=== PATIENT | male | born 1950 | race Caucasian/White ===

== ENCOUNTER 2023-05-06 07:29 | Outpatient (AMB) | payer MEDICARE, SELFPAY ==
--- NOTE | 2023-05-06 07:31 | MHC.PC.OV ---
Vital Signs 05/06/23 07:33 Height 6 ft Weight 180 lb BMI 24.4 BP 118/80 Blood Pressure Location Lt brachial Position Sitting Pulse 60 Pulse Source Pulse Oximeter Pulse Oximetry (%) 97 Oxygen Delivery Method Room Air Intake Visit Reasons: New patient-Kidney stones Allergies No Known Allergies Allergy (Verified 05/06/23 07:34) Medication List - Last Reconciled 05/06/23 by Ne Dean MD aspirin (Adult Low Dose Aspirin) 81 mg PO DAILY carvedilol 6.25 mg PO BID famotidine 20 mg PO DAILY metformin ER 750 mg PO DAILY rosuvastatin 20 mg PO DAILY tamsulosin 0.4 mg PO DAILY Tobacco use date assessed: 05/06/23 Fall risk assessment: No Falls in past year Last assessed Fall Risk: 05/06/23 Dental Screening Dental Screen Date: 05/06/23 Did you have a dental visit in the last 12 months?: Yes Did you have a dental problem in the last 6 months where you did not have access to dental care?: No Was dental information given to patient?: Patient has dentist HPI New patient-Kidney stones HPI Details Pt presents for [facility] visit. Past medical history includes type 2 diabetes for 1 year the most recent A1c was around 9 a month ago, hyperlipidemia, coronary artery disease status post one stent 2008, nephrolithiasis. [facility] Family History (Updated 05/06/23 @ 08:28 by Ne Dean MD) Brother DM type 2 (diabetes mellitus, type 2) CAD (coronary artery disease) Father CAD (coronary artery disease) Social History (Updated 05/06/23 @ 08:18 by Ne Dean MD) 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:: , Housing: House Patient Tobacco Use Status: Never used Tobacco e-Cigarette/Vaping Use: Never Used service: No Current occupational status: retired Cognitive needs: No Hearing needs: Yes Vision needs: Yes Questionnaire PHQ-9 Over the last 2 weeks, how often have you been bothered by any of the following problems? 1. Little interest or pleasure in doing things: several days 2. Feeling down, depressed, or hopeless: not at all 3. Trouble falling or staying asleep, or sleeping too much: several days 4. Feeling tired or having little energy: several days 5. Poor appetite or overeating: not at all 6. Feeling bad about yourself - or that you are a failure or have let yourself or your family down: not at all 7. Trouble concentrating on things, such as reading the newspaper or watching television: not at all 8. Moving or speaking so slowly that other people could have noticed. Or the opposite - being so fidgety or restless that you have been moving around a lot more than usual: several days 9. Thoughts that you would be better off or of hurting yourself in some way: not at all Total score: 4 Depression Screening Interpretation: Negative 34600 - PHQ-9 Billing: Yes Source: Developed by Drs. Kimo Strauss, Josiane Maya, Jesus Alberto Fagan and colleagues, with an educational loren from [employer] Thrive Questionnaire Date Thrive assessed: 05/06/23 I am a: Patient What is your living situation today?: I have a steady place to live Within the past 12 months, did the food you bought not last and you didn't have the money to get more?: Never true Within the past 12 months, did you worry whether your food would run out before you got money to buy more?: Never true Do you have trouble paying for medicines?: No Do you have trouble getting transportation to medical appointments?: No Do you have trouble paying your heating and electricity bill?: No Do you have trouble taking care of your child, family member or friend?: No Do you have trouble with day-to-day activities such as bathing, preparing meals, shopping, managing finances, etc.?: No Are you currently unemployed and looking for a job?: No Are you interested in more education?: No AUDIT C Alcohol Use Questionnaire (AUDIT-C) 1. How often do you have a drink containing alcohol?: Never 3. How often do you have six or more drinks on one occasion?: Never Total Score: 0 Score Reviewed/Action Taken: No MILLA-7 AMB Questionnaire MILLA-7 Date MILLA - 7 assessed: 05/06/23 Feeling nervous, anxious, or on edge: 2 = More than half the days Not being able to stop or control worryin = Several days Worrying too much about different things: 1 = Several days Trouble relaxin = Several days Being so restless that it is hard to sit still: 0 = Not at all Becoming easily annoyed or irritable: 1 = Several days Feeling afraid as if something awful might happen: 0 = Not at all Total MILLA-7 score (0-4 normal; 5-9 mild; 10-14 moderate; 15-21 severe): 6 Source: Developed by Drs. Kimo Strauss, Josiane Maya, Jesus Alberto Fagan and colleagues, with an educational loren from [employer] MILLA-7 Assessment Billing MILLA-7 Assessment Tool: MILLA-7 Assessment 62885 Review of Systems Const All systems reviewed & are unremarkable except as noted in HPI and below Reports no additional complaints Eyes Reports no additional complaints ENT Reports no additional complaints Card Reports no additional complaints Resp Reports no additional complaints GI Reports no additional complaints Reports no additional complaints Musc Reports no additional complaints Skin/Breast Reports system reviewed and no additional complaints, except as documented Physical exam (Primary Care) Vital Signs: Last Vital Signs Pulse 60 05/06/23 07:33 BP 118/80 05/06/23 07:33 Pulse Ox 97 05/06/23 07:33 Oxygen Delivery Method Room Air 05/06/23 07:33 BMI result Body Mass Index 24.4 Tobacco/Smoking Status: Tobacco use Status Tobacco use date assessed 05/06/23 05/06/23 07:39 Patient Tobacco Use Status Never used Tobacco 05/06/23 08:18 e-Cigarette/Vaping Use Never Used 05/06/23 08:18 PHQ-9: PHQ-9 Score PHQ-9: Total score 4 05/06/23 08:52 Depression Screening Interpretation: Negative Thrive Assessment: Date of Thrive Assessment Date Thrive assessed 05/06/23 05/06/23 08:52 Const General: no acute distress HENMT Head: Yes normal to inspection Ears: hearing grossly normal bilaterally Face and sinus: Yes normal facial exam Mouth: Normal oral and palatal mucosa present Teeth and gingiva: dentition normal Throat: Yes posterior oropharynx normal Eyes General: appearance normal, both eyes and all related structures Neck Neck: Yes no lymphadenopathy and Yes supple Chest Chest palpation & inspection: normal inspection of the chest Resp Effort & Inspection: normal respiratory effort Cardio Rhythm: regular rhythm Heart sounds: S1 normal heart sound present and S2 normal heart sound present GI Inspection: Yes normal to inspection Palpation (GI): Soft to palpation and No hepatosplenomegaly present Auscultation: normal bowel sounds Assessment and Plan Assessment & Plan (1) DM type 2 (diabetes mellitus, type 2): Comment: since 2021 Code(s): E11.9 - Type 2 diabetes mellitus without complications Plan: Patient is reluctant to take a more than 1500 mg of metformin. ADA diet , regular physical activity discussed with the patient. he was advised to start monitoring his fasting blood glucose at least 3 times a week and record the readings. Patient will follow-up in 2 months with a fasting labs including A1c (2) HTN (hypertension): Code(s): I10 - Essential (primary) hypertension Plan: Continue current medications (3) Hyperlipidemia: Code(s): E78.5 - Hyperlipidemia, unspecified Plan: Continue statin (4) CAD (coronary artery disease): Comment: 1 stent 2008, f/u cardiology [facility] Code(s): I25.10 - Atherosclerotic heart disease of [place] coronary artery without angina pectoris Plan: Follow-up with cardiology annually (5) BPH (benign prostatic hyperplasia): Code(s): N40.0 - Benign prostatic hyperplasia without lower urinary tract symptoms Plan: Follow-up with urology (6) PVD (peripheral vascular disease): Comment: [facility] Code(s): I73.9 - Peripheral vascular disease, unspecified (7) Hx of colonoscopy: Comment: 2021 negative Trinitiy Code(s): Z98.890 - Other specified postprocedural states (8) Nephrolithiasis: Comment: f/u Dr. Siegel Code(s): N20.0 - Calculus of kidney Plan: Follow-up with urology Orders: Orders Comprehensive [place]. Panel Fast 2 Months E11.9 - Type 2 diabetes mellitus without complications, E78.5 - Hyperlipidemia, unspecified, I10 - Essential (primary) hypertension Hemoglobin A1c 2 Months E11.9 - Type 2 diabetes mellitus without complications, E78.5 - Hyperlipidemia, unspecified, I10 - Essential (primary) hypertension Lipid Panel 2 Months E11.9 - Type 2 diabetes mellitus without complications, E78.5 - Hyperlipidemia, unspecified, I10 - Essential (primary) hypertension PSA,Total (Free>4and<10) 2 Months E11.9 - Type 2 diabetes mellitus without complications, E78.5 - Hyperlipidemia, unspecified, I10 - Essential (primary) hypertension Microalbumin, Random (w Creat) 2 Months E11.9 - Type 2 diabetes mellitus without complications, E78.5 - Hyperlipidemia, unspecified, I10 - Essential (primary) hypertension Complete Blood Count Auto Diff 2 Months E11.9 - Type 2 diabetes mellitus without complications, E78.5 - Hyperlipidemia, unspecified, I10 - Essential (primary) hypertension Medications: New blood sugar diagnostic (FreeStyle Lite Strips) 1 qd 100 ea 3RF blood-glucose meter (FreeStyle Lite Meter kit) As directed 1 ea 0RF Coding Level of Care Code New Pt Level 4 (90763) Diagnoses DM type 2 (diabetes mellitus, type 2) E11.9 HTN (hypertension) I10 Hyperlipidemia E78.5 CAD (coronary artery disease) I25.10 BPH (benign prostatic hyperplasia) N40.0 PVD (peripheral vascular disease) I73.9 Hx of colonoscopy Z98.890 Nephrolithiasis N20.0 Additional Codes MILLA-7 Assessment Billing - MILLA-7 Assessment Tool: MILLA-7 Assessment 66921 ([id number])
[2023-05-06 07:33] VITALS: BP 118/80; PULSE 60; O2SAT 97; BMI 24.4
== END 2023-05-06 10:12 | disposition home or self-care (01) ==
PROVIDERS: Visit Provider Internal Medicine
DX: E11.51 Type 2 diabetes mellitus with diabetic peripheral angiopathy without gangrene (principal); I10 Essential (primary) hypertension; I73.9 Peripheral vascular disease, unspecified; Z98.890 Other specified postprocedural states; E78.5 Hyperlipidemia, unspecified; I25.10 Atherosclerotic heart disease of native coronary artery without angina pectoris; N40.0 Benign prostatic hyperplasia without lower urinary tract symptoms; N20.0 Calculus of kidney
CPT/HCPCS: 99204

== ENCOUNTER 2023-06-30 12:52 | Outpatient (AMB) | payer MEDICARE, SELFPAY ==
[2023-06-30 13:01] VITALS: BP 157/68; PULSE 60; BMI 24.5
--- NOTE | 2023-06-30 13:01 | A.OFFVIS_ITS ---
Intake Vital Signs 06/30/23 13:01 Height 6 ft Weight 181 lb BMI 24.5 BP 157/68 H Blood Pressure Location Rt brachial Position Sitting Pulse 60 Intake Visit Reasons: Abd hernia Intake Note: Patient was referred by pcp Dr. Dean for abdominal hernia. Has been present for 2-3m. C/o pain that comes and goes. Sitting and laying down helps. Table And Desk Finisher Required: No Accompanied by: Self / Same As Patient Allergies No Known Allergies Allergy (Verified 06/30/23 13:03) HPI HPI Comments History of Present Illness Details Patient presents with a three-month history of symptomatic right inguinal hernia. He thinks this happened during a bout of a severe constipation which actually required ER visit for disimpaction. Patient otherwise tolerating a diet and having regular bowel habits. He has had colonoscopies in the past. Patient is status post coronary stenting approximately 14 years ago. Chart was reviewed patient evaluated [facility] Medical History (Updated 06/30/23 @ 13:06 by LYNNE Ewing) Presence of stent in artery Hx of type 2 diabetes mellitus Family History Brother DM type 2 (diabetes mellitus, type 2) CAD (coronary artery disease) Father CAD (coronary artery disease) Social History (Updated 06/30/23 @ 13:06 by LYNNE Ewing) 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:: , Housing: House Alcohol intake: never Patient Tobacco Use Status: Never used Tobacco e-Cigarette/Vaping Use: Never Used service: No Current occupational status: retired Cognitive needs: No Hearing needs: Yes Vision needs: Yes Physical Exam Vital Signs: Last Vital Signs Pulse 60 06/30/23 13:01 BP 157/68 H 06/30/23 13:01 BMI result Body Mass Index 24.5 Chest Other: Hs 1 and 2, chest breath sounds bilaterally GI Other: Patient was examined standing with Valsalva. Abdomen soft benign. Left groin negative. Genitalia within normal limits. Moderately sized right inguinal hernia. Assessment & Plan Assessment & Plan (1) Hernia: Code(s): K46.9 - Unspecified abdominal hernia without obstruction or gangrene Plan Risks, benefits, alternatives of open inguinal hernia repair right side with mesh were reviewed with the patient which included but not limited to bleeding, infection, recurrence, numbness, pain, scarring and the patient wishes to procee d. All questions were answered. Arrangements were made for this. Coding Level of Care Code New Pt Level 5 (61217) Diagnoses Hernia K46.9
== END 2023-06-30 13:35 | disposition home or self-care (01) ==
PROVIDERS: PCP Internal Medicine; Referring Provider Internal Medicine; Visit Provider Surgery
DX: K46.9 Unspecified abdominal hernia without obstruction or gangrene (principal)
CPT/HCPCS: 99204

== ENCOUNTER → 2023-06-30 12:52 | Outpatient (BNVA) | payer MEDICARE, SELFPAY | PROVIDERS: PCP Internal Medicine; Referring Provider Internal Medicine; Visit Provider Surgery ==

== ENCOUNTER 2023-08-06 11:45 | Outpatient (AMB) | payer MEDICARE, SELFPAY ==
[2023-08-06 11:55] VITALS: BP 144/76; PULSE 54; O2SAT 98; BMI 24.4
--- NOTE | 2023-08-06 11:55 | MHC.PC.OV ---
Vital Signs 08/06/23 11:55 Height 6 ft Weight 180 lb BMI 24.4 BP 144/76 H Blood Pressure Location Lt brachial Position Sitting Pulse 54 Pulse Source Pulse Oximeter Pulse Oximetry (%) 98 Oxygen Delivery Method Room Air Intake Visit Reasons: 2 month Follow up Intake Note: Pt is here today for 2 months follow up visit. Allergies No Known Allergies Allergy (Verified 08/06/23 11:56) Tobacco use date assessed: 05/06/23 HPI 2 month Follow up HPI Details Pt presents for DM 2, HTN, hyperlipid, stable on meds. He will have a hernia repair surgery next month. PFSH Medical History [place] (hard of hearing) Arthritis GERD (gastroesophageal reflux disease) Thoracic aortic aneurysm without rupture Elevated cholesterol HTN (hypertension) CAD (coronary artery disease) BPH (benign prostatic hyperplasia) Nephrolithiasis Hx of type 2 diabetes mellitus Surgical History History of esophagogastroduodenoscopy (EGD) Hx of lithotripsy Hx of heart artery stent H/O colonoscopy Family History Brother DM type 2 (diabetes mellitus, type 2) CAD (coronary artery disease) Father CAD (coronary artery disease) Social History 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:: , Housing: House Are you a primary emergency care attendant to a significant other at home: No Do you presently have visiting nurse or other home services: No Alcohol intake: never Patient Tobacco Use Status: Former Tobacco user Quit Date: age 27 Tobacco use type: Cigarette Years Smoked: 8 e-Cigarette/Vaping Use: Never Used service: No Current occupational status: retired Cognitive needs: No Hearing needs: Yes Vision needs: Yes Questionnaire Thrive Questionnaire Date Thrive assessed: 05/06/23 MILLA-7 AMB Questionnaire MILLA-7 Date MILLA - 7 assessed: 05/06/23 Source: Developed by Drs. Kimo Strauss, Josiane Maya, Jesus Alberto Fagan and colleagues, with an educational loren from [employer]. Review of Systems Const All systems reviewed & are unremarkable except as noted in HPI and below Reports no additional complaints Eyes Reports no additional complaints ENT Reports no additional complaints Card Reports no additional complaints Resp Reports no additional complaints GI Reports no additional complaints Reports no additional complaints Physical exam (Primary Care) Vital Signs: Last Vital Signs Pulse 54 08/06/23 11:55 BP 144/76 H 08/06/23 11:55 Pulse Ox 98 08/06/23 11:55 Oxygen Delivery Method Room Air 08/06/23 11:55 BMI result Body Mass Index 24.4 Tobacco/Smoking Status: Tobacco use Status Tobacco use date assessed 05/06/23 08/06/23 11:59 Patient Tobacco Use Status Former Tobacco user 08/06/23 11:59 Tobacco use type Cigarette 08/06/23 11:59 e-Cigarette/Vaping Use Never Used 08/06/23 11:59 Thrive Assessment: Date of Thrive Assessment Date Thrive assessed 05/06/23 08/06/23 11:59 Const General: no acute distress HENMT Head: Yes normal to inspection Face and sinus: Yes normal facial exam Neck Neck: Yes supple Resp Effort & Inspection: normal respiratory effort Auscultation: clear to auscultation bilaterally Cardio Rhythm: regular rhythm Heart sounds: S1 normal heart sound present and S2 normal heart sound present GI Palpation (GI): Soft to palpation Percussion: Yes normal to percussion Auscultation: normal bowel sounds Assessment and Plan Assessment & Plan (1) Vitamin B 12 deficiency: Code(s): E53.8 - Deficiency of other specified B group vitamins Plan: For slight macrocytosis check B12 level (2) Hyperlipidemia: Code(s): E78.5 - Hyperlipidemia, unspecified Plan: Continue statin (3) HTN (hypertension): Code(s): I10 - Essential (primary) hypertension Plan: Continue current medications (4) DM type 2 (diabetes mellitus, type 2): Comment: since 2021 Code(s): E11.9 - Type 2 diabetes mellitus without complications Plan: A1c is 6.3, ADA diet, continue current medication, increase physical activity. Patient was advised to eat the main meal in the middle of the day Orders: Orders Vitamin B12 Today E53.8 - Deficiency of other specified B group vitamins Comprehensive [place]. Panel Fast 3 Months E11.9 - Type 2 diabetes mellitus without complications, E53.8 - Deficiency of other specified B group vitamins, E78.5 - Hyperlipidemia, unspecified, I10 - Essential (primary) hypertension Complete Blood Count Auto Diff 3 Months E11.9 - Type 2 diabetes mellitus without complications, E53.8 - Deficiency of other specified B group vitamins, E78.5 - Hyperlipidemia, unspecified, I10 - Essential (primary) hypertension Lipid Panel 3 Months E11.9 - Type 2 diabetes mellitus without complications, E53.8 - Deficiency of other specified B group vitamins, E78.5 - Hyperlipidemia, unspecified, I10 - Essential (primary) hypertension Hemoglobin A1c 3 Months E11.9 - Type 2 diabetes mellitus without complications, E53.8 - Deficiency of other specified B group vitamins, E78.5 - Hyperlipidemia, unspecified, I10 - Essential (primary) hypertension Microalbumin, Random (w Creat) 3 Months E11.9 - Type 2 diabetes mellitus without complications, E53.8 - Deficiency of other specified B group vitamins, E78.5 - Hyperlipidemia, unspecified, I10 - Essential (primary) hypertension Coding Level of Care Code Est Pt Level 4 (64449) Diagnoses Vitamin B 12 deficiency E53.8 Hyperlipidemia E78.5 HTN (hypertension) I10 DM type 2 (diabetes mellitus, type 2) E11.9
== END 2023-08-06 12:54 | disposition home or self-care (01) ==
PROVIDERS: PCP Internal Medicine; Visit Provider Internal Medicine
DX: E53.8 Deficiency of other specified B group vitamins (principal); E78.5 Hyperlipidemia, unspecified; I10 Essential (primary) hypertension; E11.9 Type 2 diabetes mellitus without complications
CPT/HCPCS: 99214

== ENCOUNTER 2023-08-06 12:49 | Outpatient (REF) | payer MEDICARE, SELFPAY ==
[2023-08-06 16:50] LABS: Vitamin B12 382 pg/mL (200-900)
== END 2023-08-06 12:50 | disposition home or self-care (01) ==
LOC: HO.HMGCLDS 12:49
PROVIDERS: PCP Internal Medicine; Visit Provider Internal Medicine
DX: E53.8 Deficiency of other specified B group vitamins (principal)
CPT/HCPCS: 36415; 82607

== ENCOUNTER 2023-08-21 05:58 | Day surgery (SDC) | payer MEDICARE, SELFPAY ==
[2023-07-24 13:25] VITALS: BP 162/79; PULSE 61; RESP 20; O2SAT 99; BMI 24.4
--- NOTE | 2023-07-24 14:05 | HO.ANESPROP2 ---
Documented by User: Reny Nevarez NP 08/04/23 14:38 HPI - Anesthesia Eval Consult details Narrative: 73yo M for Right Hernia Repair Inguinal with mesh, 08/21/23 Cardiac cleared. Must continue ASA periop No recent illness No CP/SOB with >4mets CAD with stent 2009 TAA @ 4.3cm DM. FBS ~170 PMFSH Active Problems Active Problems: All Active Problems (Updated 07/24/23 @ 13:17 by Sepideh Jackson RN) Hernia (Acute) Hx of colonoscopy (Acute) Nephrolithiasis (Acute) PVD (peripheral vascular disease) (Acute) BPH (benign prostatic hyperplasia) (Acute) CAD (coronary artery disease) (Acute) Hyperlipidemia (Acute) HTN (hypertension) (Acute) DM type 2 (diabetes mellitus, type 2) (Acute) Past Medical History Medical History [place] (hard of hearing) Arthritis GERD (gastroesophageal reflux disease) Thoracic aortic aneurysm without rupture Elevated cholesterol HTN (hypertension) CAD (coronary artery disease) BPH (benign prostatic hyperplasia) Nephrolithiasis Hx of type 2 diabetes mellitus Family History Family History Brother DM type 2 (diabetes mellitus, type 2) CAD (coronary artery disease) Father CAD (coronary artery disease) Family history of problems with anesthesia: No Surgical History Surgical History History of esophagogastroduodenoscopy (EGD) Hx of lithotripsy Hx of heart artery stent H/O colonoscopy History of Problems with Anesthesia: No Social History Social History 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:: , Housing: House Are you a primary care program director to a significant other at home: No Do you presently have visiting nurse or other home services: No Alcohol intake: never Patient Tobacco Use Status: Former Tobacco user Quit Date: age 27 Tobacco use type: Cigarette Years Smoked: 8 e-Cigarette/Vaping Use: Never Used Use of substances other than those prescribed or required for medical reasons: Yes Substance Use Type Other:: 2-3 times/week Have you been hit, kicked, punched, or otherwise hurt by someone within the past year? If so, by whom?: No Are you DNR?: No Advance Directives Information Provided: Yes Advance Directives on File: No Recently lost weight without trying: No Eating poorly because of decreased appetite: No Nutrition Risks: No Nutritional Risk Poor oral hygiene: No service: No Current occupational status: retired Cognitive needs: No Hearing needs: Yes Vision needs: Yes Meds Allergies Allergy/AdvReac Type Severity Reaction Status Date / Time No Known Allergies Allergy Verified 08/21/23 06:28 Home Medications Medication Instructions Recorded Confirmed Last Taken Type aspirin 81 mg tablet,delayed 81 mg PO DAILY 05/06/23 08/21/23 08/20/23 History release (Adult Low Dose Aspirin) famotidine 20 mg tablet 20 mg PO BEDTIME 07/24/23 08/21/23 Unknown History metformin 1,000 mg tablet 1,000 mg PO BEDTIME 07/24/23 08/21/23 08/20/23 History metformin 500 mg tablet 500 mg PO QAM 07/24/23 08/21/23 08/20/23 History rosuvastatin 20 mg tablet 20 mg PO BEDTIME 07/24/23 08/21/23 Unknown History tamsulosin 0.4 mg capsule 0.4 mg PO BEDTIME 07/24/23 08/21/23 Unknown History vit C 250 mg-E 90 mg-zinc 40 1 tab PO QAM 07/24/23 08/21/23 Unknown History mg-copper 1 [id number] chew tablet (PreserVision AREDS-2) Exam Exam Date and Time: July 24, 2023 1405 Height,Weight and Vital Signs: Height 6 ft Weight 81.647 kg Last Vital Signs Pulse 61 07/24/23 13:25 Resp 20 07/24/23 13:25 BP 162/79 H 07/24/23 13:25 Pulse Ox 99 07/24/23 13:25 O2 Del Method Room Air 07/24/23 13:25 Pertinent Lab Results Pertinent Lab Results: BMP and CBC 06/2023 from outside facility WNL A1C @ 6.3 Narrative Narrative: EKG 01/2023 SR with 1st deg AV block ECHO 03/2023 Nml LV size , wall thickness and systolic function Nml regional wall motion Abn LV diastolic function LVEF 55-60% Probably nml DD Nml RV size. RV appears nml in function. PASP not elevated Atria nml in size No hemodynamically signficant valve disease Sinus of Valsalva 4.2cm Asc aorta 3.7cm Airway Mallampati Class: I TM Dist: >3cm Neck ROM: Full Loose/Missing/Broken Teeth: Yes (Crowned molars, pulled molars) Heart: RRR Lungs: CTAB Assessment and Plan Assessment Anesthesia Assessment: Anesthesia Plan Discussed and PAT Visit Final Anesthetic Review Family History of Problems with Anesthesia: No History of Problems with Anesthesia: No Documented by User: Hollie Cartagena MD 08/21/23 07:20 [facility] Past Medical History Medical History [place] (hard of hearing) Arthritis GERD (gastroesophageal reflux disease) Thoracic aortic aneurysm without rupture Elevated cholesterol HTN (hypertension) CAD (coronary artery disease) BPH (benign prostatic hyperplasia) Nephrolithiasis Hx of type 2 diabetes mellitus Family History Family History Brother DM type 2 (diabetes mellitus, type 2) CAD (coronary artery disease) Father CAD (coronary artery disease) Surgical History Surgical History History of esophagogastroduodenoscopy (EGD) Hx of lithotripsy Hx of heart artery stent H/O colonoscopy Social History Social History 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:: , Housing: House Are you a primary care program director to a significant other at home: No Do you presently have visiting nurse or other home services: No Alcohol intake: never Patient Tobacco Use Status: Former Tobacco user Quit Date: age 27 Tobacco use type: Cigarette Years Smoked: 8 e-Cigarette/Vaping Use: Never Used Use of substances other than those prescribed or required for medical reasons: Yes Substance Use Type Other:: 2-3 times/week Have you been hit, kicked, punched, or otherwise hurt by someone within the past year? If so, by whom?: No Are you DNR?: No Advance Directives Information Provided: Yes Advance Directives on File: No Recently lost weight without trying: No Eating poorly because of decreased appetite: No Nutrition Risks: No Nutritional Risk Poor oral hygiene: No service: No Current occupational status: retired Cognitive needs: No Hearing needs: Yes Vision needs: Yes Meds Allergies Allergy/AdvReac Type Severity Reaction Status Date / Time No Known Allergies Allergy Verified 08/21/23 06:28 Home Medications Medication Instructions Recorded Confirmed Last Taken Type aspirin 81 mg tablet,delayed 81 mg PO DAILY 05/06/23 08/21/23 08/20/23 History release (Adult Low Dose Aspirin) famotidine 20 mg tablet 20 mg PO BEDTIME 07/24/23 08/21/23 Unknown History metformin 1,000 mg tablet 1,000 mg PO BEDTIME 07/24/23 08/21/23 08/20/23 History metformin 500 mg tablet 500 mg PO QAM 07/24/23 08/21/23 08/20/23 History rosuvastatin 20 mg tablet 20 mg PO BEDTIME 07/24/23 08/21/23 Unknown History tamsulosin 0.4 mg capsule 0.4 mg PO BEDTIME 07/24/23 08/21/23 Unknown History vit C 250 mg-E 90 mg-zinc 40 1 tab PO QAM 07/24/23 08/21/23 Unknown History mg-copper 1 [id number] chew tablet (PreserVision AREDS-2) Exam Airway Mallampati Class: II Loose/Missing/Broken Teeth: No Assessment and Plan Assessment Anesthesia Assessment: Chart Reviewed Final Anesthetic Review NPO: Yes ASA Class: III Final Preanesthetic Review: Meds/Allgs Chart Reviewed, Consent Obtained/Reviewed and Anes Risks/Benef Reviewed Patient Risk: Intermediate Procedure Risk: Low Anesthetic Plan Anesthetic Plan: GA Disposition: Standard PACU
--- NOTE | 2023-07-30 09:26 | MHC.SHP ---
Pre-Procedural Eval Section A Date of Service: 07/30/23 The patient is an INPATIENT: No Changes since office visit: No Cold of Flu in the past 2 weeks, No New Medical Problems, No Changes in Medication and No Patient answered all questions The History & Physical has been completed within 30 days and I have reviewed it.: Yes Section B Chief Complaint: Unspecified abdominal hernia without obstruction Allergies: Allergies Allergy/AdvReac Type Severity Reaction Status Date / Time No Known Allergies Allergy Verified 06/30/23 13:03 Plan I have reviewed the history and physical and performed a pertinent physical examination on my patient. No changes have occurred unless specified. Time Spent With Patient Time: Total time managing care of this patient today ____ minutes.
--- NOTE | 2023-08-19 13:04 | MHC.SHP ---
Pre-Procedural Eval Section A Date of Service: 08/19/23 The patient is an INPATIENT: No Changes since office visit: No Cold of Flu in the past 2 weeks, No New Medical Problems, No Changes in Medication and No Patient answered all questions The History & Physical has been completed within 30 days and I have reviewed it.: Yes Section B Chief Complaint: Unspecified abdominal hernia without obstruction Allergies: Allergies Allergy/AdvReac Type Severity Reaction Status Date / Time No Known Allergies Allergy Verified 08/06/23 11:56 Plan I have reviewed the history and physical and performed a pertinent physical examination on my patient. No changes have occurred unless specified. Time Spent With Patient Time: Total time managing care of this patient today ____ minutes.
[2023-08-21 06:31] VITALS: BP 143/63; PULSE 57; RESP 16; TEMP 36.2; O2SAT 100
[2023-08-21 06:36] LABS: Glucose, Whole Blood 181 mg/dL (60-115)
[2023-08-21 06:40] VITALS: BMI 24.6
[2023-08-21] MEDS: Lactated Ringers 1,000 ML 100 ML IVCONT (07:12)
--- NOTE | 2023-08-21 07:31 | MHC.SHP ---
Pre-Procedural Eval Section A Date of Service: 08/21/23 The patient is an INPATIENT: No Changes since office visit: No Cold of Flu in the past 2 weeks, No New Medical Problems, No Changes in Medication and No Patient answered all questions The History & Physical has been completed within 30 days and I have reviewed it.: Yes Section B Chief Complaint: Unspecified abdominal hernia without obstruction Allergies: Allergies Allergy/AdvReac Type Severity Reaction Status Date / Time No Known Allergies Allergy Verified 08/21/23 06:28 Plan I have reviewed the history and physical and performed a pertinent physical examination on my patient. No changes have occurred unless specified. Time Spent With Patient Time: Total time managing care of this patient today ____ minutes.
--- NOTE | 2023-08-21 08:22 | P.OP_ITS ---
Operative Note Operative Note Date of Service: 08/21/23 Narrative: Preoperative diagnosis: [] Symptomatic right inguinal hernia Postop diagnosis: [] Same Procedure [] open right inguinal herniorrhaphy with Bard mesh Surgeon: [] Jhon Fly Raiser Lockstitch: [] Ksenia Type of Anesthesia: [] General Indication for surgery: [] Large indirect hernia. No direct hernia demonstrated Findings: [] Patient brought to the operating room, placed on operative table in supine position, after adequate level of general anesthesia was induced, the right groin was prepped and draped in usual sterile fashion. Using a small right para- inguinal incision, this carried down through skin, subcutaneous tissue, Stephon's fascia. External oblique fibers were opened in the direction to isolate and preserve the ilioinguinal nerve throughout the procedure. Spermatic cord was identified and retracted from the field. No direct hernia was demonstrated. A large indirect hernia sac was from the cord and reduced. A Bard plug was placed in the indirect defect, and sutured inferiorly to the inguinal ligament, and superiorly to the transversalis fascia using interrupted 0 Ethibond suture. The mesh covered the entire inguinal floor. Wound was irrigated, secured hemostasis. Was closed in the following manner; external oblique fascia was closed using running 2-0 Vicryl suture. Stephon's fascia was reapproximated using interrupted 3-0 Vicryl sutures. Interrupted inverted dermal 3-0 Vicryl sutures followed by running subcuticular 4-0 Vicryl sutures were placed. Steri-Strips and sterile dressings were applied. Wound was infiltrated with 0.5% Marcaine as well as ilioinguinal block performed. At completion the procedure, ipsilateral testicle was intrascrotal. Sponge, needle, and instrument counts were reported to be correct. Patient tolerated the procedure well and emerged from anesthesia in stable condition. EBL minimal
[2023-08-21 08:25] VITALS: BP 117/61; PULSE 54; RESP 16; TEMP 36.5; O2SAT 99
[2023-08-21 08:30] VITALS: BP 125/61; PULSE 56; RESP 16; O2SAT 99
[2023-08-21 08:35] VITALS: BP 140/61; PULSE 52; RESP 16; O2SAT 96
[2023-08-21 08:40] VITALS: BP 144/57; PULSE 64; RESP 16; TEMP 36.1; O2SAT 96
[2023-08-21 08:55] VITALS: BP 142/61; PULSE 62; RESP 16; TEMP 36.1; O2SAT 96
== END 2023-08-21 09:34 | disposition home or self-care (01) ==
PROVIDERS: PCP Internal Medicine; Visit Provider Surgery
PROC: (CPT 49505; principal; 2023-08-21 07:30)
DX: K40.90 Unilateral inguinal hernia, without obstruction or gangrene, not specified as recurrent (principal); I25.10 Atherosclerotic heart disease of native coronary artery without angina pectoris; Z95.5 Presence of coronary angioplasty implant and graft; I10 Essential (primary) hypertension; E78.00 Pure hypercholesterolemia, unspecified; I71.20 Thoracic aortic aneurysm, without rupture, unspecified; E11.9 Type 2 diabetes mellitus without complications; K21.9 Gastro-esophageal reflux disease without esophagitis; Z79.82 Long term (current) use of aspirin; Z79.84 Long term (current) use of oral hypoglycemic drugs; Z79.899 Other long term (current) drug therapy; Z87.891 Personal history of nicotine dependence
CPT/HCPCS: 49505; 82947; C1781; J0665; J0690; J1100; J1170; J2250; J2405; J2704

== ENCOUNTER → 2023-08-21 05:58 | Outpatient (BNV) | payer MEDICARE, SELFPAY | PROVIDERS: PCP Internal Medicine; Visit Provider Surgery | DX: K46.9 Unspecified abdominal hernia without obstruction or gangrene (principal) | CPT/HCPCS: 49505 ==

== ENCOUNTER 2023-09-01 09:50 | Outpatient (AMB) | payer MEDICARE, SELFPAY ==
[2023-09-01 10:02] VITALS: BP 190/88; PULSE 78
--- NOTE | 2023-09-01 10:02 | MHC.OFFVIS ---
Intake Vital Signs 09/01/23 10:02 Weight 180 lb BP 190/88 H Blood Pressure Location Rt brachial Position Sitting Pulse 78 Intake Visit Reasons: S/P RIH w/mesh Intake Note: Patient here s/p RIH w/mesh. Reports incision healing well. Denies pain, oozing, itch. No longer taking rx pain meds. Water Quality Analyst Required: No Accompanied by: Self / Same As Patient Allergies No Known Allergies Allergy (Verified 09/01/23 10:03) HPI HPI Comments History of Present Illness Details Patient presents for follow-up status post right inguinal hernia repair. Has minimal incisional discomfort. He is tolerating his diet. Having regular bowel habits. Patient actually went bowling last week , much to my disappointment. PFSH Medical History [place] (hard of hearing) Arthritis GERD (gastroesophageal reflux disease) Thoracic aortic aneurysm without rupture Elevated cholesterol HTN (hypertension) CAD (coronary artery disease) BPH (benign prostatic hyperplasia) Nephrolithiasis Hx of type 2 diabetes mellitus Surgical History History of esophagogastroduodenoscopy (EGD) Hx of lithotripsy Hx of heart artery stent H/O colonoscopy Family History Brother DM type 2 (diabetes mellitus, type 2) CAD (coronary artery disease) Father CAD (coronary artery disease) 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:: , Housing: House Are you a primary manager care to a significant other at home: No Do you presently have visiting nurse or other home services: No Alcohol intake: never Patient Tobacco Use Status: Former Tobacco user Quit Date: age 27 Tobacco use type: Cigarette Years Smoked: 8 e-Cigarette/Vaping Use: Never Used service: No Current occupational status: retired Cognitive needs: No Hearing needs: Yes Vision needs: Yes Physical Exam Vital Signs: Last Vital Signs Pulse 78 09/01/23 10:02 BP 190/88 H 09/01/23 10:02 GI Other: Abdomen soft. Groin wound clean dry intact healing very well. Resolving ecchymosis of scrotum. Assessment & Plan Assessment & Plan (1) Hernia: Code(s): K46.9 - Unspecified abdominal hernia without obstruction or gangrene Plan Patient has been given local instructions including avoiding bowling for the next few weeks time. All questions were answered. He will follow-up p.r.n. pain Coding Level of Care Code Global (69631) Diagnoses Hernia K46.9
== END 2023-09-01 10:26 | disposition home or self-care (01) ==
PROVIDERS: PCP Internal Medicine; Visit Provider Surgery
DX: K46.9 Unspecified abdominal hernia without obstruction or gangrene (principal)
CPT/HCPCS: 99024

== ENCOUNTER → 2023-09-01 09:50 | Outpatient (BNVA) | payer MEDICARE, SELFPAY | PROVIDERS: PCP Internal Medicine; Visit Provider Surgery ==

== ENCOUNTER 2023-11-06 11:43 | Outpatient (AMB) | payer MEDICARE, SELFPAY ==
[2023-11-06 11:56] VITALS: BP 142/76; PULSE 57; O2SAT 97; BMI 24.4
--- NOTE | 2023-11-06 11:56 | A.OFFPC_ITS ---
Vital Signs 11/06/23 11:56 Height 6 ft Weight 180 lb BMI 24.4 BP 142/76 H Blood Pressure Location Lt brachial Position Sitting Pulse 57 Pulse Source Pulse Oximeter Pulse Oximetry (%) 97 Oxygen Delivery Method Room Air Intake Visit Reasons: 3 Month follow up Intake Note: Pt is here today for 3 months follow up visit. Allergies No Known Allergies Allergy (Verified 11/06/23 11:58) Medication List - Last Reconciled 11/06/23 by Ne Dean MD aspirin (Adult Low Dose Aspirin) 81 mg PO DAILY blood sugar diagnostic (FreeStyle Lite Strips) 1 qd blood-glucose meter (FreeStyle Lite Meter kit) As directed carvedilol 6.25 mg PO BID empagliflozin (Jardiance) 10 mg PO DAILY famotidine 20 mg PO BEDTIME lancets (FreeStyle Lancets) test once a day metformin 500 mg PO QAM metformin 1,000 mg PO BEDTIME rosuvastatin 20 mg PO BEDTIME tamsulosin 0.4 mg PO BEDTIME vit C,I-Yl-kjvgb-lutein-zeaxan 250-90-40-1 mg (PreserVision AREDS-2) 1 tab PO QAM Tobacco use date assessed: 11/06/23 Fall risk assessment: No Falls in past year Last assessed Fall Risk: 11/06/23 Dental Screening Dental Screen Date: 11/06/23 Did you have a dental visit in the last 12 months?: Yes Did you have a dental problem in the last 6 months where you did not have access to dental care?: No Was dental information given to patient?: Patient has dentist HPI 3 Month follow up HPI Details Patient presents for the follow-up of hyperlipidemia type 2 diabetes and hypertension. He has not been monitoring his blood glucose and has not been following ADA diet. He walks twice a day week only PFSH Medical History [place] (hard of hearing) Arthritis GERD (gastroesophageal reflux disease) Thoracic aortic aneurysm without rupture Elevated cholesterol HTN (hypertension) CAD (coronary artery disease) BPH (benign prostatic hyperplasia) Nephrolithiasis Hx of type 2 diabetes mellitus Surgical History History of esophagogastroduodenoscopy (EGD) Hx of lithotripsy Hx of heart artery stent H/O colonoscopy Family History Brother DM type 2 (diabetes mellitus, type 2) CAD (coronary artery disease) Father CAD (coronary artery disease) Social History 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:: , Housing: House Are you a primary acute care assistant to a significant other at home: No Do you presently have visiting nurse or other home services: No Alcohol intake: never Patient Tobacco Use Status: Former Tobacco user Quit Date: age 27 Tobacco use type: Cigarette Years Smoked: 8 e-Cigarette/Vaping Use: Never Used service: No Current occupational status: retired Cognitive needs: No Hearing needs: Yes Vision needs: Yes Questionnaire Thrive Questionnaire Date Thrive assessed: 05/06/23 AUDIT C Alcohol Use Questionnaire (AUDIT-C) 1. How often do you have a drink containing alcohol?: Never 3. How often do you have six or more drinks on one occasion?: Never Total Score: 0 MILLA-7 AMB Questionnaire MILLA-7 Date MILLA - 7 assessed: 05/06/23 Source: Developed by Drs. Kimo Strauss, Josiane Maya, Jesus Alberto Fagan and colleagues, with an educational lroen from [employer]. Review of Systems Const All systems reviewed & are unremarkable except as noted in HPI and below Reports no additional complaints Eyes Reports no additional complaints ENT Reports no additional complaints Card Reports no additional complaints Resp Reports no additional complaints GI Reports no additional complaints Reports no additional complaints Physical exam (Primary Care) Vital Signs: Last Vital Signs Pulse 57 11/06/23 11:56 BP 142/76 H 11/06/23 11:56 Pulse Ox 97 11/06/23 11:56 Oxygen Delivery Method Room Air 11/06/23 11:56 BMI result Body Mass Index 24.4 Tobacco/Smoking Status: Tobacco use Status Tobacco use date assessed 11/06/23 11/06/23 12:01 Patient Tobacco Use Status Former Tobacco user 11/06/23 12:01 Tobacco use type Cigarette 11/06/23 12:01 e-Cigarette/Vaping Use Never Used 11/06/23 12:01 Thrive Assessment: Date of Thrive Assessment Date Thrive assessed 05/06/23 11/06/23 12:01 Const General: no acute distress Neck Neck: Yes no lymphadenopathy Resp Effort & Inspection: normal respiratory effort Auscultation: clear to auscultation bilaterally Cardio Rhythm: regular rhythm Heart sounds: S1 normal heart sound present and S2 normal heart sound present Assessment and Plan Assessment & Plan (1) DM type 2 (diabetes mellitus, type 2): Comment: since 2021 Code(s): E11.9 - Type 2 diabetes mellitus without complications Plan: A1c is 7.6, ADA diet regular physical activity monitoring fasting blood glucose daily and recording the readings recommended, patient declined referral to grab jack man. Continue metformin and add Jardiance 10 mg daily. Follow-up in 1 month (2) HTN (hypertension): Code(s): I10 - Essential (primary) hypertension Plan: Continue current medication (3) Hyperlipidemia: Code(s): E78.5 - Hyperlipidemia, unspecified Plan: Continue statin Medications: New empagliflozin (Jardiance) 10 mg PO DAILY 90 tabs 0RF Coding Level of Care Code Est Pt Level 4 (48412) Diagnoses DM type 2 (diabetes mellitus, type 2) E11.9 HTN (hypertension) I10 Hyperlipidemia E78.5
== END 2023-11-06 13:28 | disposition home or self-care (01) ==
PROVIDERS: PCP Internal Medicine; Visit Provider Internal Medicine
DX: E11.69 Type 2 diabetes mellitus with other specified complication (principal); I10 Essential (primary) hypertension; E78.5 Hyperlipidemia, unspecified
CPT/HCPCS: 99214

== ENCOUNTER 2023-12-10 12:22 | Outpatient (AMB) | payer MEDICARE, SELFPAY ==
--- NOTE | 2023-12-10 12:34 | A.OFFVIS_ITS ---
Intake VS Expanded 12/10/23 12:35 12/11/23 11:18 Height 6 ft 6 ft Weight 182 lb 1.629 oz 182 lb BMI 24.7 24.7 Intake Visit Reasons: T2DM/ CONFIRMED Allergies No Known Allergies Allergy (Verified 11/06/23 11:58) HPI Nutrition Presentation Details Patient presents for initial medical nutrition therapy for type 2 diabetes. Patient was referred by Dr. Dean, primary care physician Pt reports having 3 meals/d, he comes in with list of questions to discuss regarding nutrition, we will go over his questions today ABR-Xdbnkuw-Fg.Jeor Equation Height 6 ft Weight 182 lb Resting Metabolic Rate 1603.71 Calculated Activity Level Moderate Activity Calories Needed to Maintain Weight 2485.75 Diagnosis Nutrition problem #1 food nutri know defi As related to (etiology) #1 diagnosis As evidenced by (sign/symptom) #1 knowledge deficit of diet and no prior educ - nutri rec Monitoring/Goals Nutrition problem monitoring level of knowledge/skill Outcome progress verbalized understanding Learning/Education Readiness to learn good Stages of change preparation Educational materials provided Yes (Meal planning, healthy plate method) Most Recent Diabetes Results: No Data to Display PFSH Medical History [place] (hard of hearing) Arthritis GERD (gastroesophageal reflux disease) Thoracic aortic aneurysm without rupture Elevated cholesterol HTN (hypertension) CAD (coronary artery disease) BPH (benign prostatic hyperplasia) Nephrolithiasis Hx of type 2 diabetes mellitus Surgical History History of esophagogastroduodenoscopy (EGD) Hx of lithotripsy Hx of heart artery stent H/O colonoscopy Family History Brother DM type 2 (diabetes mellitus, type 2) CAD (coronary artery disease) Father CAD (coronary artery disease) Social History 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:: , Housing: House Are you a primary post acute care nurse practitioner to a significant other at home: No Do you presently have visiting nurse or other home services: No Alcohol intake: never Patient Tobacco Use Status: Former Tobacco user Quit Date: age 27 Tobacco use type: Cigarette Years Smoked: 8 e-Cigarette/Vaping Use: Never Used service: No Current occupational status: retired Cognitive needs: No Hearing needs: Yes Vision needs: Yes Assessment & Plan Assessment & Plan (1) DM type 2 (diabetes mellitus, type 2): Comment: since 2021 Code(s): E11.9 - Type 2 diabetes mellitus without complications Plan: Wt: 83Kg ( 12/2023 ) Est kcal needs as per MSJ: [id number] (40% carb, 30% protein/fat) Est fluid needs as per 30 ml/d: 2500 Est prot per day as per 1 g/kg bw: 83 Recommend fiber intake : 8-10 g per day and gradually increase to 25-28 g per day for women and 35-38 g for men or as tolerated Recommend sodium intake per day : less than 2000 mg Educated patient on: ( R = reviewed V = verbalizes understanding N/R = needs review N/A = not applicable * Food sources of carbohydrate, adequate serving sizes and its role in various health conditions: R * Differences between complex carbohydrates a simple carbohydrates, role of fiber in diet: R * Lean protein sources of foods: R * Differences between types of fats and role in diet (mono on saturated fat fatty acids, saturated fatty acids, trans fats): N/R * Food sources of sodium in salt and healthy modifications for heart health in kidney health: NR * Vitamins and minerals: R * Healthy plate method concept: R * Physical activity: Benefits a precaution: R * Hypoglycemia protocol (rule of 15): N/R * Dietary prevention of Hyperglycemia: R Patient Instructions: Work on balancing her meals following healthy plate method Reduce on pastries opt for a yogurt or a fruit with nuts, combine eating protein and carbohydrate Choose water as her main beverage or milk, choose water with a him to flavor Coding Level of Care Code Nutr Indiv Intake (14117) Diagnoses DM type 2 (diabetes mellitus, type 2) E11.9 Time Spent (min) 30
[2023-12-10 12:35] VITALS: BMI 24.7
[2023-12-11 11:18] VITALS: BMI 24.7
== END 2023-12-10 13:20 | disposition home or self-care (01) ==
PROVIDERS: PCP Internal Medicine; Visit Provider Dietitian, Registered
DX: E11.9 Type 2 diabetes mellitus without complications (principal)

== ENCOUNTER → 2023-12-10 12:22 | Outpatient (BNVA) | payer MEDICARE, SELFPAY | PROVIDERS: PCP Internal Medicine; Visit Provider Dietitian, Registered | DX: E11.9 Type 2 diabetes mellitus without complications (principal) | CPT/HCPCS: 97802 ==

== ENCOUNTER 2023-12-17 12:51 | Outpatient (AMB) | payer MEDICARE, SELFPAY ==
[2023-12-17 12:57] VITALS: BP 126/66; PULSE 61; O2SAT 100; BMI 24.4
--- NOTE | 2023-12-17 12:57 | MHC.PC.OV ---
Vital Signs 12/17/23 12:57 Height 6 ft Weight 180 lb BMI 24.4 BP 126/66 Blood Pressure Location Lt brachial Position Sitting Pulse 61 Pulse Source Pulse Oximeter Pulse Oximetry (%) 100 Oxygen Delivery Method Room Air Intake Visit Reasons: 1 Month follow up Intake Note: Pt is here today for 1 month follow up visit. Allergies No Known Allergies Allergy (Verified 12/17/23 12:59) Medication List - Last Reconciled 12/17/23 by Ne Dean MD aspirin (Adult Low Dose Aspirin) 81 mg PO DAILY blood sugar diagnostic (FreeStyle Lite Strips) 1 qd blood-glucose meter (FreeStyle Lite Meter kit) As directed carvedilol 6.25 mg PO BID empagliflozin (Jardiance) 10 mg PO DAILY famotidine 20 mg PO BEDTIME lancets (FreeStyle Lancets) test once a day metformin 1,000 mg PO BID rosuvastatin 20 mg PO BEDTIME tamsulosin 0.4 mg PO BEDTIME vit C,T-Qc-dfqxu-lutein-zeaxan 250-90-40-1 mg (PreserVision AREDS-2) 1 tab PO QAM Tobacco use date assessed: 11/06/23 HPI 1 Month follow up HPI Details Pt presents for f/u DM 2. Pt has seen language pathologist and and has been trying to follow ADA diet and has been exercising at least 3 times a week. Patient reports fasting blood glucose between 115 to over 200. He does not want to pay for Jardiance which is over 600 dollars in deductable. Hyperlipidemia and hypertension are controlled on medications [facility] Medical History [place] (hard of hearing) Arthritis GERD (gastroesophageal reflux disease) Thoracic aortic aneurysm without rupture Elevated cholesterol HTN (hypertension) CAD (coronary artery disease) BPH (benign prostatic hyperplasia) Nephrolithiasis Hx of type 2 diabetes mellitus Surgical History History of esophagogastroduodenoscopy (EGD) Hx of lithotripsy Hx of heart artery stent H/O colonoscopy Family History Brother DM type 2 (diabetes mellitus, type 2) CAD (coronary artery disease) Father CAD (coronary artery disease) Social History 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:: , Housing: House Are you a primary manager progressive care to a significant other at home: No Do you presently have visiting nurse or other home services: No Alcohol intake: never Patient Tobacco Use Status: Former Tobacco user Quit Date: age 27 Tobacco use type: Cigarette Years Smoked: 8 e-Cigarette/Vaping Use: Never Used service: No Current occupational status: retired Cognitive needs: No Hearing needs: Yes Vision needs: Yes Questionnaire PHQ-9 Over the last 2 weeks, how often have you been bothered by any of the following problems? 1. Little interest or pleasure in doing things: several days 2. Feeling down, depressed, or hopeless: not at all 3. Trouble falling or staying asleep, or sleeping too much: several days 4. Feeling tired or having little energy: several days 5. Poor appetite or overeating: not at all 6. Feeling bad about yourself - or that you are a failure or have let yourself or your family down: not at all 7. Trouble concentrating on things, such as reading the newspaper or watching television: not at all 8. Moving or speaking so slowly that other people could have noticed. Or the opposite - being so fidgety or restless that you have been moving around a lot more than usual: several days 9. Thoughts that you would be better off or of hurting yourself in some way: not at all Total score: 4 Depression Screening Interpretation: Negative Depression Screening Done: Yes 91128 - PHQ-9 Billing: Yes Source: Developed by Drs. Kimo Strauss, Josiane Maya, Jesus Alberto Fagan and colleagues, with an educational loren from [employer]. Thrive Questionnaire Date Thrive assessed: 12/17/23 I am a: Patient What is your living situation today?: I have a steady place to live Within the past 12 months, did the food you bought not last and you didn't have the money to get more?: Never true Within the past 12 months, did you worry whether your food would run out before you got money to buy more?: Never true Do you have trouble paying for medicines?: No Do you have trouble getting transportation to medical appointments?: No Do you have trouble paying your heating and electricity bill?: No Do you have trouble taking care of your child, family member or friend?: No Do you have trouble with day-to-day activities such as bathing, preparing meals, shopping, managing finances, etc.?: No Are you currently unemployed and looking for a job?: No Are you interested in more education?: No Please select the resources that you would like help with: None Currently or been in a relationship where the following occur: no concerns reported THRIVE Score: 0 MILLA-7 AMB Questionnaire MILLA-7 Date MILLA - 7 assessed: 12/17/23 Feeling nervous, anxious, or on edge: 0 = Not at all Not being able to stop or control worryin = Not at all Worrying too much about different things: 0 = Not at all Trouble relaxin = Not at all Being so restless that it is hard to sit still: 0 = Not at all Becoming easily annoyed or irritable: 0 = Not at all Feeling afraid as if something awful might happen: 0 = Not at all Total MILLA-7 score (0-4 normal; 5-9 mild; 10-14 moderate; 15-21 severe): 0 Source: Developed by Drs. Kimo Strauss, Josiane Maya, Jesus Alberto Fagan and colleagues, with an educational loren from [employer]. Review of Systems Const All systems reviewed & are unremarkable except as noted in HPI and below Reports no additional complaints Eyes Reports no additional complaints ENT Reports no additional complaints Card Reports no additional complaints Resp Reports no additional complaints GI Reports no additional complaints Reports no additional complaints Physical exam (Primary Care) Vital Signs: Last Vital Signs Pulse 61 12/17/23 12:57 BP 126/66 12/17/23 12:57 Pulse Ox 100 12/17/23 12:57 Oxygen Delivery Method Room Air 12/17/23 12:57 BMI result Body Mass Index 24.4 Tobacco/Smoking Status: Tobacco use Status Tobacco use date assessed 11/06/23 12/17/23 13:01 Patient Tobacco Use Status Former Tobacco user 12/17/23 13:01 Tobacco use type Cigarette 12/17/23 13:01 e-Cigarette/Vaping Use Never Used 12/17/23 13:01 PHQ-9: PHQ-9 Score PHQ-9: Total score 4 12/17/23 13:32 Depression Screening Interpretation: Negative Thrive Assessment: Date of Thrive Assessment Date Thrive assessed 12/17/23 12/17/23 13:02 Currently or been in a relationship where the following occur: no concerns reported Const General: no acute distress HENMT Throat: Yes posterior oropharynx normal Eyes General: appearance normal, both eyes and all related structures Neck Neck: Yes no lymphadenopathy and Yes supple Resp Effort & Inspection: normal respiratory effort Auscultation: clear to auscultation bilaterally Cardio Rhythm: regular rhythm Heart sounds: S1 normal heart sound present and S2 normal heart sound present GI Inspection: Yes normal to inspection Palpation (GI): Soft to palpation Percussion: Yes normal to percussion Auscultation: normal bowel sounds Assessment and Plan Assessment & Plan (1) DM type 2 (diabetes mellitus, type 2): Comment: since 2021 Code(s): E11.9 - Type 2 diabetes mellitus without complications Plan: ADA diet increase exercise discussed with the patient increase metformin to 1000 mg twice a day follow-up in 2 months with a fasting labs before (2) HTN (hypertension): Code(s): I10 - Essential (primary) hypertension Plan: Continue Coreg (3) Hyperlipidemia: Code(s): E78.5 - Hyperlipidemia, unspecified Plan: Continue statin Orders: Orders Lipid Panel 2 Months E11.9 - Type 2 diabetes mellitus without complications, E78.5 - Hyperlipidemia, unspecified, I10 - Essential (primary) hypertension Microalbumin, Random (w Creat) 2 Months E11.9 - Type 2 diabetes mellitus without complications, E78.5 - Hyperlipidemia, unspecified, I10 - Essential (primary) hypertension Comprehensive [place]. Panel Fast 2 Months E11.9 - Type 2 diabetes mellitus without complications, E78.5 - Hyperlipidemia, unspecified, I10 - Essential (primary) hypertension Hemoglobin A1c 2 Months E11.9 - Type 2 diabetes mellitus without complications, E78.5 - Hyperlipidemia, unspecified, I10 - Essential (primary) hypertension Complete Blood Count Auto Diff 2 Months E11.9 - Type 2 diabetes mellitus without complications, E78.5 - Hyperlipidemia, unspecified, I10 - Essential (primary) hypertension Medications: Changed From metformin 1,000 mg PO BEDTIME 90 tabs 3RF To metformin 1,000 mg PO BID 180 tabs 3RF Discontinued metformin Discontinued Reason: Change Referral Type 500 mg PO QAM 90 tabs 3RF Coding Level of Care Code Est Pt Level 4 (90350) Diagnoses DM type 2 (diabetes mellitus, type 2) E11.9 HTN (hypertension) I10 Hyperlipidemia E78.5
== END 2023-12-17 15:57 | disposition home or self-care (01) ==
LOC: HO.HMGC 12:51
PROVIDERS: PCP Internal Medicine; Visit Provider Internal Medicine
DX: E11.69 Type 2 diabetes mellitus with other specified complication (principal); I10 Essential (primary) hypertension; E78.5 Hyperlipidemia, unspecified
CPT/HCPCS: 99214

== ENCOUNTER 2024-01-14 12:30 | Outpatient (AMB) | payer MEDICARE, SELFPAY ==
--- NOTE | 2024-01-14 12:33 | A.OFFVIS_ITS ---
Intake VS Expanded 01/14/24 12:34 Height 6 ft Weight 180 lb 15.992 oz BMI 24.5 Intake Visit Reasons: T2DM Allergies No Known Allergies Allergy (Verified 12/17/23 12:59) HPI Nutrition Presentation Details Pt presents for MNT f/u for T2DM Pt reports doing well, working on dietary modifications. Most Recent Diabetes Results: No Data to Display PFSH Medical History [place] (hard of hearing) Arthritis GERD (gastroesophageal reflux disease) Thoracic aortic aneurysm without rupture Elevated cholesterol HTN (hypertension) CAD (coronary artery disease) BPH (benign prostatic hyperplasia) Nephrolithiasis Hx of type 2 diabetes mellitus Surgical History History of esophagogastroduodenoscopy (EGD) Hx of lithotripsy Hx of heart artery stent H/O colonoscopy Family History Brother DM type 2 (diabetes mellitus, type 2) CAD (coronary artery disease) Father CAD (coronary artery disease) Social History 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:: , Housing: House Are you a primary resident care coordinator to a significant other at home: No Do you presently have visiting nurse or other home services: No Alcohol intake: never Patient Tobacco Use Status: Former Tobacco user Quit Date: age 27 Tobacco use type: Cigarette Years Smoked: 8 e-Cigarette/Vaping Use: Never Used service: No Current occupational status: retired Cognitive needs: No Hearing needs: Yes Vision needs: Yes Assessment & Plan Assessment & Plan (1) DM type 2 (diabetes mellitus, type 2): Comment: since 2021 Code(s): E11.9 - Type 2 diabetes mellitus without complications Plan: Wt: 83Kg ( 12/2023 ) Est kcal needs as per MSJ: 9275-3138 (40% carb, 30% protein/fat) Est fluid needs as per 30 ml/d: 2500 Est prot per day as per 1 g/kg bw: 83 Recommend fiber intake : 8-10 g per day and gradually increase to 25-28 g per day for women and 35-38 g for men or as tolerated Recommend sodium intake per day : less than 2000 mg Educated patient on: ( R = reviewed V = verbalizes understanding N/R = needs review N/A = not applicable * Food sources of carbohydrate, adequate serving sizes and its role in various health conditions: R * Differences between complex carbohydrates a simple carbohydrates, role of fiber in diet: R * Lean protein sources of foods: R * Differences between types of fats and role in diet (mono on saturated fat fatty acids, saturated fatty acids, trans fats): R * Food sources of sodium in salt and healthy modifications for heart health in kidney health: NR * Vitamins and minerals: R * Healthy plate method concept: R * Physical activity: Benefits a precaution: R * Hypoglycemia protocol (rule of 15): N/R * Dietary prevention of Hyperglycemia: R Patient Instructions: Continue working on reducing empty calorie foods Follow healthy plate method , choosing fiber rich foods Be mindful of saturated fats and iclude omega 3 fatty acid sources of foods (seeds, nuts, fish, algae) consider monitoring your blood sugar 2 hours after a meal (ADA guideline recommend blood sugar less than 180 , 2 hours after a meal) Coding Level of Care Code Nutr Indiv Subseq (52889) Diagnoses DM type 2 (diabetes mellitus, type 2) E11.9 Time Spent (min) 30
[2024-01-14 12:34] VITALS: BMI 24.5
== END 2024-01-14 13:49 | disposition home or self-care (01) ==
PROVIDERS: PCP Internal Medicine; Visit Provider Dietitian, Registered
DX: E11.9 Type 2 diabetes mellitus without complications (principal)

== ENCOUNTER → 2024-01-14 12:30 | Outpatient (BNVA) | payer MEDICARE, SELFPAY | PROVIDERS: PCP Internal Medicine; Visit Provider Dietitian, Registered | DX: E11.9 Type 2 diabetes mellitus without complications (principal); Z71.3 Dietary counseling and surveillance | CPT/HCPCS: 97803 ==

== ENCOUNTER 2024-02-16 13:01 | Outpatient (AMB) | payer MEDICARE, SELFPAY ==
[2024-02-16 13:03] VITALS: BP 126/60; PULSE 62; O2SAT 98; BMI 24.1
--- NOTE | 2024-02-16 13:03 | MHC.PC.OV ---
Vital Signs 02/16/24 13:03 Height 6 ft Weight 178 lb BMI 24.1 BP 126/60 Blood Pressure Location Rt brachial Position Sitting Pulse 62 Pulse Source Pulse Oximeter Pulse Oximetry (%) 98 Oxygen Delivery Method Room Air Intake Visit Reasons: 2 month follow up Allergies No Known Allergies Allergy (Verified 02/16/24 13:05) Medication List - Last Reconciled 02/16/24 by Ne Dean MD aspirin (Adult Low Dose Aspirin) 81 mg PO DAILY blood sugar diagnostic (FreeStyle Lite Strips) 1 qd blood-glucose meter (FreeStyle Lite Meter kit) As directed carvedilol 6.25 mg PO BID famotidine 20 mg PO BEDTIME lancets (FreeStyle Lancets) test once a day metformin 1,000 mg PO BID rosuvastatin 20 mg PO BEDTIME tamsulosin 0.4 mg PO BEDTIME vit C,D-Yq-rdsfz-lutein-zeaxan 250-90-40-1 mg (PreserVision AREDS-2) 1 tab PO QAM Tobacco use date assessed: 02/16/24 Dental Screening Dental Screen Date: 11/06/23 HPI 2 month follow up HPI Details Pt presents for f/u DM 2, HTN, hyperlipid, BPH, stable on meds. PFSH Medical History [place] (hard of hearing) Arthritis GERD (gastroesophageal reflux disease) Thoracic aortic aneurysm without rupture Elevated cholesterol HTN (hypertension) CAD (coronary artery disease) BPH (benign prostatic hyperplasia) Nephrolithiasis Hx of type 2 diabetes mellitus Surgical History History of esophagogastroduodenoscopy (EGD) Hx of lithotripsy Hx of heart artery stent H/O colonoscopy Family History Brother DM type 2 (diabetes mellitus, type 2) CAD (coronary artery disease) Father CAD (coronary artery disease) Social History 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:: , Housing: House Are you a primary wound care center consultant to a significant other at home: No Do you presently have visiting nurse or other home services: No Alcohol intake: never Patient Tobacco Use Status: Former Tobacco user Quit Date: age 27 Tobacco use type: Cigarette Years Smoked: 8 e-Cigarette/Vaping Use: Never Used service: No Current occupational status: retired Cognitive needs: No Hearing needs: Yes Vision needs: Yes Questionnaire Thrive Questionnaire Date Thrive assessed: 12/17/23 MILLA-7 AMB Questionnaire MILLA-7 Date MILLA - 7 assessed: 12/17/23 Source: Developed by Drs. Kimo Strauss, Josiane Maya, Jesus Alberto Fagan and colleagues, with an educational loren from [employer]. Review of Systems Const All systems reviewed & are unremarkable except as noted in HPI and below Reports no additional complaints Eyes Reports no additional complaints ENT Reports no additional complaints Card Reports no additional complaints Resp Reports no additional complaints GI Reports no additional complaints Reports no additional complaints Physical exam (Primary Care) Vital Signs: Last Vital Signs Pulse 62 02/16/24 13:03 BP 126/60 02/16/24 13:03 Pulse Ox 98 02/16/24 13:03 Oxygen Delivery Method Room Air 02/16/24 13:03 BMI result Body Mass Index 24.1 Tobacco/Smoking Status: Tobacco use Status Tobacco use date assessed 02/16/24 02/16/24 13:07 Patient Tobacco Use Status Former Tobacco user 02/16/24 13:03 Tobacco use type Cigarette 02/16/24 13:03 e-Cigarette/Vaping Use Never Used 02/16/24 13:03 Thrive Assessment: Date of Thrive Assessment Date Thrive assessed 12/17/23 02/16/24 13:03 Const General: no acute distress HENMT Head: Yes normal to inspection General nose exam: Normal external nose present Face and sinus: Yes normal facial exam Throat: Yes posterior oropharynx normal Eyes General: appearance normal, both eyes and all related structures Neck Neck: Yes no lymphadenopathy and Yes supple Resp Effort & Inspection: normal respiratory effort Auscultation: clear to auscultation bilaterally Cardio Rhythm: regular rhythm Heart sounds: S1 normal heart sound present and S2 normal heart sound present GI Inspection: Yes normal to inspection Palpation (GI): Soft to palpation Percussion: Yes normal to percussion Assessment and Plan Assessment & Plan (1) DM type 2 (diabetes mellitus, type 2): Comment: since 2021 Code(s): E11.9 - Type 2 diabetes mellitus without complications Plan: A1C is 6.4, cont ADA, exercise, Metformin, f/u 3 months (2) HTN (hypertension): Code(s): I10 - Essential (primary) hypertension Plan: cont Coreg (3) Hyperlipidemia: Code(s): E78.5 - Hyperlipidemia, unspecified Plan: cont statin (4) Vitamin B 12 deficiency: Code(s): E53.8 - Deficiency of other specified B group vitamins Plan: check vit B 12 Orders: Orders Hemoglobin A1c 3 Months E11.9 - Type 2 diabetes mellitus without complications, E53.8 - Deficiency of other specified B group vitamins, E78.5 - Hyperlipidemia, unspecified, I10 - Essential (primary) hypertension Lipid Panel 3 Months E11.9 - Type 2 diabetes mellitus without complications, E53.8 - Deficiency of other specified B group vitamins, E78.5 - Hyperlipidemia, unspecified, I10 - Essential (primary) hypertension Comprehensive [place]. Panel Fast 3 Months E11.9 - Type 2 diabetes mellitus without complications, E53.8 - Deficiency of other specified B group vitamins, E78.5 - Hyperlipidemia, unspecified, I10 - Essential (primary) hypertension Microalbumin, Random (w Creat) 3 Months E11.9 - Type 2 diabetes mellitus without complications, E53.8 - Deficiency of other specified B group vitamins, E78.5 - Hyperlipidemia, unspecified, I10 - Essential (primary) hypertension Vitamin B12 and Folate 3 Months E53.8 - Deficiency of other specified B group vitamins Medications: Refilled metformin 1,000 mg PO BID 180 tabs 3RF Coding Level of Care Code Est Pt Level 4 (47440) Diagnoses DM type 2 (diabetes mellitus, type 2) E11.9 HTN (hypertension) I10 Hyperlipidemia E78.5 Vitamin B 12 deficiency E53.8
== END 2024-02-16 13:43 | disposition home or self-care (01) ==
LOC: HO.HMGC 13:01
PROVIDERS: PCP Internal Medicine; Visit Provider Internal Medicine
DX: E11.69 Type 2 diabetes mellitus with other specified complication (principal); I10 Essential (primary) hypertension; E78.5 Hyperlipidemia, unspecified; E53.8 Deficiency of other specified B group vitamins
CPT/HCPCS: 99214

== ENCOUNTER 2024-05-17 12:47 | Outpatient (AMB) | payer MEDICARE, SELFPAY ==
[2024-05-17 12:48] VITALS: BP 126/60; PULSE 57; O2SAT 98; BMI 24.0
--- NOTE | 2024-05-17 12:48 | A.OFFPC_ITS ---
Vital Signs 05/17/24 12:48 05/17/24 12:54 Height 6 ft Weight 177 lb BMI 24.0 BP 126/60 134/64 Blood Pressure Location Rt brachial Lt brachial Position Sitting Sitting Pulse 57 Pulse Source Pulse Oximeter Pulse Oximetry (%) 98 Oxygen Delivery Method Room Air Intake Visit Reasons: 3 month followup Intake Note: Pt is here today for 3 months follow up visit. Allergies No Known Allergies Allergy (Verified 05/17/24 12:49) Medication List - Last Reconciled 05/17/24 by Ne Dean MD aspirin (Adult Low Dose Aspirin) 81 mg PO DAILY blood sugar diagnostic (FreeStyle Lite Strips) 1 qd blood-glucose meter (FreeStyle Lite Meter kit) As directed carvedilol 6.25 mg PO BID famotidine 20 mg PO BEDTIME lancets (FreeStyle Lancets) test once a day metformin 1,000 mg PO BID rosuvastatin 20 mg PO BEDTIME tamsulosin 0.4 mg PO BEDTIME vit C,V-Zw-oajrs-lutein-zeaxan 250-90-40-1 mg (PreserVision AREDS-2) 1 tab PO QAM Tobacco use date assessed: 05/17/24 Fall risk assessment: No Falls in past year Last assessed Fall Risk: 05/17/24 Dental Screening Dental Screen Date: 05/17/24 Did you have a dental visit in the last 12 months?: Yes Did you have a dental problem in the last 6 months where you did not have access to dental care?: No Was dental information given to patient?: Patient has dentist HPI 3 month followup HPI Details Patient presents for the follow-up type 2 diabetes hypertension hyperlipidemia PFSH Medical History (Updated 05/17/24 @ 13:45 by Ne Dean MD) GAMBELL (hard of hearing) Arthritis GERD (gastroesophageal reflux disease) Thoracic aortic aneurysm without rupture Elevated cholesterol HTN (hypertension) CAD (coronary artery disease) BPH (benign prostatic hyperplasia) Nephrolithiasis Hx of type 2 diabetes mellitus Surgical History History of esophagogastroduodenoscopy (EGD) Hx of lithotripsy Hx of heart artery stent H/O colonoscopy Family History Brother DM type 2 (diabetes mellitus, type 2) CAD (coronary artery disease) Father CAD (coronary artery disease) Social History 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:: , Housing: House Are you a primary nurse behavioral health care to a significant other at home: No Do you presently have visiting nurse or other home services: No Alcohol intake: never Patient Tobacco Use Status: Former Tobacco user (45 years ago) Tobacco use type: Cigarette Years Smoked: 8 e-Cigarette/Vaping Use: Never Used service: No Current occupational status: retired Cognitive needs: No Hearing needs: Yes Vision needs: Yes Questionnaire Thrive Questionnaire Date Thrive assessed: 12/17/23 I am a: Patient What is your living situation today?: I have a steady place to live Within the past 12 months, did the food you bought not last and you didn't have the money to get more?: I choose not to answer this question Within the past 12 months, did you worry whether your food would run out before you got money to buy more?: I choose not to answer this question Do you have trouble paying for medicines?: I choose not to answer this question Do you have trouble getting transportation to medical appointments?: I choose not to answer this question Do you have trouble paying your heating and electricity bill?: I choose not to answer this question Do you have trouble taking care of your child, family member or friend?: I choose not to answer this question Do you have trouble with day-to-day activities such as bathing, preparing meals, shopping, managing finances, etc.?: I choose not to answer this question Are you currently unemployed and looking for a job?: I choose not to answer this question Are you interested in more education?: I choose not to answer this question Please select the resources that you would like help with: Housing/Senior Living Currently or been in a relationship where the following occur: I choose not to answer THRIVE Score: 0 AUDIT C Alcohol Use Questionnaire (AUDIT-C) 1. How often do you have a drink containing alcohol?: Never 3. How often do you have six or more drinks on one occasion?: Never Total Score: 0 MILLA-7 AMB Questionnaire MILLA-7 Date MILLA - 7 assessed: 12/17/23 Feeling nervous, anxious, or on edge: 0 = Not at all Not being able to stop or control worryin = Not at all Worrying too much about different things: 0 = Not at all Trouble relaxin = Not at all Being so restless that it is hard to sit still: 0 = Not at all Becoming easily annoyed or irritable: 0 = Not at all Feeling afraid as if something awful might happen: 0 = Not at all Total MILLA-7 score (0-4 normal; 5-9 mild; 10-14 moderate; 15-21 severe): 0 Source: Developed by Drs. Kimo Strauss, Josiane Maya, Jesus Alberto Fagan and colleagues, with an educational loren from [employer]. Review of Systems Const All systems reviewed & are unremarkable except as noted in HPI and below Eyes Reports no additional complaints ENT Reports no additional complaints Card Reports no additional complaints Resp Reports no additional complaints GI Reports no additional complaints Reports no additional complaints Physical exam (Primary Care) Vital Signs: Last Vital Signs Pulse 57 05/17/24 12:48 BP 134/64 05/17/24 12:54 Pulse Ox 98 05/17/24 12:48 Oxygen Delivery Method Room Air 05/17/24 12:48 BMI result Body Mass Index 24.0 Tobacco/Smoking Status: Tobacco use Status Tobacco use date assessed 05/17/24 05/17/24 12:54 Patient Tobacco Use Status Former Tobacco user (45 05/17/24 12:54 years ago) Tobacco use type Cigarette 05/17/24 12:54 e-Cigarette/Vaping Use Never Used 05/17/24 12:54 Thrive Assessment: Date of Thrive Assessment Date Thrive assessed 12/17/23 05/17/24 12:54 Currently or been in a relationship where the following occur: I choose not to answer Const General: no acute distress HENMT Face and sinus: Yes normal facial exam Eyes General: appearance normal, both eyes and all related structures Neck Neck: Yes supple Resp Effort & Inspection: normal respiratory effort Auscultation: clear to auscultation bilaterally Cardio Rhythm: regular rhythm Heart sounds: S1 normal heart sound present and S2 normal heart sound present GI Inspection: Yes normal to inspection Palpation (GI): Soft to palpation Percussion: Yes normal to percussion Assessment and Plan Assessment & Plan (1) Vitamin B 12 deficiency: Code(s): E53.8 - Deficiency of other specified B group vitamins Plan: Patient was advised to start 1000 mcg of vitamin B12 and repeat the level in 1 month (2) Hyperlipidemia: Code(s): E78.5 - Hyperlipidemia, unspecified Plan: Continue statin (3) HTN (hypertension): Code(s): I10 - Essential (primary) hypertension Plan: Continue current medications (4) DM type 2 (diabetes mellitus, type 2): Comment: since 2021 Code(s): E11.9 - Type 2 diabetes mellitus without complications Plan: A1c is 6.1, continue ADA diet with regular exercise metformin follow-up in 4 months with a fasting labs before (5) Thoracic aortic aneurysm without rupture: Comment: follows w/[facility] Cardiology Code(s): I71.20 - Thoracic aortic aneurysm, without rupture, unspecified Plan: Follow-up with cardiology Orders: Orders Vitamin B12 and Folate 1 Month E53.8 - Deficiency of other specified B group vitamins Microalbumin, Random (w Creat) 4 Months E11.9 - Type 2 diabetes mellitus without complications, E53.8 - Deficiency of other specified B group vitamins, E78.5 - Hyperlipidemia, unspecified, I10 - Essential (primary) hypertension Vitamin B12 and Folate 4 Months E11.9 - Type 2 diabetes mellitus without complications, E53.8 - Deficiency of other specified B group vitamins, E78.5 - Hyperlipidemia, unspecified, I10 - Essential (primary) hypertension Comprehensive [place]. Panel Fast 4 Months E11.9 - Type 2 diabetes mellitus without complications, E53.8 - Deficiency of other specified B group vitamins, E78.5 - Hyperlipidemia, unspecified, I10 - Essential (primary) hypertension Hemoglobin A1c 4 Months E11.9 - Type 2 diabetes mellitus without complications, E53.8 - Deficiency of other specified B group vitamins, E78.5 - Hyperlipidemia, unspecified, I10 - Essential (primary) hypertension Complete Blood Count Auto Diff 4 Months E11.9 - Type 2 diabetes mellitus without complications, E53.8 - Deficiency of other specified B group vitamins, E78.5 - Hyperlipidemia, unspecified, I10 - Essential (primary) hypertension Lipid Panel 4 Months E11.9 - Type 2 diabetes mellitus without complications, E53.8 - Deficiency of other specified B group vitamins, E78.5 - Hyperlipidemia, unspecified, I10 - Essential (primary) hypertension Coding Level of Care Code Est Pt Level 4 (50531) Diagnoses Vitamin B 12 deficiency E53.8 Hyperlipidemia E78.5 HTN (hypertension) I10 DM type 2 (diabetes mellitus, type 2) E11.9 Thoracic aortic aneurysm without rupture I71.20
[2024-05-17 12:54] VITALS: BP 134/64
== END 2024-05-17 13:46 | disposition home or self-care (01) ==
PROVIDERS: PCP Internal Medicine; Visit Provider Internal Medicine
DX: E53.8 Deficiency of other specified B group vitamins (principal); E78.5 Hyperlipidemia, unspecified; I10 Essential (primary) hypertension; E11.9 Type 2 diabetes mellitus without complications; I71.20 Thoracic aortic aneurysm, without rupture, unspecified
CPT/HCPCS: 99214

== ENCOUNTER 2024-09-20 12:40 | Outpatient (AMB) | payer MEDICARE, SELFPAY ==
--- OUTSIDE RECORDS SUMMARY | 2024-09-20 12:45 | XMS_ITS | Data Portability ---
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 Lab None record ed. Referral None record ed. Procedures None record ed. Surgeries None record ed. Imaging None record ed. Medication Orders None record ed. Patient TargetsNo targets recorded. Patient InstructionsNo instructions recorded. Reason for Referral None Reported. Results Created Date Observation Date Name Description Value Unit Range Abnormal Flag Note LastModifiedBy Organization Detail LastModifiedTime 04/27/20 audio gram No observ ation record ed. BARCODE Not Available 2023 11:39:54 05/26/20 24 04/02/2021 imagi ng/di danetteos tic resul t No observ ation record ed. [email or web address] Not Available 05:50:34 05/26/20 24 2022 audio gram No observ ation record ed. [email or web address] Not Available 05:50:48 05/26/20 24 10/23/2023 audio gram No observ ation record ed. [email or web address] Available 05:50:51 05/26/20 24 10/24/2022 audio gram No observ ation record ed. [email or web address] Available 05:50:57 05/26/20 24 11/01/2021 audio gram No observ ation record ed. [email or web address] Available 05:51:02 05/26/20 24 11/12/2018 audio gram No observ ation record ed. [email or web address] Not Available 05:51:08 05/26/20 24 01/16/2023 audio gram No observ ation record ed. [email or web address] Not Available 05:51:09 05/26/20 24 04/02/2021 audio gram No observ ation record ed. [email or web address] Not Available 05:51:11 05/26/20 24 04/14/2023 audio gram No observ ation record ed. [email or web address] Not Available 05:51:18 05/26/20 24 04/18/2022 audio gram No observ ation record ed. [email or web address] Not Available 05:51:19 05/26/20 24 04/19/2021 audio gram No observ ation record ed. [email or web address] Not Available 05:51:23 05/26/20 24 05/03/2021 audio gram No observ ation record ed. [email or web address] Not Available 05:51:29 05/26/20 24 05/24/2022 audio gram No observ ation record ed. [email or web address] Not Available 05:51:40 Result Notes None recorded. Problems Name Problem SNOMED Code Status Onset Date Resolution Date Notes Provider Name and Address Organization Details Recorded Time Sensorine ural hearing loss of bilateral ears [id number] Active 2015 Sensorineu ral hearing loss, bilateral; Note: Date Diagnosed: 07/19/2016 1:31 PM (H90.3) Not [facility] Problem Notes None recorded. Procedures Surgical History Date Name Laterality Status Provider Name and Address Organization Details Recorded Time 04/27/2024 Air only Audio (37866) completed LEFTY CARRILLO, AUD [address] [facility],[place] [address], [place], [address], [facility] - [facility] 05/04/2024 12:11:30 Imaging Results Imaging Date Name Status LastModified by Organiz ation Details LastModified Time 04/27/2024 audiogram completed BARCODE Information no t available 04/27/2024 11:39:54 04/02/2021 imaging/diagno stic result completed Information not available 05/26/2024 05:50:34 2022 audiogram completed Information not available 05/26/2024 05:50:48 10/23/2023 audiogram completed Information not available 05/26/2024 05:50:51 10/24/2022 audiogram completed Information not available 05/26/2024 05:50:57 11/01/2021 audiogram completed Information not available 05/26/2024 05:51:02 11/12/2018 audiogram completed Information not available 05/26/2024 05:51:08 01/16/2023 audiogram completed Information not available 05/26/2024 05:51:09 04/02/2021 audiogram completed Information not available 05/26/2024 05:51:11 04/14/2023 audiogram completed Information not available 05/26/2024 05:51:18 04/18/2022 audiogram completed Information not available 05/26/2024 05:51:19 04/19/2021 audiogram completed Information not available 05/26/2024 05:51:23 05/03/2021 audiogram completed Information not available 05/26/2024 05:51:29 05/24/2022 audiogram completed Information not available 05/26/2024 05:51:40 Procedure Notes None recorded. Medical Equipment None Reported. Medications Name Sig Start Date Stop Date Status Note LastModified by Organization Details LastModified Time metformin 500 mg tablet TAKE 1 TABLET BY MOUTH EVERY MORNING active Not Available Not Available No t Available carvedilol 6.25 mg tablet TAKE 1 TABLET BY MOUTH TWICE A DAY WITH A MEAL/FOOD active Not Available Not Available No t Available hydrocodone 5 mg-acetaminoph en 325 mg tablet active Not Available Not Available Not Available FreeStyle Lancets 28 gauge USE TO TEST ONCE DAILY active Not Available Not Available No t Available famotidine 20 mg tablet TAKE 1 TABLET BY MOUTH EVERY DAY active Not Available Not Available No t Available tamsulosin 0.4 mg capsule TAKE 1 CAPSULE BY MOUTH EVERY DAY active Not Available Not Available No t Available metformin 1,000 mg tablet TAKE 1 TABLET BY MOUTH TWICE A DAY active Not Available Not Available No t Available metformin ER 750 mg tablet,extende d release 24 hr TAKE 1 TABLET BY MOUTH EVERY DAY active Not Available Not Available No t Available rosuvastatin 20 mg tablet TAKE 1 TABLET BY MOUTH EVERY DAY active Not Available Not Available No t Available FreeStyle Lite Meter kit USE DIRECTED active Not Available Not Available No t Available FreeStyle Lite Strips EVERY DAY active Not Available Not Available No t Available Vitals None Recorded Social History None recorded. Functional Status None recorded. Mental Status None recorded. Family History Nothing Reported. Medical History No medical history recorded. Past Encounters Encounter ID Performer Location Encounter Start Date Encounter Closed Date Diagnosis/Indication Diagnosis SNOMED-CT Code Diagnosis ICD10 Code [id number] THOM KENDRICK [facility] - [place] 100 [facility] it [address] [place] [address] 04/22/2024 10:38:40 04/26/2024 15:21:18 Sensorineural hearing loss of bilateral ears [id number] H90.3 [id number] THOM MORALES [facility] [address] [place] [address] 04/27/2024 11:40:38 04/30/2024 08:09:40 Sensorineural hearing loss of bilateral ears [id number] H90.3 Health Concerns Section Related Observation LastModified by Organization Detai ls LastModified Time None Recorded Concern Status LastModified by Organization Details LastModified Time None Recorded Advance Directives Directive None Recorded Payers Encounter Date Sequence Insurance Name Policy Number Policy [place] Covered Member ID [place] Member ID Guarantor Name 04/22/2024 1 [place] [employer] Lemuel Lott [id number] 1 Lemuel Lott 04/22/2024 2 [place] [id number] Lemuel Lott [id number] Lemuel Lott 04/27/2024 1 [place] Lemuel Lott [id number] Lemuel Lott 04/27/2024 2 [place] [id number] Lemuel Lott [id number] Lemuel Lott Notes Date Note Type Note Provider Name and Address Organization Details Recorded Time 04/22/2024 text/html Known bilateral SNHL. Currently wearing Widex Moment [address] R hearing aids dispensed 05/20/2021 EDA SCHMIDT, AUD [address] [facility],[address], [address], [facility] 04/22/2024 11:12:21 04/27/2024 text/html Eda accidently scheduled him on a day she was scheduled in [facility] to cover. He was in the waiting room for an hour before some one came down to ask what was going on. Luckily, he was able to be seen due to HT schedule being light at the time. Fixed the issue he was originally here for which was to have universal as the first program and have the buttons be volume control verse program change as he likes to change volume via the hearing aids and not the hunter. I also updated his hearing test since the last test was 2020. Slight changes noted. Updated in software and completed sensogram and feedback measures again. He does not feel he notices a difference from when he walked in. He is aware that appointments from here on out will have a charge associated with them due to the hearing aids being OOW. FU in a year or sooner if problems occur. LEFTY CARRILLO, AUD [address] [facility],[place] [address], [place], [address], [facility] - [facility] 05/04/2024 12:12:01
--- NOTE | 2024-09-20 12:48 | MHC.PC.OV ---
Vital Signs 09/20/24 12:49 Height 6 ft Weight 178 lb BMI 24.1 BP 122/66 Blood Pressure Location Lt brachial Position Sitting Pulse 68 Pulse Source Pulse Oximeter Pulse Oximetry (%) 98 Oxygen Delivery Method Room Air Intake Visit Reasons: 4 Mo Follow Up Intake Note: Pt is here today for 4 months follow up visit. Allergies No Known Allergies Allergy (Verified 09/20/24 12:50) Medication List - Last Reconciled 09/20/24 by Ne Dean MD aspirin (Adult Low Dose Aspirin) 81 mg PO DAILY blood sugar diagnostic (FreeStyle Lite Strips) Test blood sugar once a day blood-glucose meter (FreeStyle Lite Meter kit) As directed carvedilol 6.25 mg PO BID famotidine 20 mg PO BEDTIME lancets (FreeStyle Lancets) test once a day metformin 1,000 mg PO BID rosuvastatin 20 mg PO BEDTIME tamsulosin 0.4 mg PO DAILY vit C,T-Np-zxgxh-lutein-zeaxan 250-90-40-1 mg (PreserVision AREDS-2) 1 tab PO QAM Tobacco use date assessed: 09/20/24 Dental Screening Dental Screen Date: 05/17/24 HPI 4 Mo Follow Up HPI Details Pt presents for f/u DM 2, hyperlipid, HTN, stable on meds patient reports high fasting blood glucose reading up to 160s for the last month. Patient is dog last month and he is grieving. Patient denies any change in diet or physical activity PFSH Medical History [place] (hard of hearing) Arthritis GERD (gastroesophageal reflux disease) Thoracic aortic aneurysm without rupture Elevated cholesterol HTN (hypertension) CAD (coronary artery disease) BPH (benign prostatic hyperplasia) Nephrolithiasis Hx of type 2 diabetes mellitus Surgical History History of esophagogastroduodenoscopy (EGD) Hx of lithotripsy Hx of heart artery stent H/O colonoscopy Family History Brother DM type 2 (diabetes mellitus, type 2) CAD (coronary artery disease) Father CAD (coronary artery disease) Social History 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:: , Housing: House Are you a primary healthcare interpreter to a significant other at home: No Do you presently have visiting nurse or other home services: No Alcohol intake: never Patient Tobacco Use Status: Former Tobacco user (45 years ago) Tobacco use type: Cigarette Years Smoked: 8 e-Cigarette/Vaping Use: Never Used service: No Current occupational status: retired Cognitive needs: No Hearing needs: Yes Vision needs: Yes Questionnaire Thrive Questionnaire Date Thrive assessed: 05/17/24 I am a: Patient What is your living situation today?: I have a steady place to live Within the past 12 months, did the food you bought not last and you didn't have the money to get more?: I choose not to answer this question Within the past 12 months, did you worry whether your food would run out before you got money to buy more?: I choose not to answer this question Do you have trouble paying for medicines?: I choose not to answer this question Do you have trouble getting transportation to medical appointments?: I choose not to answer this question Do you have trouble paying your heating and electricity bill?: I choose not to answer this question Do you have trouble taking care of your child, family member or friend?: I choose not to answer this question Do you have trouble with day-to-day activities such as bathing, preparing meals, shopping, managing finances, etc.?: I choose not to answer this question Are you currently unemployed and looking for a job?: I choose not to answer this question Are you interested in more education?: I choose not to answer this question Please select the resources that you would like help with: None Currently or been in a relationship where the following occur: I choose not to answer THRIVE Score: 0 MILLA-7 AMB Questionnaire MILLA-7 Date MILLA - 7 assessed: 12/17/23 Source: Developed by Drs. Kimo Strauss, Josiane Maya, Jesus Alberto Fagan and colleagues, with an educational loren from [employer]. Review of Systems Const All systems reviewed & are unremarkable except as noted in HPI and below Reports no additional complaints Eyes Reports no additional complaints ENT Reports no additional complaints Card Reports no additional complaints Resp Reports no additional complaints GI Reports no additional complaints Reports no additional complaints Physical exam (Primary Care) Vital Signs: Last Vital Signs Pulse 68 09/20/24 12:49 BP 122/66 09/20/24 12:49 Pulse Ox 98 09/20/24 12:49 Oxygen Delivery Method Room Air 09/20/24 12:49 BMI result Body Mass Index 24.1 Tobacco/Smoking Status: Tobacco use Status Tobacco use date assessed 09/20/24 09/20/24 12:52 Patient Tobacco Use Status Former Tobacco user (45 09/20/24 12:52 years ago) Tobacco use type Cigarette 09/20/24 12:52 e-Cigarette/Vaping Use Never Used 09/20/24 12:52 Thrive Assessment: Date of Thrive Assessment Date Thrive assessed 05/17/24 09/20/24 12:52 Currently or been in a relationship where the following occur: I choose not to answer Const General: no acute distress HENMT Head: Yes normal to inspection Ears: hearing grossly normal bilaterally Face and sinus: Yes normal facial exam Throat: Yes posterior oropharynx normal Eyes General: appearance normal, both eyes and all related structures Neck Neck: Yes no lymphadenopathy and Yes supple Resp Effort & Inspection: normal respiratory effort Auscultation: clear to auscultation bilaterally Cardio Rhythm: regular rhythm Heart sounds: S1 normal heart sound present and S2 normal heart sound present GI Inspection: Yes normal to inspection Palpation (GI): Soft to palpation Coding Level of Care Code Est Pt Level 4 (17911) Diagnoses DM type 2 (diabetes mellitus, type 2) E11.9 HTN (hypertension) I10 Hyperlipidemia E78.5 Vitamin B 12 deficiency E53.8 Assessment & Plan Assessment & Plan (1) DM type 2 (diabetes mellitus, type 2): Comment: since 2021 Code(s): E11.9 - Type 2 diabetes mellitus without complications Category: Medical Plan: Continue ADA diet increase physical activity discussed with the patient. Patient had blood work done at [facility] but results are not available. Farxiga 5 mg will be added to metformin and patient will follow-up in 4 months with a fasting labs before (2) HTN (hypertension): Code(s): I10 - Essential (primary) hypertension Category: Medical Plan: Continue current medications (3) Hyperlipidemia: Code(s): E78.5 - Hyperlipidemia, unspecified Category: Medical Plan: Continue statin (4) Vitamin B 12 deficiency: Code(s): E53.8 - Deficiency of other specified B group vitamins Category: Medical Plan: Continue B12 supplement Orders: Orders Hemoglobin A1c 4 Months E11.9 - Type 2 diabetes mellitus without complications, E53.8 - Deficiency of other specified B group vitamins, E78.5 - Hyperlipidemia, unspecified, I10 - Essential (primary) hypertension Comprehensive [place]. Panel Fast 4 Months E11.9 - Type 2 diabetes mellitus without complications, E53.8 - Deficiency of other specified B group vitamins, E78.5 - Hyperlipidemia, unspecified, I10 - Essential (primary) hypertension Microalbumin, Random (w Creat) 4 Months E11.9 - Type 2 diabetes mellitus without complications, E53.8 - Deficiency of other specified B group vitamins, E78.5 - Hyperlipidemia, unspecified, I10 - Essential (primary) hypertension Complete Blood Count Auto Diff 4 Months E11.9 - Type 2 diabetes mellitus without complications, E53.8 - Deficiency of other specified B group vitamins, E78.5 - Hyperlipidemia, unspecified, I10 - Essential (primary) hypertension Lipid Panel 4 Months E11.9 - Type 2 diabetes mellitus without complications, E53.8 - Deficiency of other specified B group vitamins, E78.5 - Hyperlipidemia, unspecified, I10 - Essential (primary) hypertension Vitamin B12 and Folate 4 Months E53.8 - Deficiency of other specified B group vitamins Medications: New dapagliflozin propanediol (Farxiga) 5 mg PO DAILY 90 tabs 1RF
[2024-09-20 12:49] VITALS: BP 122/66; PULSE 68; O2SAT 98; BMI 24.1
== END 2024-09-20 13:22 | disposition home or self-care (01) ==
PROVIDERS: PCP Internal Medicine; Visit Provider Internal Medicine
DX: E11.9 Type 2 diabetes mellitus without complications (principal); I10 Essential (primary) hypertension; E78.5 Hyperlipidemia, unspecified; E53.8 Deficiency of other specified B group vitamins

== ENCOUNTER → 2024-09-20 12:40 | Outpatient (BNVA) | payer MEDICARE, SELFPAY | PROVIDERS: PCP Internal Medicine; Visit Provider Internal Medicine | DX: E11.9 Type 2 diabetes mellitus without complications (principal); I10 Essential (primary) hypertension; E78.5 Hyperlipidemia, unspecified; E53.8 Deficiency of other specified B group vitamins | CPT/HCPCS: 99212 ==

== ENCOUNTER 2025-02-08 13:45 | Outpatient (AMB) | payer MEDICARE, SELFPAY ==
--- NOTE | 2025-02-08 13:57 | MHC.PC.OV ---
Vital Signs 02/08/25 13:58 Height 6 ft Weight 178 lb BMI 24.1 BP 126/74 Blood Pressure Location Lt brachial Position Sitting Respiration 18 Pulse 64 Pulse Source Pulse Oximeter Temp 97.9 F Temp Source Oral Pulse Oximetry (%) 98 Oxygen Delivery Method Room Air Intake Visit Reasons: Office visit nursing note Intake Note: Pt is here today for a follow up visit. Pt states that he had a cold that lasted for over 2 weeks. Allergies dapagliflozin [From [facility]] Adverse Reaction (Severe, Verified 02/08/25 14:27) pain in legs Medication List - Last Reconciled 02/08/25 by Ne Dean MD aspirin (Adult Low Dose Aspirin) 81 mg PO DAILY blood sugar diagnostic (FreeStyle Lite Strips) Test blood sugar once a day blood-glucose meter (FreeStyle Lite Meter kit) As directed carvedilol 6.25 mg PO BID famotidine 20 mg PO BEDTIME glipizide 5 mg PO DAILY lancets (FreeStyle Lancets) test once a day metformin 1,000 mg PO BID rosuvastatin 20 mg PO BEDTIME tamsulosin 0.4 mg PO DAILY vit C,G-Gf-nggzz-lutein-zeaxan 250-90-40-1 mg (PreserVision AREDS-2) 1 tab PO QAM Tobacco use date assessed: 02/08/25 Fall risk assessment: No Falls in past year Last assessed Fall Risk: 02/08/25 Dental Screening Dental Screen Date: 02/08/25 Did you have a dental visit in the last 12 months?: Yes Did you have a dental problem in the last 6 months where you did not have access to dental care?: No Was dental information given to patient?: Patient has dentist HPI Office visit nursing note HPI Details Pt presents for f/u DM 2, hyperlipid, HTN, stable on meds. Pt has been seeing [facility] and was started on Glipizide 5 mg and metformin dose was decreased to 1500 mg because of the GI side effects. Patient reports fasting blood glucose around 140 and A1c in December in Endocrine office was 6.4. Patient denies hypoglycemia. [facility] Medical History (Updated 02/08/25 @ 15:01 by Ne Dean MD) [place] (hard of hearing) Arthritis GERD (gastroesophageal reflux disease) Thoracic aortic aneurysm without rupture Elevated cholesterol HTN (hypertension) CAD (coronary artery disease) BPH (benign prostatic hyperplasia) Nephrolithiasis Surgical History History of esophagogastroduodenoscopy (EGD) Hx of lithotripsy Hx of heart artery stent H/O colonoscopy Family History Brother DM type 2 (diabetes mellitus, type 2) CAD (coronary artery disease) Father CAD (coronary artery disease) Social History (Updated 02/08/25 @ 15:02 by Ne Dean MD) 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 How often do you have a drink containing alcohol?: Never 3. How often do you have six or more drinks on one occasion?: Never Total Score: 0 MILLA-7 AMB Questionnaire MILLA-7 Date MILLA - 7 assessed: 12/17/23 Source: Developed by Drs. Kimo Strauss, Josiane Maya, Jesus Alberto Fagan and colleagues, with an educational loren from [employer]. Review of Systems Const All systems reviewed & are unremarkable except as noted in HPI and below Eyes Reports no additional complaints ENT Reports no additional complaints Card Reports no additional complaints Resp Reports no additional complaints GI Reports no additional complaints Reports no additional complaints Physical exam (Primary Care) Vital Signs: Last Vital Signs Temp 97.9 F 02/08/25 13:58 Pulse 64 02/08/25 13:58 Resp 18 02/08/25 13:58 BP 126/74 02/08/25 13:58 Pulse Ox 98 02/08/25 13:58 Oxygen Delivery Method Room Air 02/08/25 13:58 BMI result Body Mass Index 24.1 Tobacco/Smoking Status: Tobacco use Status Tobacco use date assessed 02/08/25 02/08/25 14:05 Patient Tobacco Use Status Former Tobacco user (45 02/08/25 14:02 years ago) Tobacco use type Cigarette 02/08/25 14:02 e-Cigarette/Vaping Use Never Used 02/08/25 14:02 Thrive Assessment: Date of Thrive Assessment Date Thrive assessed 02/08/25 02/08/25 14:02 Const General: no acute distress HENMT Head: Yes normal to inspection Face and sinus: Yes normal facial exam Throat: Yes posterior oropharynx normal Eyes General: appearance normal, both eyes and all related structures Neck Neck: Yes supple Resp Effort & Inspection: normal respiratory effort Auscultation: clear to auscultation bilaterally Cardio Rhythm: regular rhythm Heart sounds: S1 normal heart sound present and S2 normal heart sound present GI Inspection: Yes normal to inspection Palpation (GI): Soft to palpation Percussion: Yes normal to percussion Auscultation: normal bowel sounds Coding Level of Care Code Est Pt Level 4 (79397) Diagnoses DM type 2 (diabetes mellitus, type 2) E11.9 HTN (hypertension) I10 Hyperlipidemia E78.5 Thoracic aortic aneurysm without rupture I71.20 CAD (coronary artery disease) I25.10 Assessment & Plan Assessment & Plan (1) DM type 2 (diabetes mellitus, type 2): Comment: Follows up with [facility] endocrinology, A1C 6.4 12/2024 Code(s): E11.9 - Type 2 diabetes mellitus without complications Category: Medical Plan: Continue ADA diet regular exercise follow-up with [facility] endocrinology (2) HTN (hypertension): Code(s): I10 - Essential (primary) hypertension Category: Medical Plan: Continue current medications (3) Hyperlipidemia: Code(s): E78.5 - Hyperlipidemia, unspecified Category: Medical Plan: Continue rosuvastatin (4) Thoracic aortic aneurysm without rupture: Comment: follows w/[facility] Code(s): I71.20 - Thoracic aortic aneurysm, without rupture, unspecified Category: Medical Plan: Follow-up with cardiology (5) CAD (coronary artery disease): Comment: 1 2008, f/u cardiology [place] Dr. Lyle Magallanes Code(s): I25.10 - Atherosclerotic heart disease of [place] coronary artery without angina pectoris Category: Medical Plan: Follow-up with cardiology, return in 7 months with a fasting labs before. Patient was given the order for the blood work because he prefers to have a blood [facility] Orders: Orders Comprehensive [place]. Panel Fast 7 Months E11.9 - Type 2 diabetes mellitus without complications, E78.5 - Hyperlipidemia, unspecified, I10 - Essential (primary) hypertension Hemoglobin A1c 7 Months E11.9 - Type 2 diabetes mellitus without complications, E78.5 - Hyperlipidemia, unspecified, I10 - Essential (primary) hypertension Microalbumin, Random (w Creat) 7 Months E11.9 - Type 2 diabetes mellitus without complications, E78.5 - Hyperlipidemia, unspecified, I10 - Essential (primary) hypertension Lipid Panel 7 Months E11.9 - Type 2 diabetes mellitus without complications, E78.5 - Hyperlipidemia, unspecified, I10 - Essential (primary) hypertension Complete Blood Count Auto Diff 7 Months E11.9 - Type 2 diabetes mellitus without complications, E78.5 - Hyperlipidemia, unspecified, I10 - Essential (primary) hypertension Medications: Changed From metformin 1,000 mg PO BID 180 tabs 3RF To metformin 1,000 in AM and 500 mg in PM 1,000 mg PO BID Discontinued dapagliflozin propanediol (Farxiga) Discontinued Reason: Doctor's Order 5 mg PO DAILY 90 tabs 1RF
[2025-02-08 13:58] VITALS: BP 126/74; PULSE 64; RESP 18; TEMP 36.6; O2SAT 98; BMI 24.1
--- OUTSIDE RECORDS SUMMARY | 2025-02-08 15:05 | XMS_ITS | Data Portability ---
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 Procedures Surgical History Date Name Laterality Status Provider Name and Address Organization Details Recorded Time 04/27/2024 Air only Audio - [id number] completed LEFTY CARRILLO, AUD 100 [facility], [place], [address], [facility] - [facility] 05/04/2024 12:11:30 Imaging Results Imaging Date Name [...] Diagnosis/Indication Diagnosis SNOMED-CT Code Diagnosis ICD10 Code Diagnosis Note [id number] THOM KENDRICK MACKENZ[place] 100 [facility] it [address] [place] [address] 04/22/2024 10:38:40 04/26/2024 15:21:18 Sensorineural hearing loss of bilateral ears [id number] H90.3 [id number] THOM MORALES [facility] ld [address] [place] [address] 04/27/2024 11:40:38 04/30/2024 08:09:40 Sensorineural hearing loss of bilateral ears [id number] H90.3 Health Concerns Section Related Observation LastModified by Organization Detai ls LastModified Time None Recorded Concern Status LastModified by Organization Details LastModified Time None Recorded Advance Directives Directive None Recorded Payers Encounter Date Sequence Insurance Name Policy Number Policy [place] Covered Member ID [place] Member ID Guarantor Name 04/22/2024 1 [place] [employer] [employer] Lemuel Lott [id number] 1 Lemuel Lott 04/22/2024 2 [place] [id number] Lemuel Lott [id number] Lemuel Lott 04/27/2024 1 [place] Lemuel Lott [id number] Lemuel Lott 04/27/2024 2 [place] [id number] Lemuel Lott [id number] Lemuel Lott Notes Date Note Type Note Provider Name and Address Organization Details Recorded Time 04/22/2024 text/html Known bilateral SNHL. Currently wearing [employer]x Moment 440 [address] R hearing aids dispensed 05/20/2021 EDA SCHMIDT, AUD 100 [facility],[address], [address], [facility] - [facility] 04/22/2024 11:12:21 04/27/2024 text/html Eda accidently scheduled him on a day she was scheduled in [facility] to cover. He was in the [...] if problems occur. LEFTY CARRILLO, AUD 100 [facility],[address], [address], [facility] - [facility] 05/04/2024 12:12:01
--- OUTSIDE RECORDS SUMMARY | 2025-02-08 15:05 | XMS_ITS | Clinical Summary ---
Author Organization [facility] Address [address] [place] [address] Care Team Providers Care Instructional Media Services Technician Name Role Phone Ne Dean MD Primary Care Provider [phone] Allergies No known active allergies Medications aspirin 81 mg chewable tablet Take 1 tablet by mouth daily. 09/23/2012 Active famotidine (PEPCID) 20 mg tablet TAKE 1 TABLET BY MOUTH DAILY 06/16/2023 Active carvediloL (COREG) 6.25 mg tablet Take 1 Tablet by mouth 2 Times Daily. 01/03/2023 Active metFORMIN (GLUCOPHAGE) 1,000 mg tablet Take 1 Tablet by mouth 2 times daily (with meals). 04/14/2023 Active vit C/E/Zn/coppr/madan tein/zeaxan (PRESERVISION AREDS-2 ORAL) Take 1 Tablet by mouth daily. Active rosuvastatin (CRESTOR) 20 mg tablet Take 1 Tablet by mouth daily. 04/24/2023 Active tamsulosin (FLOMAX) 0.4 mg 24 hr capsule TAKE 1 CAPSULE BY MOUTH EVERY DAY 01/26/2021 Active Active Problems Problem Noted Date Diagnosed Date BPH (benign prostatic hyperplasia) 12/12/2022 Type 2 diabetes mellitus (CMS/HCC V24, CMS/HCC V 28) 12/12/2022 Atherosclerosis of [place] ronary artery of [place] heart without angina pectoris 12/21/2021 Overview (09/27/2024): Last Assessment & Plan: Cardiac catheterization done in 2008. Stent placed in the mid LAD with balloon angioplasty to second diagonal. He is on aspirin statin and beta-nino. He is doing well on these. I encouraged him to work on diet and exercise. He is having no symptoms at this time to suggest unstable angina. Peripheral vascular disease, unspecified (CMS/HC C V24) 12/21/2021 Mixed hyperlipidemia 11/06/2020 Overview (09/27/2024): Last Assessment & Plan: His lipids are under good control. He had this checked recently. His LDL is at goal he is doing well on his Crestor. Primary hypertension 11/06/2020 Overview (09/27/2024): Last Assessment & Plan: His blood pressure is under good control today. He is doing well on his blood pressure medication. He will continue on his Coreg 6.25 mg. He will continue to work on healthy lifestyle choices. I encouraged him to get back to diet and exercise. His blood sugar has been elevated so hopefully improving these things will help improve his blood sugars as well. Thoracic aortic aneurysm without rupture (CMS/HC C V24) 11/06/2020 Overview (09/27/2024): Last Assessment & Plan: Echocardiogram done March 2022 with normal LV function. No significant valvular disease. Ascending aorta at 3.8 cm with a sinus of Valsalva at 4.3 cm. We will update an echocardiogram in March to continue to monitor his aortic arch size. Immunizations Name Administration Dates Next Due Influenza Quadravalent, MDCK , 0.5ml, preservative free (Flucelvax) 6mo and older 07/27/2018 Influenza trivalent, 0.5mL (Fluad) 65yo and olde r 07/13/2020 Influenza trivalent, 0.5mL, preservative free (Fluarix; FluLaval; Fluzone) ages 6mo and older (Afluria) 3 years and older 10/02/2017 Influenza, Unspecified 07/06/2022 Tdap Tetanus diptheria acell ular pertussis (Boostrix; Adacel) 7yo and older 10/02/2017 Surgical History Surgery Date Site/Laterality Comments COLONOSCOPY PROCEDURE: HISTORICAL COLONOSCOPY ANGIOPLASTY PROCEDURE: HISTORICAL ANGIOPLASTY; COMMENT: Of blood vessel LITHOTRIPSY PROCEDURE: HISTORICAL LITHOTRIPSY; COMMENT: XTRCORP Shock Wave OTHER SURGICAL HISTORY PROCEDURE: HISTORY OTHER; COMMENT: Angiography Medical History Medical History Date Comments Hyperlipidemia 11/06/2020 DX:Hyperlipidemi a HTN (hypertension) 11/06/2020 DX:HTN (hyper tension) Atherosclerosis of [place] ar teries of extremities with intermittent claudication, bilateral legs ([facility] V24) 11/06/2020 DX:Atherosclerosis of [place] arteries of extremities with intermittent claudication, bilateral legs (HCC) S/P coronary artery stent placement 07/14/2009 DX:S/P coronary artery stent placement; COMMENT: 07/14/2009 Cath @ [facility] by Dr. Eddy Holloway - stent placed to mid LAD GERD with esophagitis DX:GERD wi th esophagitis Anxiety DX:Anxiety Benign prostatic hyperplasia without lower urinary tract symptoms DX:Benign prostatic hyper plasia without lower urinary tract symptoms IFG (impaired fasting glucose) D X:IFG (impaired fasting glucose) Dysthymic disorder DX:Dysthymic disorder Iliac artery stenosis, left ([facility] V24) 11/06/2020 DX:Iliac artery stenosis, le ft ([facility]) Depression DX:Depression Nephrolithiasis DX:Nephrolithias is Prediabetes DX:Prediabetes CAD (coronary artery disease) 11/06/2020 DX :CAD (coronary artery disease) Family History Medical History Relation Name Comments Coronary artery disease Brother Other: Heart Disease, unspecified Brother Colon cancer Father Coronary artery disease Father Other: Heart Disease, unspecified Father Other: Unspecified Malignant Neoplasm Father Lung cancer Mother Other: Heart Disease, unspecified Mother Other: Unspecified Malignant Neoplasm Mother Relation Name Status Comments Brother Father Mother Social History Tobacco Use Types Packs/Day Years Used Date Smoking Tobacco: Former Cigarettes Q uit: 10/06/1975 Smokeless Tobacco: Never Alcohol Use Standard Drinks/Week Comments Not Currently 0 (1 standard drink = 0.6 oz pur e alcohol) Sex and Gender Information Value Date Recorded Sex Assigned at Not on file Legal Sex Male 10:33 AM EST Gender Identity Not on file Sexual Orientation Not on file Obstetrics History Last Filed Vital Signs Vital Sign Reading Time Taken Comments Blood Pressure 138/70 03/23/2024 11:22 AM EDT Si tting L Arm Pulse 64 03/23/2024 11:22 AM EDT Temperature - - Respiratory Rate - - Oxygen Saturation - - Inhaled Oxygen Concentration - - Weight 79.4 kg (175 lb) 03/23/2024 11:22 AM EDT Height 182.9 cm (6') 03/23/2024 11:22 AM EDT Body Mass Index 23.73 03/23/2024 11:22 AM EDT Plan of Treatment Upcoming Encounters Date Type Department Care Team (Late st Contact Info) Description 03/14/2025 9:00 AM EDT Hospital Encounter [facility] Main [address] [place] [phone] Nabil Rosales MD [address] [place] [id number] 03/14/2025 9:00 AM EDT - 03/14/2025 10:30 AM EDT Surgery [facility] OR [address] [place] [phone] Nabil Rosales MD [facility] [address] [address] CYSTOSCOPY,URETEROS COPY, LASER LITHRIPSY, STENT [[id number] (CPT??)] 03/23/2025 12:30 PM EDT Ancillary Procedure [facility] [address] [phone] Scheduled Procedures Name Priority Associated Diagnoses Date/Ti me CYSTOSCOPY URETEROSCOPY Calculus of kidney 03/14/2025 9:00 AM EDT Health Maintenance Due Date Last Done Comments Diabetes: Annual Foot Exam 01/29/1958 Diabetes: Annual Retina Eye Exam 01/29/1958 Pneumococcal Vaccine: 50+ Years (1 of 2 - PCV) 01/29/1967 Zoster Vaccines (1 of 2) 01/29/1998 Depression Screening 09/14/2022 Falls Risk Assessment 09/14/2022 Hepatitis C Screening 09/14/2022 Social Influencers of Health Screening 09/14/2022 RSV Immunization Adult Patients (1 - 1-dose 75+ series) 01/29/2023 Diabetes: Blood Sugar Control Test (HGBA1C) 11/21/2023 04/09/2023 Diabetes: Annual Urine Albumin-Creatinine Ratio (uACR) 12/13/2023 12/12/2022 Diabetes: Annual GFR (Glomerular Filtration Rate) 04/09/2024 04/09/2023 Hypertension/CHF/CAD Annual BMP Blood Test 04/09/2024 04/09/2023 Medicare Annual Wellness Visit 04/09/2024 04/09/2023 COVID-19 Vaccine (3 - season) 2024 01/05/2021, 12/08/2020 Influenza Vaccine (Season Ended) 2025 07/06/2022, 08/14/2021, 07/13/2020, Additional history exists DTaP,Tdap,and Td Vaccines (2 - Td or Tdap) 10/02/2027 10/02/2017 Cholesterol Screening (Lipid Panel) 04/09/2028 04/09/2023 HIB Vaccines Aged Out No longer eligi ble based on patient's age to complete this topic HPV Vaccines Aged Out No longer eligi ble based on patient's age to complete this topic Hepatitis A Vaccines Aged Out No long er eligible based on patient's age to complete this topic Hepatitis B Vaccines Aged Out No long er eligible based on patient's age to complete this topic IPV Vaccines Aged Out No longer eligi ble based on patient's age to complete this topic MMR Vaccines Aged Out No longer eligi ble based on patient's age to complete this topic Meningococcal ACWY Vaccine Aged Out N o longer eligible based on patient's age to complete this topic Meningococcal B Vaccine Aged Out No l onger eligible based on patient's age to complete this topic RSV Immunization Patients Under 20 months Aged Out No longer eligible based on patient's age to complete this topic Varicella Vaccines Aged Out No longer eligible based on patient's age to complete this topic Procedures Procedure Name Priority Date/Time Associated Diagnosis Comments ANNUAL BMP BLOOD TEST Routine 04/09/2023 HEMOGLOBIN A1C Routine 04/09/2023 LIPID PANEL Routine 04/09/2023 URINE ALBUMIN CREATININE RATIO Routine 12/12/2022 from Last 3 Months or Most Recently Relevant to Health Maintenance Results * Annual BMP Blood Test (04/09/2023) [facility] Annual BMP Blood Test abstracted Result [facility] Provider HEALTH MAINTENANCE Final Result * (ABNORMAL) Hemoglobin A1c (04/09/2023) [facility] Hemoglobin A1C 9.1(A) <=6.5 % Blood Venous blood specimen / Unknown Result [facility] Provider LAB BLOOD ORDERABLES Margo l Result * Lipid panel (04/09/2023) [facility] LDL/HDL Ratio 2 0 - 4 Triglycerides 137 0 - 150 mg/dL Cholesterol 93 0 - 200 mg/dL HDL 44 >=40 mg/dL LDL Cholesterol 22 0 - 100 mg/dL Blood Venous blood specimen / Unknown Result [facility] Provider LAB BLOOD ORDERABLES Margo l Result * Urine Albumin Creatinine Ratio (12/12/2022) [facility] Urine Albumin Creatinine Ratio abstracted Result [facility] Provider HEALTH MAINTENANCE Final Result from Last 3 Months or Most Recently Relevant to Health Maintenance Insurance MEDICARE [facility] Care Teams Instructional Media Services Technician Relationship Specialty Start Date End Date Ne Dean MD [address] [place] [address] PCP - General 03/23/24
== END 2025-02-08 14:40 | disposition home or self-care (01) ==
LOC: HO.HMCC 13:45
PROVIDERS: PCP Internal Medicine; Visit Provider Internal Medicine
DX: E11.9 Type 2 diabetes mellitus without complications (principal); I10 Essential (primary) hypertension; E78.5 Hyperlipidemia, unspecified; I71.20 Thoracic aortic aneurysm, without rupture, unspecified; I25.10 Atherosclerotic heart disease of native coronary artery without angina pectoris

== ENCOUNTER → 2025-02-08 13:45 | Outpatient (BNVA) | payer MEDICARE, SELFPAY | PROVIDERS: PCP Internal Medicine; Visit Provider Internal Medicine | DX: E11.9 Type 2 diabetes mellitus without complications (principal); E78.5 Hyperlipidemia, unspecified; I10 Essential (primary) hypertension; I71.20 Thoracic aortic aneurysm, without rupture, unspecified; I25.10 Atherosclerotic heart disease of native coronary artery without angina pectoris | CPT/HCPCS: 99212 ==

== ENCOUNTER 2025-03-07 12:51 | Outpatient (AMB) | payer MEDICARE, SELFPAY ==
[2025-03-07 13:10] VITALS: BMI 24.1
--- NOTE | 2025-03-07 13:10 | MHC.OFFVIS ---
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 States his thumb is catching and locking. Currently states it has improved on its own, still catches from time to time but pain has improved. Denies numbness or tingling in hands. Denies injury, splinting or injections. Allergies dapagliflozin [From [facility]] Adverse Reaction (Severe, Verified 03/07/25 13:14) pain in legs PFSH Medical History (Updated 03/07/25 @ 13:50 by JEAN PIERRE Reeder) [place] (hard of hearing) Arthritis GERD (gastroesophageal reflux disease) Thoracic aortic aneurysm without rupture Elevated cholesterol HTN (hypertension) CAD (coronary artery disease) BPH (benign prostatic hyperplasia) Nephrolithiasis Surgical History History of esophagogastroduodenoscopy (EGD) Hx of lithotripsy Hx of heart artery stent H/O colonoscopy Family History Brother DM type 2 (diabetes mellitus, type 2) CAD (coronary artery disease) Father CAD (coronary artery disease) Social History (Updated 03/07/25 @ 13:16 by GUILLERMO Fitzpatrick) 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:: , 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 Housing: House Are you a primary career development coordinator/teacher to a significant other at home: No Do you presently have visiting nurse or other home services: No Alcohol intake: never Patient Tobacco Use Status: Former Tobacco user (45 years ago) Tobacco use type: Cigarette Years Smoked: 8 e-Cigarette/Vaping Use: Never Used service: No Current occupational status: retired 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 The condition started in November and was initially accompanied by significant pain and a catching sensation when attempting to extend the thumb after flexing. The pain has notably subsided; however, the mechanical symptoms persist, affecting the ability to grasp and lift objects effectively. Historically, the patient has experienced three to four similar episodes over 40 years, with previous resolution achieved through steroid injections. The past effectiveness of this treatment has influenced the patient's preference for managing the current episode conservatively initially, rather than opting for surgical intervention. Increased activity during better weather has also impacted his management decision. Review of Systems - Musculoskeletal: Reports catching and locking of the thumb; denies current pain. - Endocrine: Reports being diabetic; otherwise no mention of symptoms provided. Systems reviewed and are negative except as per HPI and below Physical Exam - Musculoskeletal- No tenderness over the A1 nigel of the affected thumb. There is visible and palpable locking and catching of the left thumb. patient is able to flex and extend all other digits of the left hand fully and without difficulty. Results Procedure - Steroid Injection into Tendon Sheath: Informed consent obtained, patient expressed understanding and agreement. The injection aims to relieve locking and catching symptoms temporarily or permanently based on previous successful treatment history. The risks and benefits of a steroid injection including but not limited to risk of damage to blood vessels, nerves, tendons, infection, skin bleaching, failure to improve symptoms, increased pain, and possible need for further injections or other intervention were discussed with the patient and the patient wishes to proceed with the steroid injection. Once consent was obtained, I sterilely prepped the area over the A1 nigel of the flexor tendon sheath of the Left thumb. I then injected the flexor tendon sheath with a combination of 1 mL of dexamethasone (4mg/ml), and 1% lidocaine. The patient tolerated the procedure well with no complications. If the patient continues to have locking and catching 4-6 weeks following this injection, they may call to schedule appointment to discuss alternative treatment options Follow-up prn Plan The treatment plan for the patient's trigger thumb involves administration of a steroid injection to the tendon sheath. This decision considers the patient's preference for non-surgical intervention and positive outcomes from past injections. We discussed the possibility of a slight increase in blood sugar levels post-injection, and the patient will monitor his levels closely. Should mechanical symptoms continue, surgery under local anesthesia is a viable option to provide lasting relief. The conservative approach is reinforced by the patient's successful history with similar treatments and his increased activity in favorable weather conditions. Patient was informed and verbally consented to the use of an ambient scribe for clinic note documentation during this visit. Discussion Notes I discussed with the patient that for managing trigger thumb, a steroid injection into the tendon sheath presents a 50/50 chance of permanent resolution of symptoms, reflecting his previous satisfactory treatment outcomes. I highlighted that steroid injections might cause temporary blood sugar spikes, advising the diabetic patient to monitor his levels closely. We also explored the alternative of a minor surgical procedure under local anesthesia, offering a 98% likelihood of eliminating symptoms permanently. The patient expressed agreement to proceed with the injection initially, given its historical efficacy and current preference. Should the injection prove insufficient, he is open to discussing surgical intervention, considering his history of multiple trigger fingers effectively resolved through injections. Patient Instructions - Monitor blood sugar closely for the next 24 hours after the injection. - Keep an eye on thumb symptoms and report any worsening. - Consider surgical options if symptoms persist. - Follow up as needed based on symptom progression. - Increase activity levels gradually, watching for any thumb instability or discomfort. Coding Level of Care Code New Pt Level 3 (16353) Diagnoses Trigger thumb, left thumb M65.312 CPT Codes Tendon Injection - Tendon Injection 1: [id number] Tendon Sheath Injection ([id number])
--- OUTSIDE RECORDS SUMMARY | 2025-03-07 13:52 | XMS_ITS | Data Portability ---
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 Procedures Surgical History Date Name Laterality Status Provider Name and Address Organization Details Recorded Time 04/27/2024 Air only Audio - 89111 completed THOM MORALES 100 [facility] [address], [place], [address], [facility] - [facility] 05/04/2024 12:11:30 Imaging Results None recorded. Procedure Notes None recorded. Medical Equipment None [...] [id number] THOM KENDRICK [place]ACK[place] 100 [facility] it [address] [place] [address] 04/22/2024 10:38:40 04/26/2024 15:21:18 Sensorineural hearing loss of bilateral ears [id number] H90.3 9074 THOM MORALES [facility] - [facility] [address] [place] [address] 04/27/2024 11:40:38 04/30/2024 08:09:40 Sensorineural hearing loss of bilateral ears [id number] H90.3 Health Concerns Section Related Observation LastModified by Organization Detai ls LastModified Time None Recorded Concern Status LastModified by Organization Details LastModified Time None Recorded Advance Directives Directive None Recorded Payers Insurance Date Sequence Insurance Name Policy Number Policy [place] Covered Member ID B[place] Member ID Guarantor Name 04/22/2024 1 [place] [employer] Lemuel Soto Oren [id number] Lemuel Brittany Oren 05/06/2024 2 [place] [id number] Lemuel Soto Oren [id number] Lemuel Brittany Oren Notes Date Note Type Note Provider Name and Address Organization Details Recorded Time 04/22/2024 text/html Known bilateral SNHL. Currently wearing Widex Moment [address] R hearing aids dispensed 05/20/2021 CARIE SCHMIDT, [facility] 100 [facility],[address], [address], [facility] 04/22/2024 11:12:21 04/27/2024 text/html Carie accidently scheduled him on a day she was scheduled in [facility] to cover. He was in the [...] if problems occur. LEFTY CARRILLO, AUD [address] [facility],[place] [address], [place], [address], [facility] 05/04/2024 12:12:01
== END 2025-03-07 13:49 | disposition home or self-care (01) ==
LOC: HO.HOS 12:52
PROVIDERS: PCP Internal Medicine
DX: M65.312 Trigger thumb, left thumb (principal)
CPT/HCPCS: 20550; 99203

== ENCOUNTER → 2025-03-07 12:51 | Outpatient (BNVA) | payer MEDICARE, SELFPAY | PROVIDERS: PCP Internal Medicine | DX: M65.312 Trigger thumb, left thumb (principal) | CPT/HCPCS: 20550; 99202; J1100; J2003 ==

== ENCOUNTER 2025-04-12 12:44 | Outpatient (REF) | payer MEDICARE, SELFPAY ==
[2025-04-12 17:25] LABS: Appearance Urine Turbid; Glucose Urine UA 100 mg/dL (Negative); PH 6.0 (5.0-9.0); Specific Gravity - Urine 1.015 (1.005-1.025); UMIC TRIGGER UA YES
[2025-04-12 17:43] LABS: Hematocrit 35.1 % (42.0-52.0); Hemoglobin 12.3 g/dl (14.0-18.0); Imm Gran Abs Auto 0.16 X10*3/uL (0.00-0.03); Imm Gran Pct Auto 0.9 % (0.0-0.4); Lymphocytes Absolute Auto 1.8 X10*3/uL (1.2-4.9); MANUAL DIFF FLAG SCAN; Mean Corpuscular HGB Conc 35.0 g/dl (31.0-36.0); Mean Corpuscular Hemoglobin 30.1 pg (27.0-33.0); Mean Corpuscular Volume 85.8 fL (80.0-98.0); NRBC Abs Auto 0.000 X10*3/uL (0.0-0.012); NRBC Pct Auto 0.0 /100WBC (0.0-0.2); Platelet Count 413 X10*3/uL (160-400); Red Blood Count 4.09 X10*6/uL (4.60-5.80); SCAN SMEAR FLAG 1; White Blood Count 18.0 X10*3/uL (4.8-10.8)
[2025-04-12 17:51] LABS: Alanine Aminotransferase 39 U/L (0-40); Albumin Level 3.4 g/dL (3.5-5.0); Alkaline Phosphatase 100 U/L (39-117); Anion Gap 16 (12-20); Aspartate Amino Transferase 42 U/L (5-37); Blood Urea Nitrogen 26 mg/dL (9-16); Calcium 9.3 mg/dL (8.4-10.2); Carbon Dioxide 22 mmol/L (22-29); Chloride 98 mmol/L (96-108); Estimated Glomerular Filt Rate 30; Potassium 4.4 mmol/L (3.3-5.1); Sodium 132 mmol/L (135-145); Total Protein 8.3 g/dL (6.5-8.0)
== END 2025-04-12 12:45 | disposition home or self-care (01) ==
LOC: HO.HMGCLDS 12:44
PROVIDERS: PCP Internal Medicine; Visit Provider Internal Medicine
DX: E11.9 Type 2 diabetes mellitus without complications (principal); N20.0 Calculus of kidney; I10 Essential (primary) hypertension; R63.4 Abnormal weight loss; Z79.84 Long term (current) use of oral hypoglycemic drugs; Z79.899 Other long term (current) drug therapy
CPT/HCPCS: 36415; 80053; 81001; 82948; 83036; 85025; 99212

== ENCOUNTER 2025-04-12 12:44 | Outpatient (AMB) | payer MEDICARE, SELFPAY ==
[2025-04-12 12:51] VITALS: BP 136/78; PULSE 84; RESP 18; TEMP 36.8; O2SAT 99; BMI 21.8
--- NOTE | 2025-04-12 12:51 | MHC.PC.OV ---
Vital Signs 04/12/25 12:51 Height 6 ft Weight 161 lb BMI 21.8 BP 136/78 Blood Pressure Location Lt brachial Position Sitting Respiration 18 Pulse 84 Pulse Source Pulse Oximeter Temp 98.2 F Temp Source Oral Pulse Oximetry (%) 99 Oxygen Delivery Method Room Air Intake Visit Reasons: Weight loss, poor appetite Intake Note: Pt is here today for a [facility] visit. Pt c/o weight loss and poor appetite. Allergies dapagliflozin (From [facility]) Adverse Reaction (Severe, Verified 04/12/25 13:01) pain in legs Medication List - Last Reconciled 04/12/25 by Ne Dean MD aspirin (Adult Low Dose Aspirin) 81 mg PO DAILY blood sugar diagnostic (FreeStyle Lite Strips) Test blood sugar once a day blood-glucose meter (FreeStyle Lite Meter kit) As directed carvedilol 6.25 mg PO BID famotidine 20 mg PO BEDTIME glipizide 5 mg PO DAILY lancets (FreeStyle Lancets) test once a day metformin 1,000 mg PO BID rosuvastatin 20 mg PO BEDTIME tamsulosin 0.4 mg PO DAILY vit C,B-Gq-zwomm-lutein-zeaxan 250-90-40-1 mg (PreserVision AREDS-2) 1 tab PO QAM Tobacco use date assessed: 04/12/25 Last assessed Fall Risk: 04/12/25 Dental Screening Dental Screen Date: 02/08/25 HPI Weight loss, poor appetite HPI Details Patient presents complaining of 2 weeks of feeling tired, decreased appetite, weight loss about 15 lb in 2 weeks, dry month and nausea. Patient denies vomiting, abdominal or pelvic pain dysuria hematuria fever chills chest pains or palpitations. He underwent bilateral ureteroscopy on March 14 for bilateral kidney stones. Patient reports high blood glucose readings around 300s in the morning. He contacted his application assistant at [facility] who told the patient to increase fluid intake. Patient has been taking metformin and glipizide but has not been eating due to poor appetite. He denies hypoglycemia episodes. Hypertension is controlled on carvedilol. [facility] Medical History (Updated 04/12/25 @ 15:35 by Ne Dean MD) [place] (hard of hearing) Arthritis GERD (gastroesophageal reflux disease) Thoracic aortic aneurysm without rupture Elevated cholesterol HTN (hypertension) CAD (coronary artery disease) BPH (benign prostatic hyperplasia) Nephrolithiasis Surgical History History of esophagogastroduodenoscopy (EGD) Hx of lithotripsy Hx of heart artery stent H/O colonoscopy Family History Brother DM type 2 (diabetes mellitus, type 2) CAD (coronary artery disease) Father CAD (coronary artery disease) Social History 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:: , 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 Housing: House Are you a primary resident care aid to a significant other at home: No Do you presently have visiting nurse or other home services: No Alcohol intake: never Patient Tobacco Use Status: Former Tobacco user (45 years ago) Tobacco use type: Cigarette Years Smoked: 8 e-Cigarette/Vaping Use: Never Used service: No Current occupational status: retired 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 Kimo Strauss, Josiane Maya, Jesus Alberto Fagan and colleagues, with an educational loren from [employer]. Review of Systems Const All systems reviewed & are unremarkable except as noted in HPI and below ENT Reports no additional complaints Card Reports no additional complaints Resp Reports no additional complaints GI Reports no additional complaints Reports no additional complaints Physical exam (Primary Care) Vital Signs: Last Vital Signs Temp 98.2 F 04/12/25 12:51 Pulse 84 04/12/25 12:51 Resp 18 04/12/25 12:51 BP 136/78 04/12/25 12:51 Pulse Ox 99 04/12/25 12:51 Oxygen Delivery Method Room Air 04/12/25 12:51 BMI result Body Mass Index 21.8 Tobacco/Smoking Status: Tobacco use Status Tobacco use date assessed 04/12/25 04/12/25 13:02 Patient Tobacco Use Status Former Tobacco user (45 04/12/25 12:52 years ago) Tobacco use type Cigarette 04/12/25 12:52 e-Cigarette/Vaping Use Never Used 04/12/25 12:52 Thrive Assessment: Date of Thrive Assessment Date Thrive assessed 02/08/25 04/12/25 12:52 Const General: anxious HENMT Head: Yes normal to inspection Neck Neck: Yes supple Resp Effort & Inspection: normal respiratory effort Auscultation: clear to auscultation bilaterally Cardio Rhythm: regular rhythm Heart sounds: S1 normal heart sound present and S2 normal heart sound present GI Inspection: Yes normal to inspection Palpation (GI): Soft to palpation Percussion: Yes normal to percussion Auscultation: normal bowel sounds Extrem General: Yes no clubbing, cyanosis or edema Results AMB Random Glucose (hemocue) AMB Random Glucose (hemocue) 284 mg/dL Last Edit by Sedrick Yan CMA on 04/12/25 14:00 AMB Hemoglobin A1c AMB Hemoglobin A1c 8.0 % Last Edit by Sedrick Yan CMA on 04/12/25 14:10 Results Reviewed Results Reviewed: Laboratory Last Values Random Glu (Clinic) 284 mg/dL 04/12/25 13:59 Hgb A1c (Clinic) 8.0 % (4.0-6.0) H 04/12/25 13:59 Coding Level of Care Code Est Pt Level 4 (33483) Complex EM visit Add On G2211 Diagnoses DM type 2 (diabetes mellitus, type 2) E11.9 Nephrolithiasis N20.0 HTN (hypertension) I10 Weight loss R63.4 Assessment & Plan Assessment & Plan (1) DM type 2 (diabetes mellitus, type 2): Comment: Follows up with [facility] endocrinology, A1C 6.4 12/2024 Code(s): E11.9 - Type 2 diabetes mellitus without complications Category: Medical Plan: Random glucose reading today was 200 ADA and A1c was 8.0. Patient declined any advised regarding his diabetes management. He will contact his application assistant at [facility] for further directions (2) Nephrolithiasis: Comment: Status post bilateral ureteroscopy for stone removal on 03/14/2025 by [facility] Code(s): N20.0 - Calculus of kidney Category: Medical Plan: Patient will follow-up with Urology (3) HTN (hypertension): Code(s): I10 - Essential (primary) hypertension Category: Medical Plan: Continue carvedilol (4) Weight loss: Code(s): R63.4 - Abnormal weight loss Category: Medical Plan: Obtain comprehensive panel and CBC blood work to rule out acute electrolytes abnormalities kidney failure, check urinalysis Orders: Orders Complete Blood Count Auto Diff Today E11.9 - Type 2 diabetes mellitus without complications UA w Microscopic Today E11.9 - Type 2 diabetes mellitus without complications AMB Hemoglobin A1c Today Z13.9 - Encounter for screening, unspecified AMB Random Glucose (hemocue) Today Z13.9 - Encounter for screening, unspecified Comprehensive Met. Panel Today E11.9 - Type 2 diabetes mellitus without complications Medications: Discontinued famotidine Discontinued Reason: Doctor's Order 20 mg PO BEDTIME 90 tabs 3RF
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
--- OUTSIDE RECORDS SUMMARY | 2025-04-12 13:27 | XMS_ITS | Data Portability ---
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 Procedures Surgical History Date Name Laterality Status Provider Name and Address Organization Details Recorded Time 04/27/2024 Air only Audio - 10590 completed THOM MORALES [address] [address], [place], [address], [facility] - [facility] 05/04/2024 12:11:30 Imaging Results None recorded. Procedure [...] [id number] THOM KENDRICK [place]ACK[place] 100 [facility] ite [address] [place] [address] 04/22/2024 10:38:40 04/26/2024 15:21:18 Sensorineural hearing loss of bilateral ears [id number] H90.3 [id number] THOM MORALES [facility] [address] [place] [address] 04/27/2024 11:40:38 04/30/2024 08:09:40 Sensorineural hearing loss of bilateral ears [id number] H90.3 Health Concerns Section Related Observation LastModified by Organization Detai ls LastModified Time None Recorded Concern Status LastModified by Organization Details LastModified Time None Recorded Advance Directives Directive None Recorded Payers Insurance Date Sequence Insurance Name Policy Number Policy [place] Covered Member ID B[place] Member ID Guarantor Name 04/22/2024 1 [place] [employer] [employer] Lemuel Soto Oren [id number] Lemuel Brittany Oren 05/06/2024 2 [place] [id number] Lemuel Soto Oren [id number] Lemuel Brittany Oren Notes Date Note Type Note Provider Name and Address Organization Details Recorded Time 04/22/2024 text/html Known bilateral SNHL. Currently wearing Widex Moment [address] R hearing aids dispensed 05/20/2021 CARIE SCHMIDT, [facility] 100 [facility],[address], [address], [facility] 04/22/2024 11:12:21 04/27/2024 text/html Carie accidently scheduled him on a day she was scheduled in [facility] to cover. He was in the [...] if problems occur. LEFTY CARRILLO, AUD [address] [facility],[address] [address], [place], [address], [facility] - [facility] 05/04/2024 12:12:01
== END 2025-04-12 14:50 | disposition home or self-care (01) ==
LOC: HO.HMCC 12:44
PROVIDERS: PCP Internal Medicine; Visit Provider Internal Medicine
DX: E11.9 Type 2 diabetes mellitus without complications (principal); N20.0 Calculus of kidney; I10 Essential (primary) hypertension; R63.4 Abnormal weight loss; Z13.9 Encounter for screening, unspecified

== ENCOUNTER 2025-04-13 13:43 | Outpatient (REF) | payer MEDICARE, SELFPAY ==
--- OUTSIDE RECORDS SUMMARY | 2025-04-13 14:32 | XMS_ITS | Clinical Summary ---
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 01/03/2023 Active metFORMIN (GLUCOPHAGE) 1,000 mg tablet Take 1 tablet (1,000 mg total) by mouth 1 (one) time each day with breakfast. 04/14/2023 Active vit C/E/Zn/coppr/madan tein/zeaxan (PRESERVISION AREDS-2 ORAL) Take 1 Tablet by mouth daily. Active rosuvastatin (CRESTOR) 20 mg tablet Take 1 Tablet by mouth daily. 04/24/2023 Active tamsulosin (FLOMAX) 0.4 mg 24 hr capsule TAKE 1 CAPSULE BY MOUTH EVERY DAY 01/26/2021 Active metFORMIN (FORTAMET) 500 mg 24 hr [...] mg total) 1 (one) time each day. 03/17/2025 Active tamsulosin (FLOMAX) 0.4 mg 24 hr capsule Take 1 capsule (0.4 mg total) by mouth 1 (one) time each day for 30 doses. 30 each 03/14/2025 Active oxyBUTYnin (DITROPAN) 5 mg tablet Take 1 tablet (5 mg total) by mouth 3 (three) times a day if needed (spasms) for up to 20 doses. 20 each 03/14/2025 Active phenazopyridine (Pyridium) 200 mg tablet Take 1 tablet (200 mg total) by mouth 3 (three) times a day if needed (dysuria) for up to 10 doses. 10 tablet 03/14/2025 Active oxyCODONE (ROXICODONE) 5 mg immediate release tablet Take 1 tablet (5 mg total) by mouth every 6 (six) hours if needed for severe pain for up to 6 doses. Max Daily Amount: 20 mg 6 tablet 03/14/2025 Active oxyBUTYnin XL (Ditropan XL) 5 mg 24 hr tablet Take 1 tablet (5 mg total) by mouth 2 (two) times a day if needed (spasms) for up to 15 doses. Do not crush, chew, or split. 15 each 03/28/2025 Active diazePAM (Valium) 2 mg tabletIndicatio ns:Calculus of kidney Take 1 tablet (2 mg total) by mouth every 6 (six) hours if needed for muscle spasms for up to 10 doses. Max Daily Amount: 8 mg 10 tablet 03/28/2025 Active tamsulosin (FLOMAX) 0.4 mg 24 hr capsule Take 1 capsule (0.4 mg total) by mouth 1 (one) time each day for 30 doses. 30 each 03/28/2025 Active phenazopyridine (Pyridium) 200 mg tablet Take 1 tablet (200 mg total) by mouth 3 (three) times a day if needed (dysuria) for up to 10 doses. 10 tablet 03/28/2025 Active Active Problems Problem Noted Date Diagnosed Date Gastroesophageal reflux disease 03/28/2025 BPH (benign prostatic hyperplasia) 12/12/2022 Type 2 diabetes mellitus (CMS/[facility] V24, CMS/[facility] V 28) 12/12/2022 Atherosclerosis of [place] co ronary artery of [place] heart without angina pectoris 12/21/2021 Overview (09/27/2024): [...] Description 03/28/2025 10:34 AM EDT Anesthesia Event [facility] Main OR [address] [place] [phone] Bhakti Milian MD Pierce, Trudy A, CRNA 03/28/2025 10:30 AM EDT - 03/28/2025 12:00 PM EDT Surgery [facility] Main OR [address] [place] [phone] Nabil Rosales MD CYSTOSCOPY BILATERAL URETEROSCOPY, LASER LITHOTRIPSY STENT CHANGE (2ND ATTEMPT) [24894 (CPT )] 03/28/2025 9:13 AM EDT - 03/28/2025 2:10 PM EDT Hospital Encounter [facility] Main OR [address] [place] [phone] Nabil Rosales MD Calculus of kidney Discharge Disposition: Home or Self Care 03/28/2025 7:05 AM EDT - 03/28/2025 11:59 PM EDT Hospital Encounter [facility] Xray [address] [place] [phone] Pain Discharge Disposition: Home or Self Care 03/14/2025 9:15 AM EDT Anesthesia Event [facility] OR [address] [place] [phone] Murphy Richardson DO 03/14/2025 9:00 AM EDT - 03/14/2025 10:30 AM EDT Surgery [facility] OR [address] [place] [phone] Nabil Rosales MD CYSTOSCOPY,URETEROSCOPY, LASER LITHRIPSY, STENT, CYSTOLITHOLAPLASTY [13528 (CPT )] 03/14/2025 7:31 AM EDT - 03/14/2025 12:36 PM EDT Hospital Encounter [facility] OR [address] [place] [phone] Nabil Rosales MD Calculus of kidney Discharge [...] (hypertension) 11/06/2020 DX:HTN (hyper tension) Atherosclerosis of [place] ar teries of extremities with intermittent claudication, bilateral legs ([facility] V24) 11/06/2020 DX:Atherosclerosis of [place] arteries of extremities with intermittent claudication, bilateral legs ([facility]) S/P coronary artery stent placement 07/14/2009 DX:S/P coronary artery stent placement; COMMENT: 07/14/2009 Cath [place] [facility] by [facility]. Eddy Holloway - stent placed to mid LAD GERD with esophagitis DX:GERD wi th esophagitis Anxiety DX:Anxiety Benign prostatic hyperplasia without lower urinary tract symptoms DX:Benign prostatic hyper plasia without lower urinary tract symptoms IFG (impaired fasting glucose) D X:IFG (impaired fasting glucose) Dysthymic disorder DX:Dysthymic disorder Iliac artery stenosis, left ([facility] V24) 11/06/2020 DX:Iliac artery stenosis, le ft ([facility]) Depression DX:Depression Nephrolithiasis DX:Nephrolithias is CAD (coronary artery disease) 11/06/2020 DX :CAD (coronary artery disease) Diabetes mellitus ([facility] V 24, [facility] V28) type 2 Heart disease GERD (gastroesophageal [...] Description 05/04/2025 11:30 AM EDT Ancillary Procedure [facility] Cardiology [facility] [address] [place] [phone] 05/19/2025 3:00 PM EDT Office Visit [facility] Cardiology [address] [place] [phone] Eddy Holloway MD [address] [place] [address],[facility] [address] [place] [address] Health Maintenance Due Date Last Done Comments [...] this topic Medical Devices Implanted Type Area Trust Vault Clerk Device Identifier Shelf Expiration Date Model / Serial / Lot Stent Uret [id number] Contr Percuflex Hydroplus - Sna - [id number] Implanted:Qty: 1 on 03/14/2025 by Nabil Rosales MD at [facility] Stents Right: Ureter [employer]Y [id number] 10/26/2027 [id number] 60 / NA / [id number] Stent Uret [id number] Contr Percuflex Hydroplus - Sna - [id number] Implanted:Qty: 1 on 03/14/2025 by Nabil Rosales MD at [facility] Stents Left: Ureter [employer] [id number] 11/08/2027 [id number] 60 / NA / [id number] Stent Uret [id number] Contr Percuflex Hydroplus - Sna - [id number] Implanted:Qty: 1 on 03/28/2025 by Nabil Rosales MD at [facility] Stents Right: Ureter [employer] [id number] 11/10/2027 [id number] 60 / NA / [id number] Stent Uret [id number] Contr Percuflex Hydroplus - Sna - [id number] Implanted:Qty: 1 on 03/28/2025 by Nabil Rosales MD at [facility] Stents Left: Ureter [employer] [id number] 09/20/2027 [id number] 60 / NA / [id number] Procedures Procedure Name Priority Date/Time Associated Diagnosis Comments XR UROGRAM RETROGRADE Routine 03/28/2025 12:03 PM EDT Pain OXYGEN THERAPY, ADULT Routine 03/28/2025 12:02 PM EDT OXYGEN THERAPY, ADULT Routine 03/28/2025 12:02 PM EDT TH AN LMA(NO CHARGE) Routine 03/28/2025 10:59 AM EDT CULTURE URINE Routine 03/28/2025 10:59 AM EDT Calculus of kidney [place] CYSTO W URETEROSCOPY/PYELOS COPY W LITHOTRIPSY INCL [...] 03/14/2025 9:31 AM EDT Calculus of kidney MI CYSTO W URETEROSCOPY/PYELOS COPY W LITHOTRIPSY INCL [...] Signed Date: 03/28/2025 12:16 ET Workstation ID: [id number] Transcribed By: Self Edit Transcribed Date: 03/28/2025 12:16 ET Narrative 03/28/2025 12:16 PM EDT Findings: Digital spot images of the upper urinary tract are submitted from the OR, used intraoperatively by Dr. Rosales during bilateral retrograde procedure's. No radiologist was in attendance. Fluoroscopy was provided in the OR by a biomedical engineering technologist. Cumulative Air Kerma: 0.7224 mGy Procedure Note Darshana Farias MD - 03/28/2025 Findings: Digital spot images of the upper urinary tract are submitted from the OR,used intraoperatively by Dr. Rosales during bilateral retrogradeprocedure's. No radiologist was in attendance. Fluoroscopy was provided in the OR by a biomedical engineering technologist. Cumulative Air Kerma: 0.7224 mGy IMPRESSION: Impression: 1. Intraoperative images of the upper urinary tract. 2. Fluoroscopy provided in the OR. NC -------- FINAL REPORT -------- Dictated By: Darshana Farias Dictated Date: 03/28/2025 12:16 ET Assigned Physician: Darshana Farias Reviewed and Electronically Signed By: Darshana Farias Signed Date: 03/28/2025 12:16 ET Workstation ID: [id number] Transcribed By: Self Edit Transcribed Date: 03/28/2025 12:16 ET Nabil Rosales MD IMG FLUOROSCOPY PROC EDURES Final Result * TH AN LMA(NO CHARGE) (03/28/2025 10:59 AM EDT) Cristina Oscar CRNA - 03/28/2025 10:59 AM EDT Cristina Schmidt CRNA 03/28/2025 11:00 AM General Information and Staff Patient location during procedure: OR Performed by: Cristina Schmidt CRNA Authorized by: Bhakti Milian MD Intubation Additional Comments LMA placed by Kuldeep Dubose, medical care evaluation specialist student under supervision of Dr. Milian and [...] mixed bacterial ricardo 03/30/2025 10:52 AM EDT [facility] Urine Urinary bladder structure / Unknown 03/28/2025 10:59 AM EDT 03/28/2025 12:22 PM EDT Narrative [facility] - 03/30/2025 10:52 AM EDT 3 colony types gram positive cocci all <100 cfu/ml Nabil Rosales MD LAB MICROBIOLOGY - G ENERAL ORDERABLES Final Result [facility] [address] [place] [address], * (ABNORMAL) POCT Glucose, blood (03/28/2025 9:29 AM EDT) Only the most recent of3 resultswithin the time period is included. Glucose POCT 256(H) 70 - 100 mg/dL 03/28/2025 9:30 AM EDT [facility] Blood Capillary blood specimen / Unknown 03/28/2025 9:29 AM EDT 03/28/2025 9:31 AM EDT Nabil Rosales MD LAB POINT OF CARE TEST DOCKED DEVICE UNSOLICITED RESULTS Final Result Performing Organization Address City/[facility]/ZIP Co de Phone Number [facility] [address] [place] [address], * Stone analysis (03/14/2025 10:17 AM EDT) Only the most recent of2 resultswithin the time period is included. Component(s) See below 03/18/2025 7:45 PM EDT [facility] Comment: 55% Calcium oxalate monohydrate (Whewellite) 25% Calcium oxalate dihydrate (Weddellite) 20% Carbonate apatite (Dahllite) Stone Weight 0.1021 g 03/18/2025 7:45 PM EDT [facility] Comment: This test was developed and its performance characteristics determined by [facility] in a manner consistent with CLIA requirements. This test has not been cleared or approved by the U.S. Food and Drug Administration. Test performed at [facility], [address] , [place] [address] Edelmira Hughes MD, PhD - Liquid Compounder Calculus Right kidney structure / Unknown 03/14/2025 10:17 AM EDT 03/14/2025 12:23 PM EDT Comment:PER DR. ROSALES Nabil Rosales MD LAB BODY FLUIDS AND STOOLS ORDERABLES Final Result Performing Organization Address City/[facility]/ZIP Co de Phone Number [facility] [address] [place] [address] * TH AN LMA(NO CHARGE) (03/14/2025 9:32 AM EDT) Narrative Trev Quiñonez CRNA - 03/14/2025 9:32 AM EDT Trev Quiñonez CRNA 03/14/2025 9:32 AM General Information and Staff Patient location during procedure: OR Resident/AUTOCAD TECHNICIAN: Trev Quiñonez CRNA Performed: resident/AUTOCAD TECHNICIAN/[place] Performed by: Trev Quiñonez CRNA Authorized by: [...] (No Charge) (03/14/2025 8:08 AM EDT) Pathologist [facility] Ventricular Rate ECG 55 BPM GEMUSE Atrial Rate 55 BPM GEMUSE P-R Interval 250 ms GEMUSE QRS Duration 102 ms GEMUSE Q-T Interval 436 ms GEMUSE QTc 417 ms GEMUSE P Wave [place] 58 degrees GEMUSE R [place] 4 degrees GEMUSE T [place] 44 degrees GEMUSE ECG Interpretation Sinus bradycardia with 1st degree A-V block Septal infarct , age undetermined Abnormal ECG When compared with ECG of 08-JUN-2015 09:54, MI interval has increased Septal infarct is now Present Confirmed by SARINA MURRAY ([id number]) on 03/14/2025 9:33:01 PM GEMUSE 03/14/2025 8:08 AM EDT 03/14/2025 9:33 PM EDT Nabil Rosales MD ECG ORDERABLES Margo l Result GEMUSE * Annual BMP Blood Test (04/09/2023) Pathologist [facility] Annual BMP Blood Test abstracted Historical Provider HEALTH MAINTENANCE Final Result * (ABNORMAL) Hemoglobin A1c (04/09/2023) Hemoglobin A1C 9.1(A) <=6.5 % Blood Venous blood specimen / Unknown Historical Provider LAB BLOOD ORDERABLES Margo l Result * Lipid panel (04/09/2023) Pathologist [facility] LDL/HDL Ratio 2 0 - 4 Triglycerides 137 0 - 150 mg/dL Cholesterol 93 0 - 200 mg/dL HDL 44 >=40 mg/dL LDL Cholesterol 22 0 - 100 mg/dL Blood Venous blood specimen / Unknown Historical Provider LAB BLOOD ORDERABLES Margo l Result * Urine Albumin Creatinine Ratio (12/12/2022) Pathologist [facility] Urine Albumin Creatinine Ratio abstracted [facility] Provider HEALTH MAINTENANCE Final Result from Last 3 Months or Most Recently Relevant to Health Maintenance Insurance MEDICARE [facility] Care Teams 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
--- OUTSIDE RECORDS SUMMARY | 2025-04-13 14:32 | XMS_ITS | Data Portability ---
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 Procedures Surgical History Date Name Laterality Status Provider Name and Address Organization Details Recorded Time 04/27/2024 Air only Audio - [id number] completed THOM MORALES [address] [address], [place], [phone], [facility] - [facility] 05/04/2024 12:11:30 Imaging Results None recorded. [...] [id number] THOM KENDRICK [place] [facility] [place] [address] [facility] [address] [place] [phone] 04/22/2024 10:38:40 04/26/2024 15:21:18 Sensorineural hearing loss of bilateral ears [id number] H90.3 9074 THOM MORALES [facility] [address] [place] [phone] 04/27/2024 11:40:38 04/30/2024 08:09:40 Sensorineural hearing loss of bilateral ears [id number] H90.3 Health Concerns Section Related Observation LastModified by Organization Detai ls LastModified Time None Recorded Concern Status LastModified by Organization Details LastModified Time None Recorded Advance Directives Directive None Recorded Payers Insurance Date Sequence Insurance Name Policy Number Policy B[place] Covered Member ID B[place] Member ID Guarantor Name 04/22/2024 1 [place] [employer] Lemuel Soto Oren [id number] 1 Lemuel Brittany Oren 05/06/2024 2 [place] [id number] Lemuel Soto Oren [id number] Lemuel Brittany Oren Notes Date Note Type Note Provider Name and Address Organization Details Recorded Time 04/22/2024 text/html Known bilateral SNHL. Currently wearing Widex Moment [address] hearing aids dispensed 05/20/2021 CARIE SCHMIDT, [facility] [address] [facility],[address], [phone], [facility] 04/22/2024 11:12:21 04/27/2024 text/html Carie accidently scheduled him on a day she was scheduled in [facility] to cover. He was in the [...] if problems occur. LEFTY CARRILLO, AUD [address] [facility],[address] [address], [place], [address], [facility] - [facility] 05/04/2024 12:12:01
== END 2025-04-13 13:44 | disposition home or self-care (01) ==
LOC: HO.LAB 13:43
PROVIDERS: Visit Provider Internal Medicine
DX: N20.0 Calculus of kidney (principal); E11.9 Type 2 diabetes mellitus without complications
CPT/HCPCS: 87086; 87088

== ENCOUNTER 2025-04-15 13:56 | Outpatient (REF) | payer MEDICARE, SELFPAY ==
--- NOTE | ~2025-04-15 | US_ITS ---
EXAMINATION: US RETROPERITONEAL LIMITED (RENAL ONLY) CLINICAL INFORMATION: Acute kidney failure. COMPARISON: None available. TECHNIQUE: Real-time imaging of the kidneys and bladder. FINDINGS: RIGHT KIDNEY: 14.2 x 6.9 x 7.9 cm (SAG x AP x TRV). The kidney is normal in size, contour, and echogenicity. Renal cortical thickness is normal. There is an upper pole simple cyst measuring 4.3 x 4.0 x 4.8 cm. There are multiple nonobstructing calculi present measuring up to 11 mm. There is moderate to severe hydronephrosis. There is debris within the calyces and within the renal pelvis and proximal ureter. LEFT KIDNEY: 13.9 x 6.1 x 6.4 cm (SAG x AP x TRV). The kidney is normal in size, contour, and echogenicity. Renal cortical thickness is normal. There is mild to moderate hydronephrosis. There is a nonobstructing lower pole calculus measuring 7 x 4 x 8 mm. BLADDER: Bladder is mildly distended. There is extensive echogenic debris encompassing approximately one half the lumen of the urinary bladder. There is a bladder calculus present in the right aspect measuring 1.1 x 0.6 x 1.4 cm. US/US renal BI IMPRESSION: 1. Moderate to severe right renal hydronephrosis and proximal hydroureter. There is debris within the renal calyces, pelvis, and proximal ureter. Infection should be considered. There are numerous nonobstructing calculi in the right kidney measuring up to 11 mm. 2. Mild to moderate hydronephrosis of the left kidney present. There is a lower pole calculus measuring 7 x 8 x 4 mm. 3. Extensive debris within the urinary bladder. Bladder calculus measuring 1.1 x 0.6 x 1.4 cm. Electronically signed by: Helder Berumen MD 04/15/2025 03:14 PM EDT
--- OUTSIDE RECORDS SUMMARY | 2025-04-15 14:00 | XMS_ITS | Clinical Summary ---
Author Organization [address] [place] [address] [place] [phone] Phone Care Team Providers Care Certified Registered Dental Assistant Name Role Phone Ne Dean MD Primary Care Provider [phone] Allergies No known active allergies Medications famotidine [...] 1 (one) time each day. 03/17/2025 Active oxyBUTYnin (DITROPAN) 5 mg tablet Take [...] day for 30 doses. 30 each 03/28/2025 04/27/20 25 Active phenazopyridine (Pyridium) 200 mg tablet Take 1 tablet (200 mg total) by mouth 3 (three) times a day if needed (dysuria) for up to 10 doses. 10 tablet 03/28/2025 Active tamsulosin (FLOMAX) 0.4 mg 24 hr capsule Take 1 capsule (0.4 mg total) by mouth 1 (one) time each day for 30 doses. 30 each 03/14/2025 04/13/20 25 Active Problems Problem Noted Date Diagnosed Date Gastroesophageal reflux disease 03/28/2025 BPH (benign prostatic hyperplasia) 12/12/2022 Type 2 diabetes mellitus (CMS/[facility] V24, CMS/[facility] V 28) 12/12/2022 Atherosclerosis of [place] co ronary artery of [place] heart without angina pectoris 12/21/2021 Overview (09/27/2024): [...] Description 03/28/2025 10:34 AM EDT Anesthesia Event [facility] Main OR [address] [place] [phone] Bhakti Milian MD Pierce, Trudy A, CRNA 03/28/2025 10:30 AM EDT - 03/28/2025 12:00 PM EDT Surgery [facility] Main OR [address] [place] [phone] Nabil Rosales MD CYSTOSCOPY BILATERAL URETEROSCOPY, LASER LITHOTRIPSY STENT CHANGE (2ND ATTEMPT) [56411 (CPT )] 03/28/2025 9:13 AM EDT - 03/28/2025 2:10 PM EDT Hospital Encounter [facility] Main OR [address] [place] [phone] Nabil Rosales MD Calculus of kidney Discharge Disposition: Home or Self Care 03/28/2025 7:05 AM EDT - 03/28/2025 11:59 PM EDT Hospital Encounter [facility] Xray [address] [place] [phone] Pain Discharge Disposition: Home or Self Care 03/14/2025 9:15 AM EDT Anesthesia Event [facility] OR [address] [place] [phone] Murphy Richardson DO 03/14/2025 9:00 AM EDT - 03/14/2025 10:30 AM EDT Surgery [facility] OR [address] [place] [phone] Nabil Rosales MD CYSTOSCOPY,URETEROSCOPY, LASER LITHRIPSY, STENT, CYSTOLITHOLAPLASTY [51016 (CPT )] 03/14/2025 7:31 AM EDT - 03/14/2025 12:36 PM EDT Hospital Encounter [facility] OR [address] [place] [phone] Nabil Rosales MD Calculus of kidney Discharge [...] (hypertension) 11/06/2020 DX:HTN (hyper tension) Atherosclerosis of [place] ar teries of extremities with intermittent claudication, bilateral legs ([facility] V24) 11/06/2020 DX:Atherosclerosis of [place] arteries of extremities with intermittent claudication, bilateral legs ([facility]) S/P coronary artery stent placement 07/14/2009 DX:S/P coronary artery stent placement; COMMENT: 07/14/2009 Cath @ [facility] by Dr. Eddy Holloway - stent placed to mid LAD GERD with esophagitis DX:GERD wi th esophagitis Anxiety DX:Anxiety Benign prostatic hyperplasia without lower urinary tract symptoms DX:Benign prostatic hyper plasia without lower urinary tract symptoms IFG (impaired fasting glucose) D X:IFG (impaired fasting glucose) Dysthymic disorder DX:Dysthymic disorder Iliac artery stenosis, left ([facility] V24) 11/06/2020 DX:Iliac artery stenosis, le ft ([facility]) Depression DX:Depression Nephrolithiasis DX:Nephrolithias is CAD (coronary artery disease) 11/06/2020 DX :CAD (coronary artery disease) Diabetes mellitus ([facility] V 24, [facility] V28) type 2 Heart disease GERD (gastroesophageal [...] Description 05/04/2025 11:30 AM EDT Ancillary Procedure [facility] Cardiology [facility] [address] [place] [phone] 05/19/2025 3:00 PM EDT Office Visit [facility] Cardiology [address] [place] [phone] Eddy Holloway MD [address] [place] [address],[facility] [address] [place] [address] Health Maintenance Due Date Last Done Comments [...] this topic Medical Devices Implanted Type Area Hog Ribber Device Identifier Shelf Expiration Date Model / Serial / Lot Stent Uret [id number] Contr Percuflex Hydroplus - Sna - [id number] Implanted:Qty: 1 on 03/14/2025 by Nabil Rosales MD at [facility] Stents Right: Ureter [employer] [id number] 10/26/2027 [id number] 60 / NA / [id number] Stent Uret [id number] Contr Percuflex Hydroplus - Sna - [id number] Implanted:Qty: 1 on 03/14/2025 by Nabil Rosales MD at [facility] Stents Left: Ureter [employer] [id number] 11/08/2027 [id number] 60 / NA / [id number] Stent Uret [id number] Contr Percuflex Hydroplus - Sna - [id number] Implanted:Qty: 1 on 03/28/2025 by Nabil Rosales MD at [facility] Stents Right: Ureter [employer] [id number] 11/10/2027 [id number] 60 / NA / [id number] Stent Uret [id number] Contr Percuflex Hydroplus - Sna - [id number] Implanted:Qty: 1 on 03/28/2025 by Nabil Rosales MD at [facility] Stents Left: Ureter [employer] [id number] 09/20/2027 [id number] 60 / NA / [id number] Procedures Procedure Name Priority Date/Time Associated Diagnosis Comments XR UROGRAM RETROGRADE Routine 03/28/2025 12:03 PM EDT Pain OXYGEN THERAPY, ADULT Routine 03/28/2025 12:02 PM EDT OXYGEN THERAPY, ADULT Routine 03/28/2025 12:02 PM EDT TH AN LMA(NO CHARGE) Routine 03/28/2025 10:59 AM EDT CULTURE URINE Routine 03/28/2025 10:59 AM EDT Calculus of kidney [place] CYSTO W URETEROSCOPY/PYELOS COPY W LITHOTRIPSY INCL [...] 03/14/2025 9:31 AM EDT Calculus of kidney [place] CYSTO W URETEROSCOPY/PYELOS COPY W LITHOTRIPSY INCL [...] Signed Date: 03/28/2025 12:16 ET Workstation ID: [id number] Transcribed By: Self Edit Transcribed Date: 03/28/2025 12:16 ET Narrative 03/28/2025 12:16 PM EDT Findings: Digital spot images of the upper urinary tract are submitted from the OR, used intraoperatively by Dr. Rosales during bilateral retrograde procedure's. No radiologist was in attendance. Fluoroscopy was provided in the OR by a nuclear medicine pet ct technologist. Cumulative Air Kerma: 0.7224 mGy Procedure Note Darshana Farias MD - 03/28/2025 Findings: Digital spot images of the upper urinary tract are submitted from the OR,used intraoperatively by Dr. Rosales during bilateral retrogradeprocedure's. No radiologist was in attendance. Fluoroscopy was provided in the OR by a nuclear medicine pet ct technologist. Cumulative Air Kerma: 0.7224 mGy IMPRESSION: Impression: 1. Intraoperative images of the upper urinary tract. 2. Fluoroscopy provided in the OR. NC -------- FINAL REPORT -------- Dictated By: Darshana Farias Dictated Date: 03/28/2025 12:16 ET Assigned Physician: Darshana Fraias Reviewed and Electronically Signed By: Darshana Farias Signed Date: 03/28/2025 12:16 ET Workstation ID: [id number] Transcribed By: Self Edit Transcribed Date: 03/28/2025 [...] Additional Comments LMA placed by Kuldeep Dubose, simulation software engineer student under supervision of Dr. Milian and [...] mixed bacterial ricardo 03/30/2025 10:52 AM EDT [facility] Urine Urinary bladder structure / Unknown 03/28/2025 10:59 AM EDT 03/28/2025 12:22 PM EDT Narrative [facility] - 03/30/2025 10:52 AM EDT 3 colony types gram positive cocci all <100 cfu/ml us Nabil Rosales MD LAB MICROBIOLOGY - G ENERAL ORDERABLES Final Result [facility] [address] [place] [address], [place] [phone] * (ABNORMAL) POCT Glucose, blood (03/28/2025 9:29 AM EDT) Only the most recent of3 resultswithin the time period is included. Glucose POCT 256(H) 70 - 100 mg/dL 03/28/2025 9:30 AM EDT [facility] Blood Capillary blood specimen / Unknown 03/28/2025 9:29 AM EDT 03/28/2025 9:31 AM EDT Nabil Rosales MD LAB POINT OF CARE TEST DOCKED DEVICE UNSOLICITED RESULTS Final Result Performing Organization Address City/[facility]/ZIP Co de Phone Number [facility] [address] [place] [address], [place] [phone] * Stone analysis (03/14/2025 10:17 AM EDT) Only the most recent of2 resultswithin the time period is included. Component(s) See below 03/18/2025 7:45 PM EDT [facility] Comment: 55% Calcium oxalate monohydrate (Whewellite) 25% Calcium oxalate dihydrate (Weddellite) 20% Carbonate apatite (Dahllite) Stone Weight 0.1021 g 03/18/2025 7:45 PM EDT [facility] Comment: This test was developed and its performance characteristics determined by [facility] in a manner consistent with CLIA requirements. This test has not been cleared or approved by the U.S. Food and Drug Administration. Test performed at [facility], [address] , [place] [address] Edelmira Hughes MD, PhD - Paper Testing Supervisor Calculus Right kidney structure / Unknown 03/14/2025 10:17 AM EDT 03/14/2025 12:23 PM EDT Comment:PER DR. ROSALES Nabil Rosales MD LAB BODY FLUIDS AND STOOLS ORDERABLES Final Result [facility] [address] [place] [address] * TH AN LMA(NO CHARGE) (03/14/2025 9:32 AM EDT) Narrative Trev Quiñonez CRNA - 03/14/2025 9:32 AM EDT Trev Quiñonez CRNA 03/14/2025 9:32 AM General Information and Staff Patient location during procedure: OR Resident/COW TESTER: Trev Quiñonez CRNA Performed: resident/COW TESTER/MILTON Performed by: Trev Quiñonez CRNA Authorized by: [...] 03/14/2025 9:22 AMStop Time: 03/14/2025 9:23 AM us Murphy Richardson DO ANESTHESIA ORDERABLES Final Result * ECG 12 lead - Procedural (No Charge) (03/14/2025 8:08 AM EDT) [facility] Ventricular Rate ECG 55 BPM GEMUSE Atrial Rate 55 BPM GEMUSE P-R Interval 250 ms GEMUSE QRS Duration 102 ms GEMUSE Q-T Interval 436 ms GEMUSE QTc 417 ms GEMUSE P Wave Davis 58 degrees GEMUSE R Davis 4 degrees GEMUSE T Davis 44 degrees GEMUSE ECG Interpretation Sinus bradycardia with 1st degree A-V block Septal infarct , age undetermined Abnormal ECG When compared with ECG of 08-JUN-2015 09:54, [place] interval has increased Septal infarct is now Present Confirmed by SARINA MURRAY ([id number]) on 03/14/2025 9:33:01 PM GEMUSE 03/14/2025 8:08 AM EDT 03/14/2025 9:33 PM EDT Nabil Rosales MD ECG ORDERABLES Margo l Result GEMUSE * Annual BMP Blood Test (04/09/2023) Pathologist [facility] Annual BMP Blood Test abstracted Micheline Provider HEALTH MAINTENANCE Final Result * (ABNORMAL) Hemoglobin A1c (04/09/2023) [facility] Hemoglobin A1C 9.1(A) <=6.5 % Blood Venous blood specimen / Unknown Historical Provider LAB BLOOD ORDERABLES Margo l Result * Lipid panel (04/09/2023) Pathologist [facility] LDL/HDL Ratio 2 0 - 4 Triglycerides 137 0 - 150 mg/dL Cholesterol 93 0 - 200 mg/dL HDL 44 >=40 mg/dL LDL Cholesterol 22 0 - 100 mg/dL Blood Venous blood specimen / Unknown Historical Provider LAB BLOOD ORDERABLES Margo l Result * Urine Albumin Creatinine Ratio (12/12/2022) Pathologist [facility] Urine Albumin Creatinine Ratio abstracted [facility] Provider HEALTH MAINTENANCE Final Result from Last 3 Months or Most Recently Relevant to Health Maintenance Insurance MEDICARE [facility] Care Teams Certified Registered Dental Assistant Relationship Specialty Start Date End Date Ne Dean MD [address] [place] [address] PCP - General 03/23/24
--- OUTSIDE RECORDS SUMMARY | 2025-04-15 14:00 | XMS_ITS | Data Portability ---
Author Organization [place] - [facility], Allergy Address [address] [phone] Assessment Encounter Date Assessment Date Assessment LastModified by Organization Details LastModified Time 04/22/2024 04/22/2024 swopped out hearing aids using rapid repair - had already transferred settings - need to remove programs - just wants universal and VC options only - KENYATTA server security administrator down - made appt for next [...] Sensorine ural hearing loss of bilateral ears [id number] Active 2015 Sensorineu ral hearing loss, bilateral; Note: Date Diagnosed: 07/19/2016 1:31 PM (H90.3) Not Available [facility] Problem Notes None recorded. Procedures Surgical History Date Name Laterality Status Provider Name and Address Organization Details Recorded Time 04/27/2024 Air only Audio - 10930 completed THOM MORALES [address] [address], [place], [phone], [facility] - [facility] 05/04/2024 12:11:30 Imaging Results None recorded. Procedure [...] [id number] THOM KENDRICK [place] 100 [facility] ite [address] [place] [phone] 04/22/2024 10:38:40 04/26/2024 15:21:18 Sensorineural hearing loss of bilateral ears [id number] H90.3 9074 THOM MORALES [facility] [address] [place] [address] 04/27/2024 11:40:38 04/30/2024 08:09:40 Sensorineural hearing loss of bilateral ears [id number] H90.3 Health Concerns Section Related Observation LastModified by Organization Detai ls LastModified Time None Recorded Concern Status LastModified by Organization Details LastModified Time None Recorded Advance Directives Directive None Recorded Payers Insurance Date Sequence Insurance Name Policy Number Policy Bingham Covered Member ID Bingham Member ID Guarantor Name 04/22/2024 1 [place] [employer] Lemuel Soto Oren [id number] Lemuel Brittany Oren 05/06/2024 2 [place] [id number] Lemuel Soto Oren [id number] Lemuel Brittany Oren Notes Date Note Type Note Provider Name and Address Organization Details Recorded Time 04/22/2024 text/html Known bilateral SNHL. Currently wearing [employer]x Moment [address] R hearing aids dispensed 05/20/2021 CARIE SCHMIDT, [facility] [address] [facility],[address], [phone], [facility] 04/22/2024 11:12:21 04/27/2024 text/html Carie accidently scheduled him on a day she was scheduled in [facility] to cover. He was in the [...] if problems occur. LEFTY CARRILLO, AUD [address] [facility],[address] [address], [place], [phone], [facility] - [facility] 05/04/2024 12:12:01
== END 2025-04-15 13:57 | disposition home or self-care (01) ==
LOC: HO.US 13:56
PROVIDERS: PCP Internal Medicine; Visit Provider Internal Medicine
DX: N17.9 Acute kidney failure, unspecified (principal); N13.30 Unspecified hydronephrosis
CPT/HCPCS: 76775

== ENCOUNTER → 2025-04-15 13:58 | Outpatient (BNV) | payer MEDICARE, SELFPAY | PROVIDERS: PCP Internal Medicine; Visit Provider Radiology Diagnostic Radiology | DX: N17.9 Acute kidney failure, unspecified (principal); N13.2 Hydronephrosis with renal and ureteral calculous obstruction; N21.0 Calculus in bladder | CPT/HCPCS: 76775 ==

== ENCOUNTER → 2025-05-05 12:00 | Outpatient (BNV) | payer MEDICARE, SELFPAY | PROVIDERS: PCP Internal Medicine; Visit Provider Internal Medicine | DX: L02.91 Cutaneous abscess, unspecified (principal); Z48.01 Encounter for change or removal of surgical wound dressing; N17.9 Acute kidney failure, unspecified; N13.30 Unspecified hydronephrosis | CPT/HCPCS: G0180 ==

== ENCOUNTER 2025-07-20 08:33 | Outpatient (AMB) | payer MEDICARE, SELFPAY ==
[2025-07-20 08:35] VITALS: BP 96/64; PULSE 94; RESP 17; O2SAT 99; BMI 18.3
--- NOTE | 2025-07-20 08:35 | MHC.PC.OV ---
Vital Signs 07/20/25 08:35 Height 6 ft Weight 135 lb BMI 18.3 BP 96/64 Blood Pressure Location Lt brachial Position Sitting Respiration 17 Pulse 94 Pulse Source Pulse Oximeter Pulse Oximetry (%) 99 Oxygen Delivery Method Room Air Intake Visit Reasons: [facility] discharge Intake Note: Pt is here today for a Hospital/Rehab follow up. Pt states that he has been having diarrhea since he was discharged from rehab. Allergies dapagliflozin (From [facility]) Adverse Reaction (Severe, Verified 07/20/25 08:42) pain in legs Medication List - Last Reconciled 07/20/25 by Ne Dean MD aspirin (Adult Low Dose Aspirin) 81 mg PO DAILY blood sugar diagnostic (FreeStyle Lite Strips) Test blood sugar once a day blood-glucose meter (FreeStyle Lite Meter kit) As directed carvedilol 6.25 mg PO BID docusate calcium (Stool Softener (docusate jo ann)) PO glipizide 5 mg PO BID lancets (FreeStyle Lancets) test once a day metformin 500 mg PO BID rosuvastatin 20 mg PO BEDTIME sitagliptin phosphate (Januvia) 25 mg PO DAILY tamsulosin 0.4 mg PO DAILY Tobacco use date assessed: 07/20/25 Fall risk assessment: 2 + Falls in past year Last assessed Fall Risk: 07/20/25 Dental Screening Dental Screen Date: 02/08/25 HPI [facility] discharge HPI Details Patient presents for the follow-up of hospitalization at [facility] from 06/01 until 06/29 and inpatient SNF stay discharge on July 12 for recurrent left retroperitoneal abscess after lithotripsy and stent placement in mid April and persistent left hydroureteronephrosis. Patient's left kidney appears to be high-grade obstruction with complete non communication between the renal pelvis and proximal ureter. Patient was treated with IV antibiotics and fluconazole for 2 month and with established with Infectious Disease at [facility]. Patient developed acute renal failure with DKA altered mental status which improved slightly. Patient's has been monitoring his fasting blood glucose with the readings fluctuating between 122 to over 200. Patient lost 30 lb since April but reports improved appetite since admission. Patient was treated with insulin in the hospital but refused to continue taking insulin at home. [facility] Medical History (Updated 07/20/25 @ 15:58 by Ne Dean MD) Postprocedural retroperitoneal abscess Nephrolithiasis DM type 2 (diabetes mellitus, type 2) CAD (coronary artery disease) [place] (hard of hearing) Arthritis GERD (gastroesophageal reflux disease) Thoracic aortic aneurysm without rupture Elevated cholesterol HTN (hypertension) CAD (coronary artery disease) BPH (benign prostatic hyperplasia) Nephrolithiasis Surgical History History of esophagogastroduodenoscopy (EGD) Hx of lithotripsy Hx of heart artery stent H/O colonoscopy Family History Brother DM type 2 (diabetes mellitus, type 2) CAD (coronary artery disease) Father CAD (coronary artery disease) Social History 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 1. Little interest or pleasure in doing things: several days 2. Feeling down, depressed, or hopeless: not at all 3. Trouble falling or staying asleep, or sleeping too much: several days 4. Feeling tired or having little energy: several days 5. Poor appetite or overeating: not at all 6. Feeling bad about yourself - or that you are a failure or have let yourself or your family down: not at all 7. Trouble concentrating on things, such as reading the newspaper or watching television: not at all 8. Moving or speaking so slowly that other people could have noticed. Or the opposite - being so fidgety or restless that you have been moving around a lot more than usual: several days 9. Thoughts that you would be better off or of hurting yourself in some way: not at all Total score: 4 Depression Screening Interpretation: Negative Depression Screening Done: Yes 68886 - PHQ-9 Billing: Yes Source: Developed by Drs. Kimo Strauss, Jesus Alberto Chambers and colleagues, with an educational loren from [employer]. Thrive Questionnaire Date Thrive assessed: 02/08/25 MILLA-7 AMB Questionnaire MILLA-7 Date MILLA - 7 assessed: 07/20/25 Feeling nervous, anxious, or on edge: 0 = Not at all Not being able to stop or control worryin = Not at all Worrying too much about different things: 0 = Not at all Trouble relaxin = Not at all Being so restless that it is hard to sit still: 0 = Not at all Becoming easily annoyed or irritable: 0 = Not at all Feeling afraid as if something awful might happen: 0 = Not at all Total MILLA-7 score (0-4 normal; 5-9 mild; 10-14 moderate; 15-21 severe): 0 Source: Developed by Drs. Kimo Strauss, Jesus Alberto Chambers and colleagues, with an educational loren from [employer]. MILLA-7 Assessment Billing MILLA-7 Assessment Tool: MILLA-7 Assessment 43903 Review of Systems Const All systems reviewed & are unremarkable except as noted in HPI and below Eyes Reports no additional complaints ENT Reports no additional complaints Card Reports no additional complaints Resp Reports no additional complaints GI Reports no additional complaints Reports no additional complaints Neuro Reports confusion Psych Reports confusion Physical exam (Primary Care) Vital Signs: Last Vital Signs Pulse 94 07/20/25 08:35 Resp 17 07/20/25 08:35 BP 96/64 07/20/25 08:35 Pulse Ox 99 07/20/25 08:35 Oxygen Delivery Method Room Air 07/20/25 08:35 BMI result Body Mass Index 18.3 Tobacco/Smoking Status: Tobacco use Status Tobacco use date assessed 07/20/25 07/20/25 08:46 Patient Tobacco Use Status Former Tobacco user (45 07/20/25 08:38 years ago) Tobacco use type Cigarette 07/20/25 08:38 e-Cigarette/Vaping Use Never Used 07/20/25 08:38 PHQ-9: PHQ-9 Score PHQ-9: Total score 4 07/20/25 09:00 Depression Screening Interpretation: Negative Thrive Assessment: Date of Thrive Assessment Date Thrive assessed 02/08/25 07/20/25 08:38 Const General: confusion and ill appearing Nutritional Appearance: cachectic Orientation/consciousness: confusion HENMT Head: Yes normal to inspection Resp Effort & Inspection: normal respiratory effort Auscultation: clear to auscultation bilaterally Cardio Rhythm: regular rhythm Heart sounds: S1 normal heart sound present and S2 normal heart sound present GI Other: ALLISON drain on left Inspection: Yes normal to inspection Palpation (GI): Soft to palpation Percussion: Yes normal to percussion Auscultation: normal bowel sounds Neuro General: confusion Coding Level of Care Code Est Pt Level 4 (30155) Diagnoses DM type 2 (diabetes mellitus, type 2) E11.9 Postprocedural retroperitoneal abscess K68.11 CKD (chronic kidney disease) stage 4, GFR 15-29 ml/min N18.4 Additional Codes MILLA-7 Assessment Billing - MILLA-7 Assessment Tool: MILLA-7 Assessment 54038 ([id number]) PHQ-9 - 03423 - PHQ-9 Billing: Yes ([id number]) Assessment & Plan Assessment & Plan (1) DM type 2 (diabetes mellitus, type 2): Comment: Follows up with [facility] endocrinology, A1C 6.4 12/2024 Code(s): E11.9 - Type 2 diabetes mellitus without complications Category: Medical Plan: PATIENT WAS DISCHARGED ON GLIPIZIDE 5 MG TWICE A DAY METFORMIN 500 MG TWICE A DAY AND JANUVIA 25 MG DAILY, ADA diet by increasing protein and unsaturated fats discussed with the patient and his . Patient was advised to monitor his fasting and bedtime blood glucose, he will follow-up in 1 month (2) Postprocedural retroperitoneal abscess: Comment: After lithotripsy and left ureteral stent placement 04/19/2025. Admission to [facility] for retroperitoneal abscess acute renal failure and sepsis April 16 through April 23 , then May 31 till Jul 02, [facility] till 07/13, ALLISON drain for left retroperitoneal abscess collection, follow-up with [facility] for repeat CT end of Jul Code(s): K68.11 - Postprocedural retroperitoneal abscess Category: Medical Plan: Follow-up with urology and Infectious Disease (3) CKD (chronic kidney disease) stage 4, GFR 15-29 ml/min: Code(s): N18.4 - Chronic kidney disease, stage 4 (severe) Category: Medical Plan: Avoid nephrotoxins monitor renal function, follow-up in 1 month Medications: Changed From metformin 1,000 mg PO BID 180 tabs 3RF To metformin 500 mg PO BID
--- OUTSIDE RECORDS SUMMARY | 2025-07-20 09:01 | XMS_ITS | Encounter Summary ---
Author Organization [facility] Address [address] [place] [address] Care Team Providers Care Cra Name Role Phone Ne Dean MD Primary Care Provider [phone] Encounter Details Date Type Department Care Team (Late st Contact Info) Description 06/30/[address] [facility] - Main Lab [address] [facility] [place] [address] Servando Zuniga PA [address] [facility] 1 [place] [phone] Social History Tobacco Use Types Packs/Day Years Used Date Smoking Tobacco: Former Cigarettes Q uit: 10/06/1975 Smokeless Tobacco: Never Alcohol Use Standard Drinks/Week Comments Yes 0 (1 standard drink = 0.6 oz pur e alcohol) socially Interpersonal Safety Answer Date Record ed Physical Abuse Unrecognized value 03/28/2025 Verbal Abuse Unrecognized value 03/28/2025 Sex and Gender Information Value Date Recorded Sex Assigned at Not on file Legal Sex Male 10:33 AM EST Gender Identity Not on file Sexual Orientation Not on file documented as of this encounter Plan of Treatment Upcoming Encounters Date Type Department Care Team (Late st Contact Info) Description 11/08/2025 1:40 PM EST Office Visit [facility] [address] [place] [address] Juan Padgett NP [address] [place] [address] Dr [address] [place] [address] Scheduled Orders Name Type Priority Associated Diagnoses Orde r Schedule CBC and differential Lab Routine Orde red: 06/30/2025 Comprehensive metabolic panel Lab Routine Ordered: 06/30/2025 Magnesium Lab Routine Ordered: 06/30 documented as of this encounter Visit Diagnoses Not on filedocumented in this encounter Additional Health Concerns Infection Onset Date Last Indicated Resolved Time 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
--- OUTSIDE RECORDS SUMMARY | 2025-07-20 09:01 | XMS_ITS | Encounter Summary ---
Author Organization [facility] Address [address] [place] [address] Care Team Providers Care Button Breaker Name Role Phone Ne Dean MD Primary Care Provider [phone] Encounter Details Date Type Department Care Team (Late st Contact Info) Description 06/30/2025 Lab Requisition [facility] - Main Lab 299 [facility] [place] [address] Servando Zuniga PA [address] [facility] 1 [place] [phone] Social History Tobacco Use Types Packs/Day Years [...] Description 11/08/2025 1:40 PM EST Office Visit [facility] Medical Center [address] [place] [address] Juan Padgett NP [address] [place] [address] Dr Katz [address] [place] [address] Scheduled Orders Name Type Priority Associated [...] documented as of this encounter Care Teams Button Breaker Relationship Specialty Start Date End Date Ne Dean MD [address] [place] [address] PCP - General 03/23/24 documented as of this encounter
--- OUTSIDE RECORDS SUMMARY | 2025-07-20 09:01 | XMS_ITS | Encounter Summary ---
Author Organization [facility] Address [address] [place] [address] Care Team Providers Care Fixture Fabricator Repairer Name Role Phone Ne Dean MD Primary Care Provider [phone] Encounter Details Date Type Department Care Team (Late st Contact Info) Description 07/01/2025 Lab Requisition [facility] - Main Lab 299 [facility] [place] [address] Cathleen Bear PA [address] [place] [address] Social History Tobacco Use Types Packs/Day Years [...] Description 11/08/2025 1:40 PM EST Office Visit [facility] - [facility] [address] [place] [address] Juan Padgett NP [address] [place] [address] Dr Katz [address] [place] [address] Scheduled Orders Name Type Priority Associated Diagnoses Orde r Schedule CBC and differential Lab Routine Orde red: 07/01/2025 Comprehensive metabolic panel Lab Routine Ordered: 07/01/2025 Vitamin B12 and folate Lab Routine Or dered: 07/01/2025 Iron and TIBC Lab Routine Ordered: documented as of this encounter Visit Diagnoses Not on filedocumented in this encounter Additional Health Concerns Infection Onset Date Last Indicated Resolved Time MRSA 05/26/2025 05/26/2025 documented as of this encounter Care Teams Fixture Fabricator Repairer Relationship Specialty Start Date End Date Ne Dean MD [address] [place] [address] PCP - General 03/23/24 documented as of this encounter
--- OUTSIDE RECORDS SUMMARY | 2025-07-20 09:01 | XMS_ITS | Encounter Summary ---
Author Organization [facility] Address [address] [place] [address] Care Team Providers Care Bridge Manager Name Role Phone Ne Dean MD Primary Care Provider Encounter Details Date Type Department Care Team (Late st Contact Info) Description 06/30/2025 Lab Requisition [facility] - Main Lab 299 [facility] [place] [address] Servando Zuniga PA [address] [facility] 1 [place] [phone] Social History Tobacco Use Types Packs/Day Years [...] Description 11/08/2025 1:40 PM EST Office Visit [facility] - Medical Center [address] [place] [address] Juan Padgett NP [address] [place] [address] Dr Katz [address] [place] [address] Scheduled Orders Name Type Priority Associated [...] documented as of this encounter Care Teams Bridge Manager Relationship Specialty Start Date End Date Ne Dean MD [address] [place] [address] PCP - General 03/23/24 documented as of this encounter
--- OUTSIDE RECORDS SUMMARY | 2025-07-20 09:02 | XMS_ITS | Encounter Summary ---
Author Organization [facility] Address [address] [place] [address] Care Team Providers Care Swabber Name Role Phone Ne Dean MD Primary Care Provider [phone] Encounter Details Date Type Department Care Team (Late st Contact Info) Description 05/11/2025 Lab Requisition [facility] - Main Lab 299 [facility] [place] [phone] Mary Chance PA [address] [place] [address] Urinary tract infection, site not specified Social History Tobacco Use Types Packs/Day Years [...] Description 11/08/2025 1:40 PM EST Office Visit [facility] - [facility] [address] [place] [address] Juan Padgett NP [address] [place] [address] Dr Katz [address] [place] [phone] documented as of this encounter Procedures Procedure Name Priority Date/Time Associated Diagnosis Comments CULTURE URINE Routine 05/11/2025 6:02 PM EDT Urinary tract infection, site not specified documented in this encounter Results * (ABNORMAL) Culture urine (05/11/2025 6:02 PM EDT) Culture, Urine >=100,000 CFU/mL Staphylococcus epidermidis(A) FLORES 05/13/2025 11:07 AM EDT [facility] Comment: Edited result: Previously reported as Gram Positive Cocci on 05/12/2025 at 1417 EDT. Urine Urine specimen obtained by clean catch procedure / Unknown Non-blood Collection / Unknown 05/11/2025 6:02 PM EDT 05/11/2025 6:04 PM EDT Narrative Organism Antibiotic Method Susceptibility Staphylococcus epidermidis Benzylpenicillin FLORES >=0.5 ug/ml: Resistant Staphylococcus epidermidis Oxacillin FLORES >=4 ug/ml: Resistant Staphylococcus epidermidis Gentamicin FLORES <=0.5 ug/ml: Susceptible Staphylococcus epidermidis Ciprofloxacin FLORES 1 ug/ml: Susceptible Staphylococcus epidermidis Levofloxacin FLORES 0.25 ug/ml: Susceptible Staphylococcus epidermidis Quinupristin/Dalfopristin M IC <=0.25 ug/ml: Susceptible Staphylococcus epidermidis Linezolid FLORES 1 ug/ml: Susceptible Staphylococcus epidermidis Vancomycin FLORES 2 ug/ml: Susceptible Staphylococcus epidermidis Tetracycline FLORES <=1 ug/ml: Susceptible Staphylococcus epidermidis Nitrofurantoin FLORES <=16 ug/ml: Susceptible Staphylococcus epidermidis Rifampin FLORES <=0.5 ug/ml: Susceptible us Mary [facility] MICROBIOLOGY - GENERAL ORD ERABLES Final Result [facility] [address] [place] [address], documented in this encounter Visit Diagnoses Diagnosis Urinary tract infection, site not specified documented in this encounter Additional Health Concerns Infection Onset Date Last Indicated Resolved Time MRSA 05/26/2025 05/26/2025 documented as of this encounter Care Teams Swabber Relationship Specialty Start Date End Date Ne Dean MD [address] [place] [address] PCP - General 03/23/24 documented as of this encounter
--- OUTSIDE RECORDS SUMMARY | 2025-07-20 09:02 | XMS_ITS | Encounter Summary ---
Author Organization [facility] Address [address] [place] [address] Care Team Providers Care Sports Statistician Name Role Phone Ne Dean MD Primary Care Provider [phone] Encounter Details Date Type Department Care Team (Late st Contact Info) Description 07/12/2025 Lab Requisition [facility] - Main Lab 299 [facility] [place] [address] Kendal Man PA [address] [place] [phone] Encounter for other general examination Social History Tobacco Use Types Packs/Day Years [...] Description 11/08/2025 1:40 PM EST Office Visit [facility] [place] [facility] [address] [place] [address] Juan Padgett NP [address] [place] [address] Dr Katz [address] [place] [address] documented as of this encounter Procedures Procedure Name Priority Date/Time Associated Diagnosis Comments COMPLETE BLOOD COUNT Routine 07/12/2025 4:49 AM EDT Encounter for other general examination COMPREHENSIVE METABOLIC PANEL Routine 07/12/2025 4:49 AM EDT Encounter for other general examination documented in this encounter Results * (ABNORMAL) Comprehensive metabolic panel (07/12/2025 4:49 AM EDT) Sodium 135 133 - 145 mmol/L LAB CHEMISTRY METHOD 07/12/2025 10:36 AM [facility] Potassium 3.8 3.5 - 5.5 mmol/L LAB CHEMISTRY METHOD 07/12/2025 10:36 AM [facility] Chloride 106 96 - 110 mmol/L LAB CHEMISTRY METHOD 07/12/2025 10:36 AM [facility] CO2 17(L) 21 - 32 mmol/L LAB CHEMISTRY METHOD 07/12/2025 10:36 AM [facility] Anion Gap 12(H) 3 - 11 LAB CHEMISTRY METHOD 07/12/2025 10:36 AM [facility] Glucose 167(H) 70 - 100 mg/dL LAB CHEMISTRY METHOD 07/12/2025 10:36 AM [facility] BUN 32(H) 5 - 25 mg/dL LAB CHEMISTRY METHOD 07/12/2025 10:36 AM [facility] Creatinine 1.35(H) 0.70 - 1.30 mg/dL LAB CHEMISTRY METHOD 07/12/2025 10:36 AM [facility] eGFR 54(L) >=60 mL/min/1. 73m2 LAB CHEMISTRY METHOD 07/12/2025 10:36 AM [facility] Comment:Calculation based on the Chronic Kidney Disease Epidemiology Collaboration (CKD-EPI) equation refit without adjustment for race. BUN/Creatinine Ratio 23.7 LAB CHEMISTRY METHOD 07/12/2025 10:36 AM EDT [facility] Calcium 9.5 8.5 - 10.5 mg/dL LAB CHEMISTRY METHOD 07/12/2025 10:36 AM [facility] AST (SGOT) 16 10 - 42 unit/L LAB CHEMISTRY METHOD 07/12/2025 10:36 AM [facility] ALT (SGPT) 30 10 - 60 unit/L LAB CHEMISTRY METHOD 07/12/2025 10:36 AM [facility] Alkaline Phosphatase 94 42 - 121 unit/L LAB CHEMISTRY METHOD 07/12/2025 10:36 AM [facility] Total Protein 7.4 6.0 - 8.0 g/dL LAB CHEMISTRY METHOD 07/12/2025 10:36 AM [facility] Albumin 2.8(L) 3.2 - 5.0 g/dL LAB CHEMISTRY METHOD 07/12/2025 10:36 AM [facility] Total Bilirubin 0.4 0.0 - 1.4 mg/dL LAB CHEMISTRY METHOD 07/12/2025 10:36 AM [facility] Blood Venous blood specimen / Unknown Venipuncture / Unknown 07/12/2025 4:49 AM EDT 07/12/2025 8:27 AM EDT us Kendal [place] [facility] BLOOD ORDERABLES Final Re sult [facility] [address] [place] [address], * (ABNORMAL) Complete blood count (07/12/2025 4:49 AM EDT) WBC 11.0(H) 4.8 - 10.8 K/[facility] LAB HEMETOLOGY METHOD 07/12/2025 9:36 AM [facility] RBC 3.30(L) 4.50 - 5.50 M/mcL LAB HEMETOLOGY METHOD 07/12/2025 9:36 AM [facility] Hemoglobin 10.3(L) 13.5 - 17.5 g/dL LAB HEMETOLOGY METHOD 07/12/2025 9:36 AM [facility] Hematocrit 32.6(L) 42.0 - 54.0 % LAB HEMETOLOGY METHOD 07/12/2025 9:36 AM [facility] MCV 100.0(H) 79.0 - 98.0 FL LAB HEMETOLOGY METHOD 07/12/2025 9:36 AM [facility] MCH 31.6 27.0 - 32.0 pcg LAB HEMETOLOGY METHOD 07/12/2025 9:36 AM [facility] MCHC 31.6(L) 32.0 - 37.0 g/dL LAB HEMETOLOGY METHOD 07/12/2025 9:36 AM [facility] RDW 16.1(H) 11.0 - 15.0 % LAB HEMETOLOGY METHOD 07/12/2025 9:36 AM [facility] Platelets 353 130 - 400 K/mcL LAB HEMETOLOGY METHOD 07/12/2025 9:36 AM [facility] MPV 10.5 7.0 - 11.0 FL LAB HEMETOLOGY METHOD 07/12/2025 9:36 AM [facility] NRBC 0.0 <1.0 % LAB HEMETOLOGY METHOD 07/12/2025 9:36 AM [facility] NRBC Absolute 0.00 <0.10 K/mcL LAB HEMETOLOGY METHOD 07/12/2025 9:36 AM [facility] Blood Venous blood specimen / Unknown Venipuncture / Unknown 07/12/2025 4:49 AM EDT 07/12/2025 8:27 AM EDT us Kendal [facility] [facility] BLOOD ORDERABLES Final Re sult [facility] [address] [place] [address], documented in this encounter Visit Diagnoses Diagnosis Encounter for other general examination documented in this encounter Additional Health Concerns Infection Onset Date Last Indicated Resolved Time MRSA 05/26/2025 05/26/2025 documented as of this encounter Care Teams Sports Statistician Relationship Specialty Start Date End Date Ne Dean MD [address] [place] [address] PCP - General 03/23/24 documented as of this encounter
--- OUTSIDE RECORDS SUMMARY | 2025-07-20 09:02 | XMS_ITS | Clinical Summary ---
Author Organization [address] [place] [address] [place] [phone] Phone Care Team Providers Care Drafter Electronic Name Role Phone Ne Dean MD Primary Care Provider [phone] Allergies No known active allergies Medications famotidine [...] Amount: 8 mg 10 tablet 03/28/2025 Active phenazopyridine (Pyridium) 200 mg tablet Take 1 tablet (200 mg total) by mouth 3 (three) times a day if needed (dysuria) for up to 10 doses. 10 tablet 03/28/2025 Active Active Problems Problem Noted Date Diagnosed Date Gastroesophageal reflux disease 03/28/2025 BPH (benign prostatic hyperplasia) 12/12/2022 Type 2 diabetes mellitus ([facility] V24, [facility] V 28) 12/12/2022 Atherosclerosis of [place] co ronary artery of [place] heart without angina pectoris 12/21/2021 Overview (09/27/2024): [...] suggest unstable angina. Peripheral vascular disease, unspecified ([facility] V24) 12/21/2021 Mixed hyperlipidemia 11/06/2020 Overview [...] Encounters Date Type Department Care Team Description 07/12/2025 Lab Requisition [facility] [address] [place] [phone] Kendal Man PA Encounter for other general examination 07/11/2025 Lab Requisition [facility] [address] [place] [address] Wan Sanchez MD Urinary tract infection, site not specified; Retention of urine, unspecified 07/11/2025 Lab Requisition [facility] [address] [place] [address] Marjorie Alva PA Encounter for other general examination 07/06/2025 Lab Requisition [facility] [address] [place] [phone] Kendal Man PA Encounter for other general examination 07/05/2025 Lab Requisition [facility] Lab [address] [place] [address] Kendal Man PA Encounter for other general examination 07/04/2025 Telephone [facility] [address] [place] [address] Eddy Holloway MD 07/01/2025 Lab Requisition [facility] Main Lab [address] [place] [address] Cathleen Bear PA Encounter for other general examination 07/01/2025 Lab Requisition [facility] [address] [place] [address] Cathleen Bear PA 06/30/2025 Lab Requisition [facility] [address] [place] [address] Servando Zuniga PA Encounter for other general examination 06/30/2025 Lab Requisition [facility] Lab [address] [place] [address] Servando Zuniga PA 06/30/2025 Lab Requisition [facility] Lab [address] [place] [address] Servando Zuniga PA 06/30/2025 Lab Requisition [facility] Lab [address] [place] [address] Servando Zuniga PA 06/07/2025 Telephone [facility] [address] [place] [phone] Eddy Holloway MD 05/26/2025 Lab Requisition [facility] Lab [address] [place] [address] Wan Sanchez Urinary tract infection, site not specified; Hydronephrosis with renal and ureteral calculous obstruction 05/11/2025 Lab Requisition [facility] [address] [facility] [place] [address] Tom Guerin MD Hydronephrosis with renal and ureteral calculous obstruction 05/11/2025 Lab Requisition [facility] Lab [address] [facility] [place] [address] Mayr Chance PA Urinary tract infection, site not specified 05/04/2025 Telephone [facility] Cardiology [facility] [address] [place] [address] Eddy Holloway MD from Last 3 Months Immunizations Immunization Administration Dates Next Due Influenza Quadravalent, MDCK [...] (hypertension) 11/06/2020 DX:HTN (hyper tension) Atherosclerosis of [place] ar teries of extremities with intermittent claudication, bilateral legs (CMS/HCC V24) 11/06/2020 DX:Atherosclerosis of [place] arteries of extremities with intermittent claudication, bilateral legs (HCC) S/P coronary artery stent placement 07/14/2009 DX:S/P coronary artery stent placement; COMMENT: 07/14/2009 [place] [facility] [place]. Eddy Holloway - stent placed to mid LAD GERD with esophagitis DX:GERD wi th esophagitis Anxiety DX:Anxiety Benign prostatic hyperplasia without lower urinary tract symptoms DX:Benign prostatic hyper plasia without lower urinary tract symptoms IFG (impaired fasting glucose) D X:IFG (impaired fasting glucose) Dysthymic disorder DX:Dysthymic disorder Iliac artery stenosis, left ([facility] V24) 11/06/2020 DX:Iliac artery stenosis, le ft ([facility]) Depression DX:Depression Nephrolithiasis DX:Nephrolithias is CAD (coronary artery disease) 11/06/2020 DX :CAD (coronary artery disease) Diabetes mellitus ([facility] V 24, [facility] V28) type 2 Heart disease GERD (gastroesophageal [...] Description 11/08/2025 1:40 PM EST Office Visit [facility] [address] [place] [phone] Juan Padgett NP [address] [place] [address] [address] [place] [phone] Health Maintenance Due Date Last Done Comments Diabetes: Annual Foot Exam 01/29/1958 Diabetes: Annual Retina Eye Exam 01/29/1958 Pneumococcal Vaccine: 50+ Years (1 of 2 - PCV) 01/29/1967 Zoster Vaccines (1 of 2) 01/29/1998 Hepatitis C Screening 09/14/2022 Social Influencers of Health Screening 09/14/2022 RSV Immunization Adult Patients (1 - 1-dose 75+ series) 01/29/2023 Diabetes: Blood Sugar Control Test (HGBA1C) 11/21/2023 04/09/2023 Diabetes: Annual Urine Albumin-Creatinine Ratio (uACR) 12/13/2023 12/12/2022 Medicare Annual Wellness Visit 04/09/2024 04/09/2023 Depression Screening 10/06/2024 COVID-19 Vaccine ( season) 2025 02/11/2022, 09/11/2021, 01/05/2021, Additional history exists Influenza Vaccine (#1) 2025 , 07/06/2022, 08/14/2021, Additional history exists Falls Risk Assessment 03/28/2026 03/28/2025 Diabetes: Annual GFR (Glomerular Filtration Rate) 07/12/2026 07/12/2025, 07/11/2025, 07/06/2025, Additional history exists Hypertension/CHF/CAD Annual BMP Blood Test 07/12/2026 07/12/2025, 07/11/2025, 07/06/2025, Additional history exists DTaP,Tdap,and Td Vaccines (2 [...] this topic Medical Devices Implanted Type Area Control Operator Device Identifier Shelf Expiration Date Model / Serial / Lot Stent Uret [id number] Contr Percuflex Hydroplus - Sna - [id number] Implanted:Qty: 1 on 03/14/2025 by Nabil Rosales MD at [facility] Stents Right: Ureter [employer]Y [id number] 10/26/2027 [id number] 60 / NA / [id number] Stent Uret [id number] Contr Percuflex Hydroplus - Sna - [id number] Implanted:Qty: 1 on 03/14/2025 by Nabil Rosales MD at [facility] Stents Left: Ureter [employer] [id number] 11/08/2027 [id number] 60 / NA / [id number] Stent Uret [id number] Contr Percuflex Hydroplus - Sna - [id number] Implanted:Qty: 1 on 03/28/2025 by Nabil Rosales MD at [facility] Stents Right: Ureter [employer] [id number] 11/10/2027 [id number] 60 / NA / [id number] Stent Uret [id number] Contr P[employer]lex Hydroplus - Sna - [id number] Implanted:Qty: 1 on 03/28/2025 by Nabil Rosales MD at [facility] Stents Left: Ureter [employer] [id number] 09/20/2027 [id number] 60 / NA / [id number] Procedures Procedure Name Priority Date/Time Associated Diagnosis Comments COMPREHENSIVE METABOLIC PANEL Routine 07/12/2025 4:49 AM EDT Encounter for other general examination COMPLETE BLOOD COUNT Routine 07/12/2025 4:49 AM EDT Encounter for other general examination CULTURE URINE Routine 07/11/2025 11:30 AM EDT Urinary tract infection, site not specified Retention of urine, unspecified COMPLETE BLOOD COUNT Routine 07/11/2025 5:15 AM EDT Encounter for other general examination BASIC METABOLIC PANEL Routine 07/11/2025 5:15 AM EDT Encounter for other general examination COMPREHENSIVE METABOLIC PANEL Routine 07/06/2025 5:10 AM EDT Encounter for other general examination COMPLETE BLOOD COUNT Routine 07/06/2025 5:10 AM EDT Encounter for other general examination COMPREHENSIVE METABOLIC PANEL Routine 07/05/2025 5:09 AM EDT Encounter for other general examination COMPLETE BLOOD COUNT Routine 07/05/2025 5:09 AM EDT Encounter for other general examination CBC WITH AUTO DIFFERENTIAL Routine 07/01/2025 5:39 AM EDT Encounter for other general examination IRON AND TIBC Routine 07/01/2025 5:39 AM EDT Encounter for other general examination VITAMIN B12 AND FOLATE Routine 5:39 AM EDT Encounter for other general examination COMPREHENSIVE METABOLIC PANEL Routine 07/01/2025 5:39 AM EDT Encounter for other general examination CBC AND DIFFERENTIAL Routine 07/01/2025 5:39 AM EDT Encounter for other general examination CBC WITH AUTO DIFFERENTIAL Routine 06/30/2025 5:37 AM EDT Encounter for other general examination MAGNESIUM Routine 06/30/2025 5:37 AM EDT Encounter for other general examination COMPREHENSIVE METABOLIC PANEL Routine 06/30/2025 5:37 AM EDT Encounter for other general examination CBC AND DIFFERENTIAL Routine 06/30/2025 5:37 AM EDT Encounter for other general examination CULTURE URINE Routine 05/26/2025 12:15 PM EDT Urinary tract infection, site not specified Hydronephrosis with renal and ureteral calculous obstruction CULTURE URINE Routine 05/11/2025 6:02 PM EDT Urinary tract infection, site not specified COMPLETE BLOOD COUNT Routine 05/11/2025 2:00 PM EDT Hydronephrosis with renal and ureteral calculous obstruction HEMOGLOBIN A1C Routine 04/09/2023 LIPID PANEL Routine 04/09/2023 HM URINE ALBUMIN CREATININE RATIO Routine 12/12/2022 from Last 3 Months or Most Recently Relevant to Health Maintenance Results * (ABNORMAL) Complete blood count (07/12/2025 4:49 AM EDT) Only the most recent of5 resultswithin the time period is included. WBC 11.0(H) 4.8 - 10.8 K/mcL LAB HEMETOLOGY METHOD 07/12/2025 9:36 AM EDT [facility] RBC 3.30(L) 4.50 - 5.50 M/[facility] LAB HEMETOLOGY METHOD 07/12/2025 9:36 AM [facility] Hemoglobin 10.3(L) 13.5 - 17.5 g/dL LAB HEMETOLOGY METHOD 07/12/2025 9:36 AM [facility] LAB Hematocrit 32.6(L) 42.0 - 54.0 % LAB HEMETOLOGY METHOD 07/12/2025 9:36 AM [facility] LAB MCV 100.0(H) 79.0 - 98.0 FL LAB HEMETOLOGY METHOD 07/12/2025 9:36 AM [facility] MCH 31.6 27.0 - 32.0 pcg LAB HEMETOLOGY METHOD 07/12/2025 9:36 AM [facility] MCHC 31.6(L) 32.0 - 37.0 g/dL LAB HEMETOLOGY METHOD 07/12/2025 9:36 AM [facility] RDW 16.1(H) 11.0 - 15.0 % LAB HEMETOLOGY METHOD 07/12/2025 9:36 AM [facility] Platelets 353 130 - 400 K/mcL LAB HEMETOLOGY METHOD 07/12/2025 9:36 AM [facility] MPV 10.5 7.0 - 11.0 FL LAB HEMETOLOGY METHOD 07/12/2025 9:36 AM [facility] NRBC 0.0 <1.0 % LAB HEMETOLOGY METHOD 07/12/2025 9:36 AM [facility] NRBC Absolute 0.00 <0.10 K/mcL LAB HEMETOLOGY METHOD 07/12/2025 9:36 AM [facility] Blood Venous blood specimen / Unknown Venipuncture / Unknown 07/12/2025 4:49 AM EDT 07/12/2025 8:27 AM EDT us Kendal GREENFIELD LAB BLOOD ORDERABLES Final Re sult [facility] [address] [place] [address], * (ABNORMAL) Comprehensive metabolic panel (07/12/2025 4:49 AM EDT) Only the most recent of5 resultswithin the time period is included. Sodium 135 133 - 145 mmol/L LAB CHEMISTRY METHOD 07/12/2025 10:36 AM [facility] Potassium 3.8 3.5 - 5.5 mmol/L LAB CHEMISTRY METHOD 07/12/2025 10:36 AM [facility] Chloride 106 96 - 110 mmol/L LAB CHEMISTRY METHOD 07/12/2025 10:36 AM [facility] CO2 17(L) 21 - 32 mmol/L LAB CHEMISTRY METHOD 07/12/2025 10:36 AM [facility] Anion Gap 12(H) 3 - 11 LAB CHEMISTRY METHOD 07/12/2025 10:36 AM [facility] Glucose 167(H) 70 - 100 mg/dL LAB CHEMISTRY METHOD 07/12/2025 10:36 AM [facility] BUN 32(H) 5 - 25 mg/dL LAB CHEMISTRY METHOD 07/12/2025 10:36 AM [facility] Creatinine 1.35(H) 0.70 - 1.30 mg/dL LAB CHEMISTRY METHOD 07/12/2025 10:36 AM [facility] eGFR 54(L) >=60 mL/min/1. 73m2 LAB CHEMISTRY METHOD 07/12/2025 10:36 AM [facility] LAB Comment:Calculation based on the Chronic Kidney Disease Epidemiology Collaboration (CKD-EPI) equation refit without adjustment for race. BUN/Creatinine Ratio 23.7 LAB CHEMISTRY METHOD 07/12/2025 10:36 AM [facility] Calcium 9.5 8.5 - 10.5 mg/dL LAB CHEMISTRY METHOD 07/12/2025 10:36 AM T [facility] AST (SGOT) 16 10 - 42 unit/L LAB CHEMISTRY METHOD 07/12/2025 10:36 AM [facility] ALT (SGPT) 30 10 - 60 unit/L LAB CHEMISTRY METHOD 07/12/2025 10:36 AM EDT [facility] Alkaline Phosphatase 94 42 - 121 unit/L LAB CHEMISTRY METHOD 07/12/2025 10:36 AM [facility] Total Protein 7.4 6.0 - 8.0 g/dL LAB CHEMISTRY METHOD 07/12/2025 10:36 AM [facility] Albumin 2.8(L) 3.2 - 5.0 g/dL LAB CHEMISTRY METHOD 07/12/2025 10:36 AM [facility] Total Bilirubin 0.4 0.0 - 1.4 mg/dL LAB CHEMISTRY METHOD 07/12/2025 10:36 AM [facility] Blood Venous blood specimen / Unknown Venipuncture / Unknown 07/12/2025 4:49 AM EDT 07/12/2025 8:27 AM EDT us Kendal GREENFIELD LAB BLOOD ORDERABLES Final Re sult [facility] [address] [place] [address], * Culture urine (07/11/2025 11:30 AM EDT) Only the most recent of3 resultswithin the time period is included. Culture, Urine No growth 07/12/2025 2:04 PM EDT [facility] Urine Urine specimen obtained by clean catch procedure / Unknown 07/11/2025 11:30 AM EDT 07/11/2025 6:25 PM EDT us Wan Sanchez MD LAB MICROBIOLOGY - GENERAL ORDER YADIRA Final Result [facility] [address] [place] [address], [place] [phone] * (ABNORMAL) Basic metabolic panel (07/11/2025 5:15 AM EDT) Pathologist [facility] Sodium 137 133 - 145 mmol/L LAB CHEMISTRY METHOD 07/11/2025 1:02 PM [facility] Potassium 3.8 3.5 - 5.5 mmol/L LAB CHEMISTRY METHOD 07/11/2025 1:02 PM [facility] Chloride 106 96 - 110 mmol/L LAB CHEMISTRY METHOD 07/11/2025 1:02 PM [facility] CO2 17(L) 21 - 32 mmol/L LAB CHEMISTRY METHOD 07/11/2025 1:02 PM [facility] Anion Gap 14(H) 3 - 11 LAB CHEMISTRY METHOD 07/11/2025 1:02 PM [facility] Glucose 138(H) 70 - 100 mg/dL LAB CHEMISTRY METHOD 07/11/2025 1:02 PM [facility] BUN 31(H) 5 - 25 mg/dL LAB CHEMISTRY METHOD 07/11/2025 1:02 PM [facility] Creatinine 1.47(H) 0.70 - 1.30 mg/dL LAB CHEMISTRY METHOD 07/11/2025 1:02 PM [facility] eGFR 49(L) >=60 mL/min/1. 73m2 LAB CHEMISTRY METHOD 07/11/2025 1:02 PM [facility] Comment:Calculation based on the Chronic Kidney Disease Epidemiology Collaboration (CKD-EPI) equation refit without adjustment for race. BUN/Creatinine Ratio 21.1 LAB CHEMISTRY METHOD 07/11/2025 1:02 PM EDT [facility] Calcium 9.3 8.5 - 10.5 mg/dL LAB CHEMISTRY METHOD 07/11/2025 1:02 PM EDT [facility] Blood Venous blood specimen / Unknown Venipuncture / Unknown 07/11/2025 5:15 AM EDT 07/11/2025 10:10 AM EDT Marjorie GREENFIELD LAB BLOOD ORDERABLES Final Resul t Performing Organization Address [facility]/ZIP Co de Phone Number [facility] [address] [place] [address], [place] [phone] * Vitamin B12 and folate (07/01/2025 5:39 AM EDT) Pathologist [facility] Vitamin B-12 659 250 - 900 pcg/mL LAB CHEMISTRY METHOD 07/01/2025 12:44 PM EDT [facility] Folate 6.0 2.8 - 17.0 ng/ml LAB CHEMISTRY METHOD 07/01/2025 12:44 PM EDT [facility] Blood Venous blood specimen / Unknown Venipuncture / Unknown 07/01/2025 5:39 AM EDT 07/01/2025 10:03 AM EDT Cathleen GREENFIELD LAB BLOOD ORDERABLES Final Re sult Performing Organization Address City/[facility]/ZIP Co de Phone Number [facility] [address] [place] [address], [place] [phone] * (ABNORMAL) CBC auto differential (07/01/2025 5:39 AM EDT) Only the most recent of2 resultswithin the time period is included. Pathologist [facility] WBC 9.2 4.8 - 10.8 K/[facility] LAB HEMETOLOGY METHOD 07/01/2025 11:26 AM EDT [facility] RBC 2.60(L) 4.50 - 5.50 M/mcL LAB HEMETOLOGY METHOD 07/01/2025 11:26 AM [facility] Hemoglobin 7.9(L) 13.5 - 17.5 g/dL LAB HEMETOLOGY METHOD 07/01/2025 11:26 AM [facility] Hematocrit 25.7(L) 42.0 - 54.0 % LAB HEMETOLOGY METHOD 07/01/2025 11:26 AM [facility] MCV 100.4(H) 79.0 - 98.0 FL LAB HEMETOLOGY METHOD 07/01/2025 11:26 AM [facility] MCH 30.9 27.0 - 32.0 pcg LAB HEMETOLOGY METHOD 07/01/2025 11:26 AM [facility] MCHC 30.7(L) 32.0 - 37.0 g/dL LAB HEMETOLOGY METHOD 07/01/2025 11:26 AM [facility] RDW 17.2(H) 11.0 - 15.0 % LAB HEMETOLOGY METHOD 07/01/2025 11:26 AM [facility] Platelets 243 130 - 400 K/mcL LAB HEMETOLOGY METHOD 07/01/2025 11:26 AM [facility] MPV 9.9 7.0 - 11.0 FL LAB HEMETOLOGY METHOD 07/01/2025 11:26 AM [facility] NRBC 0.0 <1.0 % LAB HEMETOLOGY METHOD 07/01/2025 11:26 AM [facility] NRBC Absolute 0.00 <0.10 K/mcL LAB HEMETOLOGY METHOD 07/01/2025 11:26 AM [facility] Neutrophils Relative 71.6 % LAB HEMETOLOGY METHOD 07/01/2025 11:26 AM [facility] Lymphocytes Relative 13.8 % LAB HEMETOLOGY METHOD 07/01/2025 11:26 AM [facility] Monocytes Relative 11.7 % LAB HEMETOLOGY METHOD 07/01/2025 11:26 AM [facility] Eosinophils Relative 2.1 % LAB HEMETOLOGY METHOD 07/01/2025 11:26 AM [facility] Basophils Relative 0.3 % LAB HEMETOLOGY METHOD 07/01/2025 11:26 AM [facility] Immature Granulocytes Relative 0.5 % LAB HEMETOLOGY METHOD 07/01/2025 11:26 AM [facility] Neutrophils Absolute 6.56 1.50 - 7.00 K/mcL LAB HEMETOLOGY METHOD 07/01/2025 11:26 AM [facility] Lymphocytes Absolute 1.27 1.00 - 5.00 K/mcL LAB HEMETOLOGY METHOD 07/01/2025 11:26 AM [facility] Monocytes Absolute 1.07(H) 0.20 - 1.00 K/mcL LAB HEMETOLOGY METHOD 07/01/2025 11:26 AM [facility] Eosinophils Absolute 0.19 0.00 - 0.50 K/mcL LAB HEMETOLOGY METHOD 07/01/2025 11:26 AM [facility] Basophils Absolute 0.03 0.00 - 0.20 K/mcL LAB HEMETOLOGY METHOD 07/01/2025 11:26 AM [facility] Immature Granulocytes Absolute 0.05(H) 0.00 - 0.03 K/mcL LAB HEMETOLOGY METHOD 07/01/2025 11:26 AM [facility] Blood Venous blood specimen / Unknown Venipuncture / Unknown 07/01/2025 5:39 AM EDT 07/01/2025 10:03 AM EDT Cathleen GREENFIELD LAB BLOOD ORDERABLES Final Re sult Performing Organization Address [facility]/ZIP Co de Phone Number [facility] [address] [place] [address], [place] [phone] * (ABNORMAL) Iron and TIBC (07/01/2025 5:39 AM EDT) Iron 26(L) 50 - 160 mcg/dL LAB CHEMISTRY METHOD 07/01/2025 12:44 PM EDT [facility] TIBC 148(L) 250 - 450 mcg/dL LAB CHEMISTRY METHOD 07/01/2025 12:44 PM EDT [facility] Iron Saturation 18(L) 20 - 50 % LAB CHEMISTRY METHOD 07/01/2025 12:44 PM EDT [facility] Blood Venous blood specimen / Unknown Venipuncture / Unknown 07/01/2025 5:39 AM EDT 07/01/2025 10:03 AM EDT Cathleen GREENFIELD LAB BLOOD ORDERABLES Final Re sult Performing Organization Address [facility]/ZIP Co de Phone Number [facility] [address] [place] [address], [place] [phone] * Magnesium (06/30/2025 5:37 AM EDT) Magnesium 2.3 1.9 - 2.6 mg/dL LAB CHEMISTRY METHOD 06/30/2025 12:12 PM EDT [facility] Blood Venous blood specimen / Unknown Venipuncture / Unknown 06/30/2025 5:37 AM EDT 06/30/2025 10:17 AM EDT Servando GREENFIELD LAB BLOOD ORDERABLES Final R esult Performing Organization Address City/[facility]/ZIP Co de Phone Number [facility] [address] [place] [address], [place] [phone] * (ABNORMAL) Hemoglobin A1c (04/09/2023) Hemoglobin A1C 9.1(A) <=6.5 % Blood Venous blood specimen / Unknown Historical Provider LAB BLOOD ORDERABLES Margo l Result * Lipid panel (04/09/2023) LDL/HDL Ratio 2 0 - 4 Triglycerides 137 0 - 150 mg/dL Cholesterol 93 0 - 200 mg/dL HDL 44 >=40 mg/dL LDL Cholesterol 22 0 - 100 mg/dL Blood Venous blood specimen / Unknown [facility] Provider LAB BLOOD ORDERABLES Margo l Result * HM Urine Albumin Creatinine Ratio (12/12/2022) HM Urine Albumin Creatinine Ratio abstracted [facility] Provider HEALTH MAINTENANCE Final Result from Last 3 Months or Most Recently Relevant to Health Maintenance Additional Health Concerns Infection Onset Date Last Indicated MRSA 05/26/2025 05/26/2025 Insurance MEDICARE [facility] Care Teams Drafter Electronic Relationship Specialty Start Date End Date Ne Dean MD [address] [place] [id number] PCP - General 03/23/24
--- OUTSIDE RECORDS SUMMARY | 2025-07-20 09:02 | XMS_ITS | Encounter Summary ---
Author Organization [facility] Address [address] [place] [address] Care Team Providers Care Tare Weigher Name Role Phone Ne Dean MD Primary Care Provider [phone] Encounter Details Date Type Department Care Team (Late st Contact Info) Description 05/26/2025 Lab Requisition [facility] - Main Lab [address] [facility] [place] [address] Wan Sanchez Urinary tract infection, site not specified; Hydronephrosis with renal and ureteral calculous obstruction Social History Tobacco Use Types Packs/Day Years [...] Description 11/08/2025 1:40 PM EST Office Visit [facility] [address]aneda [address] [place] [address] Juan Padgett NP [address] [place] [address] Dr Katz [address] [place] [phone] documented as of this encounter Procedures Procedure Name Priority Date/Time Associated Diagnosis Comments CULTURE URINE Routine 05/26/2025 12:15 PM EDT Urinary tract infection, site not specified Hydronephrosis with renal and ureteral calculous obstruction documented in this encounter Results * (ABNORMAL) Culture urine (05/26/2025 12:15 PM EDT) Culture, Urine >=100,000 CFU/mL Methicillin-Resis tant Staphylococcus aureus(A) FLORES 05/28/2025 9:03 AM EDT [facility] ([facility]) [facility] Comment: Edited result: Previously reported as Gram Positive Cocci on 05/27/2025 at 0756 EDT. Urine Urine specimen obtained by clean catch procedure / Unknown 05/26/2025 12:15 PM EDT 05/26/2025 2:06 PM EDT Narrative Organism Antibiotic Method Susceptibility Methicillin-Resistant Staphylococcus aureus Benzylpenicillin FLORES >=0.5 ug/ml: Resistant Methicillin-Resistant Staphylococcus aureus Oxacillin FLORES >=4 ug/ml: Resistant Methicillin-Resistant Staphylococcus aureus Gentamicin FLORES <=0.5 ug/ml: Susceptible Methicillin-Resistant Staphylococcus aureus Ciprofloxacin FLORES >=8 ug/ml: Resistant Methicillin-Resistant Staphylococcus aureus Levofloxacin FLORES >=8 ug/ml: Resistant Methicillin-Resistant Staphylococcus aureus Linezolid FLORES 2 ug/ml: Susceptible Methicillin-Resistant Staphylococcus aureus Vancomycin FLORSE 1 ug/ml: Susceptible Methicillin-Resistant Staphylococcus aureus Tetracycline FLORES >=16 ug/ml: Resistant Methicillin-Resistant Staphylococcus aureus Nitrofurantoin FLORES <=16 ug/ml: Susceptible Methicillin-Resistant Staphylococcus aureus Rifampin FLORES <=0.5 ug/ml: Susceptible Methicillin-Resistant Staphylococcus aureus Trimethoprim/Sulfamethoxazo le FLORES >=320 ug/ml: Resistant us Wan Sanchez LAB MICROBIOLOGY - GENERAL ORDER YADIRA Final Result [facility]) [facility] [address] [place] [address], documented in this encounter Visit Diagnoses Diagnosis Urinary tract infection, site not specified Hydronephrosis with renal and ureteral calculous obstruction documented in this encounter Additional Health Concerns Infection Onset Date Last Indicated Resolved Time MRSA 05/26/2025 05/26/2025 documented as of this encounter Care Teams Tare Weigher Relationship Specialty Start Date End Date Ne Dean MD [address] [place] [address] PCP - General 03/23/24 documented as of this encounter
--- OUTSIDE RECORDS SUMMARY | 2025-07-20 09:02 | XMS_ITS | Data Portability ---
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 Referral None recorded . Procedures None recorded . Surgeries None recorded . Imaging None recorded . Medication Orders None recorded . Patient TargetsNo targets recorded. Patient InstructionsNo instructions recorded. Reason for Referral None Reported. Results Created Date Observation Date Name Description Value Unit Range Abnormal Flag Note LastModifiedBy Organization Detail LastModifiedTime 04/27/20 audio gram No observ ation record ed. BARCODE Not Available 2023 11:39:54 05/26/20 24 04/02/2021 imagi ng/di agnos tic resul t No observ ation record [...] Sensorine ural hearing loss of bilateral ears [id number] Active 2015 Sensorineu ral hearing loss, bilateral; Note: Date Diagnosed: 07/19/2016 1:31 PM (H90.3) Not Available [facility] 03:12:53 Problem Notes None recorded. Procedures Surgical History Date Name Laterality Status Provider Name and Address Organization Details Recorded Time 04/27/2024 Air only Audio - [id number] completed THOM MORALES [address] [address], [place], [address], [facility] - [facility] 05/04/2024 12:11:30 Imaging Results None recorded. Procedure [...] Diagnosis SNOMED-CT Code Diagnosis ICD10 Code Diagnosis IMO Codes Diagnosis Note 8278 THOM KENDRICK MACKENZIE - [place] [address] [place] [address], [address] [address] 04/22/2024 10:38:40 04/26/2024 15:21:18 Sensorineural hearing loss of bilateral ears [id number] H90.3 9074 THOM MORALES [place] [place] [address] [place] [address] 04/27/2024 11:40:38 04/30/2024 08:09:40 Sensorineural hearing loss of bilateral ears [id number] H90.3 Health Concerns Section Related Observation LastModified by Organization Detai ls LastModified Time None Recorded Concern Status LastModified by Organization Details LastModified Time None Recorded Advance Directives Directive None Recorded Payers Insurance Date Sequence Insurance Name Policy Number Policy Bingham Covered Member ID Bingham Member ID Guarantor Name 04/22/2024 1 [place] [employer] [employer] Lemuel Lott [id number] Lemuel Lott 07/05/2025 2 [place] [id number] Lemuel Lott [id number] Lemuel Lott Notes Date Note Type Note Provider Name and Address Organization Details Recorded Time 04/22/2024 text/html Known bilateral SNHL. Currently wearing [employer] Moment [address] R hearing aids dispensed 05/20/2021 EDA SCHMIDT, [facility] [address], [address], [facility] 04/22/2024 11:12:21 04/27/2024 text/html Eda accidently scheduled him on a day she was scheduled in [facility] to cover. He was in the waiting [...] if problems occur. LEFTY CARRILLO, AUD [address] [facility],[address] [address], [place], [address], [facility] 05/04/2024 12:12:01
--- OUTSIDE RECORDS SUMMARY | 2025-07-20 09:02 | XMS_ITS | Encounter Summary ---
Author Organization [facility] Address [address] [place] [address] Care Team Providers Care Corporate Development Intern Name Role Phone Ne Dean MD Primary Care Provider [phone] Encounter Details Date Type Department Care Team (Late st Contact Info) Description 07/11/2025 Lab Requisition [facility] - Main Lab [address] [facility] [place] [phone] Marjorie Alva PA [address] [place] [address] Encounter for other general examination Social History [...] Description 11/08/2025 1:40 PM EST Office Visit [facility] [address]aneda [address] [place] [address] Juan Padgett NP [address] [place] [address] Dr Katz [address] [place] [address] documented as of this encounter Procedures Procedure Name Priority Date/Time Associated Diagnosis Comments COMPLETE BLOOD COUNT Routine 07/11/2025 5:15 AM EDT Encounter for other general examination BASIC METABOLIC PANEL Routine 07/11/2025 5:15 AM EDT Encounter for other general examination documented in this encounter Results * (ABNORMAL) Complete blood count (07/11/2025 5:15 AM EDT) Pathologist [facility] WBC 7.7 4.8 - 10.8 K/mcL LAB [facility]OLOG[facility] RBC 2.90(L) 4.50 - 5.50 M/mcL LAB HEMETOLOGY METHOD 07/11/2025 12:39 PM [facility] Hemoglobin 9.3(L) 13.5 - 17.5 g/dL LAB HEMETOLOGY METHOD 07/11/2025 12:39 PM [facility] Hematocrit 29.4(L) 42.0 - 54.0 % LAB HEMETOLOGY METHOD 07/11/2025 12:39 PM [facility] MCV 100.7(H) 79.0 - 98.0 FL LAB HEMETOLOGY METHOD 07/11/2025 12:39 PM [facility] MCH 31.8 27.0 - 32.0 pcg LAB HEMETOLOGY METHOD 07/11/2025 12:39 PM [facility] MCHC 31.6(L) 32.0 - 37.0 g/dL LAB HEMETOLOGY METHOD 07/11/2025 12:39 PM [facility] RDW 16.2(H) 11.0 - 15.0 % LAB HEMETOLOGY METHOD 07/11/2025 12:39 PM [facility] Platelets 336 130 - 400 K/mcL LAB HEMETOLOGY METHOD 07/11/2025 12:39 PM EDT [facility] MPV 10.6 7.0 - 11.0 FL LAB HEMETOLOGY METHOD 07/11/2025 12:39 PM EDT [facility] NRBC 0.0 <1.0 % LAB HEMETOLOGY METHOD 07/11/2025 12:39 PM EDT [facility] NRBC Absolute 0.00 <0.10 K/mcL LAB HEMETOLOGY METHOD 07/11/2025 12:39 PM EDT [facility] Blood Venous blood specimen / Unknown Venipuncture / Unknown 07/11/2025 5:15 AM EDT 07/11/2025 10:10 AM EDT us Marjorie GREENFIELD LAB BLOOD ORDERABLES Final Resul t [facility] [address] [place] [address], * (ABNORMAL) Basic metabolic panel (07/11/2025 5:15 AM EDT) Sodium 137 133 - 145 mmol/L LAB CHEMISTRY METHOD 07/11/2025 1:02 PM [facility] Potassium 3.8 3.5 - 5.5 mmol/L LAB CHEMISTRY METHOD 07/11/2025 1:02 PM [facility] Chloride 106 96 - 110 mmol/L LAB CHEMISTRY METHOD 07/11/2025 1:02 PM [facility] CO2 17(L) 21 - 32 mmol/L LAB CHEMISTRY METHOD 07/11/2025 1:02 PM [facility] Anion Gap 14(H) 3 - 11 LAB CHEMISTRY METHOD 07/11/2025 1:02 PM [facility] Glucose 138(H) 70 - 100 mg/dL LAB CHEMISTRY METHOD 07/11/2025 1:02 PM EDT [facility] BUN 31(H) 5 - 25 mg/dL LAB CHEMISTRY METHOD 07/11/2025 1:02 PM EDT [facility] Creatinine 1.47(H) 0.70 - 1.30 mg/dL LAB CHEMISTRY METHOD 07/11/2025 1:02 PM [facility] eGFR 49(L) >=60 mL/min/1. 73m2 LAB CHEMISTRY METHOD 07/11/2025 1:02 PM T [facility] Comment:Calculation based on the Chronic Kidney Disease Epidemiology Collaboration (CKD-EPI) equation refit without adjustment for race. BUN/Creatinine Ratio 21.1 LAB CHEMISTRY METHOD [facility] Calcium 9.3 8.5 - 10.5 mg/dL LAB CHEMISTRY METHOD 07/11/2025 1:02 PM [facility] Blood Venous blood specimen / Unknown Venipuncture / Unknown 07/11/2025 5:15 AM EDT 07/11/2025 10:10 AM EDT Marjorie GREENFIELD LAB BLOOD ORDERABLES Final Resul t [facility] [address] [place] [address], documented in this encounter Visit Diagnoses Diagnosis Encounter for other general examination documented in this encounter Additional Health Concerns Infection Onset Date Last Indicated Resolved Time MRSA 05/26/2025 05/26/2025 documented as of this encounter Care Teams Corporate Development Intern Relationship Specialty Start Date End Date Ne Dean MD [address] [place] [address] PCP - General 03/23/24 documented as of this encounter
--- OUTSIDE RECORDS SUMMARY | 2025-07-20 09:02 | XMS_ITS | Encounter Summary ---
Author Organization [facility] Address [address] [place] [address] Care Team Providers Care Carpenters Helper Name Role Phone Ne eDan MD Primary Care Provider [phone] Encounter Details Date Type Department Care Team (Late st Contact Info) Description 06/30/2025 Lab Requisition [facility] - Main Lab [address] [facility] [place] [address] Servando Zuniga, JEAN PIERRE [address] [facility] [address] [place] [phone] Encounter for other general examination Social History [...] Description 11/08/2025 1:40 PM EST Office Visit [facility] [address]eda [address] [place] [address] Juan Padgett NP [address] [place] [address] Dr Katz [address] [place] [address] documented as of this encounter Procedures Procedure Name Priority Date/Time Associated Diagnosis Comments CBC WITH AUTO DIFFERENTIAL Routine 06/30/2025 5:37 AM EDT Encounter for other general examination CBC AND DIFFERENTIAL Routine 06/30/2025 5:37 AM EDT Encounter for other general examination MAGNESIUM Routine 06/30/2025 5:37 AM EDT Encounter for other general examination COMPREHENSIVE METABOLIC PANEL Routine 06/30/2025 5:37 AM EDT Encounter for other general examination documented in this encounter Results * (ABNORMAL) CBC auto differential (06/30/2025 5:37 AM EDT) WBC 9.4 4.8 - 10.8 K/mcL LAB HEMETOLOGY METHOD 06/30/2025 10:56 AM [facility] RBC 2.50(L) 4.50 - 5.50 M/mcL LAB HEMETOLOGY METHOD 06/30/2025 10:56 AM [facility] Hemoglobin 7.7(L) 13.5 - 17.5 g/dL LAB HEMETOLOGY METHOD 06/30/2025 10:56 AM [facility] Hematocrit 24.5(L) 42.0 - 54.0 % LAB HEMETOLOGY METHOD 06/30/2025 10:56 AM [facility] MCV 99.6(H) 79.0 - 98.0 FL LAB HEMETOLOGY METHOD 06/30/2025 10:56 AM [facility] MCH 31.3 27.0 - 32.0 pcg LAB HEMETOLOGY METHOD 06/30/2025 10:56 AM [facility] MCHC 31.4(L) 32.0 - 37.0 g/dL LAB HEMETOLOGY METHOD 06/30/2025 10:56 AM [facility] RDW 17.1(H) 11.0 - 15.0 % LAB HEMETOLOGY METHOD 06/30/2025 10:56 AM [facility] Platelets 239 130 - 400 K/[facility] LAB HEMETOLOGY METHOD 06/30/2025 10:56 AM [facility] MPV 9.7 7.0 - 11.0 FL LAB HEMETOLOGY METHOD 06/30/2025 10:56 AM [facility] NRBC 0.0 <1.0 % LAB HEMETOLOGY METHOD 06/30/2025 10:56 AM [facility] NRBC Absolute 0.00 <0.10 K/[facility] LAB HEMETOLOGY METHOD 06/30/2025 10:56 AM [facility] Neutrophils Relative 70.2 % LAB HEMETOLOGY METHOD 06/30/2025 10:56 AM [facility] Lymphocytes Relative 15.8 % LAB HEMETOLOGY METHOD 06/30/2025 10:56 AM [facility] Monocytes Relative 11.1 % LAB HEMETOLOGY METHOD 06/30/2025 10:56 AM [facility] Eosinophils Relative 2.1 % LAB HEMETOLOGY METHOD 06/30/2025 10:56 AM [facility] Basophils Relative 0.3 % LAB HEMETOLOGY METHOD 06/30/2025 10:56 AM [facility] Immature Granulocytes Relative 0.5 % LAB HEMETOLOGY METHOD 06/30/2025 10:56 AM [facility] Neutrophils Absolute 6.58 1.50 - 7.00 K/[facility] LAB HEMETOLOGY METHOD 06/30/2025 10:56 AM [facility] Lymphocytes Absolute 1.48 1.00 - 5.00 K/[facility] LAB HEMETOLOGY METHOD 06/30/2025 10:56 AM EDT [facility] Monocytes Absolute 1.04(H) 0.20 - 1.00 K/mcL LAB HEMETOLOGY METHOD 06/30/2025 10:56 AM EDT [facility] Eosinophils Absolute 0.20 0.00 - 0.50 K/[facility] LAB HEMETOLOGY METHOD 06/30/2025 10:56 AM EDT [facility] Basophils Absolute 0.03 0.00 - 0.20 K/[facility] HEMETOLOGY METHOD 06/30/2025 10:56 AM EDT [facility] Immature Granulocytes Absolute 0.05(H) 0.00 - 0.03 K/[facility] HEMETOLOGY METHOD 06/30/2025 10:56 AM EDT [facility] Blood Venous blood specimen / Unknown Venipuncture / Unknown 06/30/2025 5:37 AM EDT 06/30/2025 10:17 AM EDT Servando GREENFIELD LAB BLOOD ORDERABLES Final R esult [facility] [address] [place] [address], [place] [phone] * Magnesium (06/30/2025 5:37 AM EDT) Magnesium 2.3 1.9 - 2.6 mg/dL LAB CHEMISTRY METHOD 06/30/2025 12:12 PM EDT [facility] Blood Venous blood specimen / Unknown Venipuncture / Unknown 06/30/2025 5:37 AM EDT 06/30/2025 10:17 AM EDT Servando GREENFIELD LAB BLOOD ORDERABLES Final R esult [facility] [address] [place] [address], [place] [phone] * (ABNORMAL) Comprehensive metabolic panel (06/30/2025 5:37 AM EDT) Sodium 142 133 - 145 mmol/L LAB CHEMISTRY METHOD 06/30/2025 12:27 PM [facility] Potassium 3.6 3.5 - 5.5 mmol/L LAB CHEMISTRY METHOD 06/30/2025 12:27 PM [facility] Chloride 114(H) 96 - 110 mmol/L LAB CHEMISTRY METHOD 06/30/2025 12:27 PM [facility] CO2 20(L) 21 - 32 mmol/L LAB CHEMISTRY METHOD 06/30/2025 12:27 PM [facility] Anion Gap 8 3 - 11 LAB CHEMISTRY METHOD 06/30/2025 12:27 PM [facility] Glucose 51(L) 70 - 100 mg/dL LAB CHEMISTRY METHOD 06/30/2025 12:27 PM [facility] Comment:Results verified by repeat testing BUN 23 5 - 25 mg/dL LAB CHEMISTRY METHOD 06/30/2025 12:27 PM [facility] Creatinine 1.08 0.70 - 1.30 mg/dL LAB CHEMISTRY METHOD 06/30/2025 12:27 PM [facility] eGFR 71 >=60 mL/min/1. 73m2 LAB CHEMISTRY METHOD 06/30/2025 12:27 PM [facility] Comment:Calculation based on the Chronic Kidney Disease Epidemiology Collaboration (CKD-EPI) equation refit without adjustment for race. BUN/Creatinine Ratio 21.3 LAB CHEMISTRY METHOD 06/30/2025 12:27 PM [facility] Calcium 8.5 8.5 - 10.5 mg/dL LAB CHEMISTRY METHOD 06/30/2025 12:27 PM [facility] AST (SGOT) 59(H) 10 - 42 unit/L LAB CHEMISTRY METHOD 06/30/2025 12:27 PM EDT [facility] ALT (SGPT) 84(H) 10 - 60 unit/L LAB CHEMISTRY METHOD 06/30/2025 12:27 PM EDT [facility] Alkaline Phosphatase 74 42 - 121 unit/L LAB CHEMISTRY METHOD 06/30/2025 12:27 PM EDT [facility] Total Protein 5.9(L) 6.0 - 8.0 g/dL LAB CHEMISTRY METHOD 06/30/2025 12:27 PM EDT [facility] Albumin 2.3(L) 3.2 - 5.0 g/dL LAB CHEMISTRY METHOD 06/30/2025 12:27 PM EDT [facility] Total Bilirubin 0.3 0.0 - 1.4 mg/dL LAB CHEMISTRY METHOD 06/30/2025 12:27 PM EDT [facility] Blood Venous blood specimen / Unknown Venipuncture / Unknown 06/30/2025 5:37 AM EDT 06/30/2025 10:17 AM EDT us Servando GREENFIELD LAB BLOOD ORDERABLES Final R esult [facility] [address] [place] [address], documented in this encounter Visit Diagnoses Diagnosis Encounter for other general examination documented in this encounter Additional Health Concerns Infection Onset Date Last Indicated Resolved Time MRSA 05/26/2025 05/26/2025 documented as of this encounter Care Teams Carpenters Helper Relationship Specialty Start Date End Date Ne Dean MD [address] [facility] [address] [address] PCP - General 03/23/24 documented as of this encounter
--- OUTSIDE RECORDS SUMMARY | 2025-07-20 09:02 | XMS_ITS | Encounter Summary ---
Author Organization [facility] Address [address] [place] [address] Care Team Providers Care Rabbet Operator Name Role Phone Ne Dean MD Primary Care Provider [phone] Encounter Details Date Type Department Care Team (Late st Contact Info) Description 07/06/2025 Lab Requisition [facility] - Main Lab [address] [facility] [place] [address] Kendal Man PA [address] [place] [phone] Encounter for other general examination Social History [...] Description 11/08/2025 1:40 PM EST Office Visit [facility] [address]eda [address] [place] [address] Juan Padgett NP [address] [place] [address] Dr Katz [address] [place] [address] documented as of this encounter Procedures Procedure Name Priority Date/Time Associated Diagnosis Comments COMPLETE BLOOD COUNT Routine 07/06/2025 5:10 AM EDT Encounter for other general examination COMPREHENSIVE METABOLIC PANEL Routine 07/06/2025 5:10 AM EDT Encounter for other general examination documented in this encounter Results * (ABNORMAL) Comprehensive metabolic panel (07/06/2025 5:10 AM EDT) Sodium 137 133 - 145 mmol/L LAB CHEMISTRY METHOD 07/06/2025 11:32 AM [facility] Potassium 4.4 3.5 - 5.5 mmol/L LAB CHEMISTRY METHOD 07/06/2025 11:32 AM [facility] Chloride 108 96 - 110 mmol/L LAB CHEMISTRY METHOD 07/06/2025 11:32 AM [facility] CO2 22 21 - 32 mmol/L LAB CHEMISTRY METHOD 07/06/2025 11:32 AM [facility] Anion Gap 7 3 - 11 LAB CHEMISTRY METHOD 07/06/2025 11:32 AM [facility] Glucose 172(H) 70 - 100 mg/dL LAB CHEMISTRY METHOD 07/06/2025 11:32 AM [facility] BUN 25 5 - 25 mg/dL LAB CHEMISTRY METHOD 07/06/2025 11:32 AM [facility] Creatinine 1.30 0.70 - 1.30 mg/dL LAB CHEMISTRY METHOD 07/06/2025 11:32 AM [facility] eGFR 57(L) >=60 mL/min/1. 73m2 LAB CHEMISTRY METHOD 07/06/2025 11:32 AM [facility] Comment:Calculation based on the Chronic Kidney Disease Epidemiology Collaboration (CKD-EPI) equation refit without adjustment for race. BUN/Creatinine Ratio 19.2 LAB CHEMISTRY METHOD 07/06/2025 11:32 AM [facility] Calcium 8.7 8.5 - 10.5 mg/dL LAB CHEMISTRY METHOD [facility]/06[facility]25 [facility] ([facility]OT[facility] 17 10 - 42 unit/L LAB CHEMISTRY METHOD 07/06/2025 11:32 AM [facility] ALT (SGPT) 62(H) 10 - 60 unit/L LAB CHEMISTRY METHOD 07/06/2025 11:32 AM EDT [facility] Alkaline Phosphatase 80 42 - 121 unit/L LAB CHEMISTRY METHOD 07/06/2025 11:32 AM [facility] Total Protein 6.5 6.0 - 8.0 g/dL LAB CHEMISTRY METHOD 07/06/2025 11:32 AM [facility] Albumin 2.4(L) 3.2 - 5.0 g/dL LAB CHEMISTRY METHOD 07/06/2025 11:32 AM [facility] Total Bilirubin 0.4 0.0 - 1.4 mg/dL LAB CHEMISTRY METHOD 07/06/2025 11:32 AM [facility] Blood Venous blood specimen / Unknown Venipuncture / Unknown 07/06/2025 5:10 AM EDT 07/06/2025 9:53 AM EDT us Kendal GREENFIELD LAB BLOOD ORDERABLES Final Re sult [facility] [address] [place] [address], * (ABNORMAL) Complete blood count (07/06/2025 5:10 AM EDT) WBC 7.7 4.8 - 10.8 K/mcL LAB HEMETOLOGY METHOD 07/06/2025 10:39 AM EDT [facility] RBC 2.60(L) 4.50 - 5.50 M/mcL LAB HEMETOLOGY METHOD 07/06/2025 10:39 AM [facility] Hemoglobin 8.3(L) 13.5 - 17.5 g/dL LAB HEMETOLOGY METHOD 07/06/2025 10:39 AM [facility] Hematocrit 26.4(L) 42.0 - 54.0 % LAB HEMETOLOGY METHOD 07/06/2025 10:39 AM [facility] MCV 101.1(H) 79.0 - 98.0 FL LAB HEMETOLOGY METHOD 07/06/2025 10:39 AM [facility] MCH 31.8 27.0 - 32.0 pcg LAB HEMETOLOGY METHOD 07/06/2025 10:39 AM [facility] MCHC 31.4(L) 32.0 - 37.0 g/dL LAB HEMETOLOGY METHOD 07/06/2025 10:39 AM [facility] RDW 15.9(H) 11.0 - 15.0 % LAB HEMETOLOGY METHOD 07/06/2025 10:39 AM [facility] Platelets 285 130 - 400 K/mcL LAB HEMETOLOGY METHOD 07/06/2025 10:39 AM [facility] MPV 10.7 7.0 - 11.0 FL LAB HEMETOLOGY METHOD 07/06/2025 10:39 AM [facility] NRBC 0.0 <1.0 % LAB HEMETOLOGY METHOD 07/06/2025 10:39 AM [facility] NRBC Absolute 0.00 <0.10 K/mcL LAB HEMETOLOGY METHOD 07/06/2025 10:39 AM [facility] Blood Venous blood specimen / Unknown Venipuncture / Unknown 07/06/2025 5:10 AM EDT 07/06/2025 9:53 AM EDT us Kendal GREENFIELD LAB BLOOD ORDERABLES Final Re sult [facility] ([email or web address] [address] [place] [address], documented in this encounter Visit Diagnoses Diagnosis Encounter for other general examination documented in this encounter Additional Health Concerns Infection Onset Date Last Indicated Resolved Time MRSA 05/26/2025 05/26/2025 documented as of this encounter Care Teams Rabbet Operator Relationship Specialty Start Date End Date Ne Dean MD [address] [place] [address] PCP - General 03/23/24 documented as of this encounter
--- OUTSIDE RECORDS SUMMARY | 2025-07-20 09:02 | XMS_ITS | Encounter Summary ---
Author Organization [facility] Address [address] [place] [address] Care Team Providers Care Lease Out Worker Name Role Phone Ne Dean MD Primary Care Provider [phone] Encounter Details Date Type Department Care Team (Latest Contact Info) Description 05/11/2025 Lab Requisition [facility] - Main Lab 299 [facility] [place] [address] Tom Guerin MD [address] [facility] [address] [place] [address] Hydronephrosis with renal and ureteral calculous obstruction [...] Description 11/08/2025 1:40 PM EST Office Visit [facility] Associates [facility] [address]eda [address] [place] [address] Juan Padgett NP [address] [place] [address] Dr Katz [address] [place] [address] documented as of this encounter Procedures Procedure Name Priority Date/Time Associated Diagnosis Comments COMPLETE BLOOD COUNT Routine 05/11/2025 2:00 PM EDT Hydronephrosis with renal and ureteral calculous obstruction documented in this encounter Results * (ABNORMAL) Complete blood count (05/11/2025 2:00 PM EDT) WBC 10.5 4.8 - 10.8 K/mcL LAB HEMETOLOGY METHOD 05/11/2025 7:00 PM [facility] RBC 3.30(L) 4.50 - 5.50 M/mcL LAB HEMETOLOGY METHOD 05/11/2025 7:00 PM [facility] Hemoglobin 9.7(L) 13.5 - 17.5 g/dL LAB HEMETOLOGY METHOD 05/11/2025 7:00 PM [facility] Hematocrit 30.1(L) 42.0 - 54.0 % LAB HEMETOLOGY METHOD 05/11/2025 7:00 PM [facility] MCV 90.9 79.0 - 98.0 FL LAB HEMETOLOGY METHOD 05/11/2025 7:00 PM [facility] MCH 29.3 27.0 - 32.0 pcg LAB HEMETOLOGY METHOD 05/11/2025 7:00 PM [facility] MCHC 32.2 32.0 - 37.0 g/dL LAB HEMETOLOGY METHOD 05/11/2025 7:00 PM [facility] RDW 19.2(H) 11.0 - 15.0 % LAB HEMETOLOGY METHOD 05/11/2025 7:00 PM [facility] Platelets 322 130 - 400 K/mcL LAB HEMETOLOGY METHOD 05/11/2025 7:00 PM [facility] MPV 10.2 7.0 - 11.0 FL LAB HEMETOLOGY METHOD 05/11/2025 7:00 PM EDT [facility] NRBC 0.0 <1.0 % LAB HEMETOLOGY METHOD 05/11/2025 7:00 PM EDT [facility] NRBC Absolute 0.00 <0.10 K/mcL LAB HEMETOLOGY METHOD 05/11/2025 7:00 PM EDT [facility] Blood Venous blood specimen / Unknown 05/11/2025 2:00 PM EDT 05/11/2025 6:19 PM EDT us Tom Guerin MD LAB BLOOD ORDERABLES Final Resu lt [facility] [address] [place] [address], documented in this encounter Visit Diagnoses Diagnosis Hydronephrosis with renal and ureteral calculous obstruction documented in this encounter Additional Health Concerns Infection Onset Date Last Indicated Resolved Time MRSA 05/26/2025 05/26/2025 documented as of this encounter Care Teams Lease Out Worker Relationship Specialty Start Date End Date Ne Dean MD [address] [place] [address] PCP - General 03/23/24 documented as of this encounter
--- OUTSIDE RECORDS SUMMARY | 2025-07-20 09:02 | XMS_ITS | Encounter Summary ---
Author Organization [facility] Address [address] [place] [address] Care Team Providers Care Health Services Director Name Role Phone Ne Dean MD Primary Care Provider [phone] Encounter Details Date Type Department Care Team (Late st Contact Info) Description 07/01/2025 Lab Requisition [facility] - Main Lab 299 [facility] [place] [address] Cathleen Bear PA [address] [place] [address] Encounter for other general examination Social History [...] 11/08/2025 1:40 PM EST Office Visit [facility]iology Associates [facility] [address]aneda [address] [place] [address] Juan Padgett NP [address] [place] [address] Dr Katz [address] [place] [address] documented as of this encounter Procedures Procedure Name Priority Date/Time Associated Diagnosis Comments VITAMIN B12 AND FOLATE Routine 5:39 AM [...] encounter Results * (ABNORMAL) CBC auto differential (07/01/2025 5:39 AM EDT) WBC 9.2 4.8 - 10.8 K/mcL LAB HEMETOLOGY METHOD 07/01/2025 11:26 AM [facility] RBC 2.60(L) 4.50 - 5.50 M/mcL LAB HEMETOLOGY METHOD 07/01/2025 11:26 AM [facility] Hemoglobin 7.9(L) 13.5 - 17.5 g/dL LAB HEMETOLOGY METHOD 07/01/2025 11:26 AM [facility] Hematocrit 25.7(L) 42.0 - 54.0 % LAB HEMETOLOGY METHOD 07/01/2025 11:26 AM [facility] MCV 100.4(H) 79.0 - 98.0 FL LAB HEMETOLOGY METHOD 07/01/2025 11:26 AM [facility] MCH 30.9 27.0 - 32.0 pcg LAB HEMETOLOGY METHOD 07/01/2025 11:26 AM [facility] MCHC 30.7(L) 32.0 - 37.0 g/dL LAB HEMETOLOGY METHOD 07/01/2025 11:26 AM [facility] RDW 17.2(H) 11.0 - 15.0 % LAB HEMETOLOGY METHOD 07/01/2025 11:26 AM [facility] Platelets 243 130 - 400 K/mcL LAB HEMETOLOGY METHOD 07/01/2025 11:26 AM [facility] MPV 9.9 7.0 - 11.0 FL LAB HEMETOLOGY METHOD 07/01/2025 11:26 AM [facility] NRBC 0.0 <1.0 % LAB HEMETOLOGY METHOD 07/01/2025 11:26 AM [facility] NRBC Absolute 0.00 <0.10 K/mcL LAB HEMETOLOGY METHOD 07/01/2025 11:26 AM [facility] Neutrophils Relative 71.6 % LAB HEMETOLOGY METHOD 07/01/2025 11:26 AM [facility] Lymphocytes Relative 13.8 % LAB HEMETOLOGY METHOD 07/01/2025 11:26 AM [facility] Monocytes Relative 11.7 % LAB HEMETOLOGY METHOD 07/01/2025 11:26 AM [facility] Eosinophils Relative 2.1 % LAB HEMETOLOGY METHOD 07/01/2025 11:26 AM [facility] Basophils Relative 0.3 % LAB HEMETOLOGY METHOD 07/01/2025 11:26 AM [facility] Immature Granulocytes Relative 0.5 % LAB HEMETOLOGY METHOD 07/01/2025 11:26 AM [facility] Neutrophils Absolute 6.56 1.50 - 7.00 K/mcL LAB HEMETOLOGY METHOD 07/01/2025 11:26 AM [facility] Lymphocytes Absolute 1.27 1.00 - 5.00 K/mcL LAB HEMETOLOGY METHOD 07/01/2025 11:[address] [facility] Monocytes Absolute 1.07(H) 0.20 - 1.00 K/[facility] LAB HEMETOLOGY METHOD 07/01/2025 11:[address] [facility] Eosinophils Absolute 0.19 0.00 - 0.50 K/[facility] LAB HEMETOLOGY METHOD 07/01/2025 11:[address] [facility] Basophils Absolute 0.03 0.00 - 0.20 K/[facility] LAB HEMETOLOGY METHOD 07/01/2025 11:[address] [facility] Immature Granulocytes Absolute 0.05(H) 0.00 - 0.03 K/[facility] LAB HEMETOLOGY METHOD 07/01/2025 11:[address] [facility] Blood Venous blood specimen / Unknown Venipuncture / Unknown 07/01/2025 5:39 AM EDT 07/01/2025 10:03 AM EDT Cathleen GREENFIELD LAB BLOOD ORDERABLES Final Re sult [facility] [address] [place] [address], * (ABNORMAL) Iron and TIBC (07/01/2025 5:39 AM EDT) Iron 26(L) 50 - 160 mcg/dL LAB CHEMISTRY METHOD 07/01/2025 12:[address] [facility] TIBC 148(L) 250 - 450 mcg/dL LAB CHEMISTRY METHOD 07/01/2025 12:[address] [facility] Iron Saturation 18(L) 20 - 50 % LAB CHEMISTRY METHOD 07/01/2025 12:[address] [facility] Blood Venous blood specimen / Unknown Venipuncture / Unknown 07/01/2025 5:39 AM EDT 07/01/2025 10:03 AM EDT Cathleen GREENFIELD LAB BLOOD ORDERABLES Final Re sult Performing Organization Address [facility]/ZIP Co de Phone Number [facility] [address] [place] [address], [place] [phone] * Vitamin B12 and folate (07/01/2025 5:39 AM EDT) [facility] Vitamin B-12 659 250 - 900 pcg/mL LAB CHEMISTRY METHOD 07/01/2025 12:[address] [facility] Folate 6.0 2.8 - 17.0 ng/ml LAB CHEMISTRY METHOD 07/01/2025 12:[address] [facility] Blood Venous blood specimen / Unknown Venipuncture / Unknown 07/01/2025 5:39 AM EDT 07/01/2025 10:03 AM EDT Cathleen GREENFIELD LAB BLOOD ORDERABLES Final Re sult Performing Organization Address City/[facility]/ZIP Co de Phone Number [facility] [address] [place] [address], [place] [phone] * (ABNORMAL) Comprehensive metabolic panel (07/01/2025 5:39 AM EDT) [facility] Sodium 139 133 - 145 mmol/L LAB CHEMISTRY METHOD 07/01/2025 12:[address] [facility] Potassium 3.9 3.5 - 5.5 mmol/L LAB CHEMISTRY METHOD 07/01/2025 12:[address] [facility] Chloride 112(H) 96 - 110 mmol/L LAB CHEMISTRY METHOD 07/01/2025 12:[address] [facility] CO2 19(L) 21 - 32 mmol/L LAB CHEMISTRY METHOD 07/01/2025 12:44 PM [facility] Anion Gap 8 3 - 11 LAB CHEMISTRY METHOD 07/01/2025 12:44 PM [facility] Glucose 164(H) 70 - 100 mg/dL LAB CHEMISTRY METHOD 07/01/2025 12:44 PM [facility] BUN 26(H) 5 - 25 mg/dL LAB CHEMISTRY METHOD 07/01/2025 12:44 PM [facility] Creatinine 1.18 0.70 - 1.30 mg/dL LAB CHEMISTRY METHOD 07/01/2025 12:44 PM [facility] eGFR 64 >=60 mL/min/1. 73m2 LAB CHEMISTRY METHOD 07/01/2025 12:44 PM [facility] Comment:Calculation based on the Chronic Kidney Disease Epidemiology Collaboration (CKD-EPI) equation refit without adjustment for race. BUN/Creatinine Ratio 22.0 LAB CHEMISTRY METHOD 07/01/2025 12:44 PM [facility] Calcium 8.6 8.5 - 10.5 mg/dL LAB CHEMISTRY METHOD 07/01/2025 12:44 PM [facility] AST (SGOT) 49(H) 10 - 42 unit/L LAB CHEMISTRY METHOD 07/01/2025 12:44 PM [facility] ALT (SGPT) 90(H) 10 - 60 unit/L LAB CHEMISTRY METHOD 07/01/2025 12:44 PM [facility] Alkaline Phosphatase 74 42 - 121 unit/L LAB CHEMISTRY METHOD 07/01/2025 12:44 PM [facility] Total Protein 6.0 6.0 - 8.0 g/dL LAB CHEMISTRY METHOD 07/01/2025 12:44 PM [facility] Albumin 2.3(L) 3.2 - 5.0 g/dL LAB CHEMISTRY METHOD 07/01/2025 12:44 PM [facility] Total Bilirubin 0.3 0.0 - 1.4 mg/dL LAB CHEMISTRY METHOD 07/01/2025 12:[address] [facility] Blood Venous blood specimen / Unknown Venipuncture / Unknown 07/01/2025 5:39 AM EDT 07/01/2025 10:03 AM EDT us Cathleen GREENFIELD LAB BLOOD ORDERABLES Final Re sult [facility] [address] [place] [address], documented in this encounter Visit Diagnoses Diagnosis Encounter for other general examination documented in this encounter Additional Health Concerns Infection Onset Date Last Indicated Resolved Time MRSA 05/26/2025 05/26/2025 documented as of this encounter Care Teams Health Services Director Relationship Specialty Start Date End Date Ne Dean MD [address] [place] [address] PCP - General 03/23/24 documented as of this encounter
--- OUTSIDE RECORDS SUMMARY | 2025-07-20 09:02 | XMS_ITS | Encounter Summary ---
Author Organization [facility] Address [address] [place] [address] Care Team Providers Care Plans Examiner Name Role Phone Ne Dean MD Primary Care Provider [phone] Encounter Details Date Type Department Care Team (Late st Contact Info) Description 07/05/2025 Lab Requisition [facility] - Main Lab 299 [facility] [place] [address] Kendal Man PA [address] [place] [id number] Encounter for other general examination Social History [...] EST Office Visit [facility] Cardiology Associates [facility] [address] [place] [address] Juan Padgett NP [address] [place] [address] Dr Katz [address] [place] [address] documented as of this encounter Procedures Procedure Name Priority Date/Time Associated Diagnosis Comments COMPLETE BLOOD COUNT Routine 07/05/2025 5:09 AM EDT Encounter for other general examination COMPREHENSIVE METABOLIC PANEL Routine 07/05/2025 5:09 AM EDT Encounter for other general examination documented in this encounter Results * (ABNORMAL) Comprehensive metabolic panel (07/05/2025 5:09 AM EDT) Sodium 138 133 - 145 mmol/L LAB CHEMISTRY METHOD 07/05/2025 10:23 AM [facility] Potassium 4.4 3.5 - 5.5 mmol/L LAB CHEMISTRY METHOD 07/05/2025 10:23 AM [facility] Chloride 109 96 - 110 mmol/L LAB CHEMISTRY METHOD 07/05/2025 10:23 AM [facility] CO2 20(L) 21 - 32 mmol/L LAB CHEMISTRY METHOD 07/05/2025 10:23 AM [facility] Anion Gap 9 3 - 11 LAB CHEMISTRY METHOD 07/05/2025 10:23 AM [facility] Glucose 188(H) 70 - 100 mg/dL LAB CHEMISTRY METHOD 07/05/2025 10:23 AM [facility] BUN 28(H) 5 - 25 mg/dL LAB CHEMISTRY METHOD 07/05/2025 10:23 AM [facility] Creatinine 1.47(H) 0.70 - 1.30 mg/dL LAB CHEMISTRY METHOD 07/05/2025 10:23 AM [facility] eGFR 49(L) >=60 mL/min/1. 73m2 LAB CHEMISTRY METHOD 07/05/2025 10:23 AM [facility] Comment:Calculation based on the Chronic Kidney Disease Epidemiology Collaboration (CKD-EPI) equation refit without adjustment for race. BUN/Creatinine Ratio 19.0 LAB CHEMISTRY METHOD 07/05/2025 10:23 AM [facility] Calcium 8.7 8.5 - 10.5 mg/dL LAB CHEMISTRY METHOD 07/05/2025 10:23 AM [facility] AST (SGOT) 23 10 - 42 unit/L LAB CHEMISTRY METHOD 07/05/2025 10:23 AM [facility] ALT (SGPT) 79(H) 10 - 60 unit/L LAB CHEMISTRY METHOD 07/05/2025 10:23 AM [facility] Alkaline Phosphatase 77 42 - 121 unit/L LAB CHEMISTRY METHOD 07/05/2025 10:23 AM [facility] Total Protein 6.3 6.0 - 8.0 g/dL LAB CHEMISTRY METHOD 07/05/2025 10:23 AM [facility] Albumin 2.4(L) 3.2 - 5.0 g/dL LAB CHEMISTRY METHOD 07/05/2025 10:23 AM [facility] Total Bilirubin 0.3 0.0 - 1.4 mg/dL LAB CHEMISTRY METHOD 07/05/2025 10:23 AM [facility] Blood Venous blood specimen / Unknown Venipuncture / Unknown 07/05/2025 5:09 AM EDT 07/05/2025 9:11 AM EDT us Kendal GREENFIELD LAB BLOOD ORDERABLES Final Re sult [facility] [address] [place] [address], * (ABNORMAL) Complete blood count (07/05/2025 5:09 AM EDT) WBC 7.3 4.8 - 10.8 K/mcL LAB HEMETOLOGY METHOD 07/05/2025 9:48 AM [facility] RBC 2.60(L) 4.50 - 5.50 M/mcL LAB HEMETOLOGY METHOD 07/05/2025 9:48 AM [facility] Hemoglobin 8.0(L) 13.5 - 17.5 g/dL LAB HEMETOLOGY METHOD 07/05/2025 9:48 AM [facility] Hematocrit 25.1(L) 42.0 - 54.0 % LAB HEMETOLOGY METHOD 07/05/2025 9:48 AM [facility] MCV 98.4(H) 79.0 - 98.0 FL LAB HEMETOLOGY METHOD 07/05/2025 9:48 AM [facility] MCH 31.4 27.0 - 32.0 pcg LAB HEMETOLOGY METHOD 07/05/2025 9:48 AM [facility] MCHC 31.9(L) 32.0 - 37.0 g/dL LAB HEMETOLOGY METHOD 07/05/2025 9:48 AM [facility] RDW 15.6(H) 11.0 - 15.0 % LAB HEMETOLOGY METHOD 07/05/2025 9:48 AM [facility] Platelets 283 130 - 400 K/mcL LAB HEMETOLOGY METHOD 07/05/2025 9:48 AM [facility] MPV 10.2 7.0 - 11.0 FL LAB HEMETOLOGY METHOD 07/05/2025 9:48 AM [facility] NRBC 0.0 <1.0 % LAB HEMETOLOGY METHOD 07/05/2025 9:48 AM [facility] NRBC Absolute 0.00 <0.10 K/mcL LAB HEMETOLOGY METHOD 07/05/2025 9:48 AM [facility] Blood Venous blood specimen / Unknown Venipuncture / Unknown 07/05/2025 5:09 AM EDT 07/05/2025 9:11 AM EDT us Kendal GREENFIELD LAB BLOOD ORDERABLES Final Re sult [facility] [address] [place] [address], documented in this encounter Visit Diagnoses Diagnosis Encounter for other general examination documented in this encounter Additional Health Concerns Infection Onset Date Last Indicated Resolved Time MRSA 05/26/2025 05/26/2025 documented as of this encounter Care Teams Plans Examiner Relationship Specialty Start Date End Date Ne Dean MD [address] [place] [phone] PCP - General 03/23/24 documented as of this encounter
--- OUTSIDE RECORDS SUMMARY | 2025-07-20 09:02 | XMS_ITS | Encounter Summary ---
Author Organization [facility] Address [address] [place] [address] Care Team Providers Care Engine Designer Name Role Phone Ne Dean MD Primary Care Provider [phone] Encounter Details Date Type Department Care Team (Late st Contact Info) Description 07/11/2025 Lab Requisition [facility] - Main Lab 299 [facility] [place] [address] Wan Sanchez MD [address] [facility] [address] [place] [address] Urinary tract infection, site not specified; Retention of urine, unspecified Social History Tobacco Use Types Packs/Day Years [...] Description 11/08/2025 1:40 PM EST Office Visit [facility]iology [facility] [address]aneda [address] [place] [address] Juan Padgett NP [address] [place] [address] Dr Katz [address] [place] [address] documented as of this encounter Procedures Procedure Name Priority Date/Time Associated Diagnosis Comments CULTURE URINE Routine 07/11/2025 11:30 AM EDT Urinary tract infection, site not specified Retention of urine, unspecified documented in this encounter Results * Culture urine (07/11/2025 11:30 AM EDT) Culture, Urine No growth 07/12/2025 2:04 PM EDT [facility] Urine Urine specimen obtained by clean catch procedure / Unknown 07/11/2025 11:30 AM EDT 07/11/2025 6:25 PM EDT us Wan Sanchez MD LAB MICROBIOLOGY - GENERAL ORDER YADIRA Final Result [facility] [address] [place] [address], documented in this encounter Visit Diagnoses Diagnosis Urinary tract infection, site not specified Retention of urine, unspecified documented in this encounter Additional Health Concerns Infection Onset Date Last Indicated Resolved Time MRSA 05/26/2025 05/26/2025 documented as of this encounter Care Teams Engine Designer Relationship Specialty Start Date End Date Ne Dean MD [address] [place] [address] PCP - General 03/23/24 documented as of this encounter
== END 2025-07-20 13:18 | disposition home or self-care (01) ==
LOC: HO.HMCC 08:34
PROVIDERS: PCP Internal Medicine; Visit Provider Internal Medicine
DX: E11.9 Type 2 diabetes mellitus without complications (principal); K68.11 Postprocedural retroperitoneal abscess; N18.4 Chronic kidney disease, stage 4 (severe)

== ENCOUNTER → 2025-07-20 08:33 | Outpatient (BNVA) | payer MEDICARE, SELFPAY | PROVIDERS: PCP Internal Medicine; Visit Provider Internal Medicine | DX: E11.22 Type 2 diabetes mellitus with diabetic chronic kidney disease (principal); K68.11 Postprocedural retroperitoneal abscess; N18.4 Chronic kidney disease, stage 4 (severe); Z79.4 Long term (current) use of insulin; Z79.84 Long term (current) use of oral hypoglycemic drugs | CPT/HCPCS: 96127; 99212 ==

== ENCOUNTER → 2025-07-20 23:59 | Outpatient (BNV) | payer MEDICARE, SELFPAY | PROVIDERS: PCP Internal Medicine; Visit Provider Internal Medicine | DX: I48.92 Unspecified atrial flutter (principal); E11.9 Type 2 diabetes mellitus without complications | CPT/HCPCS: G0180 ==

== ENCOUNTER 2025-08-18 11:01 | Outpatient (REF) | payer MEDICARE, SELFPAY ==
--- OUTSIDE RECORDS SUMMARY | 2025-08-12 23:59 | XMS_ITS | Continuity of Care Document ---
Author Organization [facility] Address [address] [place] [address]- Care Team Providers Care Power Originator Name Role Phone Ne Dean MD Primary Care Physician Encounter [facility] Date(s): 07/13/25 - 08/12/25 [facility] [address] [place] [id number] Attending Physician: Rachael Caruso Admitting Physician: AdmtrRachael Referring Physician: Admtr, Ar8 Encounter Type: Triage Allergies, Adverse Reactions, Alerts No Known Allergies Immunizations Given and Recorded Vaccine Date Status Refusal Reason influenza virus vaccine, inactivated 07/13/25 Give n influenza virus vaccine, inactivated 07/21/24 Andrea rded influenza virus vaccine, inactivated 08/14/21 Andrea rded influenza virus vaccine, inactivated 07/13/20 Andrea rded influenza virus vaccine, inactivated 07/27/18 Andrea rded influenza virus vaccine, inactivated 10/02/17 Andrea rded SARS-CoV-2 (COVID-19) mRNA-1273 vaccine 02/11/22 R ecorded SARS-CoV-2 (COVID-19) mRNA-1273 vaccine 09/11/21 R ecorded SARS-CoV-2 (COVID-19) mRNA-1273 vaccine 01/05/21 G iven SARS-CoV-2 (COVID-19) mRNA-1273 vaccine 12/08/20 R ecorded tetanus/diphtheria/pertussis, acel(Tdap) 10/02/17 Recorded Medications aspirin 81 mg oral tablet 1 tablet = 81 mg, By Mouth, Daily, 0 Refills, Soft Stop, 07/14/09 4:38:07 PM EDT Start Date: 07/14/09 Stop Date: 08/13/09 Status: Ordered Medication Dispense Status: Completed Total Allowed Fills: 1 Fills Dispensed: 0 Assure Prism multi Test Strips Assure Prism multi Test Strips, See Instructions, # 100 each, Refills 4, Tot. Refills 4, Maintenance, Use to test blood sugar once a day E11.9, 07/19/25 4:54:00 PM EDT, Supply, 180, cm, 07/19/25 13:20:00 EDT, Height, 58.7, kg, 06/03/25 5:11:00 EDT, Dry Weight Start Date: 07/19/25 Status: Ordered Medication Dispense Status: Completed Quantity: 100.0 Unit: each Total Allowed Fills: 5 Fills Dispensed: 0 carvedilol 6.25 mg oral tablet TAKE 1 TABLET BY MOUTH 2 TIMES A DAY. Do not administer if LOW BP (<100/70) Start Date: 12/29/18 Status: Ordered Medication Dispense Status: Completed Total Allowed Fills: 1 Fills Dispensed: 0 docusate sodium 100 mg oral capsule 100 mg, 1, capsule, By Mouth, 2 times a day, PRN, # 20 capsule, Refills 0, Tot. Refills 0, Maintenance, for constipation, 04/23/25 11:09:00 AM EDT, Route to Pharmacy Electronically, [facility], Partial fill upon patient request if the prescription is for a schedule II opioid drug., 183, cm, 04/23/25 4:17:00 EDT, Height, 73.9, kg, 04/23/25 4:17:00 EDT, Dry Weight Start Date: 04/23/25 Status: Ordered Medication Dispense Status: Completed Quantity: 20.0 Unit: capsule Total Allowed Fills: 1 Fills Dispensed: 0 famotidine 20 mg oral tablet 20 mg, 1, tablet, By Mouth, Daily, # 30 tablet, Refills 0, Maintenance, 03/08/20 1:54:00 PM EDT Start Date: 03/08/20 Status: Ordered Medication Dispense Status: Completed Quantity: 30.0 Unit: tablet Total Allowed Fills: 1 Fills Dispensed: 0 Flomax Capsule 0.4 mg, By Mouth, Daily, Soft Stop, 07/14/09 4:33:54 PM EDT Start Date: 07/14/09 Stop Date: 08/13/09 Status: Ordered Medication Dispense Status: Completed Total Allowed Fills: 1 Fills Dispensed: 0 fluconazole 200 mg oral tablet = 200 mg, By Mouth, Daily, TO BE TAKEN UNTIL 07/10/2025; please check LFTs, 0 Refills, Maintenance, 06/29/25 12:59:00 PM EDT, Tablet, Partial fill upon patient request if the prescription is for a schedule II opioid drug. Start Date: 06/29/25 Status: Ordered Medication Dispense Status: Completed Total Allowed Fills: 1 Fills Dispensed: 0 glipiZIDE 5 mg oral tablet 5 mg, 1, tablet, By Mouth, 2 times a day before breakfast and dinne, # 60 tablet, Refills 11, Tot. Refills 11, Maintenance, 05/23/25 11:02:00 AM EDT, Route to Pharmacy Electronically, [facility], Partial fill upon patient request if the prescription is for a schedule II opioid drug., 183, cm, 05/19/25 14:01:00 EDT, Height, 77.5, kg, 05/09/25 13:06:00 EDT, Dry Weight Start Date: 05/23/25 Stop Date: 05/18/26 Status: Ordered Medication Dispense Status: Completed Quantity: 60.0 Unit: tablet Total Allowed Fills: 12 Fills Dispensed: 0 Gvoke HypoPen 1 mg/0.2 mL subcutaneous solution = 1 mg, Subcutaneous Infusion, Once, To be use for hypoglycemic emergency by family member or accompanying person, if blood glucoses less than 60 and unconscious. Please call 911 after use glucagon pen., # 1 each, 0 Refills, Soft Stop, 01/01/25 11:54:00 AM EDT, [id number], Partial fill upon patient request if the prescription is for a schedule II opioid drug., 183, cm, 12/28/24 15:15:00 EDT, Height Start Date: 01/01/25 Status: Ordered Medication Dispense Status: Completed Quantity: 1.0 Unit: each Total Allowed Fills: 1 Fills Dispensed: 0 Januvia 25 mg oral tablet 1 tablet = 25 mg, By Mouth, Daily, # 30 tablet, 5 Refills, Maintenance, 05/25/25 5:42:00 PM EDT, Tablet, [facility]/pharmacy #[id number], Partial fill upon patient request if the prescription is for a schedule II opioid drug., 183, cm, 05/19/25 14:01:00 EDT, Height, 77.5, kg, 05/09/25 13:06:00 EDT, Dry Weight Start Date: 05/25/25 Stop Date: 11/21/25 Status: Ordered Medication Dispense Status: Completed Quantity: 30.0 Unit: tablet Total Allowed Fills: 6 Fills Dispensed: 0 megestrol 20 mg oral tablet 20 mg, By Mouth, Daily, Refills 0, Maintenance, 06/29/25 1:00:00 PM EDT, Partial fill upon patient request if the prescription is for a schedule II opioid drug. Start Date: 06/29/25 Status: Ordered Medication Dispense Status: Completed Total Allowed Fills: 1 Fills Dispensed: 0 metFORMIN 500 mg oral tablet 1 tablet = 500 mg, By Mouth, 2 times a day, # 180 tablet, 0 Refills, Maintenance, 07/14/25 12:07:00 PM EDT, Tablet, Partial fill upon patient request if the prescription is for a schedule II opioid drug. Start Date: 07/14/25 Status: Ordered Medication Dispense Status: Completed Quantity: 180.0 Unit: tablet Total Allowed Fills: 1 Fills Dispensed: 0 Rosuvastatin = 20 mg, By Mouth, Daily, 0 Refills, Maintenance, 04/15/25 7:49:00 PM EDT, Partial fill upon patientrequest if the prescription is for a schedule II opioid drug. Start Date: 04/15/25 Status: Ordered Medication Dispense Status: Completed Total Allowed Fills: 1 Fills Dispensed: 0 Problem List Condition Confirmation Course Effective Dates Status H ealth Status Informant Diabetes mellitus with hyperglycemia Confirmed Active Social History Social History Type Response Smoking Status Former smoker, quit more than 30 days ago entered on: 12/29/18 Sex Sex Representation Male (finding) Patient Care team information Care Team Personnel Name: Sue Melton RN Position: S RN Member Role: Primary Care Nurse Name: Marisol Driver RN Position: S OB RN Member Role: Primary Care Nurse Name: Shonda Nunez LPN Position: S RN Member Role: Primary Care Nurse Name: Angelina Gupta RN Position: [facility] RN Member Role: Primary Care Nurse Name: Ne Dean MD Position: [facility] Physician - Primary Care Member Role: PCP Address: [address] [place] [address]- Telecom: Name: Pau Maria RN Position: [facility] RN Member Role: Primary Care Nurse Name: Jesse Ramey RN Position: [facility] RN Member Role: Primary Care Nurse Name: Joe Saini RN Position: [facility] RN Member Role: Primary Care Nurse Name: Christel Atkins RN Position: [facility] RN Member Role: Primary Care Nurse Name: Anca Sanabria RN Position: [facility] RN Member Role: Primary Care Nurse Name: Rose Mera RN Position: [facility] RN Member Role: Primary Care Nurse Name: Jodi Levine LPN Position: [facility] RN Member Role: Primary Care Nurse Name: Carla Hastings RN Position: [facility] RN Member Role: Primary Care Nurse Name: Artie Sun RN Position: [facility] RN Member Role: Primary Care Nurse Name: Zamzam Ramey RN Position: [facility] RN Member Role: Primary Care Nurse Name: Corey Edmond RN Position: [facility] RN Member Role: Primary Care Nurse Name: Misael Ledezma RN Position: [facility] RN Member Role: Primary Care Nurse Care Team Related Persons Name: KADEN TERESA Insurance Providers Guarantor name: BIBI TERESA Health Plan Information #: 1 Payer: MEDICARE B Payer Identifier: Member Number: [id number] Group Number: Subscriber Identifier: Relationship to Subscriber: self Coverage Type: NA Coverage Verification Date: NA Telecom: NA Address: Health Plan Information #: 2 Payer: MEDEX SECONDARY ONLY Payer Identifier: Member Number: [id number] Group Number: Subscriber Identifier: Relationship to Subscriber: self Coverage Type: Medicare Other Coverage Verification Date: NA Telecom: Address:
[2025-08-18 13:00] LABS: MANUAL DIFF FLAG NO
[2025-08-18 13:23] LABS: Hematocrit 30.8 % (42.0-52.0); Hemoglobin 10.0 g/dl (14.0-18.0); Red Blood Count 3.14 X10*6/uL (4.60-5.80); White Blood Count 8.3 X10*3/uL (4.8-10.8)
[2025-08-18 13:24] LABS: Imm Gran Abs Auto 0.05 X10*3/uL (0.00-0.03); Imm Gran Pct Auto 0.6 % (0.0-0.4); Lymphocytes Absolute Auto 1.8 X10*3/uL (1.2-4.9); Mean Corpuscular HGB Conc 32.5 g/dl (31.0-36.0); Mean Corpuscular Hemoglobin 31.8 pg (27.0-33.0); Mean Corpuscular Volume 98.1 fL (80.0-98.0); NRBC Abs Auto 0.000 X10*3/uL (0.0-0.012); NRBC Pct Auto 0.0 /100WBC (0.0-0.2); Platelet Count 262 X10*3/uL (160-400)
[2025-08-18 13:45] LABS: Alanine Aminotransferase 13 U/L (0-40); Albumin Level 3.3 g/dL (3.5-5.0); Alkaline Phosphatase 64 U/L (39-117); Anion Gap 9 (12-20); Aspartate Amino Transferase 21 U/L (5-37); Blood Urea Nitrogen 22 mg/dL (9-16); Calcium 9.3 mg/dL (8.4-10.2); Carbon Dioxide 25 mmol/L (22-29); Chloride 108 mmol/L (96-108); Estimated Glomerular Filt Rate > 60; Potassium 4.3 mmol/L (3.3-5.1); Sodium 138 mmol/L (135-145); Total Protein 7.3 g/dL (6.5-8.0)
--- OUTSIDE RECORDS SUMMARY | 2025-08-18 15:05 | XMS_ITS | Data Portability ---
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 Excellent fit to NAL2 real ear target. Reviewed daily care and maintenance. Linked aids to IPhone. F/U PRN. Not available 07/28/2025 17:02:19 Plan of Treatment Reminders Order Date Submit [...] Sensorine ural hearing loss of bilateral ears [id number] Active 2015 Sensorineu ral hearing loss, bilateral; Note: Date Diagnosed: 07/19/2016 1:31 PM (H90.3) Not Available [facility] 03:12:53 Sensorine ural hearing loss of bilateral ears [id number] Active 2024 EDA SCHMIDT, AUD 100 [facility],[place] [address], [place], [address] , [facility] 16:50:48 Problem Notes None recorded. Procedures Surgical History Date Name Laterality Status Provider Name and Address Organization Details Recorded Time 07/28/2025 Air & Speech Audio - 38320 & 00360 completed EDA SCHMIDT, AUD 100 [facility],[place] [address], [place], [address], [facility] 07/28/2025 16:50:59 04/27/2024 Air only Audio - 67845 completed LEFTY CARRILLO, [facility] 100 [facility],[place] [address], [place], [address], [facility] 05/04/2024 12:11:30 Imaging Results None recorded. Procedure Notes None recorded. Medical Equipment None Reported. Medications Name Sig Start Date Stop Date Status Note LastModified by Organization Details LastModified Time fluconazole 100 mg tablet TAKE 1 TABLET BY MOUTH EVERY DAY FOR 20 DAYS active Not Available Not Available No t Available metformin 500 mg tablet TAKE 1 TABLET BY MOUTH EVERY MORNING active Not Available Not Available No t Available carvedilol 6.25 mg tablet TAKE 1 TABLET BY MOUTH TWICE A DAY active Not Available Not Available No t Available cefuroxime axetil 250 mg tablet TAKE 1 TABLET BY MOUTH EVERY 12 HOURS 07/25 completed Not Available Not Available Not Available hydrocodone 5 mg-acetamin ophen 325 mg tablet active Not Available Not Available No t Available FreeStyle Lancets 28 gauge USE TO TEST ONCE DAILY active Not Available Not Available No t Available phenazopyri dine 200 mg tablet TAKE 1 TABLET (200 MG TOTAL) BY MOUTH 3 (THREE) TIMES A DAY IF NEEDED (DYSURIA) FOR UP TO 10 DOSES. active Not Available Not Available No t Available ciprofloxac in 500 mg tablet TAKE 1 TABLET BY MOUTH TWICE A DAY 10/20 /2025 completed Not Available Not Available Not Available sulfamethox azole 800 mg-trimetho prim 160 mg tablet TAKE 1 TABLET BY MOUTH TWO TIMES A DAY UNTIL FINISHED 07/25 completed Not Available Not Available Not Available aspirin 81 mg tablet,bernice yed release TAKE 1 TABLET BY MOUTH EVERY DAY active Not Available Not Available No t Available ketorolac 10 mg tablet TAKE 1 TABLET BY MOUTH EVERY 6 HOURS NEEDED active Not Available Not Available No t Available famotidine 20 mg tablet 20 MG ORALLY BEDTIME active Not Available Not Available No t Available tamsulosin 0.4 mg capsule TAKE 1 CAPSULE (0.4 MG TOTAL) BY MOUTH 1 (ONE) TIME EACH DAY FOR 30 DOSES. active Not Available Not Available No t Available diazepam 2 mg tablet TAKE 1 TABLET BY MOUTH 4 TIMES A DAY NEEDED FOR TAKE FOR SPASMS active Not Available Not Available No t Available ferrous sulfate 325 mg (65 mg iron) tablet TAKE 1 TABLET BY MOUTH TWICE A DAY WITH MEALS active Not Available Not Available No t Available metformin 1,000 mg tablet TAKE 1 TABLET BY MOUTH TWICE A DAY active Not Available Not Available No t Available oxybutynin chloride 5 mg tablet TAKE 1 TABLET BY MOUTH 3 TIMES A DAY IF NEEDED (SPASMS) FOR UP TO 20 DOSES. active Not Available Not Available No t Available metformin ER 500 mg tablet,exte nded release 24 hr TAKE 2 TABLETS BY MOUTH EVERY MORNING AND 1 TABLET IN THE EVENING active Not Available Not Available No t Available glipizide 5 mg tablet TAKE 1 TABLET BY MOUTH TWICE A DAY active Not Available Not Available No t Available oxycodone 5 mg tablet TAKE 1 TABLET BY MOUTH EVERY 6 HOURS IF NEEDED FOR SEVERE PAIN FOR UP TO 6 DOSES. MAX 20 MG/DAY active Not Available Not Available No t Available metformin ER 750 mg tablet,exte nded release 24 hr TAKE 1 TABLET BY MOUTH EVERY DAY active Not Available Not Available No t Available rosuvastati n 20 mg tablet TAKE 1 TABLET BY MOUTH AT BEDTIME active Not Available Not Available No t Available nitrofurant oin monohydrate /macrocryst als 100 mg capsule TAKE ONE CAPSULE BY MOUTH TWICE A DAY X 7 DAYS STOP BACTRIM 07/25 completed Not Available Not Available Not Available Januvia 25 mg tablet TAKE 1 TABLET BY MOUTH EVERY DAY active Not Available Not Available No t Available FreeStyle Lite Meter kit USE DIRECTED active Not Available Not Available No t Available FreeStyle Lite Strips USE TO TEST BLOOD SUGAR ONCE A DAY active Not Available Not Available No t Available Farxiga 5 mg tablet TAKE 1 TABLET BY MOUTH [...] [id number] THOM KENDRICK [place] 100 [facility] 100 [place] [address] 04/22/2024 10:38:40 04/26/2024 15:21:18 Sensorineural hearing loss of bilateral ears [id number] H90.3 [id number] THOM MORALES [facility] 100 [place] [address] 04/27/2024 11:40:38 04/30/2024 08:09:40 Sensorineural hearing loss of bilateral ears [id number] H90.3 [id number] THOM KENDRICK [place] 100 [facility] 100 [place] [address] 07/28/2025 15:59:26 07/29/2025 13:46:35 Sensorineural hearing loss of bilateral ears [id number] H90.3 [id number] Audiologic al evaluation results: 07/28/2025 Right ear: Normal sloping to a mild severe sensorineu ral hearing loss with excellent word recognitio n. Left ear: Normal sloping to mild to severe sensorineu ral hearing loss with excellent word recognitio n. Health Concerns Section Related Observation LastModified by Organization Detai ls LastModified Time None Recorded Concern Status LastModified by Organization Details LastModified Time None Recorded Advance Directives Directive None Recorded Payers Insurance Date Sequence Insurance Name Policy Number Policy [place] Covered Member ID [place] Member ID Guarantor Name 07/28/2025 1 [place] [employer] Lemuel Lott [id number] Lemuel Lott 07/29/2025 2 [place] [id number] Lemuel Lott [id number] Lemuel Lott Notes Date Note Type Note Provider Name and Address Organization Details Recorded Time 04/22/2024 text/html Known bilateral SNHL. Currently wearing Widex Moment [address] R hearing aids dispensed 05/20/2021 EDA SCHMIDT, AUD 100 [facility],[place] [address], [place], [address], [facility] 04/22/2024 11:12:21 04/27/2024 text/html Eda accidently scheduled him on a day she was scheduled in [facility] to cover. He was in the [...] if problems occur. LEFTY CARRILLO, AUD 100 [facility],[address], [address], [facility] 05/04/2024 12:12:01 07/28/2025 text/html Patient has a known bilateral SNHL. He lost his Widex hearing aids during a recent hospitalization. The facility in covering the replacement cost. Recommended Widex Allure 440 [address] R hearing aids in a silver nassar color #2 R/L M receivers medium vented sleeve domes $5182. HINA 07/28/2025. EDA SCHMIDT, AUD 100 [facility],[place] [address], [place], [address], [facility] 07/28/2025 17:02:39
--- OUTSIDE RECORDS SUMMARY | 2025-08-18 15:05 | XMS_ITS | Continuity of Care Document ---
Author Organization [place] - [facility], [place] [facility] [place] Address [address] [address] Assessment Encounter Date Assessment Date Assessment LastModified by Organization Details LastModified Time 07/28/2025 07/28/2025 Programmed aids to current HT. Excellent fit to NAL2 real ear target. Reviewed daily care and maintenance. Linked aids to IPhone. F/U PRN. [email or web address] Not available 07/28/2025 17:02:19 Plan of Treatment [...] instructions recorded. Reason for Referral None Reported. Problems Name Problem SNOMED Code Status Onset Date Resolution Date Notes Provider Name and Address Organization Details Recorded Time Sensorine ural hearing loss of bilateral ears [id number] Active 2015 Sensorineu ral hearing loss, bilateral; Note: Date Diagnosed: 07/19/2016 1:31 PM (H90.3) Not Available [facility] 03:12:53 Sensorine ural hearing loss of bilateral ears 453014825 Active 2024 EDA SCHMIDT, THOM 100 [facility],[place] [address], [facility] [place], [address] , [place] - [facility] 5 16:50:48 Problem Notes None recorded. Procedures Surgical History Date Name Laterality Status Provider Name and Address Organization Details Recorded Time 07/28/2025 Air & Speech Audio - 28949 & 10840 completed EDA SCHMIDT, AUD 100 [facility] 100, [place], [address], [place] - [facility] 07/28/2025 16:50:59 04/27/2024 Air only Audio - 00996 completed LEFTY CARRILLO, AUD 100 [facility] 100, [place], [address], [facility] - [facility] 05/04/2024 12:11:30 Imaging Results None recorded. [...] 1 TABLET BY MOUTH TWICE A DAY 07/25 completed Not Available Not Available Not [...] ICD10 Code Diagnosis IMO Codes Diagnosis Note [id number] THOM KENDRICK [place] 100 [facility] 100 [place] [address] 07/28/2025 15:59:26 07/29/2025 13:46:35 Sensorineural hearing loss of bilateral ears [id number] H90.3 [id number] Audiologic al evaluation results: 07/28/2025 Right ear: Normal sloping to a mild severe sensorineu ral hearing loss with excellent word recognitio n. Left ear: Normal sloping to mild to severe sensorineu ral hearing loss with excellent word recognitio n. Health Concerns Section Related Observation LastModified by Organization Detai ls LastModified Time None Recorded Concern Status LastModified by Organization Details LastModified Time None Recorded Payers Encounter Date Sequence Insurance Name Policy Number Policy [place] Covered Member ID B[place] Member ID Guarantor Name 07/28/2025 1 [place] [employer] Lemuel Lott [id number] 1 Lemuel Lott 07/28/2025 2 [place] [id number] Lemuel Lott [id number] Lemuel Lott Notes Date Note Type Note Provider Name and Address Organization Details Recorded Time 07/28/2025 text/html Patient has a known bilateral SNHL. He lost his Widex hearing aids during a recent hospitalization. The facility in covering the replacement cost. Recommended Widex Allure [address] R hearing aids in a silver nassar color #2 R/L M receivers medium vented sleeve domes $5182. HINA 07/28/2025. EDA SCHMIDT, [address],[place] [address], [place], [address], [facility] - [facility] 07/28/2025 17:02:39
== END 2025-08-18 11:02 | disposition home or self-care (01) ==
LOC: HO.HMGCLDS 11:01
PROVIDERS: PCP Internal Medicine; Visit Provider Internal Medicine
DX: I10 Essential (primary) hypertension (principal); E53.8 Deficiency of other specified B group vitamins; E78.5 Hyperlipidemia, unspecified; E11.9 Type 2 diabetes mellitus without complications; N40.0 Benign prostatic hyperplasia without lower urinary tract symptoms; N18.4 Chronic kidney disease, stage 4 (severe)
CPT/HCPCS: 36415; 80053; 83036; 85025; 99212

== ENCOUNTER 2025-08-18 11:01 | Outpatient (AMB) | payer MEDICARE, SELFPAY ==
[2025-08-18 11:04] VITALS: BP 104/60; PULSE 85; RESP 17; TEMP 36.4; O2SAT 98; BMI 20.5
--- NOTE | 2025-08-18 11:04 | A.OFFPC_ITS ---
Vital Signs 08/18/25 11:04 Height 6 ft Weight 151 lb BMI 20.5 BP 104/60 Blood Pressure Location Rt brachial Position Sitting Respiration 17 Pulse 85 Pulse Source Pulse Oximeter Temp 97.5 F Temp Source Oral Pulse Oximetry (%) 98 Oxygen Delivery Method Room Air Intake Visit Reasons: 1 month follow up Intake Note: Pt is here today for 1 month follow up visit. Allergies dapagliflozin (From [facility]) Adverse Reaction (Severe, Verified 08/18/25 11:06) pain in legs Medication List - Last Reconciled 08/18/25 by Ne Dean MD aspirin (Adult Low Dose Aspirin) 81 mg PO DAILY blood sugar diagnostic (FreeStyle Lite Strips) Test blood sugar once a day blood-glucose meter (FreeStyle Lite Meter kit) As directed carvedilol 6.25 mg PO BID docusate calcium (Stool Softener (docusate jo ann)) PO famotidine (Pepcid) 20 mg PO DAILY glipizide 5 mg PO DAILY lancets (FreeStyle Lancets) test once a day metformin 500 mg PO BID rosuvastatin 20 mg PO BEDTIME sitagliptin phosphate (Januvia) 25 mg PO DAILY tamsulosin 0.4 mg PO DAILY Tobacco use date assessed: 07/20/25 Dental Screening Dental Screen Date: 02/08/25 HPI 1 month follow up HPI Details Patient presents for the follow-up. He has been feeling better with improved appetite gained 15 lb since last visit eating well-balanced high- protein diet. Patient reports occasionally hypoglycemia in the morning and has decrease the dose of glipizide to 5 mg a day. Hypertension hyperlipidemia stable on current medications. Patient had consultation with urologist at [facility] regarding reconstruction of left ureter surgery. He still has indwelling catheter due to symptomatic BPH and will follow-up with [facility] to address it. [facility] Medical History (Updated 08/18/25 @ 12:32 by Ne Dean MD) Ureteral necrosis, left Postprocedural retroperitoneal abscess Nephrolithiasis DM type 2 (diabetes mellitus, type 2) CAD (coronary artery disease) [place] (hard of hearing) Arthritis GERD (gastroesophageal reflux disease) Thoracic aortic aneurysm without rupture Elevated cholesterol HTN (hypertension) CAD (coronary artery disease) BPH (benign prostatic hyperplasia) Nephrolithiasis Surgical History History of esophagogastroduodenoscopy (EGD) Hx of lithotripsy Hx of heart artery stent H/O colonoscopy Family History Brother DM type 2 (diabetes mellitus, type 2) CAD (coronary artery disease) Father CAD (coronary artery disease) Social History 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:: , 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 1. Little interest or pleasure in doing things: not at all 2. Feeling down, depressed, or hopeless: not at all 3. Trouble falling or staying asleep, or sleeping too much: not at all 4. Feeling tired or having little energy: not at all 5. Poor appetite or overeating: not at all 6. Feeling bad about yourself - or that you are a failure or have let yourself or your family down: not at all 7. Trouble concentrating on things, such as reading the newspaper or watching television: not at all 8. Moving or speaking so slowly that other people could have noticed. Or the opposite - being so fidgety or restless that you have been moving around a lot more than usual: not at all 9. Thoughts that you would be better off or of hurting yourself in some way: not at all Total score: 0 Depression Screening Interpretation: Negative Depression Screening Done: Yes Source: Developed by Drs. Kimo Strauss, Josiane Maya, Jesus Alberto Fagan and colleagues, with an educational loren from [employer]. Thrive Questionnaire Date Thrive assessed: 02/08/25 MILLA-7 AMB Questionnaire MILLA-7 Date MILLA - 7 assessed: 07/20/25 Source: Developed by Drs. Kimo Strauss, Josiane Maya, Jesus Alberto Fagan and colleagues, with an educational loren from [employer]. Review of Systems Const All systems reviewed & are unremarkable except as noted in HPI and below ENT Reports no additional complaints Card Reports no additional complaints Resp Reports no additional complaints GI Reports no additional complaints Reports no additional complaints Physical exam (Primary Care) Vital Signs: Last Vital Signs Temp 97.5 F 08/18/25 11:04 Pulse 85 08/18/25 11:04 Resp 17 08/18/25 11:04 BP 104/60 08/18/25 11:04 Pulse Ox 98 08/18/25 11:04 Oxygen Delivery Method Room Air 08/18/25 11:04 BMI result Body Mass Index 20.5 Tobacco/Smoking Status: Tobacco use Status Tobacco use date assessed 07/20/25 08/18/25 11:08 Patient Tobacco Use Status Former Tobacco user (45 08/18/25 11:08 years ago) Tobacco use type Cigarette 08/18/25 11:08 e-Cigarette/Vaping Use Never Used 08/18/25 11:08 PHQ-9: PHQ-9 Score PHQ-9: Total score 0 08/18/25 11:11 Depression Screening Interpretation: Negative Thrive Assessment: Date of Thrive Assessment Date Thrive assessed 02/08/25 08/18/25 11:08 Const General: no acute distress Eyes General: appearance normal, both eyes and all related structures Resp Effort & Inspection: normal respiratory effort Auscultation: clear to auscultation bilaterally Cardio Rhythm: regular rhythm Heart sounds: S1 normal heart sound present and S2 normal heart sound present GI Inspection: Yes normal to inspection Palpation (GI): Soft to palpation Percussion: Yes normal to percussion Auscultation: normal bowel sounds Coding Level of Care Code Est Pt Level 4 (82824) Diagnoses DM type 2 (diabetes mellitus, type 2) E11.9 HTN (hypertension) I10 Hyperlipidemia E78.5 CKD (chronic kidney disease) stage 4, GFR 15-29 ml/min N18.4 BPH (benign prostatic hyperplasia) N40.0 Assessment & Plan Assessment & Plan (1) DM type 2 (diabetes mellitus, type 2): Comment: Follows up with [facility] endocrinology, A1C 6.4 12/2024 Code(s): E11.9 - Type 2 diabetes mellitus without complications Category: Medical Plan: Continue ADA diet monitor blood glucose at least twice a day continue current medications. Patient will have A1c checked today. He will follow-up in 1 month (2) HTN (hypertension): Code(s): I10 - Essential (primary) hypertension Category: Medical Plan: Continue current medications (3) Hyperlipidemia: Code(s): E78.5 - Hyperlipidemia, unspecified Category: Medical Plan: Continue statin (4) CKD (chronic kidney disease) stage 4, GFR 15-29 ml/min: Code(s): N18.4 - Chronic kidney disease, stage 4 (severe) Category: Medical Plan: Monitor renal function avoid nephrotoxins (5) BPH (benign prostatic hyperplasia): Comment: Established with [facility], indwelling catheter present Code(s): N40.0 - Benign prostatic hyperplasia without lower urinary tract symptoms Category: Medical Plan: Follow-up with urology Orders: Orders Complete Blood Count Auto Diff Today E11.9 - Type 2 diabetes mellitus without complications, E53.8 - Deficiency of other specified B group vitamins, E78.5 - Hyperlipidemia, unspecified, I10 - Essential (primary) hypertension Comprehensive Met. Panel Today E11.9 - Type 2 diabetes mellitus without complications, E53.8 - Deficiency of other specified B group vitamins, E78.5 - Hyperlipidemia, unspecified, I10 - Essential (primary) hypertension Hemoglobin A1c Today E11.9 - Type 2 diabetes mellitus without complications, E53.8 - Deficiency of other specified B group vitamins, E78.5 - Hyperlipidemia, unspecified, I10 - Essential (primary) hypertension Medications: New famotidine (Pepcid) 20 mg PO DAILY 90 tabs 1RF
--- OUTSIDE RECORDS SUMMARY | 2025-08-18 13:47 | XMS_ITS | Encounter Summary ---
Author Organization [facility] Address [address] [place] [address] Care Team Providers Care Jelly Filter Tender Name Role Phone Ne Dean MD Primary Care Provider [phone] Encounter Details Date Type Department Care Team (Latest Contact Info) Description 05/11/2025 Lab Requisition [facility] - Main Lab [address] [facility] [place] [address] Tom Guerin MD [address] [facility] [address] [place] [phone] Hydronephrosis with renal and ureteral calculous obstruction Social History Tobacco Use Types Packs/Day Years Used Date Smoking Tobacco: Former Cigarettes 0.5 Q uit: 10/06/1975 Smokeless Tobacco: Never Alcohol [...] 11/08/2025 1:40 PM EST Office Visit [facility] [address] [place] [address] Juan Padgett NP [address] [place] [address] Dr [address] [place] [address] documented as of this encounter Procedures Procedure Name Priority Date/Time Associated Diagnosis Comments COMPLETE BLOOD COUNT Routine 05/11/2025 2:00 PM EDT Hydronephrosis with renal and ureteral calculous obstruction documented in this encounter Results * (ABNORMAL) Complete blood count (05/11/2025 2:00 PM EDT) WBC 10.5 4.8 - 10.8 K/mcL LAB HEMETOLOGY METHOD 05/11/2025 7:00 PM [facility] RBC 3.30(L) 4.50 - 5.50 M/mcL LAB HEMETOLOGY METHOD 05/11/2025 7:00 PM [facility] Hemoglobin 9.7(L) 13.5 - 17.5 g/dL LAB HEMETOLOGY METHOD 05/11/2025 7:00 PM [facility] Hematocrit 30.1(L) 42.0 - 54.0 % LAB HEMETOLOGY METHOD 05/11/2025 7:00 PM [facility] MCV 90.9 79.0 - 98.0 FL LAB HEMETOLOGY METHOD 05/11/2025 7:00 PM [facility] MCH 29.3 27.0 - 32.0 pcg LAB HEMETOLOGY METHOD 05/11/2025 7:00 PM [facility] MCHC 32.2 32.0 - 37.0 g/dL LAB HEMETOLOGY METHOD 05/11/2025 7:00 PM [facility] RDW 19.2(H) 11.0 - 15.0 % LAB HEMETOLOGY METHOD 05/11/2025 7:00 PM [facility] Platelets 322 130 - 400 K/mcL LAB HEMETOLOGY METHOD 05/11/2025 7:00 PM [facility] MPV 10.2 7.0 - 11.0 FL LAB HEMETOLOGY METHOD 05/11/2025 7:[address] [facility] NRBC 0.0 <1.0 % LAB HEMETOLOGY METHOD 05/11/2025 7:[address] [facility] NRBC Absolute 0.00 <0.10 K/mcL LAB HEMETOLOGY METHOD 05/11/2025 7:[address] [facility] Blood Venous blood specimen / Unknown 05/11/2025 2:00 PM EDT 05/11/2025 6:19 PM EDT us Tom Guerin MD LAB BLOOD ORDERABLES Final Resu lt [facility] [address] [place] [address], documented in this encounter Visit Diagnoses Diagnosis Hydronephrosis with renal and ureteral calculous obstruction documented in this encounter Additional Health Concerns Infection Onset Date Last Indicated Resolved Time MRSA 05/26/2025 05/26/2025 documented as of this encounter Care Teams Jelly Filter Tender Relationship Specialty Start Date End Date Ne Dean MD [address] [facility] [place] [address] PCP - General 03/23/24 documented as of this encounter
--- OUTSIDE RECORDS SUMMARY | 2025-08-18 13:47 | XMS_ITS | Encounter Summary ---
Author Organization [facility] Address [address] [place] [address] Care Team Providers Care Central Office Repairer Supervisor Name Role Phone Ne Dean MD Primary Care Provider [phone] Encounter Details Date Type Department Care Team (Late st Contact Info) Description 06/30/2025 Lab Requisition [facility] - Main Lab 299 [facility] [place] [address] Servando Zuniga PA [address] [place] [address] [address] [place] [id number] Social History Tobacco Use Types Packs/Day Years [...] Description 11/08/2025 1:40 PM EST Office Visit [facility] [address] [place] [address] Juan Padgett NP [address] [place] [address] Dr [address] [place] [address] Scheduled Orders Name Type Priority Associated [...] documented as of this encounter Care Teams Central Office Repairer Supervisor Relationship Specialty Start Date End Date Ne Dean MD [address] [place] [address] PCP - General 03/23/24 documented as of this encounter
--- OUTSIDE RECORDS SUMMARY | 2025-08-18 13:47 | XMS_ITS | Encounter Summary ---
Author Organization [facility] Address [address] [place] [address] Care Team Providers Care Tactical Deception Plans Officer Name Role Phone Ne Dean MD Primary Care Provider [phone] Encounter Details Date Type Department Care Team (Late st Contact Info) Description 06/30/2025 Lab Requisition [facility] - Main Lab 299 [facility] [place] [address] Servando Zuniga PA [address] [place] [address] [address] [place] [phone] Social History Tobacco Use Types Packs/Day Years [...] Description 11/08/2025 1:40 PM EST Office Visit [facility] [address] [place] [address] Juan Padgett NP [address] [place] [address] Dr [address] [place] [address] Scheduled Orders Name Type Priority [...] documented as of this encounter Care Teams Tactical Deception Plans Officer Relationship Specialty Start Date End Date Ne Dean MD [address] [place] [address] PCP - General 03/23/24 documented as of this encounter
--- OUTSIDE RECORDS SUMMARY | 2025-08-18 13:47 | XMS_ITS | Encounter Summary ---
Author Organization [facility] Address [address] [place] [address] Care Team Providers Care Assembly Hand Name Role Phone Ne Dean MD Primary Care Provider [phone] Encounter Details Date Type Department Care Team (Late st Contact Info) Description 07/01/2025 Lab Requisition [facility] - Main Lab [address] [facility] [place] [address] Cathleen Bear PA [address] [place] [address] Social History Tobacco Use Types Packs/Day Years [...] Description 11/08/2025 1:40 PM EST Office Visit [facility] [address] [place] [address] Juan Padgett NP [address] [place] [address] Dr [address] [place] [address] Scheduled Orders Name Type Priority Associated [...] documented as of this encounter Care Teams Assembly Hand Relationship Specialty Start Date End Date Ne Dean MD [address] [place] [address] PCP - General 03/23/24 documented as of this encounter
--- OUTSIDE RECORDS SUMMARY | 2025-08-18 13:47 | XMS_ITS | Encounter Summary ---
Author Organization [facility] Address [address] [place] [address] Care Team Providers Care Script Manager Name Role Phone Ne Dean MD Primary Care Provider [phone] Encounter Details Date Type Department Care Team (Late st Contact Info) Description 05/11/2025 Lab Requisition [facility] - Main Lab [address] [facility] [place] [address] Mary Chance PA [address] [facility] [address] [place] [address] Urinary tract infection, site not specified Social [...] Description 11/08/2025 1:40 PM EST Office Visit [facility] - Medical Center [address] [place] [address] Juan Padgett NP [address] [place] [address] Dr [address] [place] [phone] documented as of this encounter Procedures Procedure Name Priority Date/Time Associated Diagnosis Comments CULTURE URINE Routine 05/11/2025 6:02 PM EDT Urinary tract infection, site not specified documented in this encounter Results * (ABNORMAL) Culture urine (05/11/2025 6:02 PM EDT) Culture, Urine >=100,000 CFU/mL Staphylococcus epidermidis(A) FLORES 05/13/2025 11:07 AM EDT [facility] Comment: Edited result: Previously reported [...] MICROBIOLOGY - GENERAL ORD ERABLES Final Result [facility] [address] [place] [address], documented in this encounter Visit Diagnoses Diagnosis Urinary tract infection, site not specified documented in this encounter Additional Health Concerns Infection Onset Date Last Indicated Resolved Time MRSA 05/26/2025 05/26/2025 documented as of this encounter Care Teams Script Manager Relationship Specialty Start Date End Date Ne Dean MD [address] [facility] [place] [phone] PCP - General 03/23/24 documented as of this encounter
--- OUTSIDE RECORDS SUMMARY | 2025-08-18 13:47 | XMS_ITS | Encounter Summary ---
Author Organization [facility] Address [address] [place] [address] Care Team Providers Care Fast Food Worker Name Role Phone Ne Dean MD Primary Care Provider [phone] Encounter Details Date Type Department Care Team (Late st Contact Info) Description 06/30/2025 Lab Requisition [facility] - Main Lab [address] [facility] [place] [address] Servando Zuniga PA [address] [place] [address] 1 [place] [phone] Social History Tobacco Use Types Packs/Day Years [...] 11/08/2025 1:40 PM EST Office Visit [facility] Cardiology [facility] [address] [place] [address] Juan Padgett NP [address] [place] [address] Dr Katz [address] [place] [address] Scheduled Orders Name Type Priority [...] documented as of this encounter Care Teams Fast Food Worker Relationship Specialty Start Date End Date Ne Dean MD [address] [place] [address] PCP - General 03/23/24 documented as of this encounter
--- OUTSIDE RECORDS SUMMARY | 2025-08-18 13:47 | XMS_ITS | Clinical Summary ---
Author Organization [address] [place] [address] [place] [phone] Phone Care Team Providers Care Receiving Distribution Station Operator Name Role Phone Ne Dean MD Primary Care Provider [phone] Allergies No known active allergies Medications famotidine [...] prostatic hyperplasia) 12/12/2022 Type 2 diabetes mellitus ([facility] V24, [facility] V 28) 12/12/2022 Atherosclerosis of [place] co ronary artery of [place] heart without angina pectoris 12/21/2021 Overview (09/27/2024): [...] suggest unstable angina. Peripheral vascular disease, unspecified ([facility]/ C V24) 12/21/2021 Mixed hyperlipidemia 11/06/2020 Overview [...] Encounters Date Type Department Care Team Description 07/28/2025 Lab Requisition [facility] Lab [address] [place] [address] Wan Sanchez MD Urinary tract infection, site not specified; Hydronephrosis with ureteral stricture, not elsewhere classified 07/28/2025 Lab Requisition [facility] [address] [place] [address] Wan Sanchez MD Urinary tract infection, site not specified 07/12/2025 Lab Requisition [facility] [address] [place] [address] Kendal Man PA Encounter for other general examination 07/11/2025 Lab Requisition [facility] [address] [place] [address] Wan Sanchez MD Urinary tract infection, site not specified; Retention of urine, unspecified 07/11/2025 Lab Requisition [facility] - Main Lab [address] [place] [address] Marjorie Alva PA Encounter for other general examination 07/06/2025 Lab Requisition [facility] Main Lab [address] [place] [address] Kendal Man PA Encounter for other general examination 07/05/2025 Lab Requisition [facility] Main Lab [address] [place] [address] Kendal Man PA Encounter for other general examination 07/04/2025 Telephone [facility] Cardiology [facility] [address] [facility] [address] [place] [phone] Eddy Holloway MD 07/01/2025 Lab Requisition [facility] Lab [address] [place] [address] Cathleen Bear PA Encounter for other general examination 07/01/2025 Lab Requisition [facility] - Main Lab [address] [place] [address] Cathleen Bear PA 06/30/2025 Lab Requisition [facility] Main Lab [address] [place] [address] Servando Zuniga PA Encounter for other general examination 06/30/2025 Lab Requisition [facility] - Main Lab [address] [place] [address] Servando Zuniga PA 06/30/2025 Lab Requisition [facility] Main Lab [address] [place] [address] Servando Zuniga PA 06/30/2025 Lab Requisition [facility] Main Lab [address] [place] [address] Servando Zuniga PA 06/07/2025 Telephone [facility] [address] [place] [address] Eddy Holloway MD 05/26/2025 Lab Requisition [facility] - Main Lab 299 [facility] [place] [address] Wan Sanchez Urinary tract infection, site not specified; Hydronephrosis with renal and ureteral calculous obstruction from Last 3 Months Immunizations Immunization Administration [...] (hypertension) 11/06/2020 DX:HTN (hyper tension) Atherosclerosis of [place] ar teries of extremities with intermittent claudication, bilateral legs (CMS/HCC V24) 11/06/2020 DX:Atherosclerosis of [place] arteries of extremities with intermittent claudication, bilateral legs (HCC) S/P coronary artery stent placement 07/14/2009 DX:S/P coronary artery stent placement; COMMENT: 07/14/2009 Cath @ [facility] by Dr. Eddy Holloway - stent placed to mid LAD GERD with esophagitis DX:GERD wi th esophagitis Anxiety DX:Anxiety Benign prostatic hyperplasia without lower urinary tract symptoms DX:Benign prostatic hyper plasia without lower urinary tract symptoms IFG (impaired fasting glucose) D X:IFG (impaired fasting glucose) Dysthymic disorder DX:Dysthymic disorder Iliac artery stenosis, left ([facility] V24) 11/06/2020 DX:Iliac artery stenosis, le ft ([facility]) Depression DX:Depression Nephrolithiasis DX:Nephrolithias is CAD (coronary artery disease) 11/06/2020 DX :CAD (coronary artery disease) Diabetes mellitus ([facility] V 24, [facility] V28) type 2 Heart disease GERD [...] Description 11/08/2025 1:40 PM EST Office Visit [facility] - Medical Center [address] [place] [address] Juan Padgett NP [address] [place] [address] [place] [phone] Health Maintenance Due Date Last Done Comments [...] this topic Medical Devices Implanted Type Area Derrick Operator Device Identifier Shelf Expiration Date Model / Serial / Lot Stent Uret [id number] Contr Percuflex Hydroplus - Sna - [id number] Implanted:Qty: 1 on 03/14/2025 by Nabil Rosales MD at [facility] Stents Right: Ureter [employer]Y [id number] 10/26/2027 [id number] 60 / NA / [id number] Stent Uret [id number] Contr Percuflex Hydroplus - Sna - [id number] Implanted:Qty: 1 on 03/14/2025 by Nabil Rosales MD at [facility] Stents Left: Ureter [employer] [id number] 11/08/2027 [id number] 60 / NA / [id number] Stent Uret [id number] Contr Percuflex Hydroplus - Sna - [id number] Implanted:Qty: 1 on 03/28/2025 by Nabil Rosales MD at [facility] Stents Right: Ureter [employer] [id number] 11/10/2027 [id number] 60 / NA / [id number] Stent Uret [id number] Contr Percuflex Hydroplus - Sna - [id number] Implanted:Qty: 1 on 03/28/2025 by Nabil Rosales MD at [facility] Stents Left: Ureter [employer] [id number] 09/20/2027 [id number] 60 / NA / [id number] Procedures Procedure Name Priority Date/Time Associated Diagnosis Comments CULTURE URINE Routine 07/28/2025 11:30 AM EDT Urinary tract infection, site not specified COMPREHENSIVE METABOLIC PANEL Routine 07/12/2025 4:49 AM [...] Relevant to Health Maintenance Results * (ABNORMAL) Culture urine (07/28/2025 11:30 AM EDT) Only the most recent of3 resultswithin the time period is included. Culture, Urine >=100,000 CFU/mL Escherichia coli(A) FLORES 07/30/2025 8:05 AM EDT [facility] Culture, Urine 50,000-100,000 CFU/mL Klebsiella pneumoniae ssp pneumoniae(A) FLORES 07/30/2025 8:05 AM EDT [facility] Comment: The organism value for this result has been updated. These results have been appended to the previously preliminary verified report. Urine Urine specimen obtained by clean catch procedure / Unknown 07/28/2025 11:30 AM EDT 07/28/2025 1:44 PM EDT Narrative Organism Antibiotic Method Susceptibility Escherichia coli Amoxicillin/Clavulanate FLORES <=2 ug/ml: Susceptible Escherichia coli Ampicillin/Sulbactam FLORES <=2 ug/ml: Susceptible Escherichia coli Piperacillin/Tazobactam FLORES <=4 ug/ml: Susceptible Escherichia coli Cefazolin (Urine) FLORES <=1 ug/ml: Susceptible Escherichia coli Cefoxitin FLORES <=4 ug/ml: Susceptible Escherichia coli Ceftazidime FLORES <=0.5 ug/ml: Susceptible Escherichia coli Ceftriaxone FLORES <=0.25 ug/ml: Susceptible Escherichia coli Cefepime FLORES <=0.12 ug/ml: Susceptible Escherichia coli Meropenem FLORES <=0.25 ug/ml: Susceptible Escherichia coli Amikacin FLORES 2 ug/ml: Susceptible Escherichia coli Gentamicin FLORES <=1 ug/ml: Susceptible Escherichia coli Ciprofloxacin FLORES <=0.06 ug/ml: Susceptible Escherichia coli Levofloxacin FLORES <=0.12 ug/ml: Susceptible Escherichia coli Nitrofurantoin FLORES <=16 ug/ml: Susceptible Escherichia coli Trimethoprim/Sulfame thoxazo le FLORES <=20 ug/ml: Susceptible Klebsiella pneumoniae ssp pneumoniae Amoxicillin/Clavulanate FLORES <=2 ug/ml: Susceptible Klebsiella pneumoniae ssp pneumoniae Ampicillin/Sulbactam FLORES <=2 ug/ml: Susceptible Klebsiella pneumoniae ssp pneumoniae Piperacillin/Tazobactam FLORES <=4 ug/ml: Susceptible Klebsiella pneumoniae ssp pneumoniae Cefazolin (Urine) FLORES 2 ug/ml: Susceptible Klebsiella pneumoniae ssp pneumoniae Cefoxitin FLORES <=4 ug/ml: Susceptible Klebsiella pneumoniae ssp pneumoniae Ceftazidime FLORES <=0.5 ug/ml: Susceptible Klebsiella pneumoniae ssp pneumoniae Ceftriaxone FLORES <=0.25 ug/ml: Susceptible Klebsiella pneumoniae ssp pneumoniae Cefepime FLORES <=0.12 ug/ml: Susceptible Klebsiella pneumoniae ssp pneumoniae Meropenem FLORES <=0.25 ug/ml: Susceptible Klebsiella pneumoniae ssp pneumoniae Amikacin FLORES <=1 ug/ml: Susceptible Klebsiella pneumoniae ssp pneumoniae Gentamicin FLORES <=1 ug/ml: Susceptible Klebsiella pneumoniae ssp pneumoniae Ciprofloxacin FLORES <=0.06 ug/ml: Susceptible Klebsiella pneumoniae ssp pneumoniae Levofloxacin FLORES <=0.12 ug/ml: Susceptible Klebsiella pneumoniae ssp pneumoniae Nitrofurantoin FLORES <=16 ug/ml: Susceptible Klebsiella pneumoniae ssp pneumoniae Trimethoprim/Sulfamethoxazo le FLORES <=20 ug/ml: Susceptible us Wan Sanchez MD LAB MICROBIOLOGY - GENERAL ORDER YADIRA Final Result [facility] [address] [place] [address], [place] [phone] * (ABNORMAL) Complete blood count (07/12/2025 4:49 AM EDT) Only the most recent of4 resultswithin the time period is included. WBC 11.0(H) 4.8 - 10.8 K/mcL LAB HEMETOLOGY METHOD 07/12/2025 9:36 AM EDT [facility] RBC 3.30(L) 4.50 - 5.50 M/mcL LAB HEMETOLOGY METHOD 07/12/2025 9:36 AM EDT [facility] Hemoglobin 10.3(L) 13.5 - 17.5 g/dL LAB HEMETOLOGY METHOD 07/12/2025 9:36 AM EDT [facility] Hematocrit 32.6(L) 42.0 - 54.0 % LAB HEMETOLOGY METHOD 07/12/2025 9:36 AM EDT [facility] MCV 100.0(H) 79.0 - 98.0 FL LAB HEMETOLOGY METHOD 07/12/2025 9:36 AM EDT [facility] MCH 31.6 27.0 - 32.0 pcg LAB HEMETOLOGY METHOD 07/12/2025 9:36 AM EDT [facility] MCHC 31.6(L) 32.0 - 37.0 g/dL LAB H[facility]OLOGY [facility] R[facility] 16.1(H) 11.0 - 15.0 % LAB [facility]OLOGY [facility] Platelets 353 130 - 400 K/mcL LAB HEMETOLOGY METHOD 07/12/2025 9:36 AM EDT [facility] MPV 10.5 7.0 - 11.0 FL LAB HEMETOLOGY METHOD 07/12/2025 9:36 AM EDT [facility] NRBC 0.0 <1.0 % LAB HEMETOLOGY METHOD 07/12/2025 9:36 AM EDT [facility] NRBC Absolute 0.00 <0.10 K/mcL LAB HEMETOLOGY METHOD 07/12/2025 9:36 AM EDT [facility] Blood Venous blood specimen / Unknown Venipuncture / Unknown 07/12/2025 4:49 AM EDT 07/12/2025 8:27 AM EDT us Kendal GREENFIELD LAB BLOOD ORDERABLES Final Re sult [facility] [address] [place] [address], * (ABNORMAL) Comprehensive metabolic panel (07/12/2025 4:49 AM EDT) Only the most recent of5 resultswithin the time period is included. Sodium 135 133 - 145 mmol/L LAB CHEMISTRY METHOD 07/12/2025 10:36 AM [facility] Potassium 3.8 3.5 - 5.5 mmol/L LAB CHEMISTRY METHOD 07/12/2025 10:36 AM T [facility] Chloride 106 96 - 110 mmol/L LAB CHEMISTRY METHOD 07/12/2025 10:36 AM [facility] CO2 17(L) 21 - 32 mmol/L LAB CHEMISTRY METHOD 07/12/2025 10:36 AM [facility] Anion [place] 12(H) 3 - 11 LAB CHEMISTRY METHOD 07/12/2025 10:36 AM [facility] Glucose 167(H) 70 - 100 mg/dL LAB CHEMISTRY METHOD 07/12/2025 10:36 AM [facility] BUN 32(H) 5 - 25 mg/dL LAB CHEMISTRY METHOD 07/12/2025 10:36 AM [facility] Creatinine 1.35(H) 0.70 - 1.30 mg/dL LAB CHEMISTRY METHOD 07/12/2025 10:36 AM [facility] eGFR 54(L) >=60 mL/min/1. 73m2 LAB CHEMISTRY METHOD 07/12/2025 10:36 AM [facility] Comment:Calculation based on the Chronic Kidney Disease Epidemiology Collaboration (CKD-EPI) equation refit without adjustment for race. BUN/Creatinine Ratio 23.7 LAB CHEMISTRY METHOD 07/12/2025 10:36 AM [facility] Calcium 9.5 8.5 - 10.5 mg/dL LAB CHEMISTRY METHOD 07/12/2025 10:36 AM [facility] AST (SGOT) 16 10 - 42 unit/L LAB CHEMISTRY METHOD 07/12/2025 10:36 AM [facility] ALT (SGPT) 30 10 - 60 unit/L LAB CHEMISTRY METHOD 07/12/2025 10:36 AM [facility] Alkaline Phosphatase 94 42 - 121 unit/L LAB CHEMISTRY METHOD 07/12/2025 10:36 AM [facility] Total Protein 7.4 6.0 - 8.0 g/dL LAB CHEMISTRY METHOD 07/12/2025 10:36 AM [facility] Albumin 2.8(L) 3.2 - 5.0 g/dL LAB CHEMISTRY METHOD 07/12/2025 10:36 AM [facility] Total Bilirubin 0.4 0.0 - 1.4 mg/dL LAB CHEMISTRY METHOD 07/12/2025 10:36 AM [facility] Blood Venous blood specimen / Unknown Venipuncture / Unknown 07/12/2025 4:49 AM EDT 07/12/2025 8:27 AM EDT us Kendal GREENFIELD LAB BLOOD ORDERABLES Final Re sult [facility] [address] [place] [address], [place] [phone] * (ABNORMAL) Basic metabolic panel (07/11/2025 5:15 AM EDT) Sodium 137 133 - 145 mmol/L LAB CHEMISTRY METHOD 07/11/2025 1:02 PM [facility] Potassium 3.8 3.5 - 5.5 mmol/L LAB CHEMISTRY METHOD 07/11/2025 1:02 PM [facility] Chloride 106 96 - 110 mmol/L LAB CHEMISTRY METHOD 07/11/2025 1:02 PM [facility] CO2 17(L) 21 - 32 mmol/L LAB CHEMISTRY METHOD 07/11/2025 1:02 PM [facility] Anion [place] 14(H) 3 - 11 LAB CHEMISTRY METHOD 07/11/2025 1:02 PM [facility] Glucose 138(H) 70 - 100 mg/dL LAB CHEMISTRY METHOD 07/11/2025 1:02 PM [facility] BUN 31(H) 5 - 25 mg/dL LAB CHEMISTRY METHOD 07/11/2025 1:02 PM [facility] Creatinine 1.47(H) 0.70 - 1.30 mg/dL LAB CHEMISTRY METHOD 07/11/2025 1:02 PM [facility] eGFR 49(L) >=60 mL/min/1. 73m2 LAB CHEMISTRY METHOD 07/11/2025 1:02 PM [facility] Comment:Calculation based on the Chronic Kidney Disease Epidemiology Collaboration (CKD-EPI) equation refit without adjustment for race. BUN/Creatinine Ratio 21.1 LAB CHEMISTRY METHOD 07/11/2025 1:02 PM EDT [facility] Calcium 9.3 8.5 - 10.5 mg/dL LAB CHEMISTRY METHOD 07/11/2025 1:02 PM EDT [facility] Blood Venous blood specimen / Unknown Venipuncture / Unknown 07/11/2025 5:15 AM EDT 07/11/2025 10:10 AM EDT Marjorie GREENFIELD LAB BLOOD ORDERABLES Final Resul t Performing Organization Address City/[facility]/ZIP Co de Phone Number [facility] [address] [place] [address], [place] [phone] * Vitamin B12 and folate (07/01/2025 5:39 AM EDT) Pathologist [facility] Vitamin B-12 659 250 - 900 pcg/mL LAB CHEMISTRY METHOD 07/01/2025 12:44 PM EDT [facility] Folate 6.0 2.8 - 17.0 ng/ml LAB CHEMISTRY METHOD 07/01/2025 12:44 PM EDT [facility] Blood Venous blood specimen / Unknown Venipuncture / Unknown 07/01/2025 5:39 AM EDT 07/01/2025 10:03 AM EDT Cathleen GREENFIELD LAB BLOOD ORDERABLES Final Re sult [facility] [address] [place] [address], [place] [phone] * (ABNORMAL) CBC auto differential (07/01/2025 5:39 AM EDT) Only the most recent of2 resultswithin the time period is included. Pathologist [facility] WBC 9.2 4.8 - 10.8 K/mcL LAB HEMETOLOGY METHOD 07/01/2025 11:26 AM EDT [facility] RBC 2.60(L) 4.50 - 5.50 [...] 11:26 AM [facility] Monocytes Absolute 1.07(H) 0.20 - 1.00 K/mcL LAB HEMETOLOGY METHOD 07/01/2025 11:26 AM [facility] Eosinophils Absolute 0.19 0.00 - 0.50 K/mcL LAB HEMETOLOGY METHOD 07/01/2025 11:26 AM [facility] Basophils Absolute 0.03 0.00 - 0.20 K/mcL LAB HEMETOLOGY METHOD 07/01/2025 11:26 AM [facility] Immature Granulocytes Absolute 0.05(H) 0.00 - 0.03 K/mcL LAB HEMETOLOGY METHOD 07/01/2025 11:26 AM [facility] Blood Venous blood specimen / Unknown Venipuncture / Unknown 07/01/2025 5:39 AM EDT 07/01/2025 10:03 AM EDT Cathleen GREENFIELD LAB BLOOD ORDERABLES Final Re sult Performing Organization Address City/[facility]/ZIP Co de Phone Number [facility] [address] [place] [address], [place] [phone] * (ABNORMAL) Iron and TIBC (07/01/2025 5:39 AM EDT) Iron 26(L) 50 - 160 mcg/dL LAB CHEMISTRY METHOD 07/01/2025 12:44 PM EDT [facility] TIBC 148(L) 250 - 450 mcg/dL LAB CHEMISTRY METHOD 07/01/2025 12:44 PM EDT [facility] Iron Saturation 18(L) 20 - 50 % LAB CHEMISTRY METHOD 07/01/2025 12:44 PM EDT [facility] Blood Venous blood specimen / Unknown Venipuncture / Unknown 07/01/2025 5:39 AM EDT 07/01/2025 10:03 AM EDT Cathleen GREENFIELD LAB BLOOD ORDERABLES Final Re sult Performing Organization Address [facility] Co de Phone Number [facility] [address] [place] [address], [place] [phone] * Magnesium (06/30/2025 5:37 AM EDT) Magnesium 2.3 1.9 - 2.6 mg/dL LAB CHEMISTRY METHOD 06/30/2025 12:12 PM EDT [facility] Blood Venous blood specimen / Unknown Venipuncture / Unknown 06/30/2025 5:37 AM EDT 06/30/2025 10:17 AM EDT Servando GREENFIELD LAB BLOOD ORDERABLES Final R esult Performing Organization Address City/[facility]/ZIP Co de Phone Number [facility] [address] [place] [address], * (ABNORMAL) Hemoglobin A1c (04/09/2023) Pathologist [facility] Hemoglobin A1C 9.1(A) <=6.5 % Blood Venous blood specimen / Unknown Historical Provider LAB BLOOD ORDERABLES Margo l Result * Lipid panel (04/09/2023) Pathologist [facility] LDL/HDL Ratio 2 0 - 4 Triglycerides 137 0 - 150 mg/dL Cholesterol 93 0 - 200 mg/dL HDL 44 >=40 mg/dL LDL Cholesterol 22 0 - 100 mg/dL Blood Venous blood specimen / Unknown [facility] Provider LAB BLOOD ORDERABLES Margo l Result * HM Urine Albumin Creatinine Ratio (12/12/2022) Pathologist [facility] Urine Albumin Creatinine Ratio abstracted [facility] Provider HEALTH MAINTENANCE Final Result from Last 3 Months or Most Recently Relevant to Health Maintenance Additional Health Concerns Infection Onset Date Last Indicated MRSA 05/26/2025 05/26/2025 Insurance MEDICARE [facility] Care Teams Receiving Distribution Station Operator Relationship Specialty Start Date End Date Ne Dean MD [address] [place] [address] PCP - General 03/23/24
--- OUTSIDE RECORDS SUMMARY | 2025-08-18 13:47 | XMS_ITS | Encounter Summary ---
Author Organization [facility] Address [address] [place] [address] Care Team Providers Care Peer Counselor Name Role Phone Ne Dean MD Primary Care Provider [phone] Encounter Details Date Type Department Care Team (Late st Contact Info) Description 07/01/2025 Lab Requisition [facility] - Main Lab [address] [facility] [place] [address] Cathleen Bear PA [address] [place] [id number] Encounter for other general examination Social History [...] Description 11/08/2025 1:40 PM EST Office Visit [facility] [address] [place] [address] Juan Padgett NP [address] [place] [address] Dr Katz [address] [place] [address] documented as of this encounter Procedures [...] K/mcL LAB HEMETOLOGY METHOD 07/01/2025 11:26 AM [facility] RBC 2.60(L) 4.50 - 5.50 M/mcL LAB HEMETOLOGY METHOD 07/01/2025 11:26 AM [facility] LAB Hemoglobin 7.9(L) 13.5 - 17.5 g/dL LAB HEMETOLOGY METHOD 07/01/2025 11:26 AM [facility] LAB Hematocrit 25.7(L) 42.0 - 54.0 % LAB HEMETOLOGY METHOD 07/01/2025 11:26 AM [facility] LAB MCV 100.4(H) 79.0 - 98.0 FL LAB HEMETOLOGY METHOD 07/01/2025 11:26 AM [facility] LAB MCH 30.9 27.0 - 32.0 pcg LAB HEMETOLOGY METHOD 07/01/2025 11:26 AM [facility] LAB MCHC 30.7(L) 32.0 - 37.0 g/dL LAB HEMETOLOGY METHOD 07/01/2025 11:26 AM [facility] LAB RDW 17.2(H) 11.0 - 15.0 % LAB HEMETOLOGY METHOD 07/01/2025 11:26 AM [facility] LAB Platelets 243 130 - 400 K/mcL LAB HEMETOLOGY METHOD 07/01/2025 11:26 AM [facility] LAB MPV 9.9 7.0 - 11.0 FL LAB HEMETOLOGY METHOD 07/01/2025 11:26 AM [facility] LAB NRBC 0.0 <1.0 % LAB HEMETOLOGY METHOD 07/01/2025 11:26 AM [facility] LAB NRBC Absolute 0.00 <0.10 K/mcL LAB HEMETOLOGY METHOD 07/01/2025 11:26 AM [facility] Neutrophils Relative 71.6 % LAB HEMETOLOGY METHOD 07/01/2025 11:26 AM [facility] Lymphocytes Relative 13.8 % LAB HEMETOLOGY METHOD 07/01/2025 11:26 AM [facility] Monocytes Relative 11.7 % LAB HEMETOLOGY METHOD 07/01/2025 11:26 AM [facility] Eosinophils Relative 2.1 % LAB HEMETOLOGY METHOD 07/01/2025 11:26 AM [facility] Basophils Relative 0.3 % LAB HEMETOLOGY METHOD 07/01/2025 11:26 AM [facility] Immature Granulocytes Relative 0.5 % LAB HEMETOLOGY METHOD 07/01/2025 11:26 AM [facility] Neutrophils Absolute 6.56 1.50 - 7.00 K/mcL LAB HEMETOLOGY METHOD 07/01/2025 11:26 AM [facility] Lymphocytes Absolute 1.27 1.00 - 5.00 K/[facility] LAB HEMETOLOGY METHOD 07/01/2025 11:26 AM EDT [facility] LAB Monocytes Absolute 1.07(H) 0.20 - 1.00 K/[facility] LAB HEMETOLOGY METHOD 07/01/2025 11:26 AM EDT [facility] LAB Eosinophils Absolute 0.19 0.00 - 0.50 K/[facility] LAB HEMETOLOGY METHOD 07/01/2025 11:26 AM EDT [facility] LAB Basophils Absolute 0.03 0.00 - 0.20 K/[facility] LAB HEMETOLOGY METHOD 07/01/2025 11:26 AM EDT [facility] LAB Immature Granulocytes Absolute 0.05(H) 0.00 - 0.03 K/[facility] LAB HEMETOLOGY METHOD 07/01/2025 11:26 AM EDT [facility] Blood Venous blood specimen / Unknown Venipuncture / Unknown 07/01/2025 5:39 AM EDT 07/01/2025 10:03 AM EDT Cathleen GREENFIELD LAB BLOOD ORDERABLES Final Re sult [facility] LAB [address] [place] [address], * (ABNORMAL) Iron and TIBC (07/01/2025 5:39 AM EDT) Iron 26(L) 50 - 160 mcg/dL LAB CHEMISTRY METHOD 07/01/2025 12:44 PM EDT [facility] LAB TIBC 148(L) 250 - 450 mcg/dL LAB CHEMISTRY METHOD 07/01/2025 12:44 PM EDT [facility] Iron Saturation 18(L) 20 - 50 % LAB CHEMISTRY METHOD 07/01/2025 12:44 PM EDT [facility] Blood Venous blood specimen / Unknown Venipuncture / Unknown 07/01/2025 5:39 AM EDT 07/01/2025 10:03 AM EDT Cathleen GREENFIELD LAB BLOOD ORDERABLES Final Re sult Performing Organization Address [facility]/ZIP Co de Phone Number [facility] [address] [place] [address], [place] [phone] * Vitamin B12 and folate (07/01/2025 5:39 AM EDT) [facility] Vitamin B-12 659 250 - 900 pcg/mL LAB CHEMISTRY METHOD 07/01/2025 12:44 PM EDT [facility] Folate 6.0 2.8 - 17.0 ng/ml LAB CHEMISTRY METHOD 07/01/2025 12:44 PM EDT [facility] Blood Venous blood specimen / Unknown Venipuncture / Unknown 07/01/2025 5:39 AM EDT 07/01/2025 10:03 AM EDT Cathleen GREENFIELD LAB BLOOD ORDERABLES Final Re sult Performing Organization Address [facility]/ZIP Co de Phone Number [facility] [address] [place] [address], [place] [phone] * (ABNORMAL) Comprehensive metabolic panel (07/01/2025 5:39 AM EDT) [facility] Sodium 139 133 - 145 mmol/L LAB CHEMISTRY METHOD 07/01/2025 12:44 PM EDT [facility] Potassium 3.9 3.5 - 5.5 mmol/L LAB CHEMISTRY METHOD 07/01/2025 12:44 PM EDT [facility] Chloride 112(H) 96 - 110 mmol/L LAB CHEMISTRY METHOD 07/01/2025 12:44 PM EDT [facility] CO2 19(L) 21 - 32 mmol/L LAB CHEMISTRY METHOD 07/01/2025 12:44 PM [facility] Anion Gap 8 3 - 11 LAB CHEMISTRY METHOD 07/01/2025 12:44 PM [facility] Glucose 164(H) 70 - 100 mg/dL LAB CHEMISTRY METHOD 07/01/2025 12:44 PM [facility] BUN 26(H) 5 - 25 mg/dL LAB CHEMISTRY METHOD 07/01/2025 12:44 PM [facility] Creatinine 1.18 0.70 - 1.30 mg/dL LAB CHEMISTRY METHOD 07/01/2025 12:44 PM [facility] eGFR 64 >=60 mL/min/1. 73m2 LAB CHEMISTRY METHOD 07/01/2025 12:44 PM [facility] Comment:Calculation based on the Chronic Kidney Disease Epidemiology Collaboration (CKD-EPI) equation refit without adjustment for race. BUN/Creatinine Ratio 22.0 LAB CHEMISTRY METHOD 07/01/2025 12:44 PM [facility] Calcium 8.6 8.5 - 10.5 mg/dL LAB CHEMISTRY METHOD 07/01/2025 12:44 PM [facility] AST (SGOT) 49(H) 10 - 42 unit/L LAB CHEMISTRY METHOD 07/01/2025 12:44 PM [facility] ALT (SGPT) 90(H) 10 - 60 unit/L LAB CHEMISTRY METHOD 07/01/2025 12:44 PM [facility] Alkaline Phosphatase 74 42 - 121 unit/L LAB CHEMISTRY METHOD 07/01/2025 12:44 PM [facility] Total Protein 6.0 6.0 - 8.0 g/dL LAB CHEMISTRY METHOD 07/01/2025 12:44 PM [facility] Albumin 2.3(L) 3.2 - 5.0 g/dL LAB CHEMISTRY METHOD 07/01/2025 12:44 PM [facility] Total Bilirubin 0.3 0.0 - 1.4 mg/dL LAB CHEMISTRY METHOD 07/01/2025 12:44 PM EDT [facility] Blood Venous blood specimen / Unknown Venipuncture / Unknown 07/01/2025 5:39 AM EDT 07/01/2025 10:03 AM EDT us Cathleen GREENFIELD LAB BLOOD ORDERABLES Final Re sult [facility] [address] [place] [address], documented in this encounter Visit Diagnoses Diagnosis Encounter for other general examination documented in this encounter Additional Health Concerns Infection Onset Date Last Indicated Resolved Time MRSA 05/26/2025 05/26/2025 documented as of this encounter Care Teams Peer Counselor Relationship Specialty Start Date End Date Ne Dean MD [address] [place] [address] PCP - General 03/23/24 documented as of this encounter
--- OUTSIDE RECORDS SUMMARY | 2025-08-18 13:47 | XMS_ITS | Encounter Summary ---
Author Organization [facility] Address [address] [place] [address] Care Team Providers Care Web Content Writer Name Role Phone Ne Dean MD Primary Care Provider [phone] Encounter Details Date Type Department Care Team (Late st Contact Info) Description 06/30/2025 Lab Requisition [facility] - Main Lab [address] [facility] [place] [address] Servando Zuniga, JEAN PIERRE [address] [facility] [address] [place] [id number] Encounter for other general examination Social History [...] 11/08/2025 1:40 PM EST Office Visit [facility] [address] Cast[address]eda [address] [place] [address] Juan Padgett NP [address] [place] [address] Dr Katz [address] [place] [address] documented as of this encounter [...] K/mcL LAB HEMETOLOGY METHOD 06/30/2025 10:56 AM [facility] RBC 2.50(L) 4.50 - 5.50 M/mcL LAB HEMETOLOGY METHOD 06/30/2025 10:56 AM [facility] Hemoglobin 7.7(L) 13.5 - 17.5 g/dL LAB HEMETOLOGY METHOD 06/30/2025 10:56 AM [facility] Hematocrit 24.5(L) 42.0 - 54.0 % LAB HEMETOLOGY METHOD 06/30/2025 10:56 AM [facility] LAB MCV 99.6(H) 79.0 - 98.0 FL LAB HEMETOLOGY METHOD 06/30/2025 10:56 AM [facility] MCH 31.3 27.0 - 32.0 pcg LAB HEMETOLOGY METHOD 06/30/2025 10:56 AM [facility] MCHC 31.4(L) 32.0 - 37.0 g/dL LAB HEMETOLOGY METHOD 06/30/2025 10:56 AM [facility] RDW 17.1(H) 11.0 - 15.0 % LAB HEMETOLOGY METHOD 06/30/2025 10:56 AM [facility] Platelets 239 130 - 400 K/mcL LAB HEMETOLOGY METHOD 06/30/2025 10:56 AM [facility] MPV 9.7 7.0 - 11.0 FL LAB HEMETOLOGY METHOD 06/30/2025 10:56 AM [facility] NRBC 0.0 <1.0 % LAB HEMETOLOGY METHOD 06/30/2025 10:56 AM [facility] NRBC Absolute 0.00 <0.10 K/mcL LAB HEMETOLOGY METHOD 06/30/2025 10:56 AM [facility] Neutrophils Relative 70.2 % LAB HEMETOLOGY METHOD 06/30/2025 10:56 AM [facility] Lymphocytes Relative 15.8 % LAB HEMETOLOGY METHOD 06/30/2025 10:56 AM [facility] Monocytes Relative 11.1 % LAB HEMETOLOGY METHOD 06/30/2025 10:56 AM [facility] Eosinophils Relative 2.1 % LAB HEMETOLOGY METHOD 06/30/2025 10:56 AM [facility] Basophils Relative 0.3 % LAB HEMETOLOGY METHOD 06/30/2025 10:56 AM [facility] Immature Granulocytes Relative 0.5 % LAB HEMETOLOGY METHOD 06/30/2025 10:56 AM [facility] Neutrophils Absolute 6.58 1.50 - 7.00 K/mcL LAB HEMETOLOGY METHOD 06/30/2025 10:56 AM [facility] Lymphocytes Absolute 1.48 1.00 - 5.00 K/mcL LAB HEMETOLOGY METHOD 06/30/2025 10:56 AM EDT [facility] Monocytes Absolute 1.04(H) 0.20 - 1.00 K/mcL LAB HEMETOLOGY METHOD 06/30/2025 10:56 AM EDT [facility] LAB Eosinophils Absolute 0.20 0.00 - 0.50 K/[facility] LAB HEMETOLOGY METHOD 06/30/2025 10:56 AM EDT [facility] LAB Basophils Absolute 0.03 0.00 - 0.20 K/[facility] LAB HEMETOLOGY METHOD 06/30/2025 10:56 AM EDT [facility] LAB Immature Granulocytes Absolute 0.05(H) 0.00 - 0.03 K/[facility] LAB HEMETOLOGY METHOD 06/30/2025 10:56 AM EDT [facility] Blood Venous blood specimen / Unknown Venipuncture / Unknown 06/30/2025 5:37 AM EDT 06/30/2025 10:17 AM EDT Servando GREENFIELD LAB BLOOD ORDERABLES Final R esult [facility] [address] [place] [address], [place] [phone] * Magnesium (06/30/2025 5:37 AM EDT) Magnesium 2.3 1.9 - 2.6 mg/dL LAB CHEMISTRY METHOD 06/30/2025 12:12 PM EDT [facility] Blood Venous blood specimen / Unknown Venipuncture / Unknown 06/30/2025 5:37 AM EDT 06/30/2025 10:17 AM EDT Servando GREENFIELD LAB BLOOD ORDERABLES Final R esult [facility] [address] [place] [address], [place] [phone] * (ABNORMAL) Comprehensive metabolic panel (06/30/2025 5:37 AM EDT) Sodium 142 133 - 145 mmol/L LAB CHEMISTRY METHOD 06/30/2025 12:27 PM [facility] Potassium 3.6 3.5 - 5.5 mmol/L LAB CHEMISTRY METHOD 06/30/2025 12:27 PM [facility] Chloride 114(H) 96 - 110 mmol/L LAB CHEMISTRY METHOD 06/30/2025 12:27 PM [facility] CO2 20(L) 21 - 32 mmol/L LAB CHEMISTRY METHOD 06/30/2025 12:27 PM [facility] Anion Gap 8 3 - 11 LAB CHEMISTRY METHOD 06/30/2025 12:27 PM [facility] Glucose 51(L) 70 - 100 mg/dL LAB CHEMISTRY METHOD 06/30/2025 12:27 PM [facility] Comment:Results verified by repeat testing BUN 23 5 - 25 mg/dL LAB CHEMISTRY METHOD 06/30/2025 12:27 PM [facility] Creatinine 1.08 0.70 - 1.30 mg/dL LAB CHEMISTRY METHOD 06/30/2025 12:27 PM [facility] eGFR 71 >=60 mL/min/1. 73m2 LAB CHEMISTRY METHOD 06/30/2025 12:27 PM [facility] Comment:Calculation based on the Chronic Kidney Disease Epidemiology Collaboration (CKD-EPI) equation refit without adjustment for race. BUN/Creatinine Ratio 21.3 LAB CHEMISTRY METHOD 06/30/2025 12:27 PM [facility] Calcium 8.5 8.5 - 10.5 mg/dL LAB CHEMISTRY METHOD 06/30/2025 12:27 PM [facility] AST (SGOT) 59(H) 10 - 42 unit/L LAB CHEMISTRY METHOD 06/30/2025 12:27 PM EDT [facility] ALT (SGPT) 84(H) 10 - 60 unit/L LAB CHEMISTRY METHOD 06/30/2025 12:27 PM EDT [facility] Alkaline Phosphatase 74 42 - 121 unit/L LAB CHEMISTRY METHOD 06/30/2025 12:27 PM EDT [facility] Total Protein 5.9(L) 6.0 - 8.0 g/dL LAB CHEMISTRY METHOD 06/30/2025 12:27 PM T [facility] Albumin 2.3(L) 3.2 - 5.0 g/dL LAB CHEMISTRY METHOD 06/30/2025 12:27 PM EDT [facility] Total Bilirubin 0.3 0.0 - 1.4 mg/dL LAB CHEMISTRY METHOD 06/30/2025 12:27 PM T [facility] Blood Venous blood specimen / Unknown Venipuncture / Unknown 06/30/2025 5:37 AM EDT 06/30/2025 10:17 AM EDT us Servando GREENFIELD LAB BLOOD ORDERABLES Final R esult [facility] [address] [place] [address], documented in this encounter Visit Diagnoses Diagnosis Encounter for other general examination documented in this encounter Additional Health Concerns Infection Onset Date Last Indicated Resolved Time MRSA 05/26/2025 05/26/2025 documented as of this encounter Care Teams Web Content Writer Relationship Specialty Start Date End Date Ne Dean MD [address] [facility] [place] [address] PCP - General 03/23/24 documented as of this encounter
--- OUTSIDE RECORDS SUMMARY | 2025-08-18 13:48 | XMS_ITS | Encounter Summary ---
Author Organization [facility] Address [address] [place] [address] Care Team Providers Care Safety Pin Assembling Machine Operator Name Role Phone Ne Dean MD Primary Care Provider [phone] Encounter Details Date Type Department Care Team (Late st Contact Info) Description 07/11/2025 Lab Requisition [facility] - Main Lab [address] [facility] [place] [address] Marjorie Alva PA [address] [place] [address] Encounter for other general examination Social History [...] 11/08/2025 1:40 PM EST Office Visit [facility] [address] [place] [address] Juan Padgett NP [address] [place] [address] Dr Katz [address] [place] [address] [phone] (work) documented as of this encounter Procedures Procedure Name Priority Date/Time Associated Diagnosis Comments COMPLETE BLOOD COUNT Routine 07/11/2025 5:15 AM EDT Encounter for other general examination BASIC METABOLIC PANEL Routine 07/11/2025 5:15 AM EDT Encounter for other general examination documented in this encounter Results * (ABNORMAL) Complete blood count (07/11/2025 5:15 AM EDT) WBC 7.7 4.8 - 10.8 K/mcL LAB HEMETOLOGY METHOD 07/11/2025 12:39 PM [facility] RBC 2.90(L) 4.50 - 5.50 M/mcL LAB HEMETOLOGY METHOD 07/11/2025 12:39 PM [facility] Hemoglobin 9.3(L) 13.5 - 17.5 g/dL LAB HEMETOLOGY METHOD 07/11/2025 12:39 PM [facility] Hematocrit 29.4(L) 42.0 - 54.0 % LAB HEMETOLOGY METHOD 07/11/2025 12:39 PM [facility] MCV 100.7(H) 79.0 - 98.0 FL LAB HEMETOLOGY METHOD 07/11/2025 12:39 PM [facility] MCH 31.8 27.0 - 32.0 pcg LAB HEMETOLOGY METHOD 07/11/2025 12:39 PM [facility] MCHC 31.6(L) 32.0 - 37.0 g/dL LAB HEMETOLOGY METHOD 07/11/2025 12:39 PM [facility] RDW 16.2(H) 11.0 - 15.0 % LAB HEMETOLOGY METHOD 07/11/2025 12:39 PM [facility] Platelets 336 130 - 400 K/mcL LAB HEMETOLOGY METHOD 07/11/2025 12:[address] [facility] MPV 10.6 7.0 - 11.0 FL LAB HEMETOLOGY METHOD 07/11/2025 12:[address] [facility] NRBC 0.0 <1.0 % LAB HEMETOLOGY METHOD 07/11/2025 12:[address] [facility] NRBC Absolute 0.00 <0.10 K/mcL LAB HEMETOLOGY METHOD 07/11/2025 12:[address] [facility] Blood Venous blood specimen / Unknown Venipuncture / Unknown 07/11/2025 5:15 AM EDT 07/11/2025 10:10 AM EDT us Marjorie GREENFIELD LAB BLOOD ORDERABLES Final Resul t [facility] [address] [place] [address], * (ABNORMAL) Basic metabolic panel (07/11/2025 5:15 AM EDT) Sodium 137 133 - 145 mmol/L LAB CHEMISTRY METHOD 07/11/2025 1:02 PM [facility] Potassium 3.8 3.5 - 5.5 mmol/L LAB CHEMISTRY METHOD 07/11/2025 1:02 PM [facility] Chloride 106 96 - 110 mmol/L LAB CHEMISTRY METHOD 07/11/2025 1:02 PM [facility] CO2 17(L) 21 - 32 mmol/L LAB CHEMISTRY METHOD 07/11/2025 1:02 PM [facility] Anion Gap 14(H) 3 - 11 LAB CHEMISTRY METHOD 07/11/2025 1:02 PM [facility] Glucose 138(H) 70 - 100 mg/dL LAB CHEMISTRY METHOD 07/11/2025 1:[address] [facility] BUN 31(H) 5 - 25 mg/dL LAB CHEMISTRY METHOD 07/11/2025 1:[address] [facility] Creatinine 1.47(H) 0.70 - 1.30 mg/dL LAB CHEMISTRY METHOD 07/11/2025 1:[address] [facility] eGFR 49(L) >=60 mL/min/1. 73m2 LAB CHEMISTRY METHOD 07/11/2025 1:[address] [facility] Comment:Calculation based on the Chronic Kidney Disease Epidemiology Collaboration (CKD-EPI) equation refit without adjustment for race. BUN/Creatinine Ratio 21.1 LAB CHEMISTRY METHOD 07/11/2025 1:[address] [facility] Calcium 9.3 8.5 - 10.5 mg/dL LAB CHEMISTRY METHOD 07/11/2025 1:[address] [facility] Blood Venous blood specimen / Unknown Venipuncture / Unknown 07/11/2025 5:15 AM EDT 07/11/2025 10:10 AM EDT Marjorie GREENFIELD LAB BLOOD ORDERABLES Final Resul t [facility] [address] [place] [address], documented in this encounter Visit Diagnoses Diagnosis Encounter for other general examination documented in this encounter Additional Health Concerns Infection Onset Date Last Indicated Resolved Time MRSA 05/26/2025 05/26/2025 documented as of this encounter Care Teams Safety Pin Assembling Machine Operator Relationship Specialty Start Date End Date Ne Dean MD [address] [place] [address] PCP - General 03/23/24 documented as of this encounter
--- OUTSIDE RECORDS SUMMARY | 2025-08-18 13:48 | XMS_ITS | Encounter Summary ---
Author Organization [facility] Address [address] [place] [address] Care Team Providers Care Principal Data Architect Name Role Phone Ne Dean MD Primary Care Provider [phone] Encounter Details Date Type Department Care Team (Late st Contact Info) Description 07/12/2025 Lab Requisition [facility] - Main Lab 299 [facility] [place] [address] Kendal Man PA [address] [place] [phone] Encounter for other general examination Social History [...] Description 11/08/2025 1:40 PM EST Office Visit [facility] - [facility] [address] Castaneda [address] [place] [address] Juan Padgett NP [address] [place] [address] Dr Katz [address] [place] [address] documented as of this encounter Procedures [...] mmol/L LAB CHEMISTRY METHOD 07/12/2025 10:36 AM [facility] Potassium 3.8 3.5 - 5.5 mmol/L LAB CHEMISTRY METHOD 07/12/2025 10:36 AM [facility] Chloride 106 96 - 110 mmol/L LAB CHEMISTRY METHOD 07/12/2025 10:36 AM [facility] CO2 17(L) 21 - 32 mmol/L LAB CHEMISTRY METHOD 07/12/2025 10:36 AM [facility] Anion Gap 12(H) 3 - 11 LAB CHEMISTRY METHOD 07/12/2025 10:36 AM [facility] Glucose 167(H) 70 - 100 mg/dL LAB CHEMISTRY METHOD 07/12/2025 10:36 AM [facility] BUN 32(H) 5 - 25 mg/dL LAB CHEMISTRY METHOD 07/12/2025 10:36 AM [facility] Creatinine 1.35(H) 0.70 - 1.30 mg/dL LAB CHEMISTRY METHOD 07/12/2025 10:36 AM [facility] eGFR 54(L) >=60 mL/min/1. 73m2 LAB CHEMISTRY METHOD 07/12/2025 10:36 AM [facility] Comment:Calculation based on the Chronic Kidney Disease Epidemiology Collaboration (CKD-EPI) equation refit without adjustment for race. BUN/Creatinine Ratio 23.7 LAB CHEMISTRY METHOD 07/12/2025 10:36 AM EDT [facility] Calcium 9.5 8.5 - 10.5 mg/dL LAB CHEMISTRY METHOD 07/12/2025 10:36 AM T [facility] AST (SGOT) 16 10 - 42 unit/L LAB CHEMISTRY METHOD 07/12/2025 10:36 AM [facility] ALT (SGPT) 30 10 - 60 unit/L LAB CHEMISTRY METHOD 07/12/2025 10:36 AM T [facility] Alkaline Phosphatase 94 42 - 121 unit/L LAB CHEMISTRY METHOD 07/12/2025 10:36 AM [facility] Total Protein 7.4 6.0 - 8.0 g/dL LAB CHEMISTRY METHOD 07/12/2025 10:36 AM [facility] Albumin 2.8(L) 3.2 - 5.0 g/dL LAB CHEMISTRY METHOD 07/12/2025 10:36 AM [facility] Total Bilirubin 0.4 0.0 - 1.4 mg/dL LAB CHEMISTRY METHOD 07/12/2025 10:36 AM [facility] Blood Venous blood specimen / Unknown Venipuncture / Unknown 07/12/2025 4:49 AM EDT 07/12/2025 8:27 AM EDT us Kendal GREENFIELD LAB BLOOD ORDERABLES Final Re sult [facility] [address] [place] [address], * (ABNORMAL) Complete blood count (07/12/2025 4:49 AM EDT) WBC 11.0(H) 4.8 - 10.8 K/mcL LAB HEMETOLOGY METHOD 07/12/2025 9:36 AM [facility] RBC 3.30(L) 4.50 - 5.50 M/mcL LAB HEMETOLOGY METHOD 07/12/2025 9:36 AM [facility] Hemoglobin 10.3(L) 13.5 - 17.5 g/dL LAB HEMETOLOGY METHOD 07/12/2025 9:36 AM [facility] Hematocrit 32.6(L) 42.0 - 54.0 % LAB HEMETOLOGY METHOD 07/12/2025 9:36 AM [facility] MCV 100.0(H) 79.0 - 98.0 FL LAB HEMETOLOGY METHOD 07/12/2025 9:36 AM [facility] MCH 31.6 27.0 - 32.0 pcg LAB HEMETOLOGY METHOD 07/12/2025 9:36 AM [facility] MCHC 31.6(L) 32.0 - 37.0 g/dL LAB HEMETOLOGY METHOD 07/12/2025 9:36 AM [facility] RDW 16.1(H) 11.0 - 15.0 % LAB HEMETOLOGY METHOD 07/12/2025 9:36 AM [facility] Platelets 353 130 - 400 K/mcL LAB HEMETOLOGY METHOD 07/12/2025 9:36 AM [facility] MPV 10.5 7.0 - 11.0 FL LAB HEMETOLOGY METHOD 07/12/2025 9:36 AM [facility] NRBC 0.0 <1.0 % LAB HEMETOLOGY METHOD 07/12/2025 9:36 AM [facility] NRBC Absolute 0.00 <0.10 K/mcL LAB HEMETOLOGY METHOD 07/12/2025 9:36 AM [facility] Blood Venous blood specimen / Unknown Venipuncture / Unknown 07/12/2025 4:49 AM EDT 07/12/2025 8:27 AM EDT us Kendal GREEN[facility] LAB BLOOD ORDERABLES Final Re sult [facility] ([facility]) [facility] [address] [place] [address], documented in this encounter Visit Diagnoses Diagnosis Encounter for other general examination documented in this encounter Additional Health Concerns Infection Onset Date Last Indicated Resolved Time MRSA 05/26/2025 05/26/2025 documented as of this encounter Care Teams Principal Data Architect Relationship Specialty Start Date End Date Ne Dean MD [address] [place] [address] PCP - General 03/23/24 documented as of this encounter
--- OUTSIDE RECORDS SUMMARY | 2025-08-18 13:48 | XMS_ITS | Encounter Summary ---
Author Organization [facility] Address [address] [place] [address] Care Team Providers Care Director Sales And Trade Marketing Name Role Phone eN Dean MD Primary Care Provider [phone] Encounter Details Date Type Department Care Team (Late st Contact Info) Description 07/28/2025 Lab Requisition [facility] - Main Lab 299 [facility] [place] [address] Wan Sanchez MD [address] [facility] [address] [place] [address] Urinary tract infection, site not specified Social [...] Description 11/08/2025 1:40 PM EST Office Visit [facility] [address] Castaneda [address] [place] [address] Juan Padgett NP [address] [place] [address] Dr Katz [address] [place] [address] (work) documented as of this encounter Procedures Procedure Name Priority Date/Time Associated Diagnosis Comments CULTURE URINE Routine 07/28/2025 11:30 AM EDT Urinary tract infection, site not specified documented in this encounter Results * (ABNORMAL) Culture urine (07/28/2025 11:30 AM EDT) Culture, Urine >=100,000 CFU/mL Escherichia coli(A) FLORES 07/30/2025 8:05 AM EDT [facility] Culture, Urine 50,000-100,000 CFU/mL Klebsiella pneumoniae ssp pneumoniae(A) FLORES 07/30/2025 8:05 AM EDT [facility] Comment: The organism value for [...] ug/ml: Susceptible Klebsiella pneumoniae ssp pneumoniae Amoxicillin/Clavulanate LFORES <=2 ug/ml: Susceptible Klebsiella pneumoniae ssp pneumoniae [...] MICROBIOLOGY - GENERAL ORDER YADIRA Final Result [facility] ([facility]) [facility] [address] [place] [address], documented in this encounter Visit Diagnoses Diagnosis Urinary tract infection, site not specified documented in this encounter Additional Health Concerns Infection Onset Date Last Indicated Resolved Time MRSA 05/26/2025 05/26/2025 documented as of this encounter Care Teams Director Sales And Trade Marketing Relationship Specialty Start Date End Date Ne Dean MD [address] [place] [address] PCP - General 03/23/24 documented as of this encounter
--- OUTSIDE RECORDS SUMMARY | 2025-08-18 13:48 | XMS_ITS | Encounter Summary ---
Author Organization [facility] Address [address] [place] [address] Care Team Providers Care Mill Turner Name Role Phone Ne Dean MD Primary Care Provider [phone] Encounter Details Date Type Department Care Team (Late st Contact Info) Description 07/06/2025 Lab Requisition [facility] - Main Lab 299 [facility] [place] [address] Kendal Man PA [address] [place] [phone] Encounter for other general examination Social History [...] Description 11/08/2025 1:40 PM EST Office Visit [facility] - [facility] [address] Castaneda [address] [place] [address] Juan Padgett NP [address] [place] [address] Dr Katz [address] [place] [address] documented as of this encounter Procedures [...] mmol/L LAB CHEMISTRY METHOD 07/06/2025 11:32 AM [facility] Potassium 4.4 3.5 - 5.5 mmol/L LAB CHEMISTRY METHOD 07/06/2025 11:32 AM [facility] Chloride 108 96 - 110 mmol/L LAB CHEMISTRY METHOD 07/06/2025 11:32 AM [facility] CO2 22 21 - 32 mmol/L LAB CHEMISTRY METHOD 07/06/2025 11:32 AM [facility] Anion Gap 7 3 - 11 LAB CHEMISTRY METHOD 07/06/2025 11:32 AM [facility] Glucose 172(H) 70 - 100 mg/dL LAB CHEMISTRY METHOD 07/06/2025 11:32 AM [facility] BUN 25 5 - 25 mg/dL LAB CHEMISTRY METHOD 07/06/2025 11:32 AM [facility] Creatinine 1.30 0.70 - 1.30 mg/dL LAB CHEMISTRY METHOD 07/06/2025 11:32 AM [facility] eGFR 57(L) >=60 mL/min/1. 73m2 LAB CHEMISTRY METHOD 07/06/2025 11:32 AM [facility] Comment:Calculation based on the Chronic Kidney Disease Epidemiology Collaboration (CKD-EPI) equation refit without adjustment for race. BUN/Creatinine Ratio 19.2 LAB CHEMISTRY METHOD 07/06/2025 11:32 AM [facility] Calcium 8.7 8.5 - 10.5 mg/dL LAB CHEMISTRY METHOD 07/06/2025 11:32 AM EDT [facility] AST (SGOT) 17 10 - 42 unit/L LAB CHEMISTRY METHOD [facility] ALT (SGPT) 62(H) 10 - 60 unit/L LAB CHEMISTRY METHOD 07/06/2025 11:32 AM EDT [facility] Alkaline Phosphatase 80 42 - 121 unit/L LAB CHEMISTRY METHOD 07/06/2025 11:32 AM EDT [facility] Total Protein 6.5 6.0 - 8.0 g/dL LAB CHEMISTRY METHOD 07/06/2025 11:32 AM [facility] Albumin 2.4(L) 3.2 - 5.0 g/dL LAB CHEMISTRY METHOD 07/06/2025 11:32 AM [facility] Total Bilirubin 0.4 0.0 - 1.4 mg/dL LAB CHEMISTRY METHOD 07/06/2025 11:32 AM [facility] Blood Venous blood specimen / Unknown Venipuncture / Unknown 07/06/2025 5:10 AM EDT 07/06/2025 9:53 AM EDT us Kendal GREEN[facility] LAB BLOOD ORDERABLES Final Re sult [facility] [address] [place] [address], * (ABNORMAL) Complete blood count (07/06/2025 5:10 AM EDT) WBC 7.7 4.8 - 10.8 K/mcL LAB HEMETOLOGY METHOD 07/06/2025 10:39 AM EDT [facility] RBC 2.60(L) 4.50 - 5.50 M/mcL LAB HEMETOLOGY METHOD 07/06/2025 10:39 AM [facility] Hemoglobin 8.3(L) 13.5 - 17.5 g/dL LAB HEMETOLOGY METHOD 07/06/2025 10:39 AM [facility] Hematocrit 26.4(L) 42.0 - 54.0 % LAB HEMETOLOGY METHOD 07/06/2025 10:39 AM [facility] MCV 101.1(H) 79.0 - 98.0 FL LAB HEMETOLOGY METHOD 07/06/2025 10:39 AM [facility] MCH 31.8 27.0 - 32.0 pcg LAB HEMETOLOGY METHOD 07/06/2025 10:39 AM [facility] MCHC 31.4(L) 32.0 - 37.0 g/dL LAB HEMETOLOGY METHOD 07/06/2025 10:39 AM [facility] RDW 15.9(H) 11.0 - 15.0 % LAB HEMETOLOGY METHOD 07/06/2025 10:39 AM [facility] Platelets 285 130 - 400 K/mcL LAB HEMETOLOGY METHOD 07/06/2025 10:39 AM [facility] MPV 10.7 7.0 - 11.0 FL LAB HEMETOLOGY METHOD 07/06/2025 10:39 AM [facility] NRBC 0.0 <1.0 % LAB HEMETOLOGY METHOD 07/06/2025 10:39 AM [facility] NRBC Absolute 0.00 <0.10 K/mcL LAB HEMETOLOGY METHOD 07/06/2025 10:39 AM [facility] Blood Venous blood specimen / Unknown Venipuncture / Unknown 07/06/2025 5:10 AM EDT 07/06/2025 9:53 AM EDT us Kendal GREEN[facility] LAB BLOOD ORDERABLES Final Re sult [facility] ([facility]) [facility] [address] [place] [address], documented in this encounter Visit Diagnoses Diagnosis Encounter for other general examination documented in this encounter Additional Health Concerns Infection Onset Date Last Indicated Resolved Time MRSA 05/26/2025 05/26/2025 documented as of this encounter Care Teams Mill Turner Relationship Specialty Start Date End Date Ne Dean MD [address] [place] [address] PCP - General 03/23/24 documented as of this encounter
--- OUTSIDE RECORDS SUMMARY | 2025-08-18 13:48 | XMS_ITS | Encounter Summary ---
Author Organization [facility] Address [address] [place] [address] Care Team Providers Care Environmental Technology Professor Name Role Phone Ne Dean MD Primary Care Provider [phone] Encounter Details Date Type Department Care Team (Late st Contact Info) Description 05/26/2025 Lab Requisition [facility] - Main Lab 299 [facility] [place] [address] Wan Sanchez Urinary tract infection, [...] Description 11/08/2025 1:40 PM EST Office Visit [facility] [address] Castaneda [address] [place] [address] Juan Padgett NP [address] [place] [address] Dr Katz [address] [place] [phone] documented as of this encounter Procedures Procedure Name Priority Date/Time Associated Diagnosis Comments CULTURE URINE Routine 05/26/2025 12:15 PM EDT Urinary tract infection, site not specified Hydronephrosis with renal and ureteral calculous obstruction documented in this encounter Results * (ABNORMAL) Culture urine (05/26/2025 12:15 PM EDT) Culture, Urine >=100,000 CFU/mL Methicillin-Resis tant Staphylococcus aureus(A) FLORES 05/28/2025 9:03 AM EDT [facility] Comment: Edited result: Previously reported [...] 2 ug/ml: Susceptible Methicillin-Resistant Staphylococcus aureus Vancomycin FLORES 1 ug/ml: Susceptible Methicillin-Resistant Staphylococcus aureus Tetracycline FLORES >=16 ug/ml: Resistant Methicillin-Resistant Staphylococcus aureus Nitrofurantoin FLORES <=16 ug/ml: Susceptible Methicillin-Resistant Staphylococcus aureus Rifampin FLORES <=0.5 ug/ml: Susceptible Methicillin-Resistant Staphylococcus aureus Trimethoprim/Sulfamethoxazo le FLORES >=320 ug/ml: Resistant Wan Sanchez LAB MICROBIOLOGY - GENERAL ORDER YADIRA Final Result [facility]) [facility] [address] [place] [address], documented in this encounter Visit Diagnoses Diagnosis Urinary tract infection, site not specified Hydronephrosis with renal and ureteral calculous obstruction documented in this encounter Additional Health Concerns Infection Onset Date Last Indicated Resolved Time MRSA 05/26/2025 05/26/2025 documented as of this encounter Care Teams Environmental Technology Professor Relationship Specialty Start Date End Date Ne Dean MD [address] [place] [phone] PCP - General 03/23/24 documented as of this encounter
--- OUTSIDE RECORDS SUMMARY | 2025-08-18 13:48 | XMS_ITS | Encounter Summary ---
Author Organization [facility] Address [address] [place] [address] Care Team Providers Care Abrasive Coating Machine Operator Name Role Phone Ne Dean MD Primary Care Provider Encounter Details Date Type Department Care Team (Late st Contact Info) Description 07/11/2025 Lab Requisition [facility] - Main Lab 299 [facility] [place] [address] Wan Sanchez MD [address] [facility] [address] [place] [address] Urinary tract infection, site not specified; Retention [...] Description 11/08/2025 1:40 PM EST Office Visit [facility] Cardiology [facility] [address] Castaneda [address] [place] [address] Juan Padgett NP [address] [place] [address] Dr Katz [address] [place] [address] documented as of this encounter Procedures Procedure Name Priority Date/Time Associated Diagnosis Comments CULTURE URINE Routine 07/11/2025 11:30 AM EDT Urinary tract infection, site not specified Retention of urine, unspecified documented in this encounter Results * Culture urine (07/11/2025 11:30 AM EDT) Culture, Urine No growth 07/12/2025 2:04 PM EDT [facility] Urine Urine specimen obtained by clean catch procedure / Unknown 07/11/2025 11:30 AM EDT 07/11/2025 6:25 PM EDT us Wan Sanchez MD LAB MICROBIOLOGY - GENERAL ORDER YADIRA Final Result [facility] [address] [place] [address], documented in this encounter Visit Diagnoses Diagnosis Urinary tract infection, site not specified Retention of urine, unspecified documented in this encounter Additional Health Concerns Infection Onset Date Last Indicated Resolved Time MRSA 05/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
--- OUTSIDE RECORDS SUMMARY | 2025-08-18 13:48 | XMS_ITS | Encounter Summary ---
Author Organization [facility] Address [address] [place] [address] Care Team Providers Care Software Engineer Intern Name Role Phone Ne Dean MD Primary Care Provider [phone] Encounter Details Date Type Department Care Team (Late st Contact Info) Description 07/28/2025 Lab Requisition [facility] - Main Lab 299 [facility] [place] [address] Wan Sanchez MD [address] [facility] [address] [place] [address] Urinary tract infection, site not specified; Hydronephrosis with ureteral stricture, not elsewhere classified Social History Tobacco Use Types Packs/Day Years [...] EST Office Visit [facility] [address]aneda [address] [place] [phone] Juan Padgett NP [address] [place] [address] Dr Katz [address] [place] [phone] documented as of this encounter Visit Diagnoses Diagnosis Urinary tract infection, site not specified Hydronephrosis with ureteral stricture, not elsewhere classified documented in this encounter Additional Health Concerns Infection Onset Date Last Indicated Resolved Time MRSA 05/26/2025 05/26/2025 documented as of this encounter Care Teams Software Engineer Intern Relationship Specialty Start Date End Date Ne Dean MD [address] [place] [address] PCP - General 03/23/24 documented as of this encounter
--- OUTSIDE RECORDS SUMMARY | 2025-08-18 13:48 | XMS_ITS | Encounter Summary ---
Author Organization [facility] Address [address] [place] [address] Care Team Providers Care Stone Setter Apprentice Name Role Phone Ne Dean MD Primary Care Provider [phone] Encounter Details Date Type Department Care Team (Late st Contact Info) Description 07/05/[address] [facility] - Main Lab 299 [facility] [place] [address] Kendal Man PA [address] [place] [phone] Encounter for other general examination Social History [...] Description 11/08/2025 1:40 PM EST Office Visit [facility] [address]aneda [address] [place] [address] Juan Padgett NP [address] [place] [address] Dr Katz [address] [place] [address] documented as of this encounter Procedures [...] mmol/L LAB CHEMISTRY METHOD 07/05/2025 10:23 AM [facility] Potassium 4.4 3.5 - 5.5 mmol/L LAB CHEMISTRY METHOD 07/05/2025 10:23 AM [facility] Chloride 109 96 - 110 mmol/L LAB CHEMISTRY METHOD 07/05/2025 10:23 AM [facility] CO2 20(L) 21 - 32 mmol/L LAB CHEMISTRY METHOD 07/05/2025 10:23 AM [facility] Anion Gap 9 3 - 11 LAB CHEMISTRY METHOD 07/05/2025 10:23 AM [facility] Glucose 188(H) 70 - 100 mg/dL LAB CHEMISTRY METHOD 07/05/2025 10:23 AM [facility] BUN 28(H) 5 - 25 mg/dL LAB CHEMISTRY METHOD 07/05/2025 10:23 AM [facility] Creatinine 1.47(H) 0.70 - 1.30 mg/dL LAB CHEMISTRY METHOD 07/05/2025 10:23 AM [facility] eGFR 49(L) >=60 mL/min/1. 73m2 LAB CHEMISTRY METHOD 07/05/2025 10:23 AM [facility] Comment:Calculation based on the Chronic Kidney Disease Epidemiology Collaboration (CKD-EPI) equation refit without adjustment for race. BUN/Creatinine Ratio 19.0 LAB CHEMISTRY METHOD 07/05/2025 10:23 AM [facility] Calcium 8.7 8.5 - 10.5 mg/dL LAB CHEMISTRY METHOD 07/05/2025 10:23 AM [facility] AST (SGOT) 23 10 - 42 unit/L LAB CHEMISTRY METHOD 07/05/2025 10:23 AM [facility] ALT (SGPT) 79(H) 10 - 60 unit/L LAB CHEMISTRY METHOD 07/05/2025 10:23 AM [facility] Alkaline Phosphatase 77 42 - 121 unit/L LAB CHEMISTRY METHOD 07/05/2025 10:23 AM [facility] Total Protein 6.3 6.0 - 8.0 g/dL LAB CHEMISTRY METHOD 07/05/2025 10:23 AM [facility] Albumin 2.4(L) 3.2 - 5.0 g/dL LAB CHEMISTRY METHOD 07/05/2025 10:23 AM [facility] Total Bilirubin 0.3 0.0 - 1.4 mg/dL LAB CHEMISTRY METHOD 07/05/2025 10:23 AM [facility] Blood Venous blood specimen / Unknown Venipuncture / Unknown 07/05/2025 5:09 AM EDT 07/05/2025 9:11 AM EDT us Kendal GREENFIELD LAB BLOOD ORDERABLES Final Re sult [facility] [address] [place] [address], * (ABNORMAL) Complete blood count (07/05/2025 5:09 AM EDT) WBC 7.3 4.8 - 10.8 [facility] LAB HEMETOLOGY METHOD 07/05/2025 9:48 AM [facility] RBC 2.60(L) 4.50 - 5.50 M/mcL LAB HEMETOLOGY METHOD 07/05/2025 9:48 AM [facility] Hemoglobin 8.0(L) 13.5 - 17.5 g/dL LAB HEMETOLOGY METHOD 07/05/2025 9:48 AM [facility] Hematocrit 25.1(L) 42.0 - 54.0 % LAB HEMETOLOGY METHOD 07/05/2025 9:48 AM [facility] MCV 98.4(H) 79.0 - 98.0 FL LAB HEMETOLOGY METHOD 07/05/2025 9:48 AM [facility] MCH 31.4 27.0 - 32.0 pcg LAB HEMETOLOGY METHOD 07/05/2025 9:48 AM [facility] MCHC 31.9(L) 32.0 - 37.0 g/dL LAB HEMETOLOGY METHOD 07/05/2025 9:48 AM [facility] RDW 15.6(H) 11.0 - 15.0 % LAB HEMETOLOGY METHOD 07/05/2025 9:48 AM [facility] Platelets 283 130 - 400 K/mcL LAB HEMETOLOGY METHOD 07/05/2025 9:48 AM [facility] MPV 10.2 7.0 - 11.0 FL LAB HEMETOLOGY METHOD 07/05/2025 9:48 AM [facility] NRBC 0.0 <1.0 % LAB HEMETOLOGY METHOD 07/05/2025 9:48 AM [facility] NRBC Absolute 0.00 <0.10 K/mcL LAB HEMETOLOGY METHOD 07/05/2025 9:48 AM [facility] Blood Venous blood specimen / Unknown Venipuncture / Unknown 07/05/2025 5:09 AM EDT 07/05/2025 9:11 AM EDT us Kendal GREENFIELD LAB BLOOD ORDERABLES Final Re sult [facility] ([facility]) [facility] [address] [place] [address], documented in this encounter Visit Diagnoses Diagnosis Encounter for other general examination documented in this encounter Additional Health Concerns Infection Onset Date Last Indicated Resolved Time MRSA 05/26/2025 05/26/2025 documented as of this encounter Care Teams Stone Setter Apprentice Relationship Specialty Start Date End Date Ne Dean MD [address] [place] [address] PCP - General 03/23/24 documented as of this encounter
== END 2025-08-18 12:33 | disposition home or self-care (01) ==
LOC: HO.HMCC 11:02
PROVIDERS: PCP Internal Medicine; Visit Provider Internal Medicine
DX: E11.9 Type 2 diabetes mellitus without complications (principal); I12.9 Hypertensive chronic kidney disease with stage 1 through stage 4 chronic kidney disease, or unspecified chronic kidney disease; E78.5 Hyperlipidemia, unspecified; N18.4 Chronic kidney disease, stage 4 (severe); N40.0 Benign prostatic hyperplasia without lower urinary tract symptoms

== ENCOUNTER 2025-09-20 09:47 | Outpatient (AMB) | payer MEDICARE, SELFPAY ==
--- NOTE | 2025-09-20 09:49 | A.OFFVIS_ITS ---
Intake Vital Signs 09/20/25 09:53 Height 6 ft Weight 161 lb BMI 21.8 BP 94/60 Blood Pressure Location Lt brachial Position Sitting Respiration 16 Pulse 70 Pulse Source Pulse Oximeter Temp 97.7 F Temp Source Oral Pulse Oximetry (%) 99 Oxygen Delivery Method Room Air Intake Visit Reasons: SWV G0439 Intake Note: Pt is here today for AWV. Allergies dapagliflozin (From [facility]) Adverse Reaction (Severe, Verified 09/20/25 09:58) pain in legs Medication List - Last Reconciled 09/20/25 by Ne Dean MD aspirin (Adult Low Dose Aspirin) 81 mg PO DAILY blood sugar diagnostic (FreeStyle Lite Strips) Test blood sugar once a day blood-glucose meter (FreeStyle Lite Meter kit) As directed carvedilol 6.25 mg PO BID docusate calcium (Stool Softener (docusate jo ann)) PO famotidine (Pepcid) 20 mg PO DAILY glipizide 5 mg PO DAILY lancets (FreeStyle Lancets) test once a day metformin 500 mg PO BID rosuvastatin 20 mg PO BEDTIME sitagliptin phosphate (Januvia) 25 mg PO DAILY tamsulosin 0.4 mg PO DAILY HPI SWV G0439 HPI Details Initiated the conversation about Advanced Directives. Advanced Directives help? patients prepare for current and future decisions about their medical treatment? and place of care. Discussed with patient that it is a process where a patients? current condition and prognosis are reviewed, their wishes for information? regarding their illness are elicited, and likely medical dilemmas are presented? and options discussed. The form can be amended as needed, reviewed yearly and? make changes as needed IPPE/AWV ? year old presents? for her ? Annual? Wellness Visit, initial visit.? Medical / Social History Reviewed? Past Medical History ?Yes? . ? [place]? of Care / Care Team list updated ?Yes . ? Surgical/Hospitalization? History ?Yes . ? Current Medications? (including OTC and supplements) ?Yes . ? Family History ?Yes? . ? Tobacco? Control form ?Yes . ? AUDIT-C (Alcohol use) form? ?Yes . ? Illicit drug use in Social? History ?Yes . ? Current diagnosis of? depression? ?No ? Appropriate PHQ2/PHQ9? completed ?Yes . ? Data entered by ?Medical? Extractor Filler and reviewed by provider ? Fall Risk ? Fall? History? Have you had any falls with? injury in the past year? ?No . ? Have you had two or more? falls in the past year? ?No . ? Fall Risk Assessment: ?No? falls in the past year . ? HRA filled out by? the patient, reviewed by Provider and scanned. ? IPPE/AWV ? Balance? [place]berg? ?Yes . ? Tandem? walk ?Yes . ? Walk and? Turn ?Yes . ? Rise from? sit to stand ?Yes . ?Vision? Corrective? lens ?Yes ? Vision? screen ? Up-to-date, has an appointment [] for vision? screening and glaucoma screening ?Hearing? Whisper? test ?pass .? Initiated the conversation about Advanced Directives. Advanced Directives help? patients prepare for current and future decisions about their medical treatment? and place of care. Discussed with patient that it is a process where a patients? current condition and prognosis are reviewed, their wishes for information? regarding their illness are elicited, and likely medical dilemmas are presented? and options discussed. The form can be amended as needed, reviewed yearly and? make changes as needed Written? Plan?Completed. See Patient? Documents. PFSH Medical History Ureteral necrosis, left Postprocedural retroperitoneal abscess Nephrolithiasis DM type 2 (diabetes mellitus, type 2) CAD (coronary artery disease) SQUAXIN (hard of hearing) Arthritis GERD (gastroesophageal reflux disease) Thoracic aortic aneurysm without rupture Elevated cholesterol HTN (hypertension) CAD (coronary artery disease) BPH (benign prostatic hyperplasia) Nephrolithiasis Surgical History History of esophagogastroduodenoscopy (EGD) Hx of lithotripsy Hx of heart artery stent H/O colonoscopy Family History Brother DM type 2 (diabetes mellitus, type 2) CAD (coronary artery disease) Father CAD (coronary artery disease) Social History 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:: , 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 Housing: House Are you a primary day care attendant to a significant other at home: No Do you presently have visiting nurse or other home services: No Alcohol intake: never Patient Tobacco Use Status: Former Tobacco user (45 years ago) Tobacco use type: Cigarette Years Smoked: 8 e-Cigarette/Vaping Use: Never Used service: No Current occupational status: retired 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 Cognitive needs: No Hearing needs: Yes Vision needs: Yes Questionnaire Medicare Wellness Checkup [age] What gender do you identify with?: male During the past 4 weeks, how much have you been bothered by emotional problems such as feeling anxious, depressed, irritable, sad or downhearted, and blue?: moderately During the past 4 weeks, has your physical & emotional health limited your social activities with family, friends, neighbors, or groups?: slightly During the past 4 weeks, how much bodily pain have you generally had?: mild pain During the past 4 weeks, was someone available to help you if you needed & wanted help?: yes, quite a bit During the past 4 weeks, what was the hardest physical activity you could do for at least 2 minutes?: moderate Can you get to places out of walking distance without help? (For eg., can you travel alone on buses, taxis or drive your car?): Yes Can you go shopping for groceries or clothes without someone's help?: Yes Can you prepare your own meals?: Yes Can you do your housework without help?: Yes Because of any health problems, do you need the help of another person with your personal care needs such as eating, bathing, dressing or getting around the house?: No Can you handle your own money without help?: Yes During the past 4 weeks, how would you rate your health in general?: very good During the past 4 weeks how have things been going for you?: pretty well Are you having difficulties driving your car?: no Do you always fasten your seat belt when you are in a car?: no During past 4 weeks, have you been bothered by the following: never: Sexual problems?, Trouble eating well? and Problems using the telephone?, seldom: Teeth or denture problems? and sometimes: Falling or dizzy when standing up and Tiredness or fatigue? Have you fallen 2 or more times in the past year?: No Are you afraid of falling?: No Are you a smoker?: no During the past 4 weeks, how many drinks of wine, beer, or other alcoholic beverages did you have?: no alcohol at all Do you exercise for about 20 minutes 3 or more times a week?: yes, some of the time Have you been given information to help with the following?: no: Hazards in your house that might hurt you? and no: Keeping track of your medications? How often do you have trouble taking medicines the way you have been told to take them?: I always take medicine as prescribed How confident are you that you can control & manage most of your health problems?: somewhat confident What is your race?: White Mini Mental State Exam (MMSE) Orientation What is the (year) (season) (date) (day) (month)?: year, season, date, day and month Where are we (state) (county) (town or city) (hospital) (floor)?: state, county, town or city, hospital/clinic and floor Registration Name of 3 unrelated objects clearly and slowly, then ask patient to repeat all 3 of them. (1st repeat determines score. Make sure they can repeat all three): object 1, object 2 and object 3 Attention & Calculation (CHOOSE ONE) Spell WORLD backwards (DLROW): 5 letters Recall Ask patient to repeat the 3 items from question #3.: object 1, object 2 and object 3 Language Show patient a wristwatch & ask what it is. Repeat for pencil.: watch and pencil Ask the patient to repeat the phrase 'No ifs, ands, or buts' after you.: correct Ask the patient to 'take a piece of paper with their right hand' 'fold paper in half' 'place paper on floor': take paper in right hand, fold paper in half and place paper on floor Print the sentence 'CLOSE YOUR EYES' on a piece. If patient actually closes eyes then score.: followed written direction Give patient a blank piece of paper & ask to write a sentence. Score if it contains a noun & verb.: sentence contains subject and verb Score Score: 29 PHQ-9 Over the last 2 weeks, how often have you been bothered by any of the following problems? 1. Little interest or pleasure in doing things: not at all 2. Feeling down, depressed, or hopeless: not at all 3. Trouble falling or staying asleep, or sleeping too much: not at all 4. Feeling tired or having little energy: not at all 5. Poor appetite or overeating: not at all 6. Feeling bad about yourself - or that you are a failure or have let yourself or your family down: not at all 7. Trouble concentrating on things, such as reading the newspaper or watching television: not at all 8. Moving or speaking so slowly that other people could have noticed. Or the opposite - being so fidgety or restless that you have been moving around a lot more than usual: not at all 9. Thoughts that you would be better off or of hurting yourself in some way: not at all Total score: 0 Depression Screening Interpretation: Negative Depression Screening Done: Yes Source: Developed by Drs. Kimo Strauss, Josiane Maya, Jesus Alberto Fagan and colleagues, with an educational loren from [employer]. Review of Systems Const All systems reviewed & are unremarkable except as noted in HPI and below Eyes Reports no additional complaints ENT Reports no additional complaints Card Reports no additional complaints Resp Reports no additional complaints GI Reports no additional complaints Reports no additional complaints Physical Exam Vital Signs: Last Vital Signs Temp 97.7 F 09/20/25 09:53 Pulse 70 09/20/25 09:53 Resp 16 09/20/25 09:53 BP 94/60 09/20/25 09:53 Pulse Ox 99 09/20/25 09:53 Oxygen Delivery Method Room Air 09/20/25 09:53 BMI result Body Mass Index 21.8 Const General: no acute distress HEENT Head: Yes normal to inspection Ears: TM's normal bilaterally Neck Neck: Yes supple Resp Effort & Inspection: normal respiratory effort Auscultation: clear to auscultation bilaterally Cardio Rhythm: regular rhythm Heart sounds: S1 normal heart sound present and S2 normal heart sound present GI Inspection: Yes normal to inspection Palpation (GI): Soft to palpation Percussion: Yes normal to percussion Auscultation: normal bowel sounds Extrem General: Yes no clubbing, cyanosis or edema Assessment & Plan Assessment & Plan (1) DM type 2 (diabetes mellitus, type 2): Comment: Follows up with [facility] endocrinology, A1C 6.4 12/2024 Code(s): E11.9 - Type 2 diabetes mellitus without complications Plan: A1c is 5.3, ADA diet regular physical activity discussed with the patient he will stop taking Januvia because of the high johnson (2) HTN (hypertension): Code(s): I10 - Essential (primary) hypertension Plan: Continue carvedilol (3) Hyperlipidemia: Code(s): E78.5 - Hyperlipidemia, unspecified Plan: Continue rosuvastatin (4) Nephrolithiasis: Comment: Status post bilateral ureteroscopy for stone removal on 03/14/2025 by [facility] Code(s): N20.0 - Calculus of kidney Plan: Follow-up with urology for chronic Marrufo catheter and nephrostomy management. Renal failure resolved Orders: Orders Microalbumin, Random (w Creat) 3 Months E11.9 - Type 2 diabetes mellitus without complications, E78.5 - Hyperlipidemia, unspecified, I10 - Essential (primary) hypertension IRON PROFILE Today D64.9 - Anemia, unspecified, E11.9 - Type 2 diabetes mellitus without complications, E53.8 - Deficiency of other specified B group vitamins, E78.5 - Hyperlipidemia, unspecified, I10 - Essential (primary) hypertension Vitamin B12 and Folate Today D64.9 - Anemia, unspecified, E11.9 - Type 2 diabetes mellitus without complications, E53.8 - Deficiency of other specified B group vitamins, E78.5 - Hyperlipidemia, unspecified, I10 - Essential (primary) hypertension Comprehensive [employer] Panel Fast 3 Months E11.9 - Type 2 diabetes mellitus without complications, E78.5 - Hyperlipidemia, unspecified, I10 - Essential (primary) hypertension Hemoglobin A1c 3 Months E11.9 - Type 2 diabetes mellitus without complications, E78.5 - Hyperlipidemia, unspecified, I10 - Essential (primary) hypertension Complete Blood Count Auto Diff 3 Months E11.9 - Type 2 diabetes mellitus without complications, E78.5 - Hyperlipidemia, unspecified, I10 - Essential (primary) hypertension Lipid Panel 3 Months E11.9 - Type 2 diabetes mellitus without complications, E78.5 - Hyperlipidemia, unspecified, I10 - Essential (primary) hypertension Quality Reporting (2020) Depression/Bipolar (159/160/161/177) PHQ-9: Total score: 0 Coding Level of Care Code Medicare Subsequent (G0439) Diagnoses DM type 2 (diabetes mellitus, type 2) E11.9 HTN (hypertension) I10 Hyperlipidemia E78.5 Nephrolithiasis N20.0 CPT Codes Advance Care Planning - Advance Care Planning discussion: On file, no changes ([id number]) Advance Care Planning - Time spent: 1-15 minutes, on File ([id number]) Advance Care Planning Advance Care Planning discussion: On file, no changes Forms completed: Health Care Proxy Time spent: 1-15 minutes, on File
[2025-09-20 09:53] VITALS: BP 94/60; PULSE 70; RESP 16; TEMP 36.5; O2SAT 99; BMI 21.8
--- OUTSIDE RECORDS SUMMARY | 2025-09-20 11:42 | XMS_ITS | Encounter Summary ---
Author Organization [facility] Address [address] [place] [address] Care Team Providers Care Lumber Stacker Operator Name Role Phone Ne Dean MD Primary Care Provider [phone] Encounter Details Date Type Department Care Team (Late st Contact Info) Description 07/01/2025 Lab Requisition [facility] - Main Lab [address] [facility] [place] [address] Cathleen Bear PA [address] [place] [id number] Encounter for other general examination Social History [...] Visit [facility] [address] [place] [address] Juan Padgett NP [address] [place] [address] Dr [address] [place] [address] documented as of this encounter Procedures [...] K/mcL LAB HEMETOLOGY METHOD 07/01/2025 11:26 AM [facility] RBC 2.60(L) 4.50 - 5.50 M/mcL LAB HEMETOLOGY METHOD 07/01/2025 11:26 AM [facility] Hemoglobin 7.9(L) 13.5 - 17.5 g/dL LAB HEMETOLOGY METHOD 07/01/2025 11:26 AM [facility] Hematocrit 25.7(L) 42.0 - 54.0 % LAB HEMETOLOGY METHOD 07/01/2025 11:26 AM [facility] MCV 100.4(H) 79.0 - 98.0 FL LAB HEMETOLOGY METHOD 07/01/2025 11:26 AM [facility] MCH 30.9 27.0 - 32.0 pcg LAB HEMETOLOGY METHOD 07/01/2025 11:26 AM [facility] MCHC 30.7(L) 32.0 - 37.0 g/dL LAB HEMETOLOGY METHOD 07/01/2025 11:26 AM [facility] RDW 17.2(H) 11.0 - 15.0 % LAB HEMETOLOGY METHOD 07/01/2025 11:26 AM [facility] Platelets 243 130 - 400 K/mcL LAB HEMETOLOGY METHOD 07/01/2025 11:26 AM [facility] MPV 9.9 7.0 - 11.0 FL LAB HEMETOLOGY METHOD 07/01/2025 11:26 AM [facility] NRBC 0.0 <1.0 % LAB HEMETOLOGY METHOD 07/01/2025 11:26 AM [facility] NRBC Absolute 0.00 <0.10 K/mcL LAB HEMETOLOGY METHOD 07/01/2025 11:26 AM [facility] Neutrophils Relative 71.6 % LAB HEMETOLOGY METHOD 07/01/2025 11:26 AM [facility] Lymphocytes Relative 13.8 % LAB HEMETOLOGY METHOD 07/01/2025 11:26 AM [facility] Monocytes Relative 11.7 % LAB HEMETOLOGY METHOD 07/01/2025 11:26 AM [facility] Eosinophils Relative 2.1 % LAB HEMETOLOGY METHOD 07/01/2025 11:26 AM [facility] Basophils Relative 0.3 % LAB HEMETOLOGY METHOD 07/01/2025 11:26 AM [facility] Immature Granulocytes Relative 0.5 % LAB HEMETOLOGY METHOD 07/01/2025 11:26 AM [facility] Neutrophils Absolute 6.56 1.50 - 7.00 K/mcL LAB HEMETOLOGY METHOD 07/01/2025 11:26 AM [facility] Lymphocytes Absolute 1.27 1.00 - 5.00 K/[facility] LAB HEMETOLOGY METHOD 07/01/2025 11:26 AM EDT [facility] Monocytes Absolute 1.07(H) 0.20 - 1.00 K/[facility] LAB HEMETOLOGY METHOD 07/01/2025 11:26 AM EDT [facility] Eosinophils Absolute 0.19 0.00 - 0.50 K/[facility] LAB HEMETOLOGY METHOD 07/01/2025 11:26 AM EDT [facility] Basophils Absolute 0.03 0.00 - 0.20 K/[facility] LAB HEMETOLOGY METHOD 07/01/2025 11:26 AM EDT [facility] Immature Granulocytes Absolute 0.05(H) 0.00 - 0.03 K/[facility] LAB HEMETOLOGY METHOD 07/01/2025 11:26 AM EDT [facility] Blood Venous blood specimen / Unknown Venipuncture / Unknown 07/01/2025 5:39 AM EDT 07/01/2025 10:03 AM EDT Cathleen [facility] LAB BLOOD ORDERABLES Final Re sult [facility] [address] [place] [address], * (ABNORMAL) Iron and TIBC (07/01/2025 5:39 [...] ORDERABLES Final Re sult Performing Organization Address [facility]/ZIP Co de Phone Number [facility] [address] [place] [address], [place] [phone] * Vitamin B12 and folate (07/01/2025 5:39 AM EDT) [facility] Vitamin B-12 659 250 - 900 pcg/mL [...] ORDERABLES Final Re sult Performing Organization Address [facility]/ZIP Co de Phone Number [facility] [address] [place] [address], [place] [phone] * (ABNORMAL) Comprehensive metabolic panel (07/01/2025 5:39 AM EDT) [facility] Sodium 139 133 - 145 mmol/L LAB [...] mmol/L LAB CHEMISTRY METHOD 07/01/2025 12:44 PM [facility] Anion Gap 8 3 - 11 LAB CHEMISTRY METHOD 07/01/2025 12:44 PM [facility] Glucose 164(H) 70 - 100 mg/dL LAB CHEMISTRY METHOD 07/01/2025 12:44 PM [facility] BUN 26(H) 5 - 25 mg/dL LAB CHEMISTRY METHOD 07/01/2025 12:44 PM [facility] Creatinine 1.18 0.70 - 1.30 mg/dL LAB CHEMISTRY METHOD 07/01/2025 12:44 PM [facility] eGFR 64 >=60 mL/min/1. 73m2 LAB CHEMISTRY METHOD 07/01/2025 12:44 PM [facility] Comment:Calculation based on the Chronic Kidney Disease Epidemiology Collaboration (CKD-EPI) equation refit without adjustment for race. BUN/Creatinine Ratio 22.0 LAB CHEMISTRY METHOD 07/01/2025 12:44 PM [facility] Calcium 8.6 8.5 - 10.5 mg/dL LAB CHEMISTRY METHOD 07/01/2025 12:44 PM [facility] AST (SGOT) 49(H) 10 - 42 unit/L LAB CHEMISTRY METHOD 07/01/2025 12:44 PM [facility] ALT (SGPT) 90(H) 10 - 60 unit/L LAB CHEMISTRY METHOD 07/01/2025 12:44 PM [facility] Alkaline Phosphatase 74 42 - 121 unit/L LAB CHEMISTRY METHOD 07/01/2025 12:44 PM [facility] Total Protein 6.0 6.0 - 8.0 g/dL LAB CHEMISTRY METHOD 07/01/2025 12:44 PM [facility] Albumin 2.3(L) 3.2 - 5.0 g/dL LAB CHEMISTRY METHOD 07/01/2025 12:44 PM [facility] Total Bilirubin 0.3 0.0 - 1.4 mg/dL LAB CHEMISTRY METHOD 07/01/2025 12:44 PM EDT [facility] Blood Venous blood specimen / Unknown Venipuncture / Unknown 07/01/2025 5:39 AM EDT 07/01/2025 10:03 AM EDT us Cathleen [facility] LAB BLOOD ORDERABLES Final Re sult [facility] [address] [place] [address], documented in this encounter Visit Diagnoses Diagnosis Encounter for other general examination documented in this encounter Additional Health Concerns Infection Onset Date Last Indicated Resolved Time MRSA 05/26/2025 05/26/2025 documented as of this encounter Care Teams Lumber Stacker Operator Relationship Specialty Start Date End Date Ne Dean MD [address] [place] [address] PCP - General 03/23/24 documented as of this encounter
--- OUTSIDE RECORDS SUMMARY | 2025-09-20 11:42 | XMS_ITS | Encounter Summary ---
Author Organization [facility] Address [address] [place] [address] Care Team Providers Care Automatic Grinding Machine Operator Name Role Phone Ne Dean MD Primary Care Provider [phone] Encounter Details Date Type Department Care Team (Late st Contact Info) Description 06/30/2025 Lab Requisition [facility] - Main Lab 299 Counts Include [address] [facility] [place] [address] Servando Zuniga, JEAN PIERRE [address] [facility] [address] [place] [id number] Encounter for other general examination Social History [...] Office Visit [facility] [address] [place] [address] Juan Padgett NP [address] [place] [address] Dr [address] [place] [address] documented as of this encounter [...] K/mcL LAB HEMETOLOGY METHOD 06/30/2025 10:56 AM [facility] RBC 2.50(L) 4.50 - 5.50 M/mcL LAB HEMETOLOGY METHOD 06/30/2025 10:56 AM [facility] Hemoglobin 7.7(L) 13.5 - 17.5 g/dL LAB HEMETOLOGY METHOD 06/30/2025 10:56 AM [facility] Hematocrit 24.5(L) 42.0 - 54.0 % LAB HEMETOLOGY METHOD 06/30/2025 10:56 AM [facility] MCV 99.6(H) 79.0 - 98.0 FL LAB HEMETOLOGY METHOD 06/30/2025 10:56 AM [facility] MCH 31.3 27.0 - 32.0 pcg LAB HEMETOLOGY METHOD 06/30/2025 10:56 AM [facility] MCHC 31.4(L) 32.0 - 37.0 g/dL LAB HEMETOLOGY METHOD 06/30/2025 10:56 AM [facility] RDW 17.1(H) 11.0 - 15.0 % LAB HEMETOLOGY METHOD 06/30/2025 10:56 AM [facility] Platelets 239 130 - 400 K/mcL LAB HEMETOLOGY METHOD 06/30/2025 10:56 AM [facility] MPV 9.7 7.0 - 11.0 FL LAB HEMETOLOGY METHOD 06/30/2025 10:56 AM [facility] NRBC 0.0 <1.0 % LAB HEMETOLOGY METHOD 06/30/2025 10:56 AM [facility] NRBC Absolute 0.00 <0.10 K/mcL LAB HEMETOLOGY METHOD 06/30/2025 10:56 AM [facility] Neutrophils Relative 70.2 % LAB HEMETOLOGY METHOD 06/30/2025 10:56 AM [facility] Lymphocytes Relative 15.8 % LAB HEMETOLOGY METHOD 06/30/2025 10:56 AM [facility] Monocytes Relative 11.1 % LAB HEMETOLOGY METHOD 06/30/2025 10:56 AM [facility] Eosinophils Relative 2.1 % LAB HEMETOLOGY METHOD 06/30/2025 10:56 AM [facility] Basophils Relative 0.3 % LAB HEMETOLOGY METHOD 06/30/2025 10:56 AM [facility] Immature Granulocytes Relative 0.5 % LAB HEMETOLOGY METHOD 06/30/2025 10:56 AM [facility] Neutrophils Absolute 6.58 1.50 - 7.00 K/mcL LAB HEMETOLOGY METHOD 06/30/2025 10:56 AM [facility] Lymphocytes Absolute 1.48 1.00 - 5.00 K/mcL LAB HEMETOLOGY METHOD 06/30/2025 10:56 AM EDT [facility] Monocytes Absolute 1.04(H) 0.20 - 1.00 K/mcL LAB HEMETOLOGY METHOD 06/30/2025 10:56 AM EDT [facility] Eosinophils Absolute 0.20 0.00 - 0.50 K/[facility] LAB HEMETOLOGY METHOD 06/30/2025 10:56 AM EDT [facility] Basophils Absolute 0.03 0.00 - 0.20 K/[facility] LAB HEMETOLOGY METHOD 06/30/2025 10:56 AM EDT [facility] Immature Granulocytes Absolute 0.05(H) 0.00 - 0.03 K/[facility] LAB HEMETOLOGY METHOD 06/30/2025 10:56 AM EDT [facility] Blood Venous blood specimen / Unknown Venipuncture / Unknown 06/30/2025 5:37 AM EDT 06/30/2025 10:17 AM EDT [facility] LAB BLOOD ORDERABLES Final R esult [facility] [address] [place] [address], [place] [phone] * Magnesium (06/30/2025 5:37 AM EDT) Magnesium 2.3 1.9 - 2.6 mg/dL LAB CHEMISTRY METHOD 06/30/2025 12:12 PM EDT [facility] Blood Venous blood specimen / Unknown Venipuncture / Unknown 06/30/2025 5:37 AM EDT 06/30/2025 10:17 AM EDT [facility] LAB BLOOD ORDERABLES Final R esult [facility] [address] [place] [address], [place] [phone] * (ABNORMAL) Comprehensive metabolic panel (06/30/2025 5:37 AM EDT) Sodium 142 133 - 145 mmol/L LAB CHEMISTRY METHOD 06/30/2025 12:27 PM [facility] Potassium 3.6 3.5 - 5.5 mmol/L LAB CHEMISTRY METHOD 06/30/2025 12:27 PM [facility] Chloride 114(H) 96 - 110 mmol/L LAB CHEMISTRY METHOD 06/30/2025 12:27 PM [facility] CO2 20(L) 21 - 32 mmol/L LAB CHEMISTRY METHOD 06/30/2025 12:27 PM [facility] Anion Gap 8 3 - 11 LAB CHEMISTRY METHOD 06/30/2025 12:27 PM [facility] Glucose 51(L) 70 - 100 mg/dL LAB CHEMISTRY METHOD 06/30/2025 12:27 PM [facility] LAB Comment:Results verified by repeat testing BUN 23 5 - 25 mg/dL LAB CHEMISTRY METHOD 06/30/2025 12:27 PM [facility] Creatinine 1.08 0.70 - 1.30 mg/dL LAB CHEMISTRY METHOD 06/30/2025 12:27 PM [facility] LAB eGFR 71 >=60 mL/min/1. 73m2 LAB CHEMISTRY METHOD 06/30/2025 12:27 PM [facility] LAB Comment:Calculation based on the Chronic Kidney Disease Epidemiology Collaboration (CKD-EPI) equation refit without adjustment for race. BUN/Creatinine Ratio 21.3 LAB CHEMISTRY METHOD 06/30/2025 12:27 PM [facility] Calcium 8.5 8.5 - 10.5 mg/dL LAB CHEMISTRY METHOD 06/30/2025 12:27 PM [facility] AST (SGOT) 59(H) 10 - 42 unit/L LAB CHEMISTRY METHOD 06/30/2025 12:27 PM EDT [facility] ALT (SGPT) 84(H) 10 - 60 unit/L LAB CHEMISTRY METHOD 06/30/2025 12:27 PM EDT [facility] Alkaline Phosphatase 74 42 - 121 unit/L LAB CHEMISTRY METHOD 06/30/2025 12:27 PM EDT [facility] Total Protein 5.9(L) 6.0 - 8.0 g/dL LAB CHEMISTRY METHOD 06/30/2025 12:27 PM T [facility] Albumin 2.3(L) 3.2 - 5.0 g/dL LAB CHEMISTRY METHOD 06/30/2025 12:27 PM EDT [facility] Total Bilirubin 0.3 0.0 - 1.4 mg/dL LAB CHEMISTRY METHOD 06/30/2025 12:27 PM T [facility] Blood Venous blood specimen / Unknown Venipuncture / Unknown 06/30/2025 5:37 AM EDT 06/30/2025 10:17 AM EDT us [facility] LAB BLOOD ORDERABLES Final R esult [facility] [address] [place] [address], documented in this encounter Visit Diagnoses Diagnosis Encounter for other general examination documented in this encounter Additional Health Concerns Infection Onset Date Last Indicated Resolved Time MRSA 05/26/2025 05/26/2025 documented as of this encounter Care Teams Automatic Grinding Machine Operator Relationship Specialty Start Date End Date Ne Dean MD [address] [facility] [place] [id number] PCP - General 03/23/24 documented as of this encounter
--- OUTSIDE RECORDS SUMMARY | 2025-09-20 11:42 | XMS_ITS | Clinical Summary ---
Author Organization [address] [place] [address] [place] [phone] Phone Care Team Providers Care Sales Representative Groceries Name Role Phone Ne Dean MD Primary Care Provider [phone] Allergies No known active allergies Medications famotidine [...] prostatic hyperplasia) 12/12/2022 Type 2 diabetes mellitus 12/12/2022 Atherosclerosis of [place] co ronary artery of [place] heart without angina pectoris 12/21/2021 Overview (09/27/2024): [...] suggest unstable angina. Peripheral vascular disease, unspecified 022 Mixed hyperlipidemia 11/06/2020 Overview (09/27/2024): Last Assessment [...] as well. Thoracic aortic aneurysm without rupture 021 Overview (09/27/2024): Last Assessment & Plan: Echocardiogram done March 2022 with normal LV function. No significant valvular disease. Ascending aorta at 3.8 cm with a sinus of Valsalva at 4.3 cm. We will update an echocardiogram in March to continue to monitor his aortic arch size. Encounters Date Type Department Care Team Description 07/28/2025 Lab Requisition [facility] Lab [address] [place] [phone] Wan Sanchez MD Urinary tract infection, site not specified; Hydronephrosis with ureteral stricture, not elsewhere classified 07/28/2025 Lab Requisition [facility] Main Lab [address] [place] [phone] Wan Sanchez MD Urinary tract infection, site not specified 07/12/2025 Lab Requisition [facility] Main Lab [address] [place] [phone] Kendal Man PA Encounter for other general examination 07/11/2025 Lab Requisition [facility] Main Lab [address] [place] [phone] Wan Sanchez MD Urinary tract infection, site not specified; Retention of urine, unspecified 07/11/2025 Lab Requisition [facility] Lab [address] [place] [address] Marjorie Alva PA Encounter for other general examination 07/06/2025 Lab Requisition [facility] Lab [address] [place] [address] Kendal Man PA Encounter for other general examination 07/05/2025 Lab Requisition [facility] Lab [address] [place] [address] Kendal Man PA Encounter for other general examination 07/04/2025 Telephone [facility] [address] [place] [phone] Eddy Holloway MD 07/01/2025 Lab Requisition [facility] Lab [address] [place] [address] Cathleen Bear PA Encounter for other general examination 07/01/2025 Lab Requisition [facility] Lab [address] [place] [address] Cathleen Bear PA 06/30/2025 Lab Requisition [facility] Lab [address] [place] [address] Servando Zuniga PA Encounter for other general examination 06/30/2025 Lab Requisition [facility] Lab [address] [place] [address] Servando Zuniga PA 06/30/2025 Lab Requisition [facility] Lab [address] [place] [address] Servando Zuniga PA 06/30/2025 Lab Requisition [facility] Lab [address] [place] [address] Servando Zuniga PA from Last 3 Months Immunizations Immunization Administration [...] (hypertension) 11/06/2020 DX:HTN (hyper tension) Atherosclerosis of [place] ar teries of extremities with intermittent claudication, bilateral legs ([facility] V24) 11/06/2020 DX:Atherosclerosis of [place] arteries of extremities with intermittent claudication, bilateral legs ([facility]) S/P coronary artery stent placement 07/14/2009 DX:S/P coronary artery stent placement; COMMENT: 07/14/2009 Cath @ [facility] [place] by Dr. Eddy Holloway - stent placed to mid LAD GERD with esophagitis DX:GERD wi th esophagitis Anxiety DX:Anxiety Benign prostatic hyperplasia without lower urinary tract symptoms DX:Benign prostatic hyper plasia without lower urinary tract symptoms IFG (impaired fasting glucose) D X:IFG (impaired fasting glucose) Dysthymic disorder DX:Dysthymic disorder Iliac artery stenosis, left ([facility] V24) 11/06/2020 DX:Iliac artery stenosis, le ft ([facility]) Depression DX:Depression Nephrolithiasis DX:Nephrolithias is CAD (coronary artery disease) 11/06/2020 DX :CAD (coronary artery disease) Diabetes mellitus ([facility] V 24, [facility] V28) type 2 Heart disease GERD (gastroesophageal [...] on file Sexual Orientation Not on file Last Filed Vital Signs Vital Sign Reading [...] Description 11/08/2025 1:40 PM EST Office Visit [facility] Associates [facility] [address] [place] [address] Juan Padgett NP [address] [place] [address] Dr Katz [address] [place] [phone] Health Maintenance Due Date Last Done Comments Drug Screen 1950 Non-Opioid Controlled Substance Agreement 1950 Diabetes: Annual Foot Exam 01/29/1958 Diabetes: Annual [...] this topic Medical Devices Implanted Type Area Sheetmetal Trades Worker Device Identifier Shelf Expiration Date Model / Serial / Lot Stent Uret [id number] Contr Percuflex Hydroplus - Sna - [id number] Implanted:Qty: 1 on 03/14/2025 by Nabil Rosales MD at [facility] Stents Right: Ureter [employer] [id number] 10/26/2027 [id number] 60 / NA / [id number] Stent Uret [id number] Contr Percuflex Hydroplus - Sna - [id number] Implanted:Qty: 1 on 03/14/2025 by Nabil Rosales MD at [facility] Stents Left: Ureter [employer] [id number] 11/08/2027 [id number] 60 / NA / [id number] Stent Uret [id number] Contr Percuflex Hydroplus - Sna - [id number] Implanted:Qty: 1 on 03/28/2025 by Nabil Rosales MD at [facility] Stents Right: Ureter [employer] [id number] 11/10/2027 [id number] 60 / NA / [id number] Stent Uret [id number] Contr Percuflex Hydroplus - Sna - [id number] Implanted:Qty: 1 on 03/28/2025 by Nabil Rosales MD at [facility] Stents Left: Ureter [employer] [id number] 09/20/2027 [id number] 60 / NA / [id number] Procedures Procedure Name Priority Date/Time Associated Diagnosis [...] AM EDT Encounter for other general examination HEMOGLOBIN A1C Routine 04/09/2023 LIPID PANEL Routine 04/09/2023 HM URINE ALBUMIN CREATININE RATIO Routine 12/12/2022 from Last 3 Months or Most Recently Relevant to Health Maintenance Results * (ABNORMAL) Culture urine (07/28/2025 11:30 AM EDT) Only the most recent of2 resultswithin the time period is included. Culture, Urine >=100,000 CFU/mL Escherichia coli(A) FLORES 07/30/2025 8:05 AM EDT [facility] Culture, Urine 50,000-100,000 CFU/mL Klebsiella pneumoniae ssp pneumoniae(A) FLORES 07/30/2025 8:05 AM EDT [facility] Comment: The organism value for this [...] MICROBIOLOGY - GENERAL ORDER YADIRA Final Result [facility] [address] [place] [address], * (ABNORMAL) Complete blood count (07/12/2025 4:49 AM EDT) Only the most recent of4 resultswithin the time period is included. [facility] Signature WBC 11.0(H) 4.8 - 10.8 K/mcL LAB HEMETOLOGY METHOD 07/12/2025 9:36 AM [facility] RBC 3.30(L) 4.50 - 5.50 M/mcL LAB HEMETOLOGY METHOD 07/12/2025 9:36 AM [facility] Hemoglobin 10.3(L) 13.5 - 17.5 g/dL LAB HEMETOLOGY METHOD 07/12/2025 9:36 AM [facility] Hematocrit 32.6(L) 42.0 - 54.0 % LAB HEMETOLOGY METHOD 07/12/2025 9:36 AM [facility] MCV 100.0(H) 79.0 - 98.0 FL LAB HEMETOLOGY METHOD 07/12/2025 9:36 AM [facility] MCH 31.6 27.0 - 32.0 pcg LAB HEMETOLOGY METHOD 07/12/2025 9:36 AM [facility] MCHC 31.6(L) 32.0 - 37.0 g/dL LAB HEMETOLOGY METHOD 07/12/2025 9:36 AM [facility] RDW 16.1(H) 11.0 - 15.0 % LAB HEMETOLOGY METHOD 07/12/2025 9:36 AM [facility] Platelets 353 130 - 400 K/mcL LAB HEMETOLOGY METHOD 07/12/2025 9:36 AM [facility] MPV 10.5 7.0 - 11.0 FL LAB HEMETOLOGY METHOD 07/12/2025 9:36 AM [facility] NRBC 0.0 <1.0 % LAB HEMETOLOGY METHOD 07/12/2025 9:36 AM [facility] NRBC Absolute 0.00 <0.10 K/mcL LAB HEMETOLOGY METHOD 07/12/2025 9:36 AM [facility] Blood Venous blood specimen / Unknown Venipuncture / Unknown 07/12/2025 4:49 AM EDT 07/12/2025 8:27 AM EDT us Kendal GREENFIELD LAB BLOOD ORDERABLES Final Re sult [facility] [address] [place] [address], [place] [phone] * (ABNORMAL) Comprehensive metabolic panel (07/12/2025 4:49 AM EDT) Only the most recent of5 resultswithin the time period is included. Sodium 135 133 - 145 mmol/L LAB CHEMISTRY METHOD 07/12/2025 10:36 AM [facility] Potassium 3.8 3.5 - 5.5 mmol/L LAB CHEMISTRY METHOD 07/12/2025 10:36 AM [facility] Chloride 106 96 - 110 mmol/L LAB CHEMISTRY METHOD 07/12/2025 10:36 AM [facility] CO2 17(L) 21 - 32 mmol/L LAB CHEMISTRY METHOD 07/12/2025 10:36 AM [facility] Anion Gap 12(H) 3 - 11 LAB CHEMISTRY METHOD 07/12/2025 10:36 AM [facility] Glucose 167(H) 70 - 100 mg/dL LAB CHEMISTRY METHOD 07/12/2025 10:36 AM [facility] BUN 32(H) 5 - 25 mg/dL LAB CHEMISTRY METHOD 07/12/2025 10:36 AM [facility] Creatinine 1.35(H) 0.70 - 1.30 mg/dL LAB CHEMISTRY METHOD 07/12/2025 10:36 AM [facility] eGFR 54(L) >=60 mL/min/1. 73m2 LAB CHEMISTRY METHOD 07/12/2025 10:36 AM [facility] Comment:Calculation based on the Chronic Kidney Disease Epidemiology Collaboration (CKD-EPI) equation refit without adjustment for race. BUN/Creatinine Ratio 23.7 LAB CHEMISTRY METHOD 07/12/2025 10:36 AM [facility] Calcium 9.5 8.5 - 10.5 mg/dL LAB CHEMISTRY METHOD 07/12/2025 10:36 AM [facility] AST (SGOT) 16 10 - 42 unit/L LAB CHEMISTRY METHOD 07/12/2025 10:36 AM [facility] ALT (SGPT) 30 10 - 60 unit/L LAB CHEMISTRY METHOD 07/12/2025 10:36 AM [facility] Alkaline Phosphatase 94 42 - 121 unit/L LAB CHEMISTRY METHOD 07/12/2025 10:36 AM [facility] Total Protein 7.4 6.0 - 8.0 g/dL LAB CHEMISTRY METHOD 07/12/2025 10:36 AM [facility] Albumin 2.8(L) 3.2 - 5.0 g/dL LAB CHEMISTRY METHOD 07/12/2025 10:36 AM [facility] Total Bilirubin 0.4 0.0 - 1.4 mg/dL LAB CHEMISTRY METHOD 07/12/2025 10:36 AM [facility] Blood Venous blood specimen / Unknown Venipuncture / Unknown 07/12/2025 4:49 AM EDT 07/12/2025 8:27 AM EDT us Kendal GREENFIELD LAB BLOOD ORDERABLES Final Re sult [facility] [address] [place] [address], * (ABNORMAL) Basic metabolic panel (07/11/2025 5:15 AM EDT) Sodium 137 133 - 145 mmol/L LAB CHEMISTRY METHOD 07/11/2025 1:02 PM T [facility] Potassium 3.8 3.5 - 5.5 mmol/L LAB CHEMISTRY METHOD 07/11/2025 1:02 PM [facility] Chloride 106 96 - 110 mmol/L LAB CHEMISTRY METHOD 07/11/2025 1:02 PM [facility] CO2 17(L) 21 - 32 mmol/L LAB CHEMISTRY METHOD 07/11/2025 1:02 PM [facility] Anion Gap 14(H) 3 - 11 LAB CHEMISTRY METHOD 07/11/2025 1:02 PM [facility] Glucose 138(H) 70 - 100 mg/dL LAB CHEMISTRY METHOD 07/11/2025 1:02 PM [facility] BUN 31(H) 5 - 25 mg/dL LAB CHEMISTRY METHOD 07/11/2025 1:02 PM [facility] Creatinine 1.47(H) 0.70 - 1.30 mg/dL LAB CHEMISTRY METHOD 07/11/2025 1:02 PM [facility] eGFR 49(L) >=60 mL/min/1. 73m2 LAB CHEMISTRY METHOD 07/11/2025 1:02 PM [facility] Comment:Calculation based on the Chronic Kidney Disease Epidemiology Collaboration (CKD-EPI) equation refit without adjustment for race. BUN/Creatinine Ratio 21.1 LAB CHEMISTRY METHOD 07/11/2025 1:02 PM [facility] Calcium 9.3 8.5 - 10.5 mg/dL LAB CHEMISTRY METHOD 07/11/2025 1:02 PM [facility] Blood Venous blood specimen / Unknown Venipuncture / Unknown 07/11/2025 5:15 AM EDT 07/11/2025 10:10 AM EDT us Marjorie GREENFIELD LAB BLOOD ORDERABLES Final Resul t [facility] [address] [place] [address], [place] [phone] * Vitamin B12 and folate (07/01/2025 5:39 AM EDT) [facility] Vitamin B-12 659 250 - 900 pcg/mL LAB CHEMISTRY METHOD 07/01/2025 12:44 PM EDT [facility] Folate 6.0 2.8 - 17.0 ng/ml LAB CHEMISTRY METHOD 07/01/2025 12:44 PM EDT [facility] Blood Venous blood specimen / Unknown Venipuncture / Unknown 07/01/2025 5:39 AM EDT 07/01/2025 10:03 AM EDT Cathleen GREENFIELD LAB BLOOD ORDERABLES Final Re sult [facility] [address] [place] [address], [place] [phone] * (ABNORMAL) CBC auto differential (07/01/2025 5:39 AM EDT) Only the most recent of2 resultswithin the time period is included. [facility] WBC 9.2 4.8 - 10.8 K/mcL LAB HEMETOLOGY METHOD 07/01/2025 11:26 AM EDT [facility] RBC 2.60(L) 4.50 - 5.50 M/mcL LAB HEMETOLOGY METHOD 07/01/2025 11:26 AM EDT [facility] Hemoglobin 7.9(L) 13.5 - 17.5 g/dL LAB HEMETOLOGY METHOD 07/01/2025 11:26 AM EDT [facility] Hematocrit 25.7(L) 42.0 - 54.0 % LAB HEMETOLOGY METHOD 07/01/2025 11:26 AM EDT [facility] MCV 100.4(H) 79.0 - 98.0 FL LAB HEMETOLOGY METHOD 07/01/2025 11:26 AM [facility] MCH 30.9 27.0 - 32.0 pcg LAB HEMETOLOGY METHOD 07/01/2025 11:26 AM [facility] MCHC 30.7(L) 32.0 - 37.0 g/dL LAB HEMETOLOGY METHOD 07/01/2025 11:26 AM [facility] RDW 17.2(H) 11.0 - 15.0 % LAB HEMETOLOGY METHOD 07/01/2025 11:26 AM [facility] Platelets 243 130 - 400 K/mcL LAB HEMETOLOGY METHOD 07/01/2025 11:26 AM [facility] MPV 9.9 7.0 - 11.0 FL LAB HEMETOLOGY METHOD 07/01/2025 11:26 AM [facility] NRBC 0.0 <1.0 % LAB HEMETOLOGY METHOD 07/01/2025 11:26 AM [facility] NRBC Absolute 0.00 <0.10 K/mcL LAB HEMETOLOGY METHOD 07/01/2025 11:26 AM [facility] Neutrophils Relative 71.6 % LAB HEMETOLOGY METHOD 07/01/2025 11:26 AM [facility] Lymphocytes Relative 13.8 % LAB HEMETOLOGY METHOD 07/01/2025 11:26 AM [facility] Monocytes Relative 11.7 % LAB HEMETOLOGY METHOD 07/01/2025 11:26 AM [facility] Eosinophils Relative 2.1 % LAB HEMETOLOGY METHOD 07/01/2025 11:26 AM [facility] Basophils Relative 0.3 % LAB HEMETOLOGY METHOD 07/01/2025 11:26 AM [facility] Immature Granulocytes Relative 0.5 % LAB HEMETOLOGY METHOD 07/01/2025 11:26 AM EDT [facility] Neutrophils Absolute 6.56 1.50 - 7.00 K/mcL LAB HEMETOLOGY METHOD 07/01/2025 11:26 AM EDT [facility] Lymphocytes Absolute 1.27 1.00 - 5.00 K/mcL LAB HEMETOLOGY METHOD 07/01/2025 11:26 AM EDT [facility] Monocytes Absolute 1.07(H) 0.20 - 1.00 K/mcL LAB HEMETOLOGY METHOD 07/01/2025 11:26 AM EDT [facility] Eosinophils Absolute 0.19 0.00 - 0.50 K/Health system LAB HEMETOLOGY METHOD 07/01/2025 11:26 AM EDT [facility] Basophils Absolute 0.03 0.00 - 0.20 K/mcL LAB HEMETOLOGY METHOD 07/01/2025 11:26 AM EDT [facility] Immature Granulocytes Absolute 0.05(H) 0.00 - 0.03 K/Health system LAB HEMETOLOGY METHOD 07/01/2025 11:26 AM EDT [facility] Blood Venous blood specimen / Unknown Venipuncture / Unknown 07/01/2025 5:39 AM EDT 07/01/2025 10:03 AM EDT Cathleen GREENFIELD LAB BLOOD ORDERABLES Final Re sult [facility] [address] [place] [address], * (ABNORMAL) Iron and TIBC (07/01/2025 5:39 AM EDT) Iron 26(L) 50 - 160 mcg/dL LAB CHEMISTRY METHOD 07/01/2025 12:44 PM EDT [facility] TIBC 148(L) 250 - 450 mcg/dL LAB CHEMISTRY METHOD 07/01/2025 12:44 PM EDT [facility] Iron Saturation 18(L) 20 - 50 % LAB CHEMISTRY METHOD 07/01/2025 12:44 PM EDT [facility] Blood Venous blood specimen / Unknown Venipuncture / Unknown 07/01/2025 5:39 AM EDT 07/01/2025 10:03 AM EDT Cathleen GREENFIELD LAB BLOOD ORDERABLES Final Re sult Performing Organization Address City/[facility]/ZIP Co de Phone Number [facility] [address] [place] [address], [place] [phone] * Magnesium (06/30/2025 5:37 AM EDT) Pathologist [facility] Magnesium 2.3 1.9 - 2.6 mg/dL LAB CHEMISTRY METHOD 06/30/2025 12:12 PM EDT [facility] Blood Venous blood specimen / Unknown Venipuncture / Unknown 06/30/2025 5:37 AM EDT 06/30/2025 10:17 AM EDT Servando GREENFIELD LAB BLOOD ORDERABLES Final R esult Performing Organization Address City/[facility]/ZIP Co de Phone Number [facility] [address] [place] [address], [place] [phone] * (ABNORMAL) Hemoglobin A1c (04/09/2023) Pathologist [facility] Hemoglobin A1C 9.1(A) <=6.5 % Blood Venous [...] Result * Urine Albumin Creatinine Ratio (12/12/2022) Urine Albumin Creatinine Ratio abstracted Historical Provider HEALTH MAINTENANCE Final Result from Last 3 Months or Most Recently Relevant to Health Maintenance Additional Health Concerns Infection Onset Date Last Indicated MRSA 05/26/2025 05/26/[address] [place] [phone] MEDICARE [facility] Care Teams Sales Representative Groceries Relationship Specialty Start Date End Date Ne Dean MD [address] [place] [address] PCP - General 03/23/24
--- OUTSIDE RECORDS SUMMARY | 2025-09-20 11:42 | XMS_ITS | Encounter Summary ---
Author Organization [facility] Address [address] [place] [address] Care Team Providers Care Carpet Renovator Name Role Phone Ne Dean MD Primary Care Provider Encounter Details Date Type Department Care Team (Latest Contact Info) Description 05/11/2025 Lab Requisition [facility] Lab [address] [facility] [place] [address] Tom Guerin MD [address] [facility] [address] [place] [phone] Hydronephrosis with renal and ureteral calculous obstruction [...] Visit [facility] [address] [place] [address] Juan Padgett NP [address] [place] [address] Dr Katz [address] [place] [address] documented as of this encounter Procedures Procedure Name Priority Date/Time Associated Diagnosis Comments COMPLETE BLOOD COUNT Routine 05/11/2025 2:00 PM EDT Hydronephrosis with renal and ureteral calculous obstruction documented in this encounter Results * (ABNORMAL) Complete blood count (05/11/2025 2:00 PM EDT) WBC 10.5 4.8 - 10.8 K/mcL LAB HEMETOLOGY METHOD 05/11/2025 7:00 PM [facility] RBC 3.30(L) 4.50 - 5.50 M/mcL LAB HEMETOLOGY METHOD 05/11/2025 7:00 PM [facility] Hemoglobin 9.7(L) 13.5 - 17.5 g/dL LAB HEMETOLOGY METHOD 05/11/2025 7:00 PM [facility] Hematocrit 30.1(L) 42.0 - 54.0 % LAB HEMETOLOGY METHOD 05/11/2025 7:00 PM [facility] MCV 90.9 79.0 - 98.0 FL LAB HEMETOLOGY METHOD 05/11/2025 7:00 PM [facility] MCH 29.3 27.0 - 32.0 pcg LAB HEMETOLOGY METHOD 05/11/2025 7:00 PM [facility] MCHC 32.2 32.0 - 37.0 g/dL LAB HEMETOLOGY METHOD 05/11/2025 7:00 PM [facility] RDW 19.2(H) 11.0 - 15.0 % LAB HEMETOLOGY METHOD 05/11/2025 7:00 PM [facility] Platelets 322 130 - 400 K/mcL LAB HEMETOLOGY METHOD 05/11/2025 7:00 PM [facility] MPV 10.2 7.0 - 11.0 FL LAB HEMETOLOGY METHOD 05/11/2025 7:00 PM EDT [facility] NRBC 0.0 <1.0 % LAB HEMETOLOGY METHOD 05/11/2025 7:00 PM EDT [facility] NRBC Absolute 0.00 <0.10 K/mcL LAB HEMETOLOGY METHOD 05/11/2025 7:00 PM EDT [facility] Blood Venous blood specimen / Unknown 05/11/2025 2:00 PM EDT 05/11/2025 6:19 PM EDT us Tom Guerin MD LAB BLOOD ORDERABLES Final Resu lt [facility] [address] [place] [address], documented in this encounter Visit Diagnoses Diagnosis Hydronephrosis with renal and ureteral calculous obstruction documented in this encounter Additional Health Concerns Infection Onset Date Last Indicated Resolved Time MRSA 05/26/2025 05/26/2025 documented as of this encounter Care Teams Carpet Renovator Relationship Specialty Start Date End Date Ne Dean MD [address] [facility] [place] [address] PCP - General 03/23/24 documented as of this encounter
--- OUTSIDE RECORDS SUMMARY | 2025-09-20 11:42 | XMS_ITS | Encounter Summary ---
Author Organization [facility] Address [address] [place] [address] Care Team Providers Care Fermentation Engineer Name Role Phone Ne Dean MD Primary Care Provider [phone] Encounter Details Date Type Department Care Team (Late st Contact Info) Description 05/26/2025 Lab Requisition [facility] - Main Lab [address] [facility] [place] [address] Wan Sanchez Urinary tract infection, [...] 11/08/2025 1:40 PM EST Office Visit [facility] Cardiology Associates [facility] [address] [place] [address] Juan Padgett NP [address] [place] [address] Dr Katz [address] [place] [phone] documented as of this encounter Procedures Procedure Name Priority Date/Time Associated Diagnosis Comments CULTURE URINE Routine 05/26/2025 12:15 PM EDT Urinary tract infection, site not specified Hydronephrosis with renal and ureteral calculous obstruction documented in this encounter Results * (ABNORMAL) Culture urine (05/26/2025 12:15 PM EDT) Culture, Urine >=100,000 CFU/mL Methicillin-Resis tant Staphylococcus aureus(A) FLORES 05/28/2025 9:03 AM EDT [facility] Comment: Edited result: Previously reported as Gram Positive Cocci on 05/27/2025 at 0756 EDT. Urine Urine specimen obtained by clean catch procedure / Unknown 05/26/2025 12:15 PM EDT 05/26/2025 2:06 PM EDT Narrative Organism Antibiotic Method Susceptibility Methicillin-Resistant Staphylococcus aureus Benzylpenicillin FLROES >=0.5 ug/ml: Resistant Methicillin-Resistant Staphylococcus aureus Oxacillin [...] - GENERAL ORDER YADIRA Final Result [facility]) [facility] [address] [place] [address], documented in this encounter Visit Diagnoses Diagnosis Urinary tract infection, site not specified Hydronephrosis with renal and ureteral calculous obstruction documented in this encounter Additional Health Concerns Infection Onset Date Last Indicated Resolved Time 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
--- OUTSIDE RECORDS SUMMARY | 2025-09-20 11:42 | XMS_ITS | Encounter Summary ---
Author Organization [facility] Address [address] [place] [address] Care Team Providers Care Catering Chef Name Role Phone Ne Dean MD Primary Care Provider [phone] Encounter Details Date Type Department Care Team (Late st Contact Info) Description 06/30/2025 Lab Requisition [facility] - Main Lab 299 [facility] [place] [address] Servando Zuniga PA [address] [place] [address] 1 [place] [phone] Social History Tobacco Use Types Packs/Day Years [...] Description 11/08/2025 1:40 PM EST Office Visit [facility] Cardiology [facility] Medical Center [address]aneda [address] [place] [address] Juan Padgett NP [address] [place] [address] Dr Katz [address] [place] [address] Scheduled Orders Name Type Priority [...] documented as of this encounter Care Teams Catering Chef Relationship Specialty Start Date End Date Ne Dean MD [address] [place] [address] PCP - General 03/23/24 documented as of this encounter
--- OUTSIDE RECORDS SUMMARY | 2025-09-20 11:42 | XMS_ITS | Encounter Summary ---
Author Organization [facility] Address [address] [place] [address] Care Team Providers Care Specialty Therapist Name Role Phone Ne Dean MD Primary Care Provider [phone] Encounter Details Date Type Department Care Team (Late st Contact Info) Description 07/01/2025 Lab Requisition [facility] - Main Lab [address] [facility] [place] [address] Cathleen Bear PA [address] [place] [address] Social History Tobacco Use Types Packs/Day Years [...] [facility] Cardiology Associates [facility] [address]aneda [address] [place] [address] Juan Padgett NP [address] [place] [address] Dr Katz [address] [place] [address] Scheduled Orders Name Type Priority Associated [...] documented as of this encounter Care Teams Specialty Therapist Relationship Specialty Start Date End Date Ne Dean MD [address] [place] [address] PCP - General 03/23/24 documented as of this encounter
--- OUTSIDE RECORDS SUMMARY | 2025-09-20 11:42 | XMS_ITS | Encounter Summary ---
Author Organization [facility] Address [address] [place] [address] Care Team Providers Care Partition Assembly Machine Operator Name Role Phone Ne Dean MD Primary Care Provider [phone] Encounter Details Date Type Department Care Team (Late st Contact Info) Description 05/11/2025 Lab Requisition [facility] - Main Lab 299 [facility] [place] [address] Mary Chance PA [address] [facility] [address] [place] [address] Urinary tract infection, site not specified Social [...] Description 11/08/2025 1:40 PM EST Office Visit [facility] - Medical Center [address]aneda [address] [place] [address] Juan Padgett NP [address] [place] [address] Dr Katz [address] [place] [phone] documented as of this encounter Procedures Procedure Name Priority Date/Time Associated Diagnosis Comments CULTURE URINE Routine 05/11/2025 6:02 PM EDT Urinary tract infection, site not specified documented in this encounter Results * (ABNORMAL) Culture urine (05/11/2025 6:02 PM EDT) Culture, Urine >=100,000 CFU/mL Staphylococcus epidermidis(A) FLORES 05/13/2025 11:07 AM EDT [facility] Comment: Edited result: Previously reported [...] MICROBIOLOGY - GENERAL ORD ERABLES Final Result [facility] [address] [place] [address], documented in this encounter Visit Diagnoses Diagnosis Urinary tract infection, site not specified documented in this encounter Additional Health Concerns Infection Onset Date Last Indicated Resolved Time MRSA 05/26/2025 05/26/2025 documented as of this encounter Care Teams Partition Assembly Machine Operator Relationship Specialty Start Date End Date Ne Dean MD [address] [facility] [place] [phone] PCP - General 03/23/24 documented as of this encounter
--- OUTSIDE RECORDS SUMMARY | 2025-09-20 11:42 | XMS_ITS | Encounter Summary ---
Author Organization [facility] Address [address] [place] [address] Care Team Providers Care Malted Milk Masher Name Role Phone Ne Dean MD Primary Care Provider [phone] Encounter Details Date Type Department Care Team (Late st Contact Info) Description 06/30/2025 Lab Requisition [facility] - Main Lab 299 [facility] [place] [address] Servando Zuniga PA [address] [place] [address] 1 [place] [phone] Social History Tobacco Use Types Packs/Day Years [...] Office Visit [facility] Cardiology [facility] Medical Center [address]aneda [address] [place] [address] Juan Padgett NP [address] [place] [address] Dr Katz [address] [place] [address] Scheduled Orders Name Type Priority [...] documented as of this encounter Care Teams Malted Milk Masher Relationship Specialty Start Date End Date Ne Dean MD [address] [place] [address] PCP - General 03/23/24 documented as of this encounter
--- OUTSIDE RECORDS SUMMARY | 2025-09-20 11:42 | XMS_ITS | Encounter Summary ---
Author Organization [facility] Address [address] [place] [address] Care Team Providers Care Director Building Name Role Phone Ne Dean MD Primary Care Provider [phone] Encounter Details Date Type Department Care Team (Late st Contact Info) Description 06/30/2025 Lab Requisition [facility] - Main Lab 299 [facility] [place] [address] Servando Zuniga PA [address] [place] [address] 1 [place] [phone] Social History Tobacco Use Types Packs/Day Years [...] Description 11/08/2025 1:40 PM EST Office Visit [facility] Cardiology [facility] Medical Center [address]eda [address] [place] [address] Juan Padgett NP [address] [place] [address] Dr Katz 410 [place] [address] Scheduled Orders Name Type Priority [...] as of this encounter Care Teams Director Building Relationship Specialty Start Date End Date Ne Dean MD [address] [place] [address] PCP - General 03/23/24 documented as of this encounter
--- OUTSIDE RECORDS SUMMARY | 2025-09-20 11:43 | XMS_ITS | Encounter Summary ---
Author Organization [facility] Address [address] [place] [address] Care Team Providers Care Gymnastic Coach Name Role Phone Ne Dean MD Primary Care Provider [phone] Encounter Details Date Type Department Care Team (Late st Contact Info) Description 07/28/2025 Lab Requisition [facility] - Main Lab 299 [facility] [place] [address] Wan Sanchez MD [address] [facility] 120 [place] [address] Urinary tract infection, site not specified; Hydronephrosis [...] Description 11/08/2025 1:40 PM EST Office Visit [facility] Associates [facility] [address]aneda [address] [place] [phone] Juan Padgett NP [address] [place] [address] Dr Katz [address] [place] [address] documented as of this encounter Visit Diagnoses Diagnosis Urinary tract infection, site not specified Hydronephrosis with ureteral stricture, not elsewhere classified documented in this encounter Additional Health Concerns Infection Onset Date Last Indicated Resolved Time MRSA 05/26/2025 05/26/2025 documented as of this encounter Care Teams Gymnastic Coach Relationship Specialty Start Date End Date Ne Dean MD [address] [place] [address] PCP - General 03/23/24 documented as of this encounter
--- OUTSIDE RECORDS SUMMARY | 2025-09-20 11:43 | XMS_ITS | Encounter Summary ---
Author Organization [facility] Address [address] [place] [address] Care Team Providers Care Inset Cutter Name Role Phone Ne Dean MD Primary Care Provider Encounter Details Date Type Department Care Team (Late st Contact Info) Description 07/11/2025 Lab Requisition [facility] - Main Lab 299 [facility] [place] [address] Marjorie Alva PA [address] [place] [address] Encounter for other general examination Social History [...] Description 11/08/2025 1:40 PM EST Office Visit [facility] Cardiology [facility] - Medical Center [address]eda [address] [place] [address] Juan Padgett NP [address] [place] [address] Dr Katz [address] [place] [address] [phone] (work) documented as of this encounter Procedures [...] K/mcL LAB HEMETOLOGY METHOD 07/11/2025 12:39 PM [facility] RBC 2.90(L) 4.50 - 5.50 M/mcL LAB HEMETOLOGY METHOD 07/11/2025 12:39 PM [facility] Hemoglobin 9.3(L) 13.5 - 17.5 g/dL LAB HEMETOLOGY METHOD 07/11/2025 12:39 PM [facility] Hematocrit 29.4(L) 42.0 - 54.0 % LAB HEMETOLOGY METHOD 07/11/2025 12:39 PM [facility] MCV 100.7(H) 79.0 - 98.0 FL LAB HEMETOLOGY METHOD 07/11/2025 12:39 PM [facility] MCH 31.8 27.0 - 32.0 pcg LAB HEMETOLOGY METHOD 07/11/2025 12:39 PM [facility] MCHC 31.6(L) 32.0 - 37.0 g/dL LAB HEMETOLOGY METHOD 07/11/2025 12:39 PM [facility] RDW 16.2(H) 11.0 - 15.0 % LAB HEMETOLOGY METHOD 07/11/2025 12:39 PM [facility] Platelets 336 130 - 400 K/mcL LAB HEMETOLOGY METHOD 07/11/2025 12:39 PM EDT [facility] MPV 10.6 7.0 - 11.0 FL LAB HEMETOLOGY METHOD 07/11/2025 12:39 PM EDT [facility] NRBC 0.0 <1.0 % LAB HEMETOLOGY METHOD 07/11/2025 12:39 PM EDT [facility] NRBC Absolute 0.00 <0.10 K/mcL LAB HEMETOLOGY METHOD 07/11/2025 12:39 PM EDT [facility] Blood Venous blood specimen / Unknown Venipuncture / Unknown 07/11/2025 5:15 AM EDT 07/11/2025 10:10 AM EDT us Marjorie GREENFIELD LAB BLOOD ORDERABLES Final Resul t [facility] [address] [place] [address], * (ABNORMAL) Basic metabolic panel (07/11/2025 5:15 [...] LAB CHEMISTRY METHOD 07/11/2025 1:02 PM EDT [facility] BUN 31(H) 5 - 25 mg/dL LAB CHEMISTRY METHOD 07/11/2025 1:02 PM EDT [facility] Creatinine 1.47(H) 0.70 - 1.30 mg/dL LAB CHEMISTRY METHOD 07/11/2025 1:02 PM T [facility] eGFR 49(L) >=60 mL/min/1. 73m2 LAB CHEMISTRY METHOD 07/11/2025 1:02 PM EDT [facility] Comment:Calculation based on the Chronic Kidney Disease Epidemiology Collaboration (CKD-EPI) equation refit without adjustment for race. BUN/Creatinine Ratio 21.1 LAB CHEMISTRY METHOD 07/11/2025 1:02 PM EDT [facility] Calcium 9.3 8.5 - 10.5 mg/dL LAB CHEMISTRY METHOD 07/11/2025 1:02 PM T [facility] Blood Venous blood specimen / Unknown Venipuncture / Unknown 07/11/2025 5:15 AM EDT 07/11/2025 10:10 AM EDT Marjorie GREENFIELD LAB BLOOD ORDERABLES Final Resul t [facility] [address] [place] [address], documented in this encounter Visit Diagnoses Diagnosis Encounter for other general examination documented in this encounter Additional Health Concerns Infection Onset Date Last Indicated Resolved Time MRSA 05/26/2025 05/26/2025 documented as of this encounter Care Teams Inset Cutter Relationship Specialty Start Date End Date Ne Dean MD [address] [place] [address] PCP - General 03/23/24 documented as of this encounter
--- OUTSIDE RECORDS SUMMARY | 2025-09-20 11:43 | XMS_ITS | Encounter Summary ---
Author Organization [facility] Address [address] [place] [address] Care Team Providers Care Clam Sorter Name Role Phone Ne Dean MD Primary Care Provider [phone] Encounter Details Date Type Department Care Team (Late st Contact Info) Description 07/06/[address] [facility] - Main Lab 299 [facility] [place] [address] Kendal Man PA [address] [place] [phone] Encounter for other general examination Social History [...] Office Visit [facility] Cardiology Associates - [facility] [address]aneda [address] [place] [address] Juan Padgett NP [address] [place] [address] Dr Katz [address] [place] [address] documented as of this encounter [...] mmol/L LAB CHEMISTRY METHOD 07/06/2025 11:32 AM [facility] Potassium 4.4 3.5 - 5.5 mmol/L LAB CHEMISTRY METHOD 07/06/2025 11:32 AM [facility] Chloride 108 96 - 110 mmol/L LAB CHEMISTRY METHOD 07/06/2025 11:32 AM [facility] CO2 22 21 - 32 mmol/L LAB CHEMISTRY METHOD 07/06/2025 11:32 AM [facility] Anion Gap 7 3 - 11 LAB CHEMISTRY METHOD 07/06/2025 11:32 AM [facility] Glucose 172(H) 70 - 100 mg/dL LAB CHEMISTRY METHOD 07/06/2025 11:32 AM [facility] BUN 25 5 - 25 mg/dL LAB CHEMISTRY METHOD 07/06/2025 11:32 AM [facility] Creatinine 1.30 0.70 - 1.30 mg/dL LAB CHEMISTRY METHOD 07/06/2025 11:32 AM [facility] eGFR 57(L) >=60 mL/min/1. 73m2 LAB CHEMISTRY METHOD 07/06/2025 11:32 AM [facility] Comment:Calculation based on the Chronic Kidney Disease Epidemiology Collaboration (CKD-EPI) equation refit without adjustment for race. BUN/Creatinine Ratio 19.2 LAB CHEMISTRY METHOD 07/06/2025 11:32 AM [facility] Calcium 8.7 8.5 - 10.5 mg/dL LAB CHEMISTRY METHOD 07/06/2025 11:32 AM EDT [facility] AST (SGOT) 17 10 - 42 unit/L LAB CHEMISTRY METHOD 07/06[facility]2025 11[facility] ALT (SGPT) 62(H) 10 - 60 unit/L LAB CHEMISTRY METHOD 07/06/2025 11:32 AM EDT [facility] Alkaline Phosphatase 80 42 - 121 unit/L LAB CHEMISTRY METHOD 07/06/2025 11:32 AM EDT [facility] Total Protein 6.5 6.0 - 8.0 g/dL LAB CHEMISTRY METHOD 07/06/2025 11:32 AM [facility] Albumin 2.4(L) 3.2 - 5.0 g/dL LAB CHEMISTRY METHOD 07/06/2025 11:32 AM [facility] Total Bilirubin 0.4 0.0 - 1.4 mg/dL LAB CHEMISTRY METHOD 07/06/2025 11:32 AM [facility] Blood Venous blood specimen / Unknown Venipuncture / Unknown 07/06/2025 5:10 AM EDT 07/06/2025 9:53 AM EDT us Kendal GREENFIELD LAB BLOOD ORDERABLES Final Re sult [facility] [address] [place] [address], * (ABNORMAL) Complete blood count (07/06/2025 5:10 AM EDT) WBC 7.7 4.8 - 10.8 K/mcL LAB HEMETOLOGY METHOD 07/06/2025 10:39 AM EDT [facility] RBC 2.60(L) 4.50 - 5.50 M/mcL LAB HEMETOLOGY METHOD 07/06/2025 10:39 AM [facility] Hemoglobin 8.3(L) 13.5 - 17.5 g/dL LAB HEMETOLOGY METHOD 07/06/2025 10:39 AM [facility] Hematocrit 26.4(L) 42.0 - 54.0 % LAB HEMETOLOGY METHOD 07/06/2025 10:39 AM [facility] MCV 101.1(H) 79.0 - 98.0 FL LAB HEMETOLOGY METHOD 07/06/2025 10:39 AM [facility] MCH 31.8 27.0 - 32.0 pcg LAB HEMETOLOGY METHOD 07/06/2025 10:39 AM [facility] MCHC 31.4(L) 32.0 - 37.0 g/dL LAB HEMETOLOGY METHOD 07/06/2025 10:39 AM [facility] RDW 15.9(H) 11.0 - 15.0 % LAB HEMETOLOGY METHOD 07/06/2025 10:39 AM [facility] Platelets 285 130 - 400 K/mcL LAB HEMETOLOGY METHOD 07/06/2025 10:39 AM [facility] MPV 10.7 7.0 - 11.0 FL LAB HEMETOLOGY METHOD 07/06/2025 10:39 AM [facility] NRBC 0.0 <1.0 % LAB HEMETOLOGY METHOD 07/06/2025 10:39 AM [facility] NRBC Absolute 0.00 <0.10 K/mcL LAB HEMETOLOGY METHOD 07/06/2025 10:39 AM [facility] Blood Venous blood specimen / Unknown Venipuncture / Unknown 07/06/2025 5:10 AM EDT 07/06/2025 9:53 AM EDT us Kendal GREENFIELD LAB BLOOD ORDERABLES Final Re sult [facility] [address] [place] [address], documented in this encounter Visit Diagnoses Diagnosis Encounter for other general examination documented in this encounter Additional Health Concerns Infection Onset Date Last Indicated Resolved Time MRSA 05/26/2025 05/26/2025 documented as of this encounter Care Teams Clam Sorter Relationship Specialty Start Date End Date Ne Dean MD [address] [place] [address] PCP - General 03/23/24 documented as of this encounter
--- OUTSIDE RECORDS SUMMARY | 2025-09-20 11:43 | XMS_ITS | Encounter Summary ---
Author Organization [facility] Address [address] [place] [address] Care Team Providers Care Capacity Analyst Name Role Phone Ne Dean MD Primary Care Provider [phone] Encounter Details Date Type Department Care Team (Late st Contact Info) Description 07/28/2025 Lab Requisition [facility] - Main Lab 299 [facility] [place] [address] Wan Sanchez MD [address] [facility] 120 [place] [address] Urinary tract infection, site not specified Social [...] Description 11/08/2025 1:40 PM EST Office Visit [facility] Cardiology Associates - Medical Center [address] Castaneda [address] [place] [address] Juan Padgett NP [address] [address] Dr Katz [address] [place] [address] (work) documented as of this encounter Procedures Procedure Name Priority Date/Time Associated Diagnosis Comments CULTURE URINE Routine 07/28/2025 11:30 AM EDT Urinary tract infection, site not specified documented in this encounter Results * (ABNORMAL) Culture urine (07/28/2025 11:30 AM EDT) Culture, Urine >=100,000 CFU/mL Escherichia coli(A) FLORES 07/30/2025 8:05 AM EDT [facility] Culture, Urine 50,000-100,000 CFU/mL Klebsiella pneumoniae ssp pneumoniae(A) FLORES 07/30/2025 8:05 AM EDT [facility] Comment: The organism value for [...] MICROBIOLOGY - GENERAL ORDER YADIRA Final Result [facility] [address] [place] [address], documented in this encounter Visit Diagnoses Diagnosis Urinary tract infection, site not specified documented in this encounter Additional Health Concerns Infection Onset Date Last Indicated Resolved Time MRSA 05/26/2025 05/26/2025 documented as of this encounter Care Teams Capacity Analyst Relationship Specialty Start Date End Date Ne Dean MD [address] [place] [address] PCP - General 03/23/24 documented as of this encounter
--- OUTSIDE RECORDS SUMMARY | 2025-09-20 11:43 | XMS_ITS | Encounter Summary ---
Author Organization [facility] Address [address] [place] [address] Care Team Providers Care Hospice Care Sales Consultant Name Role Phone Ne Dean MD Primary Care Provider Encounter Details Date Type Department Care Team (Late st Contact Info) Description 07/05/2025 Lab Requisition [facility] - Main Lab 299 [facility] [place] [address] Kendal Man PA [address] [place] [phone] Encounter for other general examination Social History [...] Description 11/08/2025 1:40 PM EST Office Visit [facility] Cardiology Associates - [facility] [address]aneda [address] [place] [address] Juan Padgett NP [address] [place] [address] Dr Katz [address] [place] [address] documented as of this encounter [...] mmol/L LAB CHEMISTRY METHOD 07/05/2025 10:23 AM [facility] Potassium 4.4 3.5 - 5.5 mmol/L LAB CHEMISTRY METHOD 07/05/2025 10:23 AM [facility] Chloride 109 96 - 110 mmol/L LAB CHEMISTRY METHOD 07/05/2025 10:23 AM [facility] CO2 20(L) 21 - 32 mmol/L LAB CHEMISTRY METHOD 07/05/2025 10:23 AM [facility] Anion Gap 9 3 - 11 LAB CHEMISTRY METHOD 07/05/2025 10:23 AM [facility] Glucose 188(H) 70 - 100 mg/dL LAB CHEMISTRY METHOD 07/05/2025 10:23 AM [facility] BUN 28(H) 5 - 25 mg/dL LAB CHEMISTRY METHOD 07/05/2025 10:23 AM [facility] Creatinine 1.47(H) 0.70 - 1.30 mg/dL LAB CHEMISTRY METHOD 07/05/2025 10:23 AM [facility] eGFR 49(L) >=60 mL/min/1. 73m2 LAB CHEMISTRY METHOD 07/05/2025 10:23 AM [facility] Comment:Calculation based on the Chronic Kidney Disease Epidemiology Collaboration (CKD-EPI) equation refit without adjustment for race. BUN/Creatinine Ratio 19.0 LAB CHEMISTRY METHOD 07/05/2025 10:23 AM [facility] Calcium 8.7 8.5 - 10.5 mg/dL LAB CHEMISTRY METHOD 07/05/2025 10:23 AM [facility] AST (SGOT) 23 10 - 42 unit/L LAB CHEMISTRY METHOD 07/05/2025 10:23 AM [facility] ALT (SGPT) 79(H) 10 - 60 unit/L LAB CHEMISTRY METHOD 07/05/2025 10:23 AM [facility] Alkaline Phosphatase 77 42 - 121 unit/L LAB CHEMISTRY METHOD 07/05/2025 10:23 AM [facility] Total Protein 6.3 6.0 - 8.0 g/dL LAB CHEMISTRY METHOD 07/05/2025 10:23 AM [facility] Albumin 2.4(L) 3.2 - 5.0 g/dL LAB CHEMISTRY METHOD 07/05/2025 10:23 AM [facility] Total Bilirubin 0.3 0.0 - 1.4 mg/dL LAB CHEMISTRY METHOD 07/05/2025 10:23 AM [facility] Blood Venous blood specimen / Unknown Venipuncture / Unknown 07/05/2025 5:09 AM EDT 07/05/2025 9:11 AM EDT us Kendal GREENFIELD LAB BLOOD ORDERABLES Final Re sult [facility] [address] [place] [address], * (ABNORMAL) Complete blood count (07/05/2025 5:09 AM EDT) WBC 7.3 4.8 - 10.8 [facility] LAB HEMETOLOGY METHOD 07/05/2025 9:48 AM [facility] RBC 2.60(L) 4.50 - 5.50 M/mcL LAB HEMETOLOGY METHOD 07/05/2025 9:48 AM [facility] Hemoglobin 8.0(L) 13.5 - 17.5 g/dL LAB HEMETOLOGY METHOD 07/05/2025 9:48 AM [facility] Hematocrit 25.1(L) 42.0 - 54.0 % LAB HEMETOLOGY METHOD 07/05/2025 9:48 AM [facility] MCV 98.4(H) 79.0 - 98.0 FL LAB HEMETOLOGY METHOD 07/05/2025 9:48 AM [facility] MCH 31.4 27.0 - 32.0 pcg LAB HEMETOLOGY METHOD 07/05/2025 9:48 AM [facility] MCHC 31.9(L) 32.0 - 37.0 g/dL LAB HEMETOLOGY METHOD 07/05/2025 9:48 AM [facility] RDW 15.6(H) 11.0 - 15.0 % LAB HEMETOLOGY METHOD 07/05/2025 9:48 AM [facility] Platelets 283 130 - 400 K/mcL LAB HEMETOLOGY METHOD 07/05/2025 9:48 AM [facility] MPV 10.2 7.0 - 11.0 FL LAB HEMETOLOGY METHOD 07/05/2025 9:48 AM [facility] NRBC 0.0 <1.0 % LAB HEMETOLOGY METHOD 07/05/2025 9:48 AM [facility] NRBC Absolute 0.00 <0.10 K/mcL LAB HEMETOLOGY METHOD 07/05/2025 9:48 AM [facility] Blood Venous blood specimen / Unknown Venipuncture / Unknown 07/05/2025 5:09 AM EDT 07/05/2025 9:11 AM EDT us Kendal GREENFIELD LAB BLOOD ORDERABLES Final Re sult [facility] [address] [place] [address], documented in this encounter Visit Diagnoses Diagnosis Encounter for other general examination documented in this encounter Additional Health Concerns Infection Onset Date Last Indicated Resolved Time MRSA 05/26/2025 05/26/2025 documented as of this encounter Care Teams Hospice Care Sales Consultant Relationship Specialty Start Date End Date Ne Dean MD [address] [place] [address] PCP - General 03/23/24 documented as of this encounter
--- OUTSIDE RECORDS SUMMARY | 2025-09-20 11:43 | XMS_ITS ---
Author Name [facility] Organization Unknown Care Team Organization Name Specialty Phone Email Start Date End Da te [facility] Phyllis Thomas [facility] 09/17/20232023
--- OUTSIDE RECORDS SUMMARY | 2025-09-20 11:43 | XMS_ITS | Encounter Summary ---
Author Organization [facility] Address [address] [place] [address] Care Team Providers Care Beater Room Helper Name Role Phone Ne Dean MD Primary Care Provider [phone] Encounter Details Date Type Department Care Team (Late st Contact Info) Description 07/11/2025 Lab Requisition [facility] - Main Lab [address] [facility] [place] [address] Wan Sanchez MD [address] [facility] [address] [place] [address] Urinary tract infection, site not specified; Retention [...] Office Visit [facility] Cardiology [facility] [address] [place] [address] uJan Padgett NP [address] [place] [address] Dr Katz [address] [place] [address] documented as of this encounter Procedures Procedure Name Priority Date/Time Associated Diagnosis Comments CULTURE URINE Routine 07/11/2025 11:30 AM EDT Urinary tract infection, site not specified Retention of urine, unspecified documented in this encounter Results * Culture urine (07/11/2025 11:30 AM EDT) Culture, Urine No growth 07/12/2025 2:[address] [facility] Urine Urine specimen obtained by clean catch procedure / Unknown 07/11/2025 11:30 AM EDT 07/11/2025 6:25 PM EDT us Wan Sanchez MD LAB MICROBIOLOGY - GENERAL ORDER YADIRA Final Result [facility] [address] [place] [address], documented in this encounter Visit Diagnoses Diagnosis Urinary tract infection, site not specified Retention of urine, unspecified documented in this encounter Additional Health Concerns Infection Onset Date Last Indicated Resolved Time MRSA 05/26/2025 05/26/2025 documented as of this encounter Care Teams Beater Room Helper Relationship Specialty Start Date End Date Ne Dean MD [address] [place] [address] PCP - General 03/23/24 documented as of this encounter
--- OUTSIDE RECORDS SUMMARY | 2025-09-20 11:43 | XMS_ITS | Encounter Summary ---
Author Organization [facility] Address [address] [place] [address] Care Team Providers Care Dermatological Surgeon Name Role Phone Ne Dean MD Primary Care Provider [phone] Encounter Details Date Type Department Care Team (Late st Contact Info) Description 07/12/2025 Lab Requisition [facility] - Main Lab [address] [facility] [address] Kendal Man PA [address] [place] [id number] Encounter for other general examination Social History [...] Description 11/08/2025 1:40 PM EST Office Visit [facility] [address] [place] [address] Juan Padgett NP [address] [place] [address] Dr Katz [address] [place] [address] documented as of this encounter Procedures [...] LAB CHEMISTRY METHOD 07/12/2025 10:36 AM EDT [facility] Calcium 9.5 8.5 - 10.5 mg/dL LAB CHEMISTRY METHOD 07/12/2025 10:36 AM T [facility] AST (SGOT) 16 10 - 42 unit/L LAB CHEMISTRY METHOD 07/12/2025 10:36 AM [facility] ALT (SGPT) 30 10 - 60 unit/L LAB CHEMISTRY METHOD 07/12/2025 10:36 AM T [facility] Alkaline Phosphatase 94 42 - [...] Final Re sult [facility] [address] [place] [address], * (ABNORMAL) Complete blood count (07/12/2025 4:49 AM EDT) WBC 11.0(H) 4.8 - 10.8 K/mcL LAB HEMETOLOGY METHOD 07/12/2025 9:36 AM [facility] RBC 3.30(L) 4.50 - 5.50 M/mcL LAB HEMETOLOGY METHOD 07/12/2025 9:36 AM [facility] [...] [facility] BLOOD ORDERABLES Final Re sult [facility]) [facility] [address] [place] [address], documented in this encounter Visit Diagnoses Diagnosis Encounter for other general examination documented in this encounter Additional Health Concerns Infection Onset Date Last Indicated Resolved Time MRSA 05/26/2025 05/26/2025 documented as of this encounter Care Teams Dermatological Surgeon Relationship Specialty Start Date End Date Ne Dean MD [address] [place] [address] PCP - General 03/23/24 documented as of this encounter
== END 2025-09-20 16:20 | disposition home or self-care (01) ==
LOC: HO.HMCC 09:47
PROVIDERS: PCP Internal Medicine; Visit Provider Internal Medicine
DX: E11.9 Type 2 diabetes mellitus without complications (principal); I10 Essential (primary) hypertension; E78.5 Hyperlipidemia, unspecified; N20.0 Calculus of kidney; Z00.00 Encounter for general adult medical examination without abnormal findings

== ENCOUNTER 2025-09-20 09:47 | Outpatient (REF) | payer MEDICARE, SELFPAY ==
--- OUTSIDE RECORDS SUMMARY | 2025-09-20 13:47 | XMS_ITS | Data Portability ---
Author Organization [place] - [facility], Allergy Address [address] [address] Assessment Encounter Date Assessment Date Assessment LastModified by Organization Details LastModified Time 04/22/2024 04/22/2024 swopped out hearing aids using rapid repair - had already transferred settings - need to remove programs - just wants universal and VC options only - KENYATTA hot mill observer down - made appt for next week - linked aids and downloaded hunter - has new Iphone [email or web address] Not available 04/22/2024 11:11:44 07/28/2025 07/28/2025 Programmed aids to current HT. Excellent fit to NAL2 real ear target. Reviewed daily care and maintenance. Linked aids to IPhone. F/U PRN. [email or web address] Not available 07/28/2025 17:02:19 Plan of Treatment [...] Sensorine ural hearing loss of bilateral ears [id number] Active 2015 Sensorineu ral hearing loss, bilateral; Note: Date Diagnosed: 07/19/2016 1:31 PM (H90.3) Not Available [facility] 03:12:53 Sensorine ural hearing loss of bilateral ears [id number] Active 2024 EDA SCHMIDT, AUD 100 [facility],[place] [address], [place], [address] , [facility] 16:50:48 Problem Notes None recorded. Procedures Surgical History Date Name Laterality Status Provider Name and Address Organization Details Recorded Time 07/28/2025 Air & Speech Audio - 03890 & 98305 completed EDA SCHMIDT, AUD [address] [facility],[place] [address], [place], [address], [facility] 07/28/2025 16:50:59 04/27/2024 Air only Audio - 58494 completed LEFTY CARRILLO, [facility] 100 [facility],[place] [address], [place], [address], [facility] 05/04/2024 12:11:30 Imaging Results None recorded. [...] [id number] THOM KEN[place]ICK [place] 100 [facility] 100 [place] [address] 04/22/2024 10:38:40 04/26/2024 15:21:18 Sensorineural hearing loss of bilateral ears [id number] H90.3 [id number] [facility] [address] [place] [address] 04/27/2024 11:40:38 04/30/2024 08:09:40 Sensorineural hearing loss of bilateral ears [id number] H90.3 [id number] THOM KENDRICK [place] 100 [facility] 100 [place] [address] 07/28/2025 15:59:26 07/29/2025 13:46:35 Sensorineural hearing loss of bilateral ears [id number] H90.3 [id number] Audiologic al evaluation results: 07/28/2025 Right ear: [...] ID Guarantor Name 07/28/2025 1 [place] [employer] SERVICES Lemuel Lott [id number] 1 Lemuel Lott 07/29/2025 2 [place] [id number] Lemuel Lott [id number] Lemuel Lott Notes Date Note Type Note Provider Name and Address Organization Details Recorded Time 04/22/2024 text/html Known bilateral SNHL. Currently wearing Widex Moment [address] R hearing aids dispensed 05/20/2021 EDA SCHMIDT, AUD [address] [facility],[place] [address], [place], [address], [facility] 04/22/2024 11:12:21 04/27/2024 text/html Eda accidently scheduled him on a day she was scheduled in [facility] to cover. He was in the waiting [...] if problems occur. LEFTY CARRILLO, AUD 100 [facility],[address], [address], [facility] 05/04/2024 12:12:01 07/28/2025 text/html Patient has a known bilateral SNHL. He lost his Widex hearing aids during a recent hospitalization. The facility in covering the replacement cost. Recommended Widex Allure [address] R hearing aids in a silver nassar color #2 R/L M receivers medium vented sleeve domes $5182. HINA 07/28/2025. EDA SCHMIDT, AUD 100 [facility],[place] [address], [place], [address], [facility] 07/28/2025 17:02:39
--- OUTSIDE RECORDS SUMMARY | 2025-09-20 13:47 | XMS_ITS | Continuity of Care Document ---
Author Organization [place] - [facility] [place] [place] [facility] Address [address] [address] Assessment Encounter Date Assessment Date Assessment LastModified by Organization Details LastModified Time 07/28/2025 07/28/2025 Programmed aids to current HT. Excellent fit to NAL2 real ear target. Reviewed daily care and maintenance. Linked aids to IPhone. F/U PRN. [email or web address] Not available 07/28/2025 17:02:19 Plan of Treatment [...] Sensorine ural hearing loss of bilateral ears [id number] Active 2015 Sensorineu ral hearing loss, bilateral; Note: Date Diagnosed: 07/19/2016 1:31 PM (H90.3) Not Available [facility] 03:12:53 Sensorine ural hearing loss of bilateral ears 963741760 Active 2024 EDA SCHMIDT, THOM 100 [facility],[place] [address], [place], [address] , [place] - [facility] [place] 5 16:50:48 Problem Notes None recorded. Procedures Surgical History Date Name Laterality Status Provider Name and Address Organization Details Recorded Time 07/28/2025 Air & Speech Audio - 65470 & 67638 completed EDA SCHMIDT, AUD 100 [facility] 100, [place], [address], [place] - [facility] 07/28/2025 16:50:59 04/27/2024 Air only Audio - 44550 completed LEFTY CARRILLO, AUD 100 [facility] 100, [place], [address], [facility] - [facility] 05/04/2024 12:11:30 Imaging Results None recorded. Procedure [...] ICD10 Code Diagnosis IMO Codes Diagnosis Note [id number] THOM KENDRICK [place] 100 [facility] 100 [place] [address] 07/28/2025 15:59:26 07/29/2025 13:46:35 Sensorineural hearing loss of bilateral ears [id number] H90.3 [id number] Audiologic al evaluation results: 07/28/2025 Right ear: [...] ID Guarantor Name 07/28/2025 1 [place] [employer] SERVICES Lemuel Lott [id number] 1 Lemuel Lott 07/28/2025 2 [place] [id number] Lemuel Lott [id number] Lemuel Lott Notes Date Note Type [...] sleeve domes $5182. HINA 07/28/2025. EDA SCHMIDT, [address],[place] [address], [place], [address], [facility] - [facility] 07/28/2025 17:02:39
[2025-09-20 15:18] LABS: Iron 49 mcg/dL (45-160); Percent Iron Saturation 22 % (15-50); Total Iron Binding Capacity 219 mcg/dL (228-428); Unsaturated Iron Binding 170 ug/dL
[2025-09-20 15:35] LABS: Folate 5.2 ng/mL (> or = 4.0); Vitamin B12 288 pg/mL (200-900)
== END 2025-09-20 09:48 | disposition home or self-care (01) ==
LOC: HO.HMGCLDS 09:47
PROVIDERS: PCP Internal Medicine; Visit Provider Internal Medicine
DX: I10 Essential (primary) hypertension (principal); E78.5 Hyperlipidemia, unspecified; E11.9 Type 2 diabetes mellitus without complications; E53.8 Deficiency of other specified B group vitamins; D64.9 Anemia, unspecified; N20.0 Calculus of kidney
CPT/HCPCS: 36415; 82607; 82746; 83540